=== PATIENT | female | born 1990 | race Caucasian/White ===

== ENCOUNTER 2023-12-03 15:16 | Emergency (ER) | payer MEDICARE, OTHER, SELFPAY ==
[2023-12-03 15:18] VITALS: BP 141/100; BMI 66.0
[2023-12-03 18:25] LABS: % Basophils 0.8 % (0-2); % Eosinophils 4.8 % (0-6); % Immature Granulocytes 0.1 % (0-0.5); % Lymphocytes 21.5 % (20.5-51.1); % Monocytes 7.1 % (1.7-9.3); % Neutrophils 65.7 % (42.2-75.2); Absolute Basophils 0.1 10^3/uL (0-0.2); Absolute Eosinophils 0.4 10^3/uL (0-0.7); Absolute Lymphocytes 1.6 10^3/uL (1.2-3.4); Absolute Monocytes 0.5 10^3/uL (0.1-0.6); Hemoglobin 10.5 g/dL (12.0-16.0); Mean Corp Hgb Conc. 31.8 g/dL (33.0-37.0); Mean Corpuscular Hgb 23.1 pg (27.0-31.0); Mean Corpuscular Volume 72.5 fL (81.0-99.0); Mean Platelet Volume 8.7 fL (7.4-10.4); Nucleated Red Blood Cells % 0 %; Platelet Count 421 10^3/uL (130-400); Red Blood Cell Count 4.55 10^6/uL (4.20-5.40); Red Cell Dist. Width 17.2 % (11.5-14.5); White Blood Cell Count 7.6 10^3/uL (4.8-10.8)
[2023-12-03] MEDS: TORADOL 15 MG IV (19:29)
[2023-12-03 20:07] LABS: ALT (SGPT) 29 U/L (0-35); AST (SGOT) 20 U/L (14-36); Albumin 3.2 g/dl (3.5-5.0); Alkaline Phosphatase 93 U/L (38-126); Blood Urea Nitrogen 10 mg/dl (7-17); Calcium 8.5 mg/dl (8.4-10.2); Carbon Dioxide 22 mmol/L (22-30); Chloride 110 mmol/L (98-107); Estimated Creatinine Clearance > 125 ml/min; Glucose 94 mg/dl (70-99); Potassium 3.3 mmol/L (3.5-5.1); Sodium 135 mmol/L (135-145); Total Bilirubin 0.3 mg/dl (0.2-1.3); Total Protein 6.1 g/dl (6.3-8.2); eGFR > 60.00
[2023-12-03 21:02] LABS: HCG, Serum Qualitative Screen Negative
[2023-12-03] MEDS: DILAUDID 0.5 MG IV (21:09)
--- NOTE | 2023-12-03 22:42 | ED.SKININJ ---
HPI-Injury
General
Chief Complaint: Skin Problem
Source: patient
Exam Limitations: none
Time Seen by Provider: 12/03/23 16:16
Nursing documentation reviewed up to this point in time: agreed with
Travel History
Have you had any contact with someone who has COVID-19?: No
Do you have any symptoms of coronavirus? Fever > 100 degrees, chills, cough, shortness of breath, sore throat, loss of taste or smell, muscle aches, or headache?: No
History of Present Illness-Injury
Is this injury a work related problem?: No
Is pt an associate of [facility]?: No
Initial Injury comments:
Patient sent to ED for evaluation of erythema and swelling to pannus of abdomen, pubis. Patient states symptoms started 2-3 days ago. Denies any fever or chills. Brought to ED via EMS for eval. Currently living at [place]. States she was at
[facility] after suicide attempt. States she was sent to [place] after discharge for rehab. States she is unable to return home.
Past History
Past History
ED Past Medical History: Asthma, GERD, NIDDM, Hypothyroidism and Psychiatric (anxiety, depression)
Review of Systems
Review of Systems
Allergies reviewed?: Yes
All Other Systems: ROS reviewed and negative except as documented in HPI and ROS
Constitutional: Reports no symptoms
EENT: Reports no symptoms
Respiratory: Reports no symptoms
Cardiac: Reports no symptoms
ABD/GI: Reports other (Cellulitis to abdominal pannis)
: Reports no symptoms
Musculoskeletal: Reports no symptoms
Skin: Reports other (erythema of abdominal pannus. Erythema and swelling to pubis)
Neurological: Reports no symptoms
Psychiatric: Reports no symptoms
Phy Exam
General Physical Exam
General Presentation: well appearing and no apparent distress
General age: appears stated age
General Skin: warm and dry
General Habitus: normal
General Mental: alert
Musculoskeletal Exam
Musculoskeletal Exam: neuro vasc intact
Skin Exam
Skin Exam: warm/dry, no rash and other (erythema pain swelling to abdominal pannus and pubis consistent with cellulitis)
Psychiatric Exam
Psychiatric Exam: normal mood/affect
Course
Orders/Labs/Results
Orders:
Orders
12/03/23 18:05
Wound Culture [Wound/Abscess/Other Culture] Urgent
DENNIS Source: Abdomen
Specimen Description:
Date Specimen was Collected: 12/03/23
Time Specimen was Collected: 17:09
12/03/23 18:20
Complete Blood Count/With Diff Urgent
12/03/23 19:20
Ketorolac [Toradol] 15 mg IV NOW STA
12/03/23 19:41
Comprehensive Metabolic Panel Urgent
HCG, Serum Qualitative Screen Urgent
12/03/23 20:22
CT Abd/pelvis W Iv Cont Urgent
Comment:
Reason For Exam: pain erythema pannus, pubis
12/03/23 20:31
Add On- LAB Urgent
Tests Added?: serum hcg- qualitative
12/03/23 20:52
HYDROmorphone [Dilaudid] 0.5 mg IV NOW STA
12/03/23 23:18
CeFAZolin 1 GRAM [Ancef] 1 gram in 5 ml IV NOW
Abnormal Lab Results
12/03/23 12/03/23
18:20 19:41
Hgb 10.5 L g/dL
(12.0-16.0)
Hct 33.0 L %
(37.0-47.0)
MCV 72.5 L fL
(81.0-99.0)
MCH 23.1 L pg
(27.0-31.0)
MCHC 31.8 L g/dL
(33.0-37.0)
RDW 17.2 H %
(11.5-14.5)
Plt Count 421 H 10^3/uL
(130-400)
Potassium 3.3 L mmol/L
(3.5-5.1)
Chloride 110 H mmol/L
(98-107)
Total Protein 6.1 L g/dl
(6.3-8.2)
Albumin 3.2 L g/dl
(3.5-5.0)
12/03/23 18:20
12/03/23 19:41
Vital Signs
Initial and Last Documented VS:
Initial Vital Signs
Temp Pulse Resp BP Pulse Ox
97.4 F 98 20 141/100 98
12/03/23 15:18 12/03/23 15:18 12/03/23 15:18 12/03/23 15:18 12/03/23 15:18
Last Documented Vital Signs
Temp Pulse Resp BP Pulse Ox
97.4 F 87 18 127/74 97
12/03/23 15:18 12/03/23 22:46 12/03/23 22:46 12/03/23 22:46 12/03/23 22:46
*Radiology
Radiology exam reviewed: radiology read reviewed
*Pulse Oximetry
Patient hypoxic: no
*Critical Care Note
Total Time (30-74mins, 75-104mins- exclusive of procedures): Not Applicable
Update Note
Update Note:
Patient remains awake and alert, nontoxic appearing. Afebrile. Labs, CT reviewed. No evidence of abscess. Will give dose of ancef in dept and discharge on Keflex 500mg qid. SHe was given instructions on s/s to return to ED and she is agreeable
to plan. Case discussed with Dr. Mijares who also evaluated this patient, agreeable to plan.
ED Attending Note
-
Portions of this chart may have been created with voice recognition software.� Occasional wrong word or��sound alike� substitutions may have occurred due to the inherent limitations of voice recognition software.
Discharge Plan
Departure
Patient Disposition: Home (Routine Discharge)
Date of Disposition: 12/03/23
Time of Disposition: 22:46
Patient with high blood pressure during this ER visit?: No
Condition: Good
Covid-19: Not Applicable
Discharge Problem:
Cellulitis
Instructions: Cellulitis (Skin Infection), Adult (DC)
Prescriptions:
New
cephalexin 500 mg capsule
500 mg PO Q6H 10 Days Qty: 40 0RF
No Action
Atropine Sulfate 1 % drops
1 drp PO DAILYPRN PRN (Reason: under the tongue for sialorrhea)
furosemide [Lasix] 40 mg Tablet
40 mg PO DAILY
levothyroxine [Synthroid] 175 mcg Tablet
175 mcg PO DAILY
clonidine HCl 0.1 mg Tablet
0.1 mg PO HS
acetaminophen [Tylenol] 325 mg Tablet
650 mg PO Q6HPRN PRN (Reason: mild pain)
polyethylene glycol 3350 [Miralax] 17 gram Powder In Packet
17 g PO BID
cetirizine [Zyrtec] 10 mg Tablet
10 mg PO DAILY
acetazolamide 500 mg Capsule, Extended Release
500 mg PO TID
clozapine 100 mg Tablet
125 mg PO HS
naltrexone 50 mg Tablet
100 mg PO DAILY
hydroxyzine pamoate 50 mg Capsule
50 mg PO Q8HPRN PRN (Reason: anxiety)
Theragen Tablet
1 tab PO DAILY
melatonin 3 mg Tablet
3 mg PO HS
tramadol 50 mg Tablet
100 mg PO Q6HPRN PRN (Reason: moderate pains)
triamcinolone acetonide 0.1 % Cream
1 applic TOPICAL BID
famotidine [Pepcid] 20 mg Tablet
20 mg PO BID
magnesium hydroxide [Milk of Magnesia] 400 mg/5 mL Suspension
2,400 mg PO [id number] PRN (Reason: if no bm on 3rd day)
bisacodyl [Dulcolax (bisacodyl)] 10 mg Suppository
10 mg PA DAILYPRN PRN (Reason: if no bm aftr mom)
ferrous sulfate 325 mg (65 mg iron) Tablet
325 mg PO DAILY
nystatin 100,000 unit/gram Cream
1 applic TOPICAL TID
lidocaine 5 % Adhesive Patch,Medicated
1 patch TOPICAL DAILY
fluticasone propion-salmeterol [Advair Diskus] 500-50 mcg/dose Blister With Device
1 inh INHALATION R BID
Fleet Enema 19-7 gram/118 mL Enema
118 ml PA DAILYPRN PRN (Reason: if no bm aftr dulcolax)
docusate sodium [Colace] 100 mg Capsule
100 mg PO BID
gabapentin 300 mg Capsule
300 mg PO TID
ibuprofen 600 mg Tablet
600 mg PO Q6HPRN PRN (Reason: mild pain)
albuterol sulfate [ProAir HFA] 90 mcg/actuation Hfa Aerosol Inhaler
2 puff INHALATION R Q6HPRN PRN (Reason: sob)
fluoxetine [Prozac] 20 mg Capsule
60 mg PO DAILY
cyclobenzaprine 5 mg Tablet
5 mg PO TID
clozapine 50 mg Tablet
50 mg PO DAILY
Senna Plus 8.6-50 mg Capsule
2 tab-cap PO BID
Mounjaro 2.5 mg/0.5 mL Pen Injector
2.5 mg SC WE
naltrexone 50 mg Tablet
50 mg PO QPM
Referrals:
Shivam Turk, DO [Family Provider] - Tomorrow
Activity Restrictions/Additional Instructions:
Return to the emergency department immediately for fever/chills, increasing pain/redness/swelling to abdomen, or for any further concerns.
Interventions
Interventions:
*Risk Screen - Suicide Last Done: 12/03/23 15:18
*Neglect/Abuse Screening Last Done: 12/03/23 15:18
ED- Fall Risk Assessment Last Done: 12/03/23 15:18
*ED COVID-19 Vaccine History Last Done: 12/03/23 15:18
Discharge Date and Time
Print Language: SERBIAN
[2023-12-03 22:46] VITALS: BP 127/74
[2023-12-03] MEDS: ANCEF 5 IV (23:53)
[2023-12-04] VITALS: BP 109/59
== END 2023-12-04 03:35 | disposition home or self-care (01) ==
LOC: EMR 15:16
PROVIDERS: Emergency Medicine; Nurse Practitioner; EMERGENCY PHYSICIAN Emergency Medicine; FAMILY PHYSICIAN Internal Medicine
DX: L03.311 Cellulitis of abdominal wall (principal)
CPT/HCPCS: 99285; 96374; 96375 ×2; 74177; 80053; 84703; 85025; 87070; 87077; 87205; Q9967

== ENCOUNTER 2023-12-17 03:49 | Inpatient (IN) | payer MEDICARE, OTHER, SELFPAY ==
[2023-12-17] VITALS (7 sets, daily range): BP systolic 97–124; BP diastolic 54–78; BMI 71.2; BMI 68.6
--- NOTE | 2023-12-17 03:05 | DOWNTIME ---
There was a [employer] Client [employer] Lead Downtime on 12/16/2023 from 0100 to 12/17/2023 at 0300. Downtime documentation of patient's care, including medication administrations, has been reconciled in the electronic record per guidelines. Refer to the
patient's paper chart under the miscellaneous tab to see printed paper medication records and downtime forms.
--- NOTE | 2023-12-17 03:16 | HPS.HSE ---
Family Physician
-
Family Physician: Shivam Turk, DO
Chief Complaint
-
skin problem
History of Present Illness
33 y/o F hx of Asthma, HTN, Bipolar d/o, schizoaffective disorder, super morbid obesity, major depression, PTSD, HTN, Hypothyroidism presents to ER with increase pain in her abdominal pannus. She was recent evaluated at ER and diagnosed with
cellulitis � started on Keflex. At Facility, she was also receiving anti-fungal powder. Reports ongoing pain and worsening redness.
In ER, noted to have pannus infection, started on IV Vanco and cultures sent.
Medical History
Past Medical History
Past Medical History: Reports Other (hx of Asthma, HTN, Bipolar d/o, schizoaffective disorder, super morbid obesity, major depression, PTSD, HTN, Hypothyroidism)
Past Surgical History: Reports None
Social History
Alcohol: None
Drug: None
Personal: Single
Living: [facility]
Family History
Family History: Not pertinent
Allergies / Home Medications
Allergies reflects when Allergies were last updated in [facility].
Home Medications with original date entered in [facility]
Allergy/Medication List:
Allergies
Allergy/AdvReac Type Severity Reaction Status Date / Time
bee venom protein (honey bee) Allergy Anaphylaxis Verified 12/17/23 00:38
shellfish derived Allergy Anaphylaxis Verified 12/17/23 00:38
Home Medications
Atropine Sulfate 1 drp PO DAILYPRN PRN under the tongue for sialorrhea 12/03/23
acetaminophen 325 mg tablet (Tylenol) 650 mg PO Q6HPRN PRN mild pain 12/03/23
acetazolamide 500 mg capsule,extended release 500 mg PO TID 12/03/23
albuterol sulfate 90 mcg/actuation aerosol inhaler (ProAir HFA) 2 puff inhalation R Q6HPRN PRN sob 12/03/23
bisacodyl 10 mg rectal suppository (Dulcolax (bisacodyl)) 10 mg MI DAILYPRN PRN if no bm aftr mom 12/03/23
cephalexin 500 mg capsule 500 mg PO Q6H 10 days #40 caps 12/03/23
cetirizine 10 mg tablet (Zyrtec) 10 mg PO DAILY 12/03/23
clonidine HCl 0.1 mg tablet 0.1 mg PO HS 12/03/23
clozapine 100 mg tablet 125 mg PO HS 12/03/23
clozapine 50 mg tablet 50 mg PO DAILY 12/03/23
cyclobenzaprine 5 mg tablet 5 mg PO TID 12/03/23
docusate sodium 100 mg capsule (Colace) 100 mg PO TID 12/03/23
famotidine 20 mg tablet (Pepcid) 20 mg PO BID 12/03/23
ferrous sulfate 325 mg (65 mg iron) tablet 325 mg PO DAILY 12/03/23
fluoxetine 20 mg capsule (Prozac) 60 mg PO DAILY 12/03/23
fluticasone 500 mcg-salmeterol 50 mcg/dose blistr powdr for inhalation (Advair Diskus) 1 inh inhalation R BID 12/03/23
furosemide 40 mg tablet (Lasix) 40 mg PO DAILY 12/03/23
gabapentin 300 mg capsule 300 mg PO TID 12/03/23
hydroxyzine pamoate 50 mg capsule 50 mg PO Q8HPRN PRN anxiety 12/03/23
ibuprofen 600 mg tablet 600 mg PO Q6HPRN PRN mild pain 12/03/23
levothyroxine 175 mcg tablet (Synthroid) 175 mcg PO DAILY 12/03/23
lidocaine 5 % topical patch 2 patch topical DAILY 12/03/23
magnesium hydroxide 400 mg/5 mL oral suspension (Milk of Magnesia) 2,400 mg PO [id number] PRN if no bm on 3rd day 12/03/23
melatonin 3 mg tablet 3 mg PO HS 12/03/23
naltrexone 50 mg tablet 50 mg PO QPM 12/03/23
naltrexone 50 mg tablet 100 mg PO DAILY 12/03/23
nystatin 100,000 unit/gram topical cream 1 applic topical TID groin,breasts 12/03/23
polyethylene glycol 3350 17 gram oral powder packet (Miralax) 17 g PO BID 12/03/23
sennosides 8.6 mg-docusate sodium 50 mg capsule (Senna Plus) 2 tab-cap PO TID 12/03/23
sodium phosphates 19 gram-7 gram/118 mL enema (Fleet Enema) 118 ml MI DAILYPRN PRN if no bm aftr dulcolax 12/03/23
therapeutic multivitamin 1 tab PO DAILY 12/03/23
tirzepatide 2.5 mg/0.5 mL subcutaneous pen injector (Mounjaro) 2.5 mg SC WE 12/03/23
tramadol 50 mg tablet 100 mg PO Q6HPRN PRN moderate pains 12/03/23
triamcinolone acetonide 0.1 % topical cream 1 applic topical BID dermatititits 12/03/23
Review of Systems
-
A 12 point ROS was completed and negative except as noted: Yes
Physical Exam
Vital Signs
Vital Signs
Temp Pulse Resp BP Pulse Ox
97.5 F 90 18 110/78 100
12/17/23 00:27 12/17/23 00:27 12/17/23 00:27 12/17/23 00:27 12/17/23 00:27
Physical Exam
General: Morbidly Obese
HEENT: NormoCephalic and Anicteric
Respiratory: Decreased Breath Sounds; No Wheezes or Rales
Cardiac: S1/S2 and Regular Rhythm
GI: Soft
Skin: Other (cellulitis under large pannus)
Neuro: AO x 3
Psych: Calm
Data Reviewed
-
Lab Data: Labs Reviewed by me
Impression/Plan
-
Assessment:
Severe Cellulitis, under fold of large pannus
- continue IV Vanco, follow cultures
- wound care, ID eval
- likely to be recurrent issue with underlying Obesity
Mild intermittent Asthma
- continue Advair
Essential HTN
- continue clonidine/Lasix
Bipolar d/o
schizoaffective disorder
major depression
PTSD
- continue Acetazolamide, Clozaril, Prozac, Naltrexone
super morbid obesity, BMI >70
Hypothyroidism - continue replacement
DVT ppx: Lovenox
Code: Full
[2023-12-17 03:42] LABS: Lactic Acid 0.9 mmol/L (0.7-2.0)
[2023-12-17 03:43] LABS: ALT (SGPT) 17 U/L (0-35); AST (SGOT) 21 U/L (14-36); Albumin 3.7 g/dl (3.5-5.0); Alkaline Phosphatase 113 U/L (38-126); Blood Urea Nitrogen 15 mg/dl (7-17); Calcium 9.1 mg/dl (8.4-10.2); Carbon Dioxide 21 mmol/L (22-30); Chloride 105 mmol/L (98-107); Estimated Creatinine Clearance > 125 ml/min; Glucose 90 mg/dl (70-99); Potassium 3.7 mmol/L (3.5-5.1); Sodium 136 mmol/L (135-145); Total Bilirubin 0.4 mg/dl (0.2-1.3); Total Protein 6.8 g/dl (6.3-8.2); eGFR > 60.00
[2023-12-17 03:52] LABS: % Basophils 0.7 % (0-2); % Eosinophils 3.8 % (0-6); % Immature Granulocytes 0.1 % (0-0.5); % Lymphocytes 25.9 % (20.5-51.1); % Monocytes 7.5 % (1.7-9.3); Absolute Basophils 0.1 10^3/uL (0-0.2); Absolute Eosinophils 0.3 10^3/uL (0-0.7); Absolute Lymphocytes 1.8 10^3/uL (1.2-3.4); Absolute Monocytes 0.5 10^3/uL (0.1-0.6); Absolute Neutrophils 4.4 10^3/uL (1.4-6.5); Hematocrit 34.8 % (37.0-47.0); Hemoglobin 10.4 g/dL (12.0-16.0); Mean Corp Hgb Conc. 29.9 g/dL (33.0-37.0); Mean Corpuscular Hgb 22.9 pg (27.0-31.0); Mean Corpuscular Volume 76.7 fL (81.0-99.0); Mean Platelet Volume 9.5 fL (7.4-10.4); Nucleated Red Blood Cells % 0 %; Platelet Count 387 10^3/uL (130-400); Red Blood Cell Count 4.54 10^6/uL (4.20-5.40); Red Cell Dist. Width 16.8 % (11.5-14.5)
[2023-12-17] MEDS: ROXICODONE 5 MG PO ×2 (04:04→14:38)
[2023-12-17] MEDS: VANCOCIN 200 IV (04:23)
[2023-12-17] MEDS: SYNTHROID 175 MCG PO (06:18)
[2023-12-17 07:48] LABS: Hematocrit 34.5 % (37.0-47.0); Hemoglobin 10.1 g/dL (12.0-16.0); Mean Corp Hgb Conc. 29.3 g/dL (33.0-37.0); Mean Corpuscular Hgb 22.5 pg (27.0-31.0); Mean Platelet Volume 8.8 fL (7.4-10.4); Platelet Count 336 10^3/uL (130-400); Red Blood Cell Count 4.48 10^6/uL (4.20-5.40); Red Cell Dist. Width 16.6 % (11.5-14.5); White Blood Cell Count 5.8 10^3/uL (4.8-10.8)
[2023-12-17] MEDS: ADVAIR HFA 230/21 MCG INHALER 2 PUFF INH ×2 (07:51→20:57)
[2023-12-17] MEDS: FLEXERIL 5 MG PO ×3 (08:07→21:31)
[2023-12-17] MEDS: REVIA 100 MG PO (08:07)
[2023-12-17] MEDS: FEOSOL 325 MG PO (08:08)
[2023-12-17] MEDS: DIAMOX SR SEQUELS 500 MG PO ×2 (08:08→17:12)
[2023-12-17] MEDS: CLOZARIL 50 MG PO (08:08)
[2023-12-17] MEDS: SENOKOT-S 2 TABLET PO ×3 (08:08→21:32)
[2023-12-17] MEDS: LOVENOX 60 MG SC ×2 (08:08→21:33)
[2023-12-17] MEDS: PEPCID 20 MG PO ×2 (08:08→21:32)
[2023-12-17] MEDS: ULTRAM 100 MG PO (08:13)
[2023-12-17] MEDS: PROZAC 60 MG PO (08:13)
[2023-12-17] MEDS: ZYRTEC 10 MG PO (08:13)
[2023-12-17 08:21] LABS: Blood Urea Nitrogen 12 mg/dl (7-17); Calcium 8.9 mg/dl (8.4-10.2); Carbon Dioxide 20 mmol/L (22-30); Chloride 110 mmol/L (98-107); Estimated Creatinine Clearance > 125 ml/min; Glucose 98 mg/dl (70-99); Potassium 3.6 mmol/L (3.5-5.1); Sodium 139 mmol/L (135-145); eGFR > 60.00
--- NOTE | 2023-12-17 09:15 | PHA.VAN.IN ---
Assessment
- Assessment
Renal Function: Appears similar to baseline
AUC Dosing Plan
- Dosing Variables
Dosing Weight (kg): 199
Dosing CrCl (ml/min): 125
Vd coefficient (L/kg): 0.4
Patient unlikely to follow population PK given weight and age
- Empiric Dosing
Initial / Loading Dose: 1000mg - 12/16 04:23 (unclear if patient had additional 1g during downtime)
Maintenance Regimen: Vanc 1250mg Q8H starting at 2200
Estimated AUC (mcg*h/mL): 471
Estimated Peak (mcg*h/mL): 27.1
Estimated Trough (mcg/ml): 13.4
Estimated Half Life (H): 6.4
Give 1500mg x1 at 1400 as patient may not have been fully loaded
- Monitoring
No levels ordered at this time: consider levels in next few days
Pharmacokinetics Vancomycin I
- -
Patient Age: 33
Patient Sex: Female
Vancomycin Day #: 1
Indication: Skin And Soft Tissue
Requesting Provider: Dr. Blake
Pertinent Antimicrobial Allergies:
NKDA
Height / Weight:
Height 5 ft 7 in
Actual Weight 198.5 kg
Pertinent Past Medical History: BMI ~68.5
- Vital Signs / Lab Results
Temp Pulse Resp BP Pulse Ox
97.7 F 84 16 124/77 99
12/17/23 04:42 12/17/23 07:58 12/17/23 07:58 12/17/23 04:42 12/17/23 07:58
Lab Results - Hematology
12/17/23 12/17/23
01:30 07:28
WBC 7.0 5.8
Lab Results - Chemistry
12/17/23 12/17/23
01:30 07:28
BUN 15 12
Creatinine 0.9 0.8
Estimated Creat Clear > 125 > 125
Albumin 3.7
12/17/23
01:30
Lactic Acid 0.9
[2023-12-17] MEDS: LASIX 40 MG PO (09:25)
--- NOTE | 2023-12-17 10:10 | WOUNDNOTE ---
[facility] RN note: Patient admitted with abdominal cellulitis, increased pain in pannus with redness in skin creases. Patient resides at [facility].
See H&P for complete history.
PMH: Asthma, HTN, bipolar, morbid obesity, major depression, PTSD, yeast rash in skin folds.
Wound Location and type/assessment: Patient admitted with: Yeasty appearing red rash with MASD in abdominal/groin folds, breast folds, back skin crease.
Appetite: on regular diet.
Pressure redistribution devices in place: Bariatric Total care air bed. She turns self in bed. She ambulates with walker at [facility].
Plan: Cleansed abdominal/groin, breast folds, patted dry. Miconazole powder applied, tucked folded pillow cases in abdominal folds and non woven gauze in breast folds.
Will confirm orders with hospitalist and discussed with LAKESHIA Celeste.
Care plan to be updated and will follow as needed.
[2023-12-17] MEDS: VANCOCIN 300 ML IV (14:38)
[2023-12-17] MEDS: VANCOCIN 300 MG IV (14:38)
--- NOTE | 2023-12-17 14:43 | CM ---
Patient seen bedside.
IA completed.
Patient from [facility].
Per patient she has been there approximately 3 weeks.
Patient ambulates with a RW prior to admission.
Independent prior to admission.
Patient stated she was in [facility] prior to [facility].
Patient plans on returning to [facility] post admission.
Spoke with Birgit from [facility], will accept back.
Referral via [facility].
[facility]
Report# [phone] x [phone]- 2nd floor
[2023-12-17] MEDS: REVIA 50 MG PO (17:12)
--- NOTE | 2023-12-17 17:19 | CON.ID ---
Chief Complaint / Past History
Chief Complaint
rash
History of Present Illness
Ms Rome is a 33 year old female with history of schizoaffective disorder, class III obesity with BMI 69 who presented here today for pain in the abdominal panus despite desenex powder. There is no wound. There is induration with a serpiginous
border under the panus. She does report previous trial of flucaonzole but is not sure of the dose.
Since arrival here she has been afebrile, bp stable, wbc 5.8, cr 0.8, blood cultures x2 in progress, note 'wound' culture from below the panus on 12/02 that is polymicrobial: PSA, E coli, 2nd GNR, enterococcus, diptheroid- again there is no current
wound and patient denies a previous wound. Currently on vancomycin.
Past History
Additional Past Medical History:
hx of Asthma, HTN, Bipolar d/o, schizoaffective disorder, super morbid obesity, major depression, PTSD, HTN, Hypothyroidism)
Past Surgical History: None
Allergy History:
bee venom protein (honey bee) Allergy (Verified 12/17/23 00:38)
Anaphylaxis
shellfish derived Allergy (Verified 12/17/23 00:38)
Anaphylaxis
Medications Reviewed: Yes
Social History
Tobacco: Non-Smoker
Alcohol: None
Drug: None
Family History
Family History: Not Pertinent
Review of Systems
Review of Systems
General: Negative Fever or Chills
All systems: All other systems were reviewed and were negative
Vital Signs
Temp Pulse Resp BP Pulse Ox
98.1 F 84 14 112/68 100
12/17/23 16:00 12/17/23 16:00 12/17/23 16:00 12/17/23 16:00 12/17/23 16:00
Physical Exam
Physical Exam
Constitutional: No Acute Distress
Cardiovascular: Regular Rate and S1/S2; Negative Murmur or Rub
Pulmonary: Clear and Symmetric; Negative Wheezes, Rales or Rhonchi
Gastrointestinal: Soft, Non Tender, Non Distended and Normal Bowel Sounds
Skin: Warm, Dry and Other (below the panus yeasty odor red indurated skin, no wounds, serpiginous border); Negative Rash or Jaundice
Neurological: Awake
Lab / Diagnostic Study Results
12/17/23 07:28
12/17/23 07:28
Abs Immat Gran (auto) 0.0 10^3/uL (0-0.05) 12/17/23 01:30
Absolute Neuts (auto) 4.4 10^3/uL (1.4-6.5) 12/17/23 01:30
Absolute Lymphs (auto) 1.8 10^3/uL (1.2-3.4) 12/17/23 01:30
Absolute Monos (auto) 0.5 10^3/uL (0.1-0.6) 12/17/23 01:30
Absolute Basos (auto) 0.1 10^3/uL (0-0.2) 12/17/23 01:30
Immature Gran % 0.1 % (0-0.5) 12/17/23 01:30
Neutrophils % 62.0 % (42.2-75.2) 12/17/23 01:30
Lymphocytes % 25.9 % (20.5-51.1) 12/17/23 01:30
Monocytes % 7.5 % (1.7-9.3) 12/17/23 01:30
Eosinophils % 3.8 % (0-6) 12/17/23 01:30
Basophils % 0.7 % (0-2) 12/17/23 01:30
Lactic Acid 0.9 mmol/L (0.7-2.0) 12/17/23 01:30
Microbiology Results
Micro:
12/17/23 04:21 Blood Culture - Pending
Blood/Venous
12/17/23 02:00 Blood Culture - Pending
Blood/Venous
Assessment / Plan
Severe, Chronic Intertrigo
Class III + obesity
- started amanuel outpatient, s/p 1 dose
- Pseudotumor cerebri
- previous 'wound' culture is colonization - there is no ina wound to culture
- exam most consistent wiht chronic intertrigo
- keeping the skin clean and dry a challenge given her body habitus
- check QTC
- start micafungin for tonight if vascular access feasible, likely switch to fluconazole pending qtc; topical therapy also acceptable for the evening if unable to obtain vascular access - desenex started
- likely stable for dc in the next 24-48 hrs; improvement of erythema is likely to be slow.
--- NOTE | 2023-12-17 18:45 | PTCARENOTE ---
Patient stated, 'I don't want to be here, I suffer from pica and self-inflicted harm. I like to eat metal, I've eaten scissors before and I'm getting to the point where I'm going to hurt myself,' to the PCT. PCT reported to RN. RN notified MD and
went to assess the patient. Patient vehemently denied stating she�s getting to the point of wanting to hurt herself. The PCT who she stated this to at the bedside with RN for clarification. Patient stated no intent to harm herself but stated
feelings of anxiety. MD ordered Medsitter to monitor patient. RVM initiated and patient educated on rationale for med sitter. No further needs assessed at this time.
[2023-12-17] MEDS: CLOZARIL 100 MG PO (21:31)
[2023-12-17] MEDS: MYCAMINE 115 MG IV (21:34)
[2023-12-17] MEDS: CLOZARIL 25 MG PO (21:36)
[2023-12-17] MEDS: DESENEX/MITRAZOL/ZEASORB 1 APPLIC TOPICAL (23:03)
[2023-12-17] MEDS: DIAMOX SR SEQUELS PO (23:05)
[2023-12-18] MEDS: ROXICODONE 5 MG PO (03:46)
[2023-12-18] MEDS: SYNTHROID 175 MCG PO (03:46)
[2023-12-18 07:00] VITALS: BP 111/78
[2023-12-18] MEDS: ADVAIR HFA 230/21 MCG INHALER 2 PUFF INH (07:58)
--- NOTE | 2023-12-18 08:47 | W.PN.HOSP.TC ---
Today's Communication/Plan
-
discharge post psych eval
Assessment / Plan
Assessment / Plan
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
Cellulitis ruled out
- discontinued further abx
- getting micafungin IV, will be transitioned to oral fluconazole
- continue skin dried as possible
- likely to be recurrent issue with underlying Obesity
Suicidal ideation
- patient commented things to harm herself yesterday
- psychiatry clearance requested
Mild intermittent Asthma
- continue Advair
Essential HTN
- continue clonidine/Lasix
Bipolar d/o
schizoaffective disorder
major depression
PTSD
- continue Acetazolamide, Clozaril, Prozac, Naltrexone
super morbid obesity, BMI >70
Hypothyroidism
- continue replacement
DVT ppx: Lovenox
Code: Full
Anticipated Discharge: Today
Subjective/Interval History
-
Date of Service: December 18, 2023
patient denies of having any sucidial ideation
wants to go back to [facility]
have itching around the abdomen
no other issues reported
Objective Data
-
Vital Signs:
Vital Signs
Temp Pulse Resp BP Pulse Ox
98.2 F 82 16 97/54 98
12/17/23 22:49 12/18/23 08:02 12/18/23 08:02 12/17/23 22:49 12/18/23 08:02
I&O
12/17/23 12/18/23 12/19/23
06:59 06:59 06:59
Intake Total 1200 / 1200 2280 / 2280
Output Total 1700 / 1700 5200 / 5200
Balance -500 / -500 -2920 / -2920
Review of Systems
-
Respiratory: Reports No Symptoms
Cardiac: Reports No Symptoms
Abdomen/GI: Reports No Symptoms
Physical Exam
-
General: No Apparent Distress and Morbidly Obese
HEENT: Negative Oxygen
GI: Soft, Nontender and Nondistended
Skin: Other (Diffuse erythema with macular rash beneath abdominal panus and breast)
Neuro: Awake, Alert and Oriented
Psych: Calm
[2023-12-18] MEDS: PROZAC 60 MG PO (09:03)
[2023-12-18] MEDS: DIAMOX SR SEQUELS 500 MG PO ×2 (09:04→15:17)
[2023-12-18] MEDS: ZYRTEC 10 MG PO (09:05)
[2023-12-18] MEDS: REVIA 100 MG PO (09:05)
[2023-12-18] MEDS: PEPCID 20 MG PO (09:05)
[2023-12-18] MEDS: FEOSOL 325 MG PO (09:05)
[2023-12-18] MEDS: SENOKOT-S 2 TABLET PO ×2 (09:06→15:16)
[2023-12-18] MEDS: DESENEX/MITRAZOL/ZEASORB 1 APPLIC TOPICAL (09:07)
[2023-12-18] MEDS: CLOZARIL 50 MG PO (09:07)
[2023-12-18] MEDS: LASIX 40 MG PO (09:07)
[2023-12-18] MEDS: FLEXERIL 5 MG PO ×2 (09:08→15:15)
--- NOTE | 2023-12-18 09:12 | W.PN.UPDATE ---
Update Note
Progress Note Update
Notified of patient request for DC which is reasonable.
QTc 460.
Loading dose of fluconazole 1200 mg now, then 800 mg PO qday x2 weeks
hold atarax while on fluconazole, continue cetirizine
Repeat EKG tomorrow afternoon and send copy to my office.
If not resolved in two weeks provider can reach out to my office to discuss with me at [phone] or an appointment can be arranged. I recognize that transportation may be difficult.
[2023-12-18] MEDS: LOVENOX 60 MG SC (09:14)
[2023-12-18] MEDS: DIFLUCAN 1200 MG PO (09:17)
--- NOTE | 2023-12-18 09:49 | CM ---
Addendum entered by Leonila Houston 12/18/23 11:15:
Spoke with Felipa at [facility], she is okay with the fact patient was on a med sitter.
Text felipa at [phone] with transport time.
[facility]
Report# [phone] x [phone]- 2nd floor
Corrected
Original Note:
Patient seen bedside.
Patient currently on Med sitter, await psychiatry evaluation.
Per patient plan back to [facility] today.
Per patient planned giving officer is on the way to see her.
TC to [facility] Birgit, await TCB.
Patient has indwelling Blum cath.
Patient cintia require ambulance transport forms on chart.
plan: [facility] when medically cleared and cleared by [facility] for return.
[facility]
Report# [phone] x [phone]- 2nd floor
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
[2023-12-18 12:02] LABS: Glycohemoglobin (HgbA1c) 5.7 % (4.0-5.6)
[2023-12-18 15:00] VITALS: BP 110/70
--- NOTE | 2023-12-18 16:09 | W.PN.ID1 ---
Date of Service
Date of Service: December 18, 2023
Today's Communication
- switch to fluconazole, 1200 mg today, then 800 mg moving forward - this is on the low end for her BMI. She is already responding. I can see patient in clinic in 2 weeks if not fully resolved by that time.
- EKG tomorrow afternoon to reassess qtc; note she is on other agents that impact qtc. hold atarax while on fluconazole, cetirizine an acceptable alternative.
Assessment / Plan
Severe, Chronic Intertrigo
Class III + obesity
- started amanuel outpatient, s/p 1 dose
- Pseudotumor cerebri
- previous 'wound' culture is colonization - there is no ina wound to culture
- exam and clinical response most consistent with chronic intertrigo
- keeping the skin clean and dry a challenge given her body habitus but emphasized to patient as it will impact her outcome
- check QTC
- switch to fluconazole, 1200 mg today, then 800 mg moving forward - this is on the low end for her BMI. She is already responding. I can see patient in clinic in 2 weeks if not fully resolved by that time.
- EKG tomorrow afternoon to reassess qtc; note she is on other agents that impact qtc. hold atarax while on fluconazole, cetirizine an acceptable alternative.
Chief Complaint
-: Other (intertrigo)
Subjective / Review of Systems
afebrile
bp stable
pruritus noted
reports much less tenderness/erythema below the pannus
Vital Signs / Physical Exam
Vital Signs
Vital Signs
Temp Pulse Resp BP Pulse Ox
97.6 F 96 18 118/86 96
12/18/23 15:00 12/18/23 15:00 12/18/23 15:00 12/18/23 15:17 12/18/23 15:00
Physical Exam
Constitutional: No Acute Distress and Comfortable
Cardiovascular: Regular Rate and S1/S2; Negative Murmur or Rub
Pulmonary: Clear and Symmetric; Negative Wheezes or Rales
Gastrointestinal: Soft, Non Tender, Non Distended and Normal Bowel Sounds
Skin: Warm, Dry and Other (much improved erythema below the panus); Negative Jaundice
Objective Data
Lab Data
Lab Results
12/17/23 07:28
12/17/23 07:28
Estimated Creat Clear > 125 ml/min 12/17/23 07:28
Lactic Acid 0.9 mmol/L (0.7-2.0) 12/17/23 01:30
Total Bilirubin 0.4 mg/dl (0.2-1.3) 12/17/23 01:30
AST 21 U/L (14-36) 12/17/23 01:30
ALT 17 U/L (0-35) 12/17/23 01:30
Alkaline Phosphatase 113 U/L (38-126) 12/17/23 01:30
Most recent labs reviewed.
Micro Results:
12/17/23 04:21 Blood Culture - Preliminary
Blood/Venous No Growth in 24 hours- Final report to follow
12/17/23 02:00 Blood Culture - Preliminary
Blood/Venous No Growth in 24 hours- Final report to follow
Care Review
Plan reviewed with: Physician (Dr Skaggs)
--- NOTE | 2023-12-21 15:31 | W.DCSUMMARY ---
Discharge Summary
Discharge Data
Date of Admission: 12/17/23
Date of Discharge: 12/18/23
-
Pending Results: No
Hospital Course
Discharging Physician : Dr Serafin Skaggs
Disposition : SNF
Primary care physician : Shivam Turk, DO
Principal Discharge diagnosis :
Severe intertrigo
Suicidal ideation
Chronic Discharge diagnosis :
Mild intermittent asthma
Essential hypertension
History of bipolar disorder
Schizoaffective disorder
Major depression
Posttraumatic stress disorder
Morbid obesity
Hypothyroidism
Hospital Course :
Patient is a 33-year-old female with above-mentioned past medical history was sent from facility after patient was noted to having worsening lower abdominal pain and skin erythema. Patient was recently with evaluated in ER and was being treated
for cellulitis with Keflex therapy. Due to known resolution of symptoms patient was sent in for repeat evaluation. Infection disease physicians were involved in care and skin findings felt to be fungal infection/intertrigo. Patient was given IV
micafungin followed by fluconazole therapy at discharge. Patient will require to have a follow-up EKG at the facility to monitor for any QTc progression. Unfortunately this will likely be a somewhat of her recurrent issue with patient body
habitus/obesity. Wound care was involved in care and skin care instructions were added to patient discharge directions.
Patient also had reportedly some suicidal ideation and was evaluated by psychiatry. Patient was cleared by psychiatry to be discharged back to [facility].
Important imaging findings :
None
Procedure findings :
None
Discharge Plan
-
Patient Disposition: Snf/SNF
Discharge Diagnosis/Procedures: sev intertigo
Condition: Fair
Diet: Low Fat and 2 Gram Sodium
Activity: As tolerated
Driving Restrictions: No driving
Bathing Restrictions: OK to Shower
Others Tests: EKG tomorrow for QTc measurement and Fax to Dr Haji's office
Activity Restrictions/Additional Instructions:
Wound Care Instructions
Abdominal/groin fold rash, breast fold rash and lower back crease rash-clean with Vashe wound cleanser (use soap and water if Vashe is unavailable) at least daily, pat dry, Miconazole powder bid, antifungal ointment bid prn open skin fold areas,
tuck folded pillow case under abdominal pannus and tuck non woven gauze in other affected skin creases as needed to keep skin off skin at folds.
Follow up with reverse engineer if needed.
Referrals:
Shivam Turk DO [Family Provider] - in one week
Gladis Haji MD [Active] - (Call [phone] to discuss in two weeks if not improved)
Prescriptions:
New
Critic-Aid Clear AF(miconazol) 2 % Ointment
1 applic topical BID Qty: 684 0RF
fluconazole 200 mg Tablet
800 mg PO DAILY Qty: 14 0RF
Rx Instructions:
For 2 weeks
Continued
Atropine Sulfate 1 % drops
1 drp PO DAILYPRN PRN (Reason: under the tongue for sialorrhea)
furosemide [Lasix] 40 mg Tablet
40 mg PO DAILY
levothyroxine [Synthroid] 175 mcg Tablet
175 mcg PO DAILY
clonidine HCl 0.1 mg Tablet
0.1 mg PO HS
acetaminophen [Tylenol] 325 mg Tablet
650 mg PO Q6HPRN PRN (Reason: mild pain)
polyethylene glycol 3350 [Miralax] 17 gram Powder In Packet
17 g PO BID
cetirizine [Zyrtec] 10 mg Tablet
10 mg PO DAILY
acetazolamide 500 mg Capsule, Extended Release
500 mg PO TID
clozapine 100 mg Tablet
125 mg PO HS
naltrexone 50 mg Tablet
100 mg PO DAILY
therapeutic multivitamin Tablet
1 tab PO DAILY
melatonin 3 mg Tablet
3 mg PO HS
tramadol 50 mg Tablet
100 mg PO Q6HPRN PRN (Reason: moderate pain )
triamcinolone acetonide 0.1 % Cream
1 applic TOPICAL BID
famotidine [Pepcid] 20 mg Tablet
20 mg PO BID
magnesium hydroxide [Milk of Magnesia] 400 mg/5 mL Suspension
2,400 mg PO D10HQIV PRN (Reason: if no bm on 3rd day)
bisacodyl [Dulcolax (bisacodyl)] 10 mg Suppository
10 mg NH DAILYPRN PRN (Reason: if no bm aftr mom)
ferrous sulfate 325 mg (65 mg iron) Tablet
325 mg PO DAILY
nystatin 100,000 unit/gram Cream
1 applic TOPICAL TID
lidocaine 5 % Adhesive Patch,Medicated
2 patch TOPICAL DAILY
fluticasone propion-salmeterol [Advair Diskus] 500-50 mcg/dose Blister With Device
1 inh INHALATION R BID
Fleet Enema 19-7 gram/118 mL Enema
118 ml NH DAILYPRN PRN (Reason: if no bm aftr dulcolax)
docusate sodium [Colace] 100 mg Capsule
100 mg PO TID
gabapentin 300 mg Capsule
300 mg PO TID
ibuprofen 600 mg Tablet
600 mg PO Q6HPRN PRN (Reason: mild pain)
albuterol sulfate [ProAir HFA] 90 mcg/actuation Hfa Aerosol Inhaler
2 puff INHALATION R Q6HPRN PRN (Reason: sob)
fluoxetine [Prozac] 20 mg Capsule
60 mg PO DAILY
cyclobenzaprine 5 mg Tablet
5 mg PO TID
clozapine 50 mg Tablet
50 mg PO DAILY
Senna Plus 8.6-50 mg Capsule
2 tab-cap PO TID
Mounjaro 2.5 mg/0.5 mL Pen Injector
2.5 mg SC WE
naltrexone 50 mg Tablet
50 mg PO QPM
cephalexin 500 mg capsule
500 mg PO Q6H 10 Days Qty: 40 0RF
Held
hydroxyzine pamoate 50 mg Capsule
50 mg PO Q8HPRN PRN (Reason: anxiety)
Hold Instructions: Resume on 01/01/24. HOLD WHILE ON FLUCONAZOLE
Discharge Orders:
Discharge Patient (As Directed); Ordered 12/18/23
Ordered By: Serafin Skaggs
Discharge Date and Time
Discharge Date/Time: 12/18/23 17:34
Print Language: TRINIDADIAN
== END 2023-12-18 17:34 | DRG 607 ==
LOC: 4 WEST ACU 03:49
PROVIDERS: ADMITTING PHYSICIAN Internal Medicine; ATTENDING PHYSICIAN Hospitalist; CONSULT PHYSICIAN Student in an Organized Health Care Education/Training Program; EMERGENCY PHYSICIAN Emergency Medicine; FAMILY PHYSICIAN Internal Medicine; OTHER PHYSICIAN Psychiatry & Neurology Psychiatry
DX: L30.4 Erythema intertrigo (principal); Z68.45 Body mass index [BMI] 70 or greater, adult; R45.851 Suicidal ideations; I10 Essential (primary) hypertension; F31.9 Bipolar disorder, unspecified; F25.9 Schizoaffective disorder, unspecified; E66.01 Morbid (severe) obesity due to excess calories; F43.10 Post-traumatic stress disorder, unspecified; E03.9 Hypothyroidism, unspecified; J45.20 Mild intermittent asthma, uncomplicated; G93.2 Benign intracranial hypertension; Z91.030 Bee allergy status; Z91.013 Allergy to seafood; Z79.51 Long term (current) use of inhaled steroids; Z79.890 Hormone replacement therapy; Z91.51 Personal history of suicidal behavior; Z62.810 Personal history of physical and sexual abuse in childhood
CPT/HCPCS: 80048; 80053; 83036; 83605; 85025; 85027; 87040; 93005; 94640; 96365; 99284

== ENCOUNTER 2023-12-30 04:41 | Emergency (ER) | payer MEDICARE, OTHER, SELFPAY ==
[2023-12-30 04:48] VITALS: BP 101/57; BMI 69.8
--- NOTE | 2023-12-30 04:54 | ED.GENMED ---
History of Present Illness
General
Chief Complaint: Back Pain
Source: patient and ambulance crew
Exam Limitations: none
Time Seen by Provider: 12/30/23 04:54
Nursing documentation reviewed up to this point in time: agreed with
Travel History
Have you had any contact with someone who has COVID-19?: No
Do you have any symptoms of coronavirus? Fever > 100 degrees, chills, cough, shortness of breath, sore throat, loss of taste or smell, muscle aches, or headache?: No
History of Present Illness
History of Present Illness:
33-year-old female presents with acute on chronic low back pain. Patient has history of chronic low back pain and takes Suboxone for it. She states that she is due for her next Suboxone administration at 8 AM. Given the fact that she takes
Suboxone and has a history of substance abuse disorder as well as traumatic brain injury, no narcotic pain medications will be administered here in the emergency department at this time. Patient did agree to a Toradol shot which appears to be
working to help control her pain
Past History
Past History
ED Past Medical History: Asthma, GERD, NIDDM, Hypothyroidism and Psychiatric (anxiety, depression)
Phy Exam
General Physical Exam
General Presentation: no apparent distress
General age: appears older than age
General Skin: warm
General Habitus: debilitated, obese and poor hygiene
General Mental: anxious
General Hydration: appears well hydrated
Cardiovascular Exam
Cardiovascular Exam: regular rate/rhythm
Pulmonary Exam
Pulmonary Exam: lungs clear
Cough: no cough
Gastrointestinal Exam
Gastrointestinal Exam: normal bowel sounds and non tender
Palpation: generalized: No tenderness
Neurological Exam
Neurological Exam: alert and oriented x3
Musculoskeletal Exam
Musculoskeletal Exam: full ROM and neuro vasc intact
Skin Exam
Skin Exam: normal color
Psychiatric Exam
Psychiatric Exam: normal mood/affect
Course
Orders/Labs/Results
Orders:
Orders
12/30/23 04:54
Ketorolac [Toradol] 60 mg IM NOW STA
Vital Signs
Initial and Last Documented VS:
Initial Vital Signs
Temp Pulse BP Pulse Ox
98.0 F 84 101/57 98
12/30/23 04:48 12/30/23 04:48 12/30/23 04:48 12/30/23 04:48
Last Documented Vital Signs
Temp Pulse BP Pulse Ox
98.0 F 92 114/85 95
12/30/23 04:48 12/30/23 05:32 12/30/23 05:32 12/30/23 05:32
*Critical Care Note
Total Time (30-74mins, 75-104mins- exclusive of procedures): Not Applicable
Update Note
Update Note:
12/30/2023 0621 AM: Patient resting comfortably after Toradol administration. Awaiting ride home.
ED Attending Note
-
Portions of this chart may have been created with voice recognition software.� Occasional wrong word or��sound alike� substitutions may have occurred due to the inherent limitations of voice recognition software.
Discharge Plan
Departure
Patient Disposition: Halfway/SNF
Date of Disposition: 12/30/23
Time of Disposition: 06:05
Discharge Problem:
Chronic lower back pain, Morbid obesity
Instructions: Low Back Pain (DC)
Prescriptions:
No Action
Atropine Sulfate 1 % drops
1 drp PO DAILYPRN PRN (Reason: under the tongue for sialorrhea)
furosemide [Lasix] 40 mg Tablet
40 mg PO DAILY
levothyroxine [Synthroid] 175 mcg Tablet
175 mcg PO DAILY
clonidine HCl 0.1 mg Tablet
0.1 mg PO HS
acetaminophen [Tylenol] 325 mg Tablet
650 mg PO Q6HPRN PRN (Reason: mild pain)
polyethylene glycol 3350 [Miralax] 17 gram Powder In Packet
17 g PO BID
cetirizine [Zyrtec] 10 mg Tablet
10 mg PO DAILY
acetazolamide 500 mg Capsule, Extended Release
500 mg PO TID
clozapine 100 mg Tablet
125 mg PO HS
naltrexone 50 mg Tablet
100 mg PO DAILY
hydroxyzine pamoate 50 mg Capsule
50 mg PO Q8HPRN PRN (Reason: anxiety)
Hold Instructions: Resume on 01/01/24. HOLD WHILE ON FLUCONAZOLE
therapeutic multivitamin Tablet
1 tab PO DAILY
melatonin 3 mg Tablet
3 mg PO HS
tramadol 50 mg Tablet
100 mg PO Q6HPRN PRN (Reason: moderate pain )
triamcinolone acetonide 0.1 % Cream
1 applic TOPICAL BID
famotidine [Pepcid] 20 mg Tablet
20 mg PO BID
magnesium hydroxide [Milk of Magnesia] 400 mg/5 mL Suspension
2,400 mg PO [id number] PRN (Reason: if no bm on 3rd day)
bisacodyl [Dulcolax (bisacodyl)] 10 mg Suppository
10 mg NV DAILYPRN PRN (Reason: if no bm aftr mom)
ferrous sulfate 325 mg (65 mg iron) Tablet
325 mg PO DAILY
nystatin 100,000 unit/gram Cream
1 applic TOPICAL TID
lidocaine 5 % Adhesive Patch,Medicated
2 patch TOPICAL DAILY
fluticasone propion-salmeterol [Advair Diskus] 500-50 mcg/dose Blister With Device
1 inh INHALATION R BID
Fleet Enema 19-7 gram/118 mL Enema
118 ml NV DAILYPRN PRN (Reason: if no bm aftr dulcolax)
docusate sodium [Colace] 100 mg Capsule
100 mg PO TID
gabapentin 300 mg Capsule
300 mg PO TID
ibuprofen 600 mg Tablet
600 mg PO Q6HPRN PRN (Reason: mild pain)
albuterol sulfate [ProAir HFA] 90 mcg/actuation Hfa Aerosol Inhaler
2 puff INHALATION R Q6HPRN PRN (Reason: sob)
fluoxetine [Prozac] 20 mg Capsule
60 mg PO DAILY
cyclobenzaprine 5 mg Tablet
5 mg PO TID
clozapine 50 mg Tablet
50 mg PO DAILY
Senna Plus 8.6-50 mg Capsule
2 tab-cap PO TID
Mounjaro 2.5 mg/0.5 mL Pen Injector
2.5 mg SC WE
naltrexone 50 mg Tablet
50 mg PO QPM
cephalexin 500 mg capsule
500 mg PO Q6H 10 Days Qty: 40 0RF
Critic-Aid Clear AF(miconazol) 2 % Ointment
1 applic topical BID Qty: 684 0RF
fluconazole 200 mg Tablet
800 mg PO DAILY Qty: 14 0RF
Rx Instructions:
For 2 weeks
Referrals:
Shivam Turk, [Family Provider] -
Interventions
Interventions:
*Risk Screen - Suicide Last Done: 12/30/23 04:48
*General Assessment Last Done: 12/30/23 04:48
*Neglect/Abuse Screening Last Done: 12/30/23 04:48
ED- Fall Risk Assessment Last Done: 12/30/23 04:58
*ED COVID-19 Vaccine History Last Done: 12/30/23 04:48
ED-Musculoskeletal Assessment Last Done: 12/30/23 04:58
Discharge Date and Time
Print Language: PANAMANIAN
[2023-12-30] MEDS: TORADOL 60 MG IM (05:06)
--- NOTE | 2023-12-30 05:15 | EDRN ---
Patient asked for a warm blanket and for lights to be turned down, states 'im gonna take a nap' call roach in reach
[2023-12-30 05:32] VITALS: BP 114/85
[2023-12-30 07:00] VITALS: BP 118/69
[2023-12-30 07:20] VITALS: BP 118/69
--- NOTE | 2023-12-30 09:36 | EDRN ---
the pt is resting in stretcher in the lowest position, side rails up x2, call roach within reach, HOB elevated, no s/s of distress, no complaints offered, the pt states that she is comfortable, awaiting for transport to arrive to take the pt back to
facility, will continue to monitor the pt closely
[2023-12-30 10:50] VITALS: BP 135/81
== END 2023-12-30 10:51 ==
LOC: EMR 04:41
PROVIDERS: EMERGENCY PHYSICIAN Student in an Organized Health Care Education/Training Program; FAMILY PHYSICIAN Internal Medicine
DX: G89.29 Other chronic pain (principal); M54.50 Low back pain, unspecified; E66.01 Morbid (severe) obesity due to excess calories; J45.909 Unspecified asthma, uncomplicated; K21.9 Gastro-esophageal reflux disease without esophagitis; E11.9 Type 2 diabetes mellitus without complications; E03.9 Hypothyroidism, unspecified; F41.8 Other specified anxiety disorders; Z87.820 Personal history of traumatic brain injury
CPT/HCPCS: 99282; 96372

== ENCOUNTER 2024-01-18 23:43 | Inpatient (IN) | payer MEDICARE, OTHER, SELFPAY ==
[2024-01-18] VITALS (8 sets, daily range): BP systolic 120–144; BP diastolic 62–95
--- NOTE | 2024-01-18 18:46 | ED.GENMED ---
History of Present Illness
General
Chief Complaint: Abdominal Pain
Source: patient
Time Seen by Provider: 01/18/24 18:36
Travel History
Have you had any contact with someone who has COVID-19?: No
Do you have any symptoms of coronavirus? Fever > 100 degrees, chills, cough, shortness of breath, sore throat, loss of taste or smell, muscle aches, or headache?: No
History of Present Illness
History of Present Illness:
This patient is a 33-year-old female presents emergency department after ingesting a thumbtack about 1 hour ago. She says she now has mild epigastric discomfort. She denies nausea or vomiting, fever or chills, chest pain, shortness of breath. She
is hungry. Patient denies other complaints
Past History
Past History
ED Past Medical History: Asthma, GERD, NIDDM, Hypothyroidism and Psychiatric (anxiety, depression)
Social History
Tobacco: Non-smoker
Drug: None
Living: jail
Employment: Disabled
Phy Exam
Physical Exam
Physical Exam:
GENERAL: Alert , in no apparent distress, obese
EYE: pupils equal and reactive
NECK: Supple, no significant adenopathy.
ENT: o/p clr, mmm.
CARDIAC: Regular rate and rhythm .
LUNGS: Clear breath sounds bilaterally, no acute respiratory distress, no wheezes/rales/rhonchi
ABDOMEN: Soft, without focal tenderness, no r/g
NEUROLOGICAL: Alert and oriented, no focal neuro deficits
SKIN: Warm and dry, skin intact.
MUSCULOSKELETAL: No edema, well perfused.
PSYCH: Normal and appropriate interaction although tearful at times when recalling her strained relationship with her daughter, specifically denies SI or HI.
Course
Orders/Labs/Results
Orders:
Orders
01/18/24 18:45
CR Abdomen, Portable - 1 View Urgent
Comment: portable please
Reason For Exam: swallowed a thumb tack
01/18/24 19:39
Abdomen Xray - 1 View [CR Abdomen - 1 View] Urgent
Comment:
Reason For Exam: swallowed fb
01/18/24 21:46
Carboxymethylcellulose [Refresh Celluvisc Gel] 6 drops .ROUTE .STK-MED ONE
Dexamethasone Sod Phosphate [Decadron] 20 mg .ROUTE .STK-MED ONE
Ondansetron Injectable [Zofran] 4 mg .ROUTE .STK-MED ONE
Phenylephrine HCl/0.9% NaCl [Tobi-Synephrine] 1,000 mcg .ROUTE .STK-MED ONE
Propofol [Diprivan] 60 ml .ROUTE .STK-MED
Rocuronium [place] [Rocuronium] 50 mg .ROUTE .STK-MED ONE
Succinylcholine Chloride [Succinylcholine] 200 mg .ROUTE .STK-MED ONE
01/18/24 21:50
Sugammadex Sodium [Bridion] 200 mg .ROUTE .STK-MED ONE
01/18/24 22:51
Fentanyl Citrate/Pf [Sublimaze] 25 mcg IV PACU-Q5MPRN PRN
Fentanyl Citrate/Pf [Sublimaze] 50 mcg IV PACU-Q5MPRN PRN
Meperidine [Demerol] 12.5 mg IV PACU-Q5MPRN PRN
Ondansetron Injectable [Zofran] 4 mg IV PACU-ONCEPRN PRN
Prochlorperazine [Compazine] 5 mg IV PACU-ONCEPRN PRN
Notify MD As Directed
Notify physician if: for SDS patients with known or suspected sleep obstructive sleep apnea, monitor in the
PACU.
Notify MD for any apneic/desaturation episodes
O2 Therapy [RESP] Urgent
Titrate/Wean O2 to maintain O2 sat greater than (%): 92
Special Instructions: -Provide supplemental oxygen to achieve O2 sat of 92% or greater.
-After 15 min, may wean O2 and discontinue if patient is able to maintain O2 sat of 92%
or greater during recovery period.
If patient is a discharge home, without oxygen therapy, notify anestheiologist if
unable to maintain O2 SAT of 92% or greater on room air for MD clearance.
01/18/24 23:00
Normosol (Mult Electrolytes) [Normosol-R] 1,000 ml IV PER PROTOCOL
01/18/24 23:33
Admit/Transfer Patient As Directed
Co-Sign Provider:
Level of Care: Inpatient admission
Assign to:: Medical/Surgical
Physician / Group: Julio
Diagnosis: Foreign Body Ingestion
Reason for Hospitalization: Foreign Body Ingestion
Expected length of stay greater than two midnights?: Yes
ELOS- Estimated Length of Stay in days: 2
I certify the patient meets the requirements for IP care: Yes
01/18/24 23:36
Code Status As Directed
Resuscitation Status: Full Code
01/18/24 23:40
Change Attending Physician As Directed
Change attending physician to: Hospitalists
01/18/24 23:49
Acetaminophen [Tylenol] 650 mg PO Q6HPRN PRN
Ipratropium/Albuterol Sulfate [Duoneb] 3 ml INH R Q4HPRN PRN
01/18/24 23:49
GASTROINTESTINAL CONSULT Routine
Consulting Provider: Candelaria Gibbons
Was physician already notified: Yes
Reason for consult: FB ingestion
BMP [Basic Metabolic Panel] Urgent
CBC/With Diff [Complete Blood Count/With Diff] Urgent
Blum Catheter [Catheter- Indwelling] As Directed
Reason for insertion: Chronic Blum on Admit
I/O [Intake/ Output] As Directed
Frequency: Per unit guidelines
Vital Signs As Directed
Frequency: Per unit guidelines
Oxygen Therapy [O2 Therapy] [RESP] Routine
Titrate/Wean O2 to maintain O2 sat greater than (%): 94
DX Deep Vein Thrombosis Video Routine
01/19/24 00:51
HydrOXYZINE [Atarax] 50 mg PO Q8HPRN PRN
01/19/24 Breakfast
NPO
Allow oral meds: Yes
Allow clear liquids: Sips of Clears
Levothyroxine [Synthroid] 175 mcg PO DAILY@0600
CR Abdomen - 1 View IN AM
Comment:
Reason For Exam: Foreign body ingestion
01/19/24 08:00
Acetazolamide Sr [Diamox Sr [place]] 500 mg PO TID
Bumetanide [Bumex] 2 mg PO DAILY
Buprenorphine [Subutex] 4 mg SL BID
Cetirizine HCl [Zyrtec] 10 mg PO DAILY
Clozapine [Clozaril] 50 mg PO DAILY
Docusate Sodium [Colace] 100 mg PO TID
Enoxaparin Sodium [Lovenox] 40 mg SC BID
Famotidine [Pepcid] 20 mg PO BID
Fluoxetine HCl [Prozac] 80 mg PO DAILY
Fluticasone/Salmeterol 230/21 [Advair Hfa 230/21 Mcg Inhaler] 2 puff INH R BID
Gabapentin [Neurontin] 300 mg PO TID
Lidocaine [Lidocaine 4% Patch] 1 patch TOPICAL DAILY
Naltrexone HCl [Revia] 100 mg PO DAILY
Nystatin Cream [Mycostatin Cream] See Dose Instructions TOPICAL TID
Pantoprazole [Protonix IV] 40 mg IV DAILY
Triamcinolone Cream [Aristocort/Triamcinolone 0.1% Cream] See Dose Instructions TOPICAL BID
01/19/24 18:00
Naltrexone HCl [Revia] 50 mg PO QPM
01/19/24 22:00
Clonidine [Catapres] 0.1 mg PO HS
Clozapine [Clozaril] 100 mg PO HS
Melatonin 3 mg PO HS
Vital Signs
Initial and Last Documented VS:
Initial Vital Signs
Temp Pulse Resp BP Pulse Ox
97.4 F 89 15 127/62 99
01/18/24 18:42 01/18/24 18:42 01/18/24 18:42 01/18/24 18:42 01/18/24 18:42
Last Documented Vital Signs
Temp Pulse Resp BP Pulse Ox
97.7 F 93 16 126/77 95
01/22/24 07:10 01/22/24 09:19 01/22/24 07:59 01/22/24 09:19 01/22/24 07:59
*Critical Care Note
Total Time (30-74mins, 75-104mins- exclusive of procedures): Not Applicable
Update Note
Update Note:
Patient presents to the Emergency Department with ___foreign body ingestion
Number and Complexity of Problems Addressed at the Encounter
� Chronic conditions affecting care:
� Acute Exacerbation and/or Progression of Chronic Illness:
� Differential Diagnosis includes: But not limited to bowel perforation, gastric irritation, etc.
Amount and/or Complexity of Data to be Reviewed and Analyzed
� I performed an independent evaluation of and my interpretation is:
EKG:
CT:
Xrays: Suspected foreign body noted in the right upper quadrant on plain film
Laboratory Studies:
Other:
� Review of other/old records reveals:
� Clinical information was obtained by an independent historian:
� Prescriptions/Medications Considered but not given:
� Further testing considered but not performed:
Risk of Complications and/or Morbidity or Mortality of Patient Management
� Social determinants of health affecting care:
� Discussion with other providers (PCP, Hospitalists, Consultants, etc): 8:55 PM Case discussed with on-call GI Who will come in to do an EGD, patient to remain NPO.
� Escalation of care including admission/observation vs risk of discharge considered:
ED Attending Note
-
Portions of this chart may have been created with voice recognition software.� Occasional wrong word or��sound alike� substitutions may have occurred due to the inherent limitations of voice recognition software.
Discharge Plan
Departure
Patient Disposition: Admit
Admit to: Med/Surg
Presentation/result/management discussed w/ accepting MD/DO: GI
Discharge Problem:
Foreign body ingestion
Interventions
Interventions:
*Risk Screen - Suicide Last Done: 01/18/24 21:00
*General Assessment Last Done: 01/18/24 18:45
*Neglect/Abuse Screening Last Done: 01/18/24 18:45
ED- Fall Risk Assessment Last Done: 01/18/24 21:10
*ED COVID-19 Vaccine History Last Done: 01/18/24 18:45
*Nursing Disposition Last Done: 01/18/24 22:13
GM-Fbojjz-Ivlgpltyki Assessment Last Done: 01/18/24 19:29
Discharge Date and Time
Discharge Date/Time: 01/18/24 23:42
--- NOTE | 2024-01-18 22:06 | EDRN ---
Report given to Claudia in GI lab
--- NOTE | 2024-01-18 22:12 | CON.GI ---
Consultation
-
Date/Time Consultation Requested: 01/18/2024
Date/Time Consultation Performed: 01/18/2024
Requesting Provider: ED
Performing Provider: Jorge ROSAS
Reason for Consultation: Foreign body ingestion
Medical History
Chief Complaint / HPI
Chief Complaint: foreign body ingestion
History of Present Illness:
33-y/o female with hx of bipolar, schizoaffective disorder presents to ED after ingesting a thumbtack about 1 hour ago. now having mild epigastric discomfort. She denies nausea or vomiting. claims she has swallowed various FB in the past. no
records available. unable to recall last EGD
Past Medical History
Past Medical History: HTN, Hypothyroidism and Other (schizoaffective , asthma , )
Social History
Tobacco: Non-Smoker
Allergies / Home Medications
Allergy/AdvReac Type Severity Reaction Status Date / Time
bee venom protein (honey bee) Allergy Anaphylaxis Verified 01/18/24 21:13
cariprazine Allergy Unknown Verified 01/18/24 21:13
loratadine [From Claritin] Allergy Unknown Verified 01/18/24 21:13
meloxicam Allergy Unknown Verified 01/18/24 21:13
shellfish derived Allergy Anaphylaxis Verified 01/18/24 21:13
simvastatin Allergy Unknown Verified 01/18/24 21:13
nicotine polacrilex Allergy Unknown Uncoded 01/18/24 21:13
seafood Allergy Unknown Uncoded 01/18/24 21:13
�Medication �Instructions �Recorded
Atropine Sulfate 1 drp PO DAILYPRN PRN under the 12/03/23
tongue for sialorrhea
acetaminophen 325 mg tablet 650 mg PO Q6HPRN PRN temp>100.4 12/03/23
(Tylenol)
acetazolamide 500 mg 500 mg PO TID 12/03/23
capsule,extended release
albuterol sulfate 90 mcg/actuation 2 puff inhalation R Q6HPRN PRN sob 12/03/23
aerosol inhaler (ProAir HFA)
bisacodyl 10 mg rectal suppository 10 mg IA DAILYPRN PRN if no bm 12/03/23
(Dulcolax (bisacodyl)) after mom
cetirizine 10 mg tablet (Zyrtec) 10 mg PO DAILY Allergies 12/03/23
clonidine HCl 0.1 mg tablet 0.1 mg PO HS Blood Pressure 12/03/23
clozapine 100 mg tablet 125 mg PO HS Mental Health/Anxiety 12/03/23
clozapine 50 mg tablet 50 mg PO DAILY Mental 12/03/23
Health/Anxiety
cyclobenzaprine 5 mg tablet 5 mg PO TID Muscle Spasms 12/03/23
docusate sodium 100 mg capsule 100 mg PO TID Constipation 12/03/23
(Colace)
famotidine 20 mg tablet (Pepcid) 20 mg PO BID Gastrointestinal Issue 12/03/23
ferrous sulfate 325 mg (65 mg 325 mg PO DAILY Supplement 12/03/23
iron) tablet
fluticasone 500 mcg-salmeterol 50 1 inh inhalation R BID 12/03/23
mcg/dose blistr powdr for Lung/Breathing Issues
inhalation (Advair Diskus)
gabapentin 300 mg capsule 300 mg PO TID pain 12/03/23
ibuprofen 600 mg tablet 600 mg PO Q6HPRN PRN pain 12/03/23
levothyroxine 175 mcg tablet 175 mcg PO DAILY Thyroid 12/03/23
(Synthroid)
magnesium hydroxide 400 mg/5 mL 2,400 mg PO [id number] PRN if no bm 12/03/23
oral suspension (Milk of Magnesia) in 3 days
melatonin 3 mg tablet 3 mg PO HS sleep 12/03/23
naltrexone 50 mg tablet 50 mg PO QPM 12/03/23
naltrexone 50 mg tablet 100 mg PO DAILY 12/03/23
nystatin 100,000 unit/gram topical 1 applic topical TID groin,breasts 12/03/23
cream
polyethylene glycol 3350 17 gram 17 g PO BID Constipation 12/03/23
oral powder packet (Miralax)
sennosides 8.6 mg-docusate sodium 2 tab-cap PO TID Constipation 12/03/23
50 mg capsule (Senna Plus)
sodium phosphates 19 gram-7 118 ml IA DAILYPRN PRN if no bm 12/03/23
gram/118 mL enema (Fleet Enema) after dulcolax
therapeutic multivitamin 1 tab PO DAILY Supplement 12/03/23
triamcinolone acetonide 0.1 % 1 applic topical BID dermatititits 12/03/23
topical cream
acetaminophen 325 mg tablet 975 mg PO Q6HPRN PRN mild pain 01/18/24
(Tylenol)
bumetanide 2 mg tablet 2 mg PO DAILY 01/18/24
buprenorphine 2 mg-naloxone 0.5 mg 1 film buccal BID 01/18/24
sublingual film (Suboxone)
buprenorphine 4 mg-naloxone 1 mg 1 film buccal BID 01/18/24
sublingual film (Suboxone)
clozapine 25 mg tablet 25 mg PO HS 01/18/24
fluoxetine 60 mg tablet 90 mg PO DAILY 01/18/24
hydroxyzine pamoate 50 mg capsule 50 mg PO Q8HPRN PRN anxiety 01/18/24
lidocaine 4 % topical patch 1 patch topical DAILY 01/18/24
semaglutide (weight loss) 0.25 0.25 mg SC FR 01/18/24
mg/0.5 mL subcutaneous pen injector
Review of Systems
-
All other systems: A 12 pt ROS was Negative except as stated above in HPI
Vital Signs
Temp Pulse Resp BP Pulse Ox
97.4 F 95 16 120/65 98
01/18/24 18:42 01/18/24 21:06 01/18/24 21:06 01/18/24 21:06 01/18/24 21:06
Physical Exam
Exam
General: Well Developed
Respiratory: Clear
Cardiac: S1/S2
GI: Soft, Non Tender and Non Distended
Results
Diagnostic Image Results:
abd X ray 01/18/2024
IMPRESSION:
Right upper quadrant elongated thin metallic density which could represent a surgical clip or metallic radiopaque foreign body such as the metallic portion of a thumbtack.
Prior GI Procedures:
EGD:
Colonoscopy:
Assessment / Plan
-
33-year-old female with hx of bipolar, schizoaffective disorder presents to emergency department after ingesting a thumbtack c/o mild epigastric discomfort . multiple FB ingestion in the past . no records available.
abd X ray
IMPRESSION:
Right upper quadrant elongated thin metallic density which could represent a surgical clip or metallic radiopaque foreign body such as the metallic portion of a thumbtack.
plan
urgent EGD
Total Time Spent with Patient (in minutes): 55
-
-
Thank you for consultation and allowing me to participate in the patient's care. Please call the operations assistant GI physician during the after hours with any questions or concerns.
--- NOTE | 2024-01-18 22:13 | EDRN ---
Pt transported to GI lab #6 by two EDTs via stretcher.
--- NOTE | 2024-01-18 23:40 | HPS.HSE ---
Family Physician
-
Family Physician: Shivam Turk, DO
Chief Complaint
-
Swallowed FB
History of Present Illness
Patient is a 33y F with PMH significant for morbid obesity, borderline personality / schizoaffective disorder and asthma who presents to ED reporting that she swallowed a thumbtack earlier in the day today. Patient apparently has a history of
foreign body ingestions in the past due to her underlying psych / mood disorder. She denies any abdominal pain, nausea, etc. Patient had imaging done in the ED which showed a foreign body in the RUQ area. Patient was taken to the endo suite where
EGD was performed. No foreign body was appreciated during that exam.
Patient to be observed overnight.
Medical History
Past Medical History
Past Medical History: Reports Other
Additional Past Medical History:
Morbid Obesity
Schizoaffective Disorder / Borderline Personality Disorder
Depression / Anxiety / PTSD
Hypertension
Hypothyroidism
Neurogenic Bladder
Past Surgical History: Reports Other
Additional Past Surgical History:
None known
Social History
Alcohol: None
Drug: None
Personal: Single
Living: [facility]
Family History
Family History: Not pertinent
Allergies / Home Medications
Allergies reflects when Allergies were last updated in [facility].
Home Medications with original date entered in [facility]
Allergy/Medication List:
Allergies
Allergy/AdvReac Type Severity Reaction Status Date / Time
bee venom protein (honey bee) Allergy Anaphylaxis Verified 01/18/24 21:13
cariprazine Allergy Unknown Verified 01/18/24 21:13
loratadine [From Claritin] Allergy Unknown Verified 01/18/24 21:13
meloxicam Allergy Unknown Verified 01/18/24 21:13
shellfish derived Allergy Anaphylaxis Verified 01/18/24 21:13
simvastatin Allergy Unknown Verified 01/18/24 21:13
nicotine polacrilex Allergy Unknown Uncoded 01/18/24 21:13
seafood Allergy Unknown Uncoded 01/18/24 21:13
Home Medications
Atropine Sulfate 1 drp PO DAILYPRN PRN under the tongue for sialorrhea 12/03/23
acetaminophen 325 mg tablet (Tylenol) 650 mg PO Q6HPRN PRN temp>100.4 12/03/23
acetazolamide 500 mg capsule,extended release 500 mg PO TID Neurological Condition 12/03/23
albuterol sulfate 90 mcg/actuation aerosol inhaler (ProAir HFA) 2 puff inhalation R Q6HPRN PRN sob 12/03/23
bisacodyl 10 mg rectal suppository (Dulcolax (bisacodyl)) 10 mg IA DAILYPRN PRN if no bm after mom 12/03/23
cetirizine 10 mg tablet (Zyrtec) 10 mg PO DAILY Allergies 12/03/23
clonidine HCl 0.1 mg tablet 0.1 mg PO HS Blood Pressure 12/03/23
clozapine 100 mg tablet 125 mg PO HS Mental Health/Anxiety 12/03/23
clozapine 50 mg tablet 50 mg PO DAILY Mental Health/Anxiety 12/03/23
cyclobenzaprine 5 mg tablet 5 mg PO TID Muscle Spasms 12/03/23
docusate sodium 100 mg capsule (Colace) 100 mg PO TID Constipation 12/03/23
famotidine 20 mg tablet (Pepcid) 20 mg PO BID Gastrointestinal Issue 12/03/23
ferrous sulfate 325 mg (65 mg iron) tablet 325 mg PO DAILY Supplement 12/03/23
fluticasone 500 mcg-salmeterol 50 mcg/dose blistr powdr for inhalation (Advair Diskus) 1 inh inhalation R BID Lung/Breathing Issues 12/03/23
gabapentin 300 mg capsule 300 mg PO TID pain 12/03/23
ibuprofen 600 mg tablet 600 mg PO Q6HPRN PRN pain 12/03/23
levothyroxine 175 mcg tablet (Synthroid) 175 mcg PO DAILY Thyroid 12/03/23
magnesium hydroxide 400 mg/5 mL oral suspension (Milk of Magnesia) 2,400 mg PO [id number] PRN if no bm in 3 days 12/03/23
melatonin 3 mg tablet 3 mg PO HS sleep 12/03/23
naltrexone 50 mg tablet 50 mg PO QPM 12/03/23
naltrexone 50 mg tablet 100 mg PO DAILY 12/03/23
nystatin 100,000 unit/gram topical cream 1 applic topical TID groin,breasts 12/03/23
polyethylene glycol 3350 17 gram oral powder packet (Miralax) 17 g PO BID Constipation 12/03/23
sennosides 8.6 mg-docusate sodium 50 mg capsule (Senna Plus) 2 tab-cap PO TID Constipation 12/03/23
sodium phosphates 19 gram-7 gram/118 mL enema (Fleet Enema) 118 ml IA DAILYPRN PRN if no bm after dulcolax 12/03/23
therapeutic multivitamin 1 tab PO DAILY Supplement 12/03/23
triamcinolone acetonide 0.1 % topical cream 1 applic topical BID dermatititits 12/03/23
acetaminophen 325 mg tablet (Tylenol) 975 mg PO Q6HPRN PRN mild pain 01/18/24
bumetanide 2 mg tablet 2 mg PO DAILY Fluid Retention/Swelling 01/18/24
buprenorphine 2 mg-naloxone 0.5 mg sublingual film (Suboxone) 1 film buccal BID withdraw 01/18/24
buprenorphine 4 mg-naloxone 1 mg sublingual film (Suboxone) 1 film buccal BID 01/18/24
clozapine 25 mg tablet 25 mg PO HS 01/18/24
fluoxetine 60 mg tablet 90 mg PO DAILY 01/18/24
hydroxyzine pamoate 50 mg capsule 50 mg PO Q8HPRN PRN anxiety 01/18/24
lidocaine 4 % topical patch 1 patch topical DAILY 01/18/24
semaglutide (weight loss) 0.25 mg/0.5 mL subcutaneous pen injector 0.25 mg SC FR 01/18/24
Review of Systems
-
History Source: Patient
A 12 point ROS was completed and negative except as noted: Yes
Constitutional: Denies Fever or Chills
Respiratory: Denies Cough or Trouble Breathing
Cardiac: Reports Chest Pain (s/p EGD - none present on arrival.)
Abdomen/GI: Denies Abdominal Pain, Nausea, Vomiting or Diarrhea
Neurological: Denies Dizzy or Headache
Psych: Denies Depression or Anxiety
Physical Exam
Vital Signs
Vital Signs
Temp Pulse Resp BP Pulse Ox
97.8 F 91 16 130/76 95
01/18/24 22:55 01/18/24 23:10 01/18/24 23:10 01/18/24 23:10 01/18/24 23:10
Physical Exam
General: Other (33y F in no acute distress. Morbidly obese.)
HEENT: Other (Thick neck, MMM.)
Respiratory: Other (Decreased at bases - otherwise clear.)
Cardiac: S1/S2 and Regular Rhythm; No Murmur
GI: Other (Obese, no focal tenderness / rebound / guarding. )
Musculoskeletal: No Clubbing, No Cyanosis and Other (Pos LE edema with mild erythema and blistering skin changes bilaterally.)
Neuro: AO x 3
Impression/Plan
-
A/P: Patient is a 33y F with PMH significant for psychologic disorders and morbid obesity who presents to ED from [place] where she resides reporting that she swallowed a thumbtack today.
Ingested Foreign Body
- Admit for further evaluation and treatment.
- FB not visualized during EGD.
- Radiolucent FB noted overlying the RUQ on abdominal imaging.
- Repeat imaging in AM to track progress.
- ? repeat endoscopic exam v supportive care v surgical intervention depending on clinical course.
- Follow for any new / worsening symptoms, sudden onset of pain, etc.
Schizoaffective Disorder
Borderline Personality Disorder
PTSD / Depression / Anxiety
- Patient on myriad of psychotropic medications.
- Would not presume to adjust this regimen at this time.
- Continue usual meds as per [place] record.
- Consider Psych evaluation if any acute issues.
Mild Persistent Asthma
- No evidence of acute exacerbation.
- Continue maintenance Advair and PRN DuoNebs.
Hypothyroidism
- Continue current T4 supplementation.
Morbid Obesity
- Affects all aspects of care.
- [place] record indicates that patient is being referred for bariatric surgery evaluation.
DVT Prophylaxis: High dose Lovenox
Code Status: Full
[2024-01-19 00:12] VITALS: BP 130/73
[2024-01-19 00:42] VITALS: BP 112/69; BMI 68.6
--- NOTE | 2024-01-19 01:00 | PTCARENOTE ---
Received pt from PACU via stretcher. [facility] bed requested. Medsitter in place. VSS afebrile, HR 93, RR 20, BP 112/69, pox 92% room air.
No c/o pain. Pt AAOx3, lethargic. Pt admitted for ingesting a thumb tact. EGD could not visualize FB. Pt kept NPO w/ sips of clear.
CR abd ordered for AM. PMH and medications obtained from [facility] Records. Plan of care discussed with pt. Call roach within reach.
[2024-01-19 01:26] LABS: % Basophils 0.7 % (0-2); % Eosinophils 1.9 % (0-6); % Immature Granulocytes 0.4 % (0-0.5); % Lymphocytes 11.3 % (20.5-51.1); % Monocytes 2.3 % (1.7-9.3); % Neutrophils 83.4 % (42.2-75.2); Absolute Basophils 0.1 10^3/uL (0-0.2); Absolute Eosinophils 0.1 10^3/uL (0-0.7); Absolute Lymphocytes 0.9 10^3/uL (1.2-3.4); Absolute Monocytes 0.2 10^3/uL (0.1-0.6); Absolute Neutrophils 6.3 10^3/uL (1.4-6.5); Hematocrit 34.4 % (37.0-47.0); Hemoglobin 10.6 g/dL (12.0-16.0); Mean Corp Hgb Conc. 30.8 g/dL (33.0-37.0); Mean Corpuscular Volume 74.6 fL (81.0-99.0); Nucleated Red Blood Cells % 0 %; Red Blood Cell Count 4.61 10^6/uL (4.20-5.40); Red Cell Dist. Width 16.7 % (11.5-14.5); White Blood Cell Count 7.5 10^3/uL (4.8-10.8)
[2024-01-19 01:38] LABS: Blood Urea Nitrogen 8 mg/dl (7-17); Carbon Dioxide 21 mmol/L (22-30); Chloride 111 mmol/L (98-107); Estimated Creatinine Clearance > 125 ml/min; Glucose 112 mg/dl (70-99); Mean Platelet Volume 9.3 fL (7.4-10.4); Platelet Count 332 10^3/uL (130-400); Sodium 142 mmol/L (135-145); eGFR > 60.00
[2024-01-19] MEDS: SYNTHROID 175 MCG PO (05:49)
[2024-01-19 06:00] VITALS: BMI 68.3
[2024-01-19 07:10] VITALS: BP 105/67
[2024-01-19] MEDS: ADVAIR HFA 230/21 MCG INHALER 2 PUFF INH ×2 (08:05→20:27)
--- NOTE | 2024-01-19 08:25 | W.PN.HOSP.TC ---
Today's Communication/Plan
-
surgery consult. CT abd. Psych eval
Assessment / Plan
Assessment / Plan
Physical exam:
General: Well Developed, Well Nourished and No Apparent Distress
HEENT: Normocephalic, Atraumatic and Moist Mucous Membranes
Respiratory: Clear to Auscultation; Negative Wheezes, Rales or Rhonchi
Cardiac: Regular Rhythm and S1/S2
GI: Soft, tender and Nondistended
Musculoskeletal: No Clubbing, No Cyanosis and No Edema
Neuro: Awake, Alert and Oriented
Psych: Calm
A/P:
A/P: Patient is a 33y F with PMH significant for psychologic disorders and morbid obesity who presents to ED from [place] where she resides reporting that she swallowed a thumbtack OIL CHANGER.
Ingested Foreign Body
- FB not visualized during EGD.
- CT abdomen today and surgery consulted (schuyler texted surgery today). Discussed with GI today. Diet per surgery (in the meantime npo)
- CT noticed object
- Repeat imaging per surgery/gi to track progress.
- Follow for any new / worsening symptoms, sudden onset of pain, etc.
Schizoaffective Disorder
Borderline Personality Disorder
PTSD / Depression / Anxiety
- Patient on myriad of psychotropic medications.
- Would not presume to adjust this regimen at this time.
- Continue usual meds as per [place] record.
- will request psych eval
Mild Persistent Asthma
- No evidence of acute exacerbation.
- Continue maintenance Advair and PRN DuoNebs.
Hypothyroidism
- Continue current T4 supplementation.
Morbid Obesity
- Affects all aspects of care.
- [place] record indicates that patient is being referred for bariatric surgery evaluation.
DVT Prophylaxis: High dose Lovenox
Code Status: Full
Anticipated Discharge: 24 - 48 hours
Subjective/Interval History
-
Date of Service: January 19, 2024
pte c/o abd pain, no n/v
Objective Data
-
Labs:
Laboratory Results
01/19/24
01:17
WBC 7.5
Hgb 10.6 L
Hct 34.4 L
Plt Count 332
Sodium 142
Potassium 4.0
Chloride 111 H
Carbon Dioxide 21 L
BUN 8
Creatinine 0.8
Glucose 112 H
Calcium 9.0
Vital Signs:
Vital Signs
Temp Pulse Resp BP Pulse Ox
98.0 F 87 19 105/67 95
01/19/24 07:10 01/19/24 08:16 01/19/24 08:16 01/19/24 07:10 01/19/24 08:16
I&O
01/18/24 01/19/24 01/20/24
06:59 06:59 06:59
Intake Total 120 / 120
Output Total 2650 / 2650
Balance -2530 / -2530
[2024-01-19] MEDS: NEURONTIN 300 MG PO ×3 (08:32→22:48)
[2024-01-19] MEDS: REVIA 100 MG PO (08:32)
[2024-01-19] MEDS: SUBUTEX 4 MG SL ×2 (08:32→21:20)
[2024-01-19] MEDS: ZYRTEC 10 MG PO (08:34)
[2024-01-19] MEDS: BUMEX PO (08:34)
[2024-01-19] MEDS: PEPCID 20 MG PO ×2 (08:35→21:20)
[2024-01-19] MEDS: DIAMOX SR SEQUELS 500 MG PO ×3 (08:35→22:48)
[2024-01-19] MEDS: PROZAC 80 MG PO (08:35)
[2024-01-19] MEDS: CLOZARIL 50 MG PO (08:35)
[2024-01-19] MEDS: LIDOCAINE 4% PATCH 1 PATCH TOPICAL (08:36)
[2024-01-19] MEDS: NSS (PRESERVATIVE FREE) 10 ML IV (08:36)
[2024-01-19] MEDS: PROZAC 10 MG PO (08:36)
[2024-01-19] MEDS: LOVENOX 40 MG SC ×2 (08:36→21:19)
[2024-01-19] MEDS: COLACE 100 MG PO (08:36)
[2024-01-19] MEDS: PROTONIX IV 40 MG IV (08:37)
[2024-01-19] MEDS: MYCOSTATIN CREAM 1 APPLIC TOPICAL ×3 (08:37→22:48)
[2024-01-19] MEDS: ARISTOCORT/TRIAMCINOLONE 0.1% CREAM 1 APPLIC TOPICAL ×2 (08:38→21:18)
[2024-01-19] MEDS: DESENEX/MITRAZOL/ZEASORB 1 APPLIC TOPICAL ×2 (09:06→21:18)
--- NOTE | 2024-01-19 11:56 | CM ---
Initial assessment completed with patient who is a LTC resident of [facility]. Patient receives PT/OT several times a week. She uses a rollator for mobility. She requires assistance for toileting hygiene and LE donning and doffing. Patient does
have a Psychiatric history of Schizoaffective and Bipolar disorder. Her last psychiatric hospitalization was approximately 6-7 months ago at [facility]. [facility] provides PCP and pharmacy services. Discharge Plan of Care: Return to
[facility] for LTC. Referral forwarded.
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
--- NOTE | 2024-01-19 15:20 | W.PN.GI.CBS2 ---
Today's Communication / Plan
-
Continue diet
continue surgical recommendation
Assessment / Plan
-
33-year-old female with hx of morbid obesity, bipolar, schizoaffective disorder presents to emergency department after ingesting a thumbtack c/o mild epigastric discomfort . multiple FB ingestion in the past . no records available.
abd X ray 01/17
IMPRESSION:
Right upper quadrant elongated thin metallic density which could represent a surgical clip or metallic radiopaque foreign body such as the metallic portion of a thumbtack.
-- Foreign body-sharp object. Unable to identify with push enteroscopy last night 01/17 ( passed distally ).
CT abdomen this a.m- IMPRESSION:
1. Ingested metallic foreign body within the small bowel at the right lower quadrant as above. There is no bowel obstruction. no free air
plan
Surgical consultation reviewed. Continue follow-up surgical recommendation at this point
continue diet
No further GI recommendation at this point other than observation. Will sign off and peripherally monitor.
Total Time Spent with Patient (in minutes): 35
Subjective
Subjective
Date of Service: January 19, 2024
. Mild epigastric discomfort .denies any / nausea/ vomiting . tolerating diet
Objective
Data Reviewed
Laboratory Data:
Laboratory Results
01/19/24 01:17
01/19/24 01:17
Vital Signs and I&O:
Vital Signs
Temp Pulse Resp BP Pulse Ox
98.0 F 87 19 105/67 95
01/19/24 07:10 01/19/24 08:35 01/19/24 08:16 01/19/24 08:35 01/19/24 08:16
I&O
01/18/24 01/19/24 01/20/24
06:59 06:59 06:59
Intake Total 120 / 120
Output Total 2650 / 2650
Balance -2530 / -2530
Physical Exam
Physical Exam
GI: Soft, Non Distended and Non Tender
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
[2024-01-19] MEDS: MIRALAX 17 GRAMS PO (21:20)
[2024-01-19] MEDS: SENOKOT-S 2 TABLET PO (21:20)
[2024-01-19] MEDS: CLOZARIL 100 MG PO (22:47)
[2024-01-19] MEDS: CLOZARIL 25 MG PO (22:47)
[2024-01-19] MEDS: CATAPRES 0.100000000000000006 MG PO (22:47)
[2024-01-19] MEDS: MELATONIN 3 MG PO (22:48)
[2024-01-19 23:09] VITALS: BP 110/73
[2024-01-20] MEDS: SYNTHROID 175 MCG PO (05:53)
[2024-01-20 06:00] VITALS: BMI 68.8
[2024-01-20 07:10] VITALS: BP 104/63
--- NOTE | 2024-01-20 07:44 | W.PN.GS2 ---
Addendum entered and electronically signed by Shivam Smith MD 01/20/24 11:31:
Tack remains within the RLQ. Difficult to appreciate if this is within the SBO versus colon. Repeat CT scan imaging unlikely to change clinical management. Recommend continued nonoperative approach with hopeful passage of FB. Repeat X-ray
ordered for tomorrow.
Original Note:
Today's Communication / Plan
-
-- X-ray abdomen
-- Regular diet
-- No plans for surgery
Assessment / Plan
-
Patient is a 33 yo F presenting following self ingestion of thumb tack
No plans or indication for surgery at this time. Continue to track progression of thumbtack with serial abdominal x-rays. Exam will be limited. Indications for surgery would be worsening exam or labs. SI watch and management per Hospitalist and
Psych.
-- X-ray abdomen
-- Regular diet
-- No plans for surgery
Subjective Data
-
Date of Service: January 20, 2024
No new complaints. No nausea or vomiting. No worsening abdominal pain. No flatus or BM.
Objective Data
-
Intake and Output
01/19/24 01/20/24 01/21/24
06:59 06:59 06:59
Intake Total 120 / 120 1840 / 1840
Output Total 2650 / 2650 925 / 925
Balance -2530 / -2530 915 / 915
Intake:
Oral fluids 120 / 120 1840 / 1840
Output:
Urine, Blum 2650 / 2650 925 / 925
Other:
Number of approximated LARGE 1
amounts of urine
Number of unmeasured liquid
stools
Rectum 1
Vital Signs
Temp Pulse Resp BP Pulse Ox
98.0 F 85 18 110/73 96
01/19/24 23:09 01/19/24 23:09 01/19/24 23:09 01/19/24 23:09 01/19/24 23:09
Calcium 9.0 mg/dl (8.4-10.2) 01/19/24 01:17
Physical Exam
-
Gen: NAD
Abd: morbid obesity limiting exam, NT, non-peritoneal
[2024-01-20] MEDS: ADVAIR HFA 230/21 MCG INHALER 2 PUFF INH ×2 (07:57→19:52)
[2024-01-20] MEDS: CLOZARIL 50 MG PO (08:51)
[2024-01-20] MEDS: DIAMOX SR SEQUELS 500 MG PO ×3 (08:51→22:32)
[2024-01-20] MEDS: PROZAC 10 MG PO (08:52)
[2024-01-20] MEDS: SENOKOT-S 2 TABLET PO ×2 (08:52→21:17)
[2024-01-20] MEDS: PROZAC 80 MG PO (08:52)
[2024-01-20] MEDS: PROTONIX 40 MG PO (08:52)
[2024-01-20] MEDS: NEURONTIN 300 MG PO ×3 (08:53→22:27)
[2024-01-20] MEDS: BUMEX PO (08:53)
[2024-01-20] MEDS: PEPCID 20 MG PO ×2 (08:53→21:17)
[2024-01-20] MEDS: LIDOCAINE 4% PATCH 1 PATCH TOPICAL (08:53)
[2024-01-20] MEDS: SUBUTEX 4 MG SL ×2 (08:53→21:17)
[2024-01-20] MEDS: ZYRTEC 10 MG PO (08:53)
[2024-01-20] MEDS: LOVENOX 40 MG SC ×2 (08:54→21:16)
[2024-01-20] MEDS: MIRALAX 17 GRAMS PO ×2 (08:54→21:17)
--- NOTE | 2024-01-20 08:54 | W.PN.HOSP.TC ---
Today's Communication/Plan
-
repeat xray in am
Assessment / Plan
Assessment / Plan
Physical exam:
General: Well Developed, Well Nourished and No Apparent Distress
HEENT: Normocephalic, Atraumatic and Moist Mucous Membranes
Respiratory: Clear to Auscultation; Negative Wheezes, Rales or Rhonchi
Cardiac: Regular Rhythm and S1/S2
GI: Soft, Non tender and Nondistended
Musculoskeletal: No Clubbing, No Cyanosis and No Edema
Neuro: Awake, Alert and Oriented
Psych: Calm
A/P:
A/P: Patient is a 33y F with PMH significant for psychologic disorders and morbid obesity who presents to ED from [place] where she resides reporting that she swallowed a thumbtack [employer].
Ingested Foreign Body
- FB not visualized during EGD.
- CT abdomen done on 01/18 and object visualized--> Xray today and shows object in RLQ
- Surgery consult. Appreciated input from surgery.
- Repeat imaging per surgery/gi to track progress. Repeat xray in am. Increase activity as tolerated
- Follow for any new / worsening symptoms, sudden onset of pain, etc.
Hypokalemia:
-replete and trend
Schizoaffective Disorder
Borderline Personality Disorder
PTSD / Depression / Anxiety
- Patient on myriad of psychotropic medications.
- Continue usual meds as per [place] record.
- Psych consult appreciated
Mild Persistent Asthma
- No evidence of acute exacerbation.
- Continue maintenance Advair and PRN DuoNebs.
Hypothyroidism
- Continue current T4 supplementation.
Morbid Obesity
- Affects all aspects of care.
- [place] record indicates that patient is being referred for bariatric surgery evaluation.
DVT Prophylaxis: High dose Lovenox
Code Status: Full
Anticipated Discharge: 24 - 48 hours
Subjective/Interval History
-
Date of Service: January 20, 2024
pte abd pain better, no n/v.
Objective Data
-
Labs:
Laboratory Results
01/20/24
06:00
WBC Pending
Hgb Pending
Hct Pending
Plt Count Pending
Sodium Pending
Potassium Pending
Chloride Pending
Carbon Dioxide Pending
BUN Pending
Creatinine Pending
Glucose Pending
Calcium Pending
Vital Signs:
Vital Signs
Temp Pulse Resp BP Pulse Ox
97.5 F 79 16 104/63 97
01/20/24 07:10 01/20/24 07:10 01/20/24 07:10 01/20/24 07:10 01/20/24 07:10
I&O
01/19/24 01/20/24 01/21/24
06:59 06:59 06:59
Intake Total 120 / 120 1840 / 1840
Output Total 2650 / 2650 925 / 925
Balance -2530 / -2530 915 / 915
[2024-01-20] MEDS: DESENEX/MITRAZOL/ZEASORB 1 APPLIC TOPICAL ×2 (08:55→21:15)
[2024-01-20] MEDS: MYCOSTATIN CREAM 1 APPLIC TOPICAL ×3 (08:55→22:27)
[2024-01-20] MEDS: ARISTOCORT/TRIAMCINOLONE 0.1% CREAM 1 APPLIC TOPICAL ×2 (08:55→21:16)
[2024-01-20 10:02] LABS: Hematocrit 33.6 % (37.0-47.0); Mean Corp Hgb Conc. 29.8 g/dL (33.0-37.0); Mean Corpuscular Hgb 22.7 pg (27.0-31.0); Mean Corpuscular Volume 76.4 fL (81.0-99.0); Platelet Count 332 10^3/uL (130-400); Red Cell Dist. Width 16.7 % (11.5-14.5); White Blood Cell Count 5.7 10^3/uL (4.8-10.8)
[2024-01-20 10:14] LABS: Blood Urea Nitrogen 14 mg/dl (7-17); Carbon Dioxide 19 mmol/L (22-30); Chloride 112 mmol/L (98-107); Estimated Creatinine Clearance > 125 ml/min; Glucose 113 mg/dl (70-99); Potassium 3.1 mmol/L (3.5-5.1); Sodium 140 mmol/L (135-145); eGFR > 60.00
--- NOTE | 2024-01-20 10:28 | W.PN.UPDATE ---
Update Note
Progress Note Update
Patient seen at bedside, chart reviewed, discussed with staff. Ms. Rome is sitting up, listening to music and doing school work. She tells she misses being 'home' and misses her room-mate. She shows me the stuffed animal and coloring book her
roommate gave her. She explains that even though she does not want to be in the hospital, she is using her time wisely bu getting caught up on school work. No plan for surgery at this time for foreign body removal as there is no active need and it
may pass safely on its on. She will have serial imaging to watch this transition. Currently, denies any discomfort. She tells me she is trying to eat 'fiber' but is not permitted to use utensils (related to hx of foreign body ingestion). She feels
her mood has been 'up and down but okay right now'. Denies any SI/SB or any urge to hurt herself or ingest any non-food items.
Impression/Plan: History of schizoaffective disorder; borderline personality disorder, with impulsive behavior, denies any self-harm or suicidal intent or ideation at this time - Would continue existing psychotropic medications which include Prozac
and Clozapine. Will f/u with OP provider once medically cleared.
[2024-01-20] MEDS: KCL 40 MEQ PO ×2 (12:03→15:08)
[2024-01-20 13:10] VITALS: BP 126/86; BP 130/90
--- NOTE | 2024-01-20 14:05 | CM ---
Previous EGD with no visualization of foreign object. 01/19/24 CT abd. object visualized. 01/20/24 X-Ray shows object in RLQ. Plan for repeat X-ray in am on 01/21/24. Discharge Plan of Care: Return to [facility]. Birgit at [facility]
notified ([phone] Ext [phone]).
[2024-01-20 15:13] VITALS: BP 142/80
[2024-01-20] MEDS: TYLENOL 650 MG PO (15:26)
--- NOTE | 2024-01-20 18:00 | PTCARENOTE ---
Patient complaining of '10/10' pain throughout abdomen unrelieved by PRN tylenol, states 'it feels like something is stabbing me.' MD and general surgery made aware, abdominal xray ordered in AM for f/u on thumb tack placement. Patient asleep in bed
upon hourly rounds by this RN, no new orders at this time.
[2024-01-20] MEDS: CLOZARIL 100 MG PO (22:26)
[2024-01-20] MEDS: CLOZARIL 25 MG PO (22:26)
[2024-01-20] MEDS: MELATONIN 3 MG PO (22:27)
[2024-01-20] MEDS: CATAPRES 0.100000000000000006 MG PO (22:32)
[2024-01-20 23:11] VITALS: BP 114/64
--- NOTE | 2024-01-21 04:11 | DOWNTIME ---
There was a [employer] Downtime on 01/21/2024 from 0100 to 01/21/2024 at 0337. Downtime documentation of patient's care, including medication administrations, has been reconciled in the electronic record per guidelines. Refer to the
patient's paper chart under the miscellaneous tab to see printed paper medication records and downtime forms.
[2024-01-21] MEDS: SYNTHROID 175 MCG PO (05:34)
[2024-01-21] MEDS: ADVAIR HFA 230/21 MCG INHALER 2 PUFF INH ×2 (05:55→19:18)
[2024-01-21 06:00] VITALS: BMI 69.1
[2024-01-21 06:59] LABS: Hematocrit 36.3 % (37.0-47.0); Hemoglobin 10.3 g/dL (12.0-16.0); Mean Corp Hgb Conc. 28.4 g/dL (33.0-37.0); Mean Corpuscular Hgb 22.6 pg (27.0-31.0); Mean Corpuscular Volume 79.6 fL (81.0-99.0); Mean Platelet Volume 9.4 fL (7.4-10.4); Platelet Count 354 10^3/uL (130-400); Red Blood Cell Count 4.56 10^6/uL (4.20-5.40)
[2024-01-21 07:10] VITALS: BP 121/74
[2024-01-21 07:31] LABS: Blood Urea Nitrogen 15 mg/dl (7-17); Calcium 8.9 mg/dl (8.4-10.2); Carbon Dioxide 20 mmol/L (22-30); Chloride 112 mmol/L (98-107); Estimated Creatinine Clearance > 125 ml/min; Glucose 95 mg/dl (70-99); Magnesium 2.4 mg/dl (1.6-2.3); Potassium 4.2 mmol/L (3.5-5.1); Sodium 139 mmol/L (135-145); eGFR > 60.00
[2024-01-21] MEDS: DIAMOX SR SEQUELS 500 MG PO ×2 (07:37→16:05)
[2024-01-21] MEDS: PROZAC 80 MG PO (07:37)
[2024-01-21] MEDS: CLOZARIL 50 MG PO (07:39)
[2024-01-21] MEDS: SENOKOT-S 2 TABLET PO ×2 (07:39→21:47)
[2024-01-21] MEDS: NEURONTIN 300 MG PO ×2 (07:39→16:06)
[2024-01-21] MEDS: PROZAC 10 MG PO (07:39)
[2024-01-21] MEDS: PROTONIX 40 MG PO (07:39)
[2024-01-21] MEDS: BUMEX 2 MG PO (07:39)
[2024-01-21] MEDS: PEPCID 20 MG PO ×2 (07:40→21:46)
[2024-01-21] MEDS: MIRALAX 17 GRAMS PO ×2 (07:40→21:46)
[2024-01-21] MEDS: ZYRTEC 10 MG PO (07:40)
[2024-01-21] MEDS: LOVENOX 40 MG SC ×2 (07:40→21:46)
[2024-01-21] MEDS: SUBUTEX 4 MG SL (07:40)
[2024-01-21] MEDS: LIDOCAINE 4% PATCH 1 PATCH TOPICAL (07:40)
[2024-01-21] MEDS: MYCOSTATIN CREAM 1 APPLIC TOPICAL ×3 (07:41→22:41)
[2024-01-21] MEDS: DESENEX/MITRAZOL/ZEASORB 1 APPLIC TOPICAL ×2 (07:41→21:45)
[2024-01-21] MEDS: ARISTOCORT/TRIAMCINOLONE 0.1% CREAM 1 APPLIC TOPICAL ×2 (07:41→21:45)
--- NOTE | 2024-01-21 08:28 | W.PN.HOSP.TC ---
Addendum entered and electronically signed by Carlin Engle MD 01/21/24 17:48:
She complains of right ear pain and discharge. Examined her right ear and no tympanic membrane rupture but there is some mucopurulent discharge and signs of inflammation. Will start on eardrops and oral Augmentin short course.
Original Note:
Today's Communication/Plan
-
Bowel regimen. Follow-up images.
Assessment / Plan
Assessment / Plan
Physical exam:
General: Well Developed, Well Nourished and No Apparent Distress
HEENT: Normocephalic, Atraumatic and Moist Mucous Membranes
Respiratory: Clear to Auscultation; Negative Wheezes, Rales or Rhonchi
Cardiac: Regular Rhythm and S1/S2
GI: Soft, Non tender and Nondistended
Musculoskeletal: No Clubbing, No Cyanosis and No Edema
Neuro: Awake, Alert and Oriented
Psych: Calm
A/P:
A/P: Patient is a 33y F with PMH significant for psychologic disorders and morbid obesity who presents to ED from [place] where she resides reporting that she swallowed a thumbtack [employer].
Ingested Foreign Body
- FB not visualized during EGD.
- CT abdomen done on 01/18 and object visualized--> Xray keeps showing object in RLQ
- Surgery consult. Appreciated input from surgery.
- Repeat imaging per surgery/gi to track progress. Repeat xray in am and appears to be in the same place. Increase activity as tolerated-PT eval.
- Follow for any new / worsening symptoms, sudden onset of pain, etc.
Constipation
-Aggressive bowel regimen
Hypokalemia:
-repleted and trend
Schizoaffective Disorder
Borderline Personality Disorder
PTSD / Depression / Anxiety
- Patient on myriad of psychotropic medications.
- Continue usual meds as per [place] record.
- Psych consult appreciated
Mild Persistent Asthma
- No evidence of acute exacerbation.
- Continue maintenance Advair and PRN DuoNebs.
Hypothyroidism
- Continue current T4 supplementation.
Morbid Obesity
- Affects all aspects of care.
- [place] record indicates that patient is being referred for bariatric surgery evaluation.
DVT Prophylaxis: High dose Lovenox
Code Status: Full
Anticipated Discharge: 24 - 48 hours
Subjective/Interval History
-
Date of Service: January 21, 2024
Patient complains of abdominal discomfort and constipated. No nausea vomiting
Objective Data
-
Labs:
Laboratory Results
01/21/24
05:45
WBC 5.0
Hgb 10.3 L
Hct 36.3 L
Plt Count 354
Sodium 139
Potassium 4.2 D
Chloride 112 H
Carbon Dioxide 20 L
BUN 15
Creatinine 0.8
Glucose 95
Calcium 8.9
Vital Signs:
Vital Signs
Temp Pulse Resp BP Pulse Ox
98.1 F 88 16 121/74 97
01/20/24 23:11 01/21/24 07:39 01/21/24 05:58 01/21/24 07:39 01/21/24 00:46
I&O
01/20/24 01/21/24 01/22/24
06:59 06:59 06:59
Intake Total 1840 / 1840 1530 / 1530
Output Total 925 / 925 1775 / 1775
Balance 915 / 915 -245 / -245
--- NOTE | 2024-01-21 10:53 | W.PN.GS2 ---
Today's Communication / Plan
-
Daily KUB
Bowel regimen
Assessment / Plan
-
Patient is a 33 yo F presenting following self ingestion of thumb tack
No plans or indication for surgery at this time. Continue to track progression of thumbtack with serial abdominal x-rays. Exam will be limited. Indications for surgery would be worsening exam or labs. SI watch and management per Hospitalist and
Psych.
Todays XR: tack appears to be rounding the hepatic flexure
-- X-ray abdomen tomorrow
-- bowel regimen, try mag citrate x1 in addition to current regimen
-- Regular diet
-- No plans for surgery
Subjective Data
-
Date of Service: January 21, 2024
AFVSS, no new complaints, reports has not had a BM since admit
Objective Data
-
Intake and Output
01/20/24 01/21/24 01/22/24
06:59 06:59 06:59
Intake Total 1840 / 1840 1530 / 1530
Output Total 925 / 925 1775 / 1775
Balance 915 / 915 -245 / -245
Intake:
Oral fluids 1840 / 1840 1530 / 1530
Output:
Urine, Blum 925 / 925 1775 / 1775
Other:
Number of approximated LARGE 1
amounts of urine
Number of unmeasured liquid
stools
Rectum 1
Vital Signs
Temp Pulse Resp BP Pulse Ox
97.8 F 88 16 121/74 97
01/21/24 07:10 01/21/24 07:39 01/21/24 07:10 01/21/24 07:39 01/21/24 07:10
Lab Results
01/21/24 05:45
01/21/24 05:45
Calcium 8.9 mg/dl (8.4-10.2) 01/21/24 05:45
Magnesium 2.4 mg/dl (1.6-2.3) H 01/21/24 05:45
Physical Exam
-
Gen: NAD
Abd: obese, soft, diffuse mild ttp, limited by habitus
[2024-01-21] MEDS: CITROMA 300 ML PO (11:16)
--- NOTE | 2024-01-21 11:50 | W.PN.UPDATE ---
Update Note
Progress Note Update
patient seen chart reviewed. ms cordero was in good spirits. she made it clear she would like to go home. we talked about the need to wait until the tack she ingested passes through her system. she gave me some hx of her stay at [place]. she
credits clozaril with her being well enough to be discharged. she is on a large dose of prozac (90 mg) which is above the recommended dose. prozac does increase the blood level of clozaril. she is ,i would surmise , therefore on a low dose
relatively speaking of clozaril. would check clozaril level. i am not changing her psych meds bc her mood and demeanor are good but in the future would give some thought to decreasing prozac. psych will sign off. please call us if we need to
return.
[2024-01-21 15:00] VITALS: BP 134/93; BP 141/84; PULSE 95; O2SAT 98
[2024-01-21 15:10] VITALS: BP 141/84
[2024-01-21] MEDS: DULCOLAX 10 MG PO (16:06)
[2024-01-21] MEDS: TORADOL 15 MG IV (16:26)
--- NOTE | 2024-01-21 17:15 | CM ---
Rosa swallowed a thumb tack, resulting in hospitalization. She is being observed for passing the tack.
Plan: Return to [facility] when medically ready. [facility] notified (Birgit [phone] Ext [phone])
[2024-01-21 21:43] VITALS: BP 106/73
[2024-01-21] MEDS: AUGMENTIN 875 MG/125 MG 1 TABLET PO (21:45)
[2024-01-21] MEDS: CIPRO 1 DROPPERETT OTIC (21:45)
[2024-01-21] MEDS: SUBUTEX SL (21:56)
[2024-01-21] MEDS: MELATONIN PO (22:14)
[2024-01-21] MEDS: CATAPRES PO (22:14)
[2024-01-21] MEDS: DIAMOX SR SEQUELS PO (22:14)
[2024-01-21] MEDS: CLOZARIL 100 MG PO (22:40)
[2024-01-21] MEDS: NEURONTIN PO (22:41)
[2024-01-21] MEDS: CLOZARIL 25 MG PO (22:41)
[2024-01-21] MEDS: MILK OF MAGNESIA 30 ML PO (22:46)
--- NOTE | 2024-01-21 22:52 | PTCARENOTE ---
Addendum entered by Junior Kruger RN 01/22/24 00:27:
At approximately 0000, patient remains drowsy/lethargic. Patient continues to open eyes to voice/touch, but quickly falls asleep. Patient now able to correctly give month and year, incorrect day of the month given.
Original Note:
At approximately 2130, patient very drowsy/lethargic. Patient opens eyes to voice, but quickly falls back asleep. Patient AAOx2 - disoriented to time. Patient typically AAOx3 and drowsy. VSS - Temp 98.3, HR 93, BP 106/73, RR 20, POX 93% on room air.
INSULATION MACHINE OPERATOR notified of findings. To bedside to assess patient. Instructed this RN to hold HS Subutex, Diamox, Neurontin, melatonin, and Catapres. Patient correctly remembered year after approximately 15 minutes, but remained disoriented to month/date. At
approximately 2245, patient remains AAOx2 - disoriented to time, drowsy and lethargic. Patient continues to open eyes to voice and falls back asleep quickly.
[2024-01-21 23:13] VITALS: BP 100/74
--- NOTE | 2024-01-22 04:21 | W.PN.UPDATE ---
Update Note
Progress Note Update
RN notified GOVERNMENT SERVICES PROFESSIONAL patient is mildly drowsy, Patient seen and evaluated. Patient was sleeping but easily arousable, stated she feels little drowsy. stable VS,98.3 temp. 106/73 BP. HR 93. RR 20. Pox 93 on room air. Advised RN to hold sedating
medications. Denies any dizziness, chest pain or shortness of breath at present.
In AM, patient seemed to be more alert and oriented. stable Vs.
[2024-01-22] MEDS: SYNTHROID 175 MCG PO (05:57)
[2024-01-22 06:00] VITALS: BMI 69.5
[2024-01-22 06:30] LABS: Hematocrit 33.5 % (37.0-47.0); Mean Corp Hgb Conc. 29.9 g/dL (33.0-37.0); Mean Corpuscular Hgb 22.9 pg (27.0-31.0); Mean Corpuscular Volume 76.7 fL (81.0-99.0); Mean Platelet Volume 8.8 fL (7.4-10.4); Platelet Count 348 10^3/uL (130-400); Red Blood Cell Count 4.37 10^6/uL (4.20-5.40); White Blood Cell Count 5.9 10^3/uL (4.8-10.8)
[2024-01-22 06:59] LABS: Blood Urea Nitrogen 16 mg/dl (7-17); Calcium 8.7 mg/dl (8.4-10.2); Carbon Dioxide 20 mmol/L (22-30); Chloride 109 mmol/L (98-107); Estimated Creatinine Clearance > 125 ml/min; Glucose 96 mg/dl (70-99); Sodium 140 mmol/L (135-145); eGFR > 60.00
[2024-01-22 07:10] VITALS: BP 126/77
[2024-01-22] MEDS: ADVAIR HFA 230/21 MCG INHALER 2 PUFF INH ×2 (07:57→19:49)
--- NOTE | 2024-01-22 08:41 | W.PN.HOSP.TC ---
Today's Communication/Plan
-
Follow-up serial x-rays.
Assessment / Plan
Assessment / Plan
Physical exam:
General: Well Developed, Well Nourished and No Apparent Distress
HEENT: Normocephalic, Atraumatic and Moist Mucous Membranes
Respiratory: Clear to Auscultation; Negative Wheezes, Rales or Rhonchi
Cardiac: Regular Rhythm and S1/S2
GI: Soft, Non tender and Nondistended
Musculoskeletal: No Clubbing, No Cyanosis and No Edema
Neuro: Awake, Alert and Oriented
Psych: Calm
A/P:
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
Ingested Foreign Body
- FB not visualized during EGD.
- CT abdomen done on 01/18 and object visualized--> Xray today on 01/21 shows that object is coming down and it is in sigmoid colon.
- Surgery consult. Appreciated input from surgery.
- Repeat imaging per surgery to track progress.
- Follow for any new / worsening symptoms, sudden onset of pain, etc.
Constipation
-Aggressive bowel regimen
Otitis media
-Eardrops
-Augmentin, short course
Hypokalemia:
-repleted and trend
Schizoaffective Disorder
Borderline Personality Disorder
PTSD / Depression / Anxiety
- Patient on myriad of psychotropic medications.
- Continue usual meds as per [place] record.
- Psych consult appreciated
Mild Persistent Asthma
- No evidence of acute exacerbation.
- Continue maintenance Advair and PRN DuoNebs.
Hypothyroidism
- Continue current T4 supplementation.
Morbid Obesity
- Affects all aspects of care.
- [place] record indicates that patient is being referred for bariatric surgery evaluation.
DVT Prophylaxis: High dose Lovenox
Code Status: Full
Anticipated Discharge: 24 - 48 hours
Subjective/Interval History
-
Date of Service: January 22, 2024
Patient had bowel movements. Denies abdominal pain today no nausea or vomiting. 'She wants to go home'.
Objective Data
-
Labs:
Laboratory Results
01/22/24
05:54
WBC 5.9
Hgb 10.0 L
Hct 33.5 L
Plt Count 348
Sodium 140
Potassium 4.0
Chloride 109 H
Carbon Dioxide 20 L
BUN 16
Creatinine 0.8
Glucose 96
Calcium 8.7
Vital Signs:
Vital Signs
Temp Pulse Resp BP Pulse Ox
98.8 F 92 16 100/74 95
01/21/24 23:13 01/22/24 07:59 01/22/24 07:59 01/21/24 23:13 01/22/24 07:59
I&O
01/21/24 01/22/24 01/23/24
06:59 06:59 06:59
Intake Total 1530 / 1530 1680 / 1680
Output Total 1775 / 1775 1400 / 1400
Balance -245 / -245 280 / 280
[2024-01-22] MEDS: DIAMOX SR SEQUELS 500 MG PO ×3 (09:17→21:53)
[2024-01-22] MEDS: PROZAC 10 MG PO (09:18)
[2024-01-22] MEDS: PROZAC 80 MG PO (09:18)
[2024-01-22] MEDS: NEURONTIN 300 MG PO ×3 (09:18→21:53)
[2024-01-22] MEDS: SUBUTEX 4 MG SL ×2 (09:18→19:58)
[2024-01-22] MEDS: CLOZARIL 50 MG PO (09:18)
[2024-01-22] MEDS: BUMEX 2 MG PO (09:19)
[2024-01-22] MEDS: ZYRTEC 10 MG PO (09:19)
[2024-01-22] MEDS: PROTONIX 40 MG PO (09:19)
[2024-01-22] MEDS: AUGMENTIN 875 MG/125 MG 1 TABLET PO ×2 (09:19→19:54)
[2024-01-22] MEDS: CIPRO 1 DROPPERETT OTIC ×2 (09:20→19:54)
[2024-01-22] MEDS: PEPCID 20 MG PO ×2 (09:20→19:56)
[2024-01-22] MEDS: DESENEX/MITRAZOL/ZEASORB 1 APPLIC TOPICAL ×2 (09:21→19:55)
[2024-01-22] MEDS: LOVENOX SC (10:10)
[2024-01-22] MEDS: MYCOSTATIN CREAM TOPICAL (10:10)
[2024-01-22] MEDS: ARISTOCORT/TRIAMCINOLONE 0.1% CREAM TOPICAL (10:10)
[2024-01-22] MEDS: LIDOCAINE 4% PATCH TOPICAL (10:10)
[2024-01-22] MEDS: MIRALAX PO ×2 (10:10→19:56)
[2024-01-22] MEDS: SENOKOT-S PO (10:11)
--- NOTE | 2024-01-22 11:05 | CM ---
Call received from Felipa at [facility] who advised that per nursing, Rosa made up the story about swallowing a tack. I advised eFlipa that xray has shown the tack in her colon, so Rosa did not make up the swallowing of a tack.
Felipa will notify her nursing staff with this update.
BENEDICTO will continue to follow for return to [facility].
--- NOTE | 2024-01-22 12:14 | W.PN.SURGUPD ---
Surgical Update
Surgical Update
pt not seen
xray reviewed - continued progression of foreign body and BMs
continue current bowel regiment
--- NOTE | 2024-01-22 15:11 | CM ---
Discharge Plan of Care: Continue monitoring of progression of foreign body and BMs. When passed will discharge back to [facility] for resumption of LTC.
[2024-01-22 15:20] VITALS: BP 113/75
[2024-01-22] MEDS: MYCOSTATIN CREAM 1 APPLIC TOPICAL ×2 (17:43→21:53)
[2024-01-22] MEDS: ARISTOCORT/TRIAMCINOLONE 0.1% CREAM 1 APPLIC TOPICAL (19:53)
[2024-01-22] MEDS: LOVENOX 40 MG SC (19:55)
[2024-01-22] MEDS: SENOKOT-S 2 TABLET PO (19:57)
[2024-01-22] MEDS: CATAPRES PO (21:51)
[2024-01-22] MEDS: CLOZARIL 100 MG PO (21:52)
[2024-01-22] MEDS: CLOZARIL 25 MG PO (21:52)
[2024-01-22] MEDS: MELATONIN PO (21:53)
[2024-01-22 23:52] VITALS: BP 112/67
[2024-01-23] MEDS: SYNTHROID 175 MCG PO (05:21)
[2024-01-23 06:00] VITALS: BMI 69.2
[2024-01-23 06:24] LABS: Hematocrit 30.4 % (37.0-47.0); Hemoglobin 9.5 g/dL (12.0-16.0)
[2024-01-23 07:10] VITALS: BP 105/71
[2024-01-23] MEDS: ADVAIR HFA 230/21 MCG INHALER 2 PUFF INH (07:27)
[2024-01-23 07:39] LABS: Blood Urea Nitrogen 12 mg/dl (7-17); Calcium 8.2 mg/dl (8.4-10.2); Carbon Dioxide 26 mmol/L (22-30); Chloride 109 mmol/L (98-107); Estimated Creatinine Clearance > 125 ml/min; Glucose 99 mg/dl (70-99); Potassium 4.2 mmol/L (3.5-5.1); Sodium 139 mmol/L (135-145); eGFR > 60.00
--- NOTE | 2024-01-23 09:18 | W.PN.HOSP.TC ---
Today's Communication/Plan
-
Discharge planning today.
Assessment / Plan
Assessment / Plan
Physical exam:
General: Well Developed, Well Nourished and No Apparent Distress
HEENT: Normocephalic, Atraumatic and Moist Mucous Membranes
Respiratory: Clear to Auscultation; Negative Wheezes, Rales or Rhonchi
Cardiac: Regular Rhythm and S1/S2
GI: Soft, Non tender and Nondistended
Musculoskeletal: No Clubbing, No Cyanosis and No Edema
Neuro: Awake, Alert and Oriented
Psych: Calm
A/P:
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
Ingested Foreign Body
- FB not visualized during EGD.
- CT abdomen done on 01/18 and object visualized--> Xray today on 01/22 shows expulsion of the foreign object.
- Surgery consult. Appreciated input from surgery.
- Plan to discharge today
Constipation
-Aggressive bowel regimen
Otitis media
-Eardrops
-Augmentin, short course
Hypokalemia:
-repleted and trend
Schizoaffective Disorder
Borderline Personality Disorder
PTSD / Depression / Anxiety
- Patient on myriad of psychotropic medications.
- Continue usual meds as per [place] record.
- Psych consult appreciated
Mild Persistent Asthma
- No evidence of acute exacerbation.
- Continue maintenance Advair and PRN DuoNebs.
Hypothyroidism
- Continue current T4 supplementation.
Morbid Obesity
- Affects all aspects of care.
- [place] record indicates that patient is being referred for bariatric surgery evaluation.
DVT Prophylaxis: High dose Lovenox
Code Status: Full
Anticipated Discharge: Today
Subjective/Interval History
-
Date of Service: January 23, 2024
Patient doing well today.
Objective Data
-
Labs:
Laboratory Results
01/23/24 01/23/24
06:00 07:06
Hgb 9.5 L
Hct 30.4 L
Sodium Cancelled 139
Potassium Cancelled 4.2
Chloride Cancelled 109 H
Carbon Dioxide Cancelled 26
BUN Cancelled 12
Creatinine Cancelled 0.7
Glucose Cancelled 99
Calcium Cancelled 8.2 L
Vital Signs:
Vital Signs
Temp Pulse Resp BP Pulse Ox
98.7 F 82 16 105/71 93
01/23/24 07:10 01/23/24 07:25 01/23/24 07:25 01/23/24 07:10 01/23/24 07:25
I&O
01/22/24 01/23/24 01/24/24
06:59 06:59 06:59
Intake Total 1680 / 1680 1208 / 1208
Output Total 1400 / 1400 1525 / 1525
Balance 280 / 280 -317 / -317
[2024-01-23] MEDS: ZYRTEC 10 MG PO (09:54)
[2024-01-23] MEDS: SUBUTEX 4 MG SL (09:54)
[2024-01-23] MEDS: PROTONIX 40 MG PO (09:55)
[2024-01-23] MEDS: AUGMENTIN 875 MG/125 MG 1 TABLET PO (09:55)
[2024-01-23] MEDS: PEPCID 20 MG PO (09:55)
[2024-01-23] MEDS: NEURONTIN 300 MG PO (09:55)
[2024-01-23] MEDS: CIPRO 1 DROPPERETT OTIC (09:55)
[2024-01-23] MEDS: DIAMOX SR SEQUELS 500 MG PO (09:55)
[2024-01-23] MEDS: CLOZARIL 50 MG PO (09:55)
[2024-01-23] MEDS: BUMEX 2 MG PO (09:56)
[2024-01-23] MEDS: PROZAC 10 MG PO (09:56)
[2024-01-23] MEDS: LIDOCAINE 4% PATCH TOPICAL (10:01)
[2024-01-23] MEDS: DESENEX/MITRAZOL/ZEASORB 1 APPLIC TOPICAL (10:01)
[2024-01-23] MEDS: MIRALAX PO (10:02)
[2024-01-23] MEDS: PROZAC 80 MG PO (10:02)
[2024-01-23] MEDS: LOVENOX 40 MG SC (10:02)
[2024-01-23] MEDS: ARISTOCORT/TRIAMCINOLONE 0.1% CREAM 1 APPLIC TOPICAL (10:04)
[2024-01-23] MEDS: SENOKOT-S PO (10:04)
[2024-01-23] MEDS: MYCOSTATIN CREAM 1 APPLIC TOPICAL (10:04)
--- NOTE | 2024-01-23 11:43 | W.DCSUMMARY ---
Discharge Summary
Discharge Data
Date of Admission: 01/18/24
Date of Discharge: 01/23/24
-
Pending Results: No
Hospital Course
Patient 33 years old female with history of morbid obesity, schizoaffective disorder, PTSD, depression anxiety, borderline personality disorder, presented to the hospital after swallowing object (thumbtack). Patient was evaluated by GI and surgery.
She underwent EGD but unable to retrieve object. She had CT scan of the abdomen to visualize the object. She also had multiple serial x-rays and she was treated with conservative management. She was able to pass the object and her final x-ray
shows no evidence of foreign object. She had moved her bowels without any problem and she is asymptomatic. She also had some mild otitis for which she is getting some antibiotics short course. She also was seen by psychiatry who recommend to
continue current regimen. Otherwise, patient hemodynamically stable and eager to go back to her facility today. She will be discharged in stable condition today.
Discharge management: 33-minute
Discharge Plan
-
Patient Disposition: Intermediate/SNF
Discharge Diagnosis/Procedures: Ingested foreign body. Otitis media. Hypokalemia. Schizoaffective disorder/borderline personality disorder/depression. Morbid obesity.
Diet: Low Cholesterol
Activity: As tolerated
Blood Work: Please PCP to order CBC, BMP within 1 week.
Referrals:
Shivam Turk, DO [Family Provider] - in less than 1 week
Prescriptions:
New
polyethylene glycol 3350 [HealthyLax] 17 gram Powder In Packet
17 g PO DAILY Qty: 14 0RF
amoxicillin-pot clavulanate 875-125 mg Tablet
1 tab PO Q12 3 Days Qty: 6 0RF
ciprofloxacin HCl 0.2 % Dropperette
1 drp otic (ear) Q12 5 Days Qty: 14 0RF
Continued
Atropine Sulfate 1 % drops
1 drp PO DAILYPRN PRN (Reason: under the tongue for sialorrhea)
levothyroxine [Synthroid] 175 mcg Tablet
175 mcg PO DAILY
clonidine HCl 0.1 mg Tablet
0.1 mg PO HS
acetaminophen [Tylenol] 325 mg Tablet
650 mg PO Q6HPRN PRN (Reason: temp>100.4)
polyethylene glycol 3350 [Miralax] 17 gram Powder In Packet
17 g PO BID
cetirizine [Zyrtec] 10 mg Tablet
10 mg PO DAILY
acetazolamide 500 mg Capsule, Extended Release
500 mg PO TID
clozapine 100 mg Tablet
125 mg PO HS
Rx Instructions:
with 25mg = 125mg
naltrexone 50 mg Tablet
100 mg PO DAILY
therapeutic multivitamin Tablet
1 tab PO DAILY
melatonin 3 mg Tablet
3 mg PO HS
triamcinolone acetonide 0.1 % Cream
1 applic TOPICAL BID
Rx Instructions:
apply to b/l legs
famotidine [Pepcid] 20 mg Tablet
20 mg PO BID
magnesium hydroxide [Milk of Magnesia] 400 mg/5 mL Suspension
2,400 mg PO [id number] PRN (Reason: if no bm in 3 days)
bisacodyl [Dulcolax (bisacodyl)] 10 mg Suppository
10 mg UT DAILYPRN PRN (Reason: if no bm after mom)
ferrous sulfate 325 mg (65 mg iron) Tablet
325 mg PO DAILY
nystatin 100,000 unit/gram Cream
1 applic TOPICAL TID
fluticasone propion-salmeterol [Advair Diskus] 500-50 mcg/dose Blister With Device
1 inh INHALATION R BID
Fleet Enema 19-7 gram/118 mL Enema
118 ml UT DAILYPRN PRN (Reason: if no bm after dulcolax)
docusate sodium [Colace] 100 mg Capsule
100 mg PO TID
gabapentin 300 mg Capsule
300 mg PO TID
ibuprofen 600 mg Tablet
600 mg PO Q6HPRN PRN (Reason: pain)
albuterol sulfate [ProAir HFA] 90 mcg/actuation Hfa Aerosol Inhaler
2 puff INHALATION R Q6HPRN PRN (Reason: sob)
cyclobenzaprine 5 mg Tablet
5 mg PO TID
clozapine 50 mg Tablet
50 mg PO DAILY
Senna Plus 8.6-50 mg Capsule
2 tab-cap PO TID
naltrexone 50 mg Tablet
50 mg PO QPM
acetaminophen [Tylenol] 325 mg Tablet
975 mg PO Q6HPRN PRN (Reason: mild pain)
bumetanide 2 mg Tablet
2 mg PO DAILY
Rx Instructions:
hold BP lower than 110/60
lidocaine 4 % Adhesive Patch,Medicated
1 patch TOPICAL DAILY
Rx Instructions:
apply to lower back and remove per schedule
hydroxyzine pamoate 50 mg Capsule
50 mg PO Q8HPRN PRN (Reason: anxiety)
clozapine 25 mg Tablet
25 mg PO HS
Rx Instructions:
with 100mg = 125mg
buprenorphine-naloxone [Suboxone] 2-0.5 mg Film
1 film BUCCAL BID
Rx Instructions:
give for 7 days end date 01/20/24
fluoxetine 60 mg Tablet
90 mg PO DAILY
buprenorphine-naloxone [Suboxone] 4-1 mg Film
1 film BUCCAL BID
Rx Instructions:
give for pain x 7 days end date 01/20/24
semaglutide (weight loss) 0.25 mg/0.5 mL Pen Injector
0.25 mg SC FR
Discharge Orders:
Discharge Patient (As Directed); Ordered 01/23/24
Ordered By: Carlin Engle
Discharge Date and Time
Discharge Date/Time: 01/23/24 19:15
Print Language: CHINESE
--- NOTE | 2024-01-23 14:31 | CM ---
Patient has been medically cleared for discharge back to [facility] for resumption of LTC. Transport is scheduled for 6:00PM. Patient, admissions and team aware.
NURSE TO NURSE REPORT # [phone]
FAX # [phone]
[2024-01-23 15:10] VITALS: BP 115/79
--- NOTE | 2024-01-23 15:30 | PTCARENOTE ---
Patient is up for discharge back to [facility] (2nd floor). Report given to Corrine Lawrence at [phone]. Patient to be picked up by ambulance at 6pm.
[2024-01-23] MEDS: MYCOSTATIN CREAM TOPICAL (17:09)
[2024-01-23] MEDS: NEURONTIN PO (17:12)
[2024-01-23] MEDS: DIAMOX SR SEQUELS PO (17:13)
[2024-01-23] MEDS: ADVAIR HFA 230/21 MCG INHALER INH (19:07)
[2024-01-24 00:18] LABS: Clozapine, Quantitative 331 ng/mL; Clozapine-N-Oxide,Quantitative <100 ng/mL; Norclozapine, Quantitative 145 ng/mL; Total Clozapine & Metabolites 476 ng/mL (<=1500)
== END 2024-01-23 19:15 | DRG 394 ==
LOC: 2 NORTH 23:43
PROVIDERS: Psychiatry & Neurology Psychiatry; ADMITTING PHYSICIAN Hospitalist; ATTENDING PHYSICIAN Hospitalist; CONSULT PHYSICIAN Internal Medicine Gastroenterology; CONSULT PHYSICIAN Psychiatry & Neurology Psychiatry; CONSULT PHYSICIAN Surgery; EMERGENCY PHYSICIAN Emergency Medicine; FAMILY PHYSICIAN Internal Medicine
PROC: 0DJ08ZZ Inspection of Upper Intestinal Tract, Via Natural or Artificial Opening Endoscopic (ICD-10-PCS; 2024-01-18)
DX: T18.9XXA Foreign body of alimentary tract, part unspecified, initial encounter (principal); Z68.44 Body mass index [BMI] 60.0-69.9, adult; E03.9 Hypothyroidism, unspecified; E11.9 Type 2 diabetes mellitus without complications; F32.A Depression, unspecified; F41.9 Anxiety disorder, unspecified; I10 Essential (primary) hypertension; F25.9 Schizoaffective disorder, unspecified; K21.9 Gastro-esophageal reflux disease without esophagitis; E66.01 Morbid (severe) obesity due to excess calories; F60.3 Borderline personality disorder; G93.2 Benign intracranial hypertension; F39 Unspecified mood [affective] disorder; N31.9 Neuromuscular dysfunction of bladder, unspecified; E87.6 Hypokalemia; H92.01 Otalgia, right ear; K59.00 Constipation, unspecified; H66.91 Otitis media, unspecified, right ear; F43.10 Post-traumatic stress disorder, unspecified; J45.30 Mild persistent asthma, uncomplicated; W44.9XXA Unspecified foreign body entering into or through a natural orifice, initial encounter; Y93.89 Activity, other specified; Y92.9 Unspecified place or not applicable; Z88.8 Allergy status to other drugs, medicaments and biological substances; Z91.030 Bee allergy status; Z91.013 Allergy to seafood; Z79.890 Hormone replacement therapy; Z79.85 Long-term (current) use of injectable non-insulin antidiabetic drugs; Z79.51 Long term (current) use of inhaled steroids; Z62.810 Personal history of physical and sexual abuse in childhood
CPT/HCPCS: 74018; 74176; 80048; 80159; 83735; 85014; 85018; 85025; 85027; 87070; 94640; 97116; 97162; 99285

== ENCOUNTER 2024-01-24 02:56 | Emergency (ER) | payer MEDICARE, OTHER, SELFPAY ==
[2024-01-24 02:58] VITALS: BP 102/59
--- NOTE | 2024-01-24 04:41 | ED.GENMED ---
History of Present Illness
General
Chief Complaint: Fall
Source: patient
Time Seen by Provider: 01/24/24 03:07
History of Present Illness
History of Present Illness:
PT rolled out of bed/fell out of bed. C/o headache. No other complaints. Pt unsure if she struck her head.
Past History
Past History
ED Past Medical History: Asthma, GERD, NIDDM, Hypothyroidism and Psychiatric (anxiety, depression)
Social History
Tobacco: Non-smoker
Drug: None
Living: retirement
Employment: Disabled
Phy Exam
Physical Exam
Physical Exam:
General: Awake, Alert, slow to answer. No acute distress.
Vitals: unremarkable
Head: No apparent trauma
Eyes: Pupils equal, EOMI
Throat: Airway intact, no exudates
Neck: Trachea midline
Lungs: Clear and equal b/l
Heart: Regular rate, no murmurs
Neuro: Nonfocal
Skin: Warm, dry, no rash
Extremities: pulses equal b/l, no edema
Course
Orders/Labs/Results
Orders:
Orders
01/24/24 03:11
CT Head W/o Iv Contrast Urgent
Comment:
Reason For Exam: fall, ? head injury
Vital Signs
Initial and Last Documented VS:
Initial Vital Signs
Temp Pulse Resp BP Pulse Ox
98.2 F 97 16 102/59 99
01/24/24 02:58 01/24/24 02:58 01/24/24 02:58 01/24/24 02:58 01/24/24 02:58
Last Documented Vital Signs
Temp Pulse Resp BP Pulse Ox
98.2 F 97 16 102/59 99
01/24/24 02:58 01/24/24 02:58 01/24/24 02:58 01/24/24 02:58 01/24/24 02:58
MDM/Problems Addressed
Differential Diagnosis Includes:
Contusion, subdural
MDM/Problems Addressed:
CT is negative for any acute pathology. No evidence for any other injuries. Patient stable for discharge back to her facility
*Critical Care Note
Total Time (30-74mins, 75-104mins- exclusive of procedures): Not Applicable
ED Attending Note
-
Portions of this chart may have been created with voice recognition software.� Occasional wrong word or��sound alike� substitutions may have occurred due to the inherent limitations of voice recognition software.
Discharge Plan
Departure
Patient Disposition: [facility]ci/SNF
Date of Disposition: 01/24/24
Time of Disposition: 04:42
Condition: Good
Discharge Problem:
Fall
Prescriptions:
No Action
Atropine Sulfate 1 % drops
1 drp PO DAILYPRN PRN (Reason: under the tongue for sialorrhea)
levothyroxine [Synthroid] 175 mcg Tablet
175 mcg PO DAILY
clonidine HCl 0.1 mg Tablet
0.1 mg PO HS
acetaminophen [Tylenol] 325 mg Tablet
650 mg PO Q6HPRN PRN (Reason: temp>100.4)
polyethylene glycol 3350 [Miralax] 17 gram Powder In Packet
17 g PO BID
cetirizine [Zyrtec] 10 mg Tablet
10 mg PO DAILY
acetazolamide 500 mg Capsule, Extended Release
500 mg PO TID
clozapine 100 mg Tablet
125 mg PO HS
Rx Instructions:
with 25mg = 125mg
naltrexone 50 mg Tablet
100 mg PO DAILY
therapeutic multivitamin Tablet
1 tab PO DAILY
melatonin 3 mg Tablet
3 mg PO HS
triamcinolone acetonide 0.1 % Cream
1 applic TOPICAL BID
Rx Instructions:
apply to b/l legs
famotidine [Pepcid] 20 mg Tablet
20 mg PO BID
magnesium hydroxide [Milk of Magnesia] 400 mg/5 mL Suspension
2,400 mg PO [id number] PRN (Reason: if no bm in 3 days)
bisacodyl [Dulcolax (bisacodyl)] 10 mg Suppository
10 mg IN DAILYPRN PRN (Reason: if no bm after mom)
ferrous sulfate 325 mg (65 mg iron) Tablet
325 mg PO DAILY
nystatin 100,000 unit/gram Cream
1 applic TOPICAL TID
fluticasone propion-salmeterol [Advair Diskus] 500-50 mcg/dose Blister With Device
1 inh INHALATION R BID
Fleet Enema 19-7 gram/118 mL Enema
118 ml IN DAILYPRN PRN (Reason: if no bm after dulcolax)
docusate sodium [Colace] 100 mg Capsule
100 mg PO TID
gabapentin 300 mg Capsule
300 mg PO TID
ibuprofen 600 mg Tablet
600 mg PO Q6HPRN PRN (Reason: pain)
albuterol sulfate [ProAir HFA] 90 mcg/actuation Hfa Aerosol Inhaler
2 puff INHALATION R Q6HPRN PRN (Reason: sob)
cyclobenzaprine 5 mg Tablet
5 mg PO TID
clozapine 50 mg Tablet
50 mg PO DAILY
Senna Plus 8.6-50 mg Capsule
2 tab-cap PO TID
naltrexone 50 mg Tablet
50 mg PO QPM
acetaminophen [Tylenol] 325 mg Tablet
975 mg PO Q6HPRN PRN (Reason: mild pain)
bumetanide 2 mg Tablet
2 mg PO DAILY
Rx Instructions:
hold BP lower than 110/60
lidocaine 4 % Adhesive Patch,Medicated
1 patch TOPICAL DAILY
Rx Instructions:
apply to lower back and remove per schedule
hydroxyzine pamoate 50 mg Capsule
50 mg PO Q8HPRN PRN (Reason: anxiety)
clozapine 25 mg Tablet
25 mg PO HS
Rx Instructions:
with 100mg = 125mg
buprenorphine-naloxone [Suboxone] 2-0.5 mg Film
1 film BUCCAL BID
Rx Instructions:
give for 7 days end date 01/20/24
fluoxetine 60 mg Tablet
90 mg PO DAILY
buprenorphine-naloxone [Suboxone] 4-1 mg Film
1 film BUCCAL BID
Rx Instructions:
give for pain x 7 days end date 01/20/24
semaglutide (weight loss) 0.25 mg/0.5 mL Pen Injector
0.25 mg SC FR
polyethylene glycol 3350 [HealthyLax] 17 gram Powder In Packet
17 g PO DAILY Qty: 14 0RF
amoxicillin-pot clavulanate 875-125 mg Tablet
1 tab PO Q12 3 Days Qty: 6 0RF
ciprofloxacin HCl 0.2 % Dropperette
1 drp otic (ear) Q12 5 Days Qty: 14 0RF
Referrals:
Shivam Turk DO [Family Provider] -
Interventions
Interventions:
*Risk Screen - Suicide Last Done: 01/24/24 02:58
*General Assessment Last Done: 01/24/24 02:58
*Neglect/Abuse Screening Last Done: 01/24/24 02:58
Discharge Date and Time
Print Language: GREEK
[2024-01-24 10:02] VITALS: BP 120/79
== END 2024-01-24 17:28 ==
LOC: EMR 02:56
PROVIDERS: EMERGENCY PHYSICIAN Emergency Medicine; FAMILY PHYSICIAN Internal Medicine
DX: R51.9 Headache, unspecified (principal); W06.XXXA Fall from bed, initial encounter
CPT/HCPCS: 99284; 70450

== ENCOUNTER 2024-01-26 20:26 | Emergency (ER) | payer MEDICARE, OTHER, SELFPAY ==
[2024-01-26 20:32] VITALS: BP 111/83; BMI 68.4
[2024-01-26 20:37] VITALS: BP 111/83
--- NOTE | 2024-01-26 20:51 | ED.GENMED ---
History of Present Illness
General
Chief Complaint: Psychiatric Problem
Source: patient
Exam Limitations: none
Time Seen by Provider: 01/26/24 20:46
History of Present Illness
History of Present Illness:
See MDM
Past History
Past History
ED Past Medical History: Asthma, GERD, NIDDM, Hypothyroidism and Psychiatric (anxiety, depression)
Social History
Tobacco: Non-smoker
Drug: None
Living: half-way
Employment: Disabled
Phy Exam
Physical Exam
Physical Exam:
See MDM
Course
Orders/Labs/Results
Orders:
Orders
01/26/24 20:46
Crisis Consult Urgent
Reason for Consult: suicide attempt
1:1 Observation - Suicide/ Violent Behavior As Directed
01/26/24 20:51
Abdomen Xray - 1 View [CR Abdomen - 1 View] Urgent
Comment:
Reason For Exam: pt states she swallowed a quarter
Vital Signs
Initial and Last Documented VS:
Initial Vital Signs
Temp Pulse Resp BP Pulse Ox
97.6 F 98 20 111/83 98
01/26/24 20:32 01/26/24 20:32 01/26/24 20:32 01/26/24 20:32 01/26/24 20:32
Last Documented Vital Signs
Temp Pulse Resp BP Pulse Ox
97.6 F 98 20 111/83 97
01/26/24 20:32 01/26/24 20:32 01/26/24 20:32 01/26/24 20:37 01/26/24 20:45
MDM/Problems Addressed
Differential Diagnosis Includes:
HPI and MDM Narrative:
33-year-old female presenting for evaluation of swallowed foreign body. Patient states she swallowed a quarter because 'she felt like it'. It is uncertain whether or not patient was trying to harm herself. Regardless, she was the one that told
caretakers at her facility and they called to get her to the [facility]. Patient denies any sore throat, abdominal pain or trouble
Will place on one-to-one to ensure the patient does not swallow anything else
Physical exam
General: Well appearing and non-toxic
HEENT: protecting airway. Posterior pharynx clear
Neck: appears supple
CV: No evidence of cyanosis
Resp: No accessory muscle use. Lungs clear
Abd: Non-distended and nontender
Extremities: No deformities
Neuro: alert
Psych: Normal affect
Skin: Intact
Problems Addressed including Acute and Chronic Conditions affecting care:
1. Swallowed foreign body
Acuity: acute
Prognosis: stable
Details: Patient states she swallowed a quarter. Will obtain x-ray
Updates
9:23 PM patient was evaluated by crisis. Crisis indicating that patient is denying suicidal attempt or purposeful self-harm and is cleared from crisis standpoint
X-ray is consistent with cylindrical radiopaque foreign object consistent with likely coin as patient had indicated
Differential Diagnosis (but not limited to): Swallowed foreign body, multiple foreign body ingestions
Testing considered:
Drug therapy (if applicable): OTC meds, please see d/c instruction regarding Rx drugs
Amount and/or Complexity of Data Reviewed
Clinical info obtained from: Patient
External data reviewed: Patient has swallowed a thumbtack in the past requiring admission
Labs I independently reviewed (but not limited to): N/A
Radiology: X-ray independently reviewed: Ingested radiopaque foreign object consistent with likely coin
Pulse Ox: not hypoxic
EKG independently reviewed: N/A
Electrical High Tension Tester: N/A
Critical Care: N/A
Risk of Complication:
Social Determinants of health: Good social support
Discussed with other providers: N/A
Escalation of Care includes Admit/Obs: After being observed in the Emergency Department, pt stable for discharge.
Occasional wrong word or 'sound a like' substitutions may have occurred due to the inherent limitations of voice recognition software. Read the chart carefully and recognize, using context, where substitutions have occurred.
*Critical Care Note
Total Time (30-74mins, 75-104mins- exclusive of procedures): Not Applicable
ED Attending Note
-
Portions of this chart may have been created with voice recognition software.� Occasional wrong word or��sound alike� substitutions may have occurred due to the inherent limitations of voice recognition software.
Discharge Plan
Departure
Patient Disposition: Home (Routine Discharge)
Date of Disposition: 01/26/24
Time of Disposition: 21:49
Patient with high blood pressure during this ER visit?: No
Discharge Problem:
Foreign body ingestion
Prescriptions:
No Action
Atropine Sulfate 1 % drops
1 drp PO DAILYPRN PRN (Reason: under the tongue for sialorrhea)
levothyroxine [Synthroid] 175 mcg Tablet
175 mcg PO DAILY
clonidine HCl 0.1 mg Tablet
0.1 mg PO HS
acetaminophen [Tylenol] 325 mg Tablet
650 mg PO Q6HPRN PRN (Reason: temp>100.4)
polyethylene glycol 3350 [Miralax] 17 gram Powder In Packet
17 g PO BID
cetirizine [Zyrtec] 10 mg Tablet
10 mg PO DAILY
acetazolamide 500 mg Capsule, Extended Release
500 mg PO TID
clozapine 100 mg Tablet
125 mg PO HS
Rx Instructions:
with 25mg = 125mg
naltrexone 50 mg Tablet
100 mg PO DAILY
therapeutic multivitamin Tablet
1 tab PO DAILY
melatonin 3 mg Tablet
3 mg PO HS
triamcinolone acetonide 0.1 % Cream
1 applic TOPICAL BID
Rx Instructions:
apply to b/l legs
famotidine [Pepcid] 20 mg Tablet
20 mg PO BID
magnesium hydroxide [Milk of Magnesia] 400 mg/5 mL Suspension
2,400 mg PO [id number] PRN (Reason: if no bm in 3 days)
bisacodyl [Dulcolax (bisacodyl)] 10 mg Suppository
10 mg ME DAILYPRN PRN (Reason: if no bm after mom)
ferrous sulfate 325 mg (65 mg iron) Tablet
325 mg PO DAILY
nystatin 100,000 unit/gram Cream
1 applic TOPICAL TID
fluticasone propion-salmeterol [Advair Diskus] 500-50 mcg/dose Blister With Device
1 inh INHALATION R BID
Fleet Enema 19-7 gram/118 mL Enema
118 ml ME DAILYPRN PRN (Reason: if no bm after dulcolax)
docusate sodium [Colace] 100 mg Capsule
100 mg PO TID
gabapentin 300 mg Capsule
300 mg PO TID
ibuprofen 600 mg Tablet
600 mg PO Q6HPRN PRN (Reason: pain)
albuterol sulfate [ProAir HFA] 90 mcg/actuation Hfa Aerosol Inhaler
2 puff INHALATION R Q6HPRN PRN (Reason: sob)
cyclobenzaprine 5 mg Tablet
5 mg PO TID
clozapine 50 mg Tablet
50 mg PO DAILY
Senna Plus 8.6-50 mg Capsule
2 tab-cap PO TID
naltrexone 50 mg Tablet
50 mg PO QPM
acetaminophen [Tylenol] 325 mg Tablet
975 mg PO Q6HPRN PRN (Reason: mild pain)
bumetanide 2 mg Tablet
2 mg PO DAILY
Rx Instructions:
hold BP lower than 110/60
lidocaine 4 % Adhesive Patch,Medicated
1 patch TOPICAL DAILY
Rx Instructions:
apply to lower back and remove per schedule
hydroxyzine pamoate 50 mg Capsule
50 mg PO Q8HPRN PRN (Reason: anxiety)
clozapine 25 mg Tablet
25 mg PO HS
Rx Instructions:
with 100mg = 125mg
buprenorphine-naloxone [Suboxone] 2-0.5 mg Film
1 film BUCCAL BID
Rx Instructions:
give for 7 days end date 01/20/24
fluoxetine 60 mg Tablet
90 mg PO DAILY
buprenorphine-naloxone [Suboxone] 4-1 mg Film
1 film BUCCAL BID
Rx Instructions:
give for pain x 7 days end date 01/20/24
semaglutide (weight loss) 0.25 mg/0.5 mL Pen Injector
0.25 mg SC FR
polyethylene glycol 3350 [HealthyLax] 17 gram Powder In Packet
17 g PO DAILY Qty: 14 0RF
amoxicillin-pot clavulanate 875-125 mg Tablet
1 tab PO Q12 3 Days Qty: 6 0RF
ciprofloxacin HCl 0.2 % Dropperette
1 drp otic (ear) Q12 5 Days Qty: 14 0RF
Activity Restrictions/Additional Instructions:
The coin should pass on its own. Please return for any abdominal pain or vomiting.
Interventions
Interventions:
*Risk Screen - Suicide Last Done: 01/26/24 20:32
*General Assessment Last Done: 01/26/24 20:32
*Neglect/Abuse Screening Last Done: 01/26/24 20:32
ED- Fall Risk Assessment Last Done: 01/26/24 20:32
*ED COVID-19 Vaccine History Last Done: 01/26/24 20:32
ED-Psychological Assessment Last Done: 01/26/24 20:32
Discharge Date and Time
Print Language: KIS[place]ILI
[2024-01-26 22:18] VITALS: BP 115/78
[2024-01-27 11:17] VITALS: BP 125/78
== END 2024-01-27 11:18 | disposition home or self-care (01) ==
LOC: EMR 20:26
PROVIDERS: EMERGENCY PHYSICIAN Student in an Organized Health Care Education/Training Program; FAMILY PHYSICIAN Internal Medicine
DX: T18.9XXA Foreign body of alimentary tract, part unspecified, initial encounter (principal); W44.E2XA Non-magnetic metal coin entering into or through a natural orifice, initial encounter
CPT/HCPCS: 99283; 74018

== ENCOUNTER 2024-02-22 20:23 | Emergency (ER) | payer MEDICARE, OTHER, SELFPAY ==
[2024-02-22 20:39] VITALS: BP 124/76
[2024-02-22 20:47] VITALS: BMI 67.6
--- NOTE | 2024-02-22 20:48 | EDRN ---
The patient is unable to stand on the standing scale at this time.
--- NOTE | 2024-02-22 21:24 | ED.GENMED ---
History of Present Illness
<Gordon Alonzo MD - Last Filed: 02/22/24 22:27>
General
Chief Complaint: Suicidal Ideation
Source: patient
Exam Limitations: none
Time Seen by Provider: 02/22/24 20:36
Nursing documentation reviewed up to this point in time: agreed with
History of Present Illness
History of Present Illness:
Patient with history of anxiety, schizophrenia, bipolar disorder, and previous suicidal attempts, presents to ED after swallowing a 'sewing needle' in the suicidal attempt this evening. Event was not witnessed. Patient informed nursing staff after
she swallowed foreign body. Patient is complaining of mild upper abdominal discomfort. Denies sore throat. Denies chest pain. Denies shortness of breath. Denies nausea. Denies recent illness.
Past History
<Gordon Alonzo MD - Last Filed: 02/22/24 22:27>
Past History
ED Past Medical History: Asthma, GERD, NIDDM, Hypothyroidism and Psychiatric (anxiety, depression)
Social History
Tobacco: Non-smoker
Drug: None
Living: [facility]
Employment: Disabled
Review of Systems
<Gordon Alonzo MD - Last Filed: 02/22/24 22:27>
Review of Systems
Allergies reviewed?: Yes
All Other Systems: ROS reviewed and negative except as documented in HPI and ROS
Constitutional: Reports no symptoms
ABD/GI: Reports other (Foreign body ingestion)
Musculoskeletal: Reports no symptoms
Skin: Reports no symptoms
Neurological: Reports no symptoms
Phy Exam
<Gordon Alonzo MD - Last Filed: 02/22/24 22:27>
Physical Exam
Physical Exam:
Physical Exam
General: no apparent distress, not acutely ill. afebrile
Head: nc/at. eomi
Neck: supple. no meningeal signs.
Heart: s1/s2 regular rate and rhythm, no murmur. equal radial pulses.
Lungs: no acute respiratory distress. clear bilaterally
Abdomen: normal bowel sounds. not tender. no distention
Neuro: alert and oriented. no focal neurological deficits
Skin: no rash
Psychiatric: well kept. interactive and cooperative
Extremities: no edema. no calf tenderness.
Course
<Gordon Alonzo MD - Last Filed: 02/22/24 22:27>
Orders/Labs/Results
Orders:
Orders
02/22/24 20:28
Test Result ONCE
02/22/24 20:37
Crisis Consult Routine
Reason for Consult: suicidal
Comment: The patient swallowed a sewing needle in the attempt to kill herself
1:1 Observation - Suicide/ Violent Behavior As Directed
02/22/24 21:08
CR Chest Portable - 1 View Urgent
Comment:
Reason For Exam: FB ingestion, i.e. sewing needle
Reason Study Needs to be Portable: Patient Unstable
02/22/24 21:30
CR Abdomen - 1 View Urgent
Comment:
Reason For Exam: FB ingestion
02/22/24 22:01
Acetaminophen 1000MG/100Ml [Ofirmev] 1,000 mg in 100 ml IV ONCE
Acetaminophen IV Indication:: Ileus/Delayed Bowel Func.
Pantoprazole [Protonix IV] 40 mg IV NOW STA
02/22/24 22:11
Alcohol Urgent
Basic Metabolic Panel Urgent
Complete Blood Count/With Diff Urgent
Fentanyl, Urine Urgent
HCG, Serum Qualitative Screen Urgent
Urine Drug Abuse Screen Urgent
Date Specimen was Collected: 02/22/24
Time Specimen was Collected: 20:28
02/22/24 22:23
Glycopyrrolate [Robinul] 0.2 mg .ROUTE .STK-MED ONE
Lidocaine 2% Mpf [Xylocaine Mpf 2%] 100 mg .ROUTE .STK-MED ONE
Propofol [Diprivan] 20 ml .ROUTE .STK-MED
Rocuronium Muncy [Rocuronium] 50 mg .ROUTE .STK-MED ONE
Succinylcholine Chloride [Succinylcholine] 200 mg .ROUTE .STK-MED ONE
02/22/24 22:24
Fentanyl Citrate/Pf [Sublimaze] 100 mcg .ROUTE .STK-MED ONE
02/23/24 06:34
PSYCHIATRY CONSULT Urgent
Consulting Provider: Ben Cervantes
Was physician already notified: No
Reason for consult: self injury-swallowed sewing needle
02/23/24 06:35
Consult Notification Routine
Specialty to Notify: Psychiatry
02/23/24 12:00
Buprenorphine [Subutex] 6 mg SL BID
Clozapine [Clozaril] 50 mg PO DAILY
Fluoxetine HCl [Prozac] 80 mg PO DAILY
02/23/24 16:00
Gabapentin [Neurontin] 300 mg PO TID
02/23/24 19:58
Miconazole Nitrate [Desenex/Mitrazol/Zeasorb] See Dose Instructions TOPICAL NOW STA
02/23/24 22:00
Clozapine [Clozaril] 100 mg PO HS
Clozapine [Clozaril] 25 mg PO HS
Abnormal Lab Results
02/22/24
22:11
Hgb 10.8 L g/dL
(12.0-16.0)
Hct 34.5 L %
(37.0-47.0)
MCV 73.2 L fL
(81.0-99.0)
MCH 22.9 L pg
(27.0-31.0)
MCHC 31.3 L g/dL
(33.0-37.0)
RDW 17.2 H %
(11.5-14.5)
Lymphocytes % 19.7 L %
(20.5-51.1)
Chloride 109 H mmol/L
(98-107)
Ur Buprenorphine Positive H
(Negative)
Ur Oxycodone Screen Positive H
(Negative)
U Benzodiazepines Scrn Positive H
(Negative)
02/22/24 22:11
02/22/24 22:11
Vital Signs
Initial and Last Documented VS:
Initial Vital Signs
Temp Pulse Resp BP Pulse Ox
97.4 F 89 20 124/76 100
02/22/24 20:39 02/22/24 20:39 02/22/24 20:39 02/22/24 20:39 02/22/24 20:39
Last Documented Vital Signs
Temp Pulse Resp BP Pulse Ox
97.6 F 88 16 116/56 99
02/23/24 18:04 02/23/24 18:15 02/23/24 18:15 02/23/24 18:04 02/23/24 18:04
<Hui Granger, DO - Last Filed: 02/23/24 06:36>
Orders/Labs/Results
Orders:
Orders
02/22/24 20:28
Test Result ONCE
02/22/24 20:37
Crisis Consult Routine
Reason for Consult: suicidal
Comment: The patient swallowed a sewing needle in the attempt to kill herself
1:1 Observation - Suicide/ Violent Behavior As Directed
02/22/24 21:08
CR Chest Portable - 1 View Urgent
Comment:
Reason For Exam: FB ingestion, i.e. sewing needle
Reason Study Needs to be Portable: Patient Unstable
02/22/24 21:30
CR Abdomen - 1 View Urgent
Comment:
Reason For Exam: FB ingestion
02/22/24 22:01
Acetaminophen 1000MG/100Ml [Ofirmev] 1,000 mg in 100 ml IV ONCE
Acetaminophen IV Indication:: Ileus/Delayed Bowel Func.
Pantoprazole [Protonix IV] 40 mg IV NOW STA
02/22/24 22:11
Alcohol Urgent
Basic Metabolic Panel Urgent
Complete Blood Count/With Diff Urgent
Fentanyl, Urine Urgent
HCG, Serum Qualitative Screen Urgent
Urine Drug Abuse Screen Urgent
Date Specimen was Collected: 02/22/24
Time Specimen was Collected: 20:28
02/22/24 22:23
Glycopyrrolate [Robinul] 0.2 mg .ROUTE .STK-MED ONE
Lidocaine 2% Mpf [Xylocaine Mpf 2%] 100 mg .ROUTE .STK-MED ONE
Propofol [Diprivan] 20 ml .ROUTE .STK-MED
Rocuronium Muncy [Rocuronium] 50 mg .ROUTE .STK-MED ONE
Succinylcholine Chloride [Succinylcholine] 200 mg .ROUTE .STK-MED ONE
02/22/24 22:24
Fentanyl Citrate/Pf [Sublimaze] 100 mcg .ROUTE .STK-MED ONE
02/23/24 06:34
PSYCHIATRY CONSULT Urgent
Consulting Provider: Ben Cervantes
Was physician already notified: No
Reason for consult: self injury-swallowed sewing needle
02/23/24 06:35
Consult Notification Routine
Specialty to Notify: Psychiatry
02/23/24 12:00
Buprenorphine [Subutex] 6 mg SL BID
Clozapine [Clozaril] 50 mg PO DAILY
Fluoxetine HCl [Prozac] 80 mg PO DAILY
02/23/24 16:00
Gabapentin [Neurontin] 300 mg PO TID
02/23/24 19:58
Miconazole Nitrate [Desenex/Mitrazol/Zeasorb] See Dose Instructions TOPICAL NOW STA
02/23/24 22:00
Clozapine [Clozaril] 100 mg PO HS
Clozapine [Clozaril] 25 mg PO HS
Abnormal Lab Results
02/22/24
22:11
Hgb 10.8 L g/dL
(12.0-16.0)
Hct 34.5 L %
(37.0-47.0)
MCV 73.2 L fL
(81.0-99.0)
MCH 22.9 L pg
(27.0-31.0)
MCHC 31.3 L g/dL
(33.0-37.0)
RDW 17.2 H %
(11.5-14.5)
Lymphocytes % 19.7 L %
(20.5-51.1)
Chloride 109 H mmol/L
(98-107)
Ur Buprenorphine Positive H
(Negative)
Ur Oxycodone Screen Positive H
(Negative)
U Benzodiazepines Scrn Positive H
(Negative)
02/22/24 22:11
02/22/24 22:11
Vital Signs
Initial and Last Documented VS:
Initial Vital Signs
Temp Pulse Resp BP Pulse Ox
97.4 F 89 20 124/76 100
02/22/24 20:39 02/22/24 20:39 02/22/24 20:39 02/22/24 20:39 02/22/24 20:39
Last Documented Vital Signs
Temp Pulse Resp BP Pulse Ox
97.6 F 88 16 116/56 99
02/23/24 18:04 02/23/24 18:15 02/23/24 18:15 02/23/24 18:04 02/23/24 18:04
Theresalt;Frank Mijares DO - Last Filed: 02/23/24 20:03>
Orders/Labs/Results
Orders:
Orders
02/22/24 20:28
Test Result ONCE
02/22/24 20:37
Crisis Consult Routine
Reason for Consult: suicidal
Comment: The patient swallowed a sewing needle in the attempt to kill herself
1:1 Observation - Suicide/ Violent Behavior As Directed
02/22/24 21:08
CR Chest Portable - 1 View Urgent
Comment:
Reason For Exam: FB ingestion, i.e. sewing needle
Reason Study Needs to be Portable: Patient Unstable
02/22/24 21:30
CR Abdomen - 1 View Urgent
Comment:
Reason For Exam: FB ingestion
02/22/24 22:01
Acetaminophen 1000MG/100Ml [Ofirmev] 1,000 mg in 100 ml IV ONCE
Acetaminophen IV Indication:: Ileus/Delayed Bowel Func.
Pantoprazole [Protonix IV] 40 mg IV NOW STA
02/22/24 22:11
Alcohol Urgent
Basic Metabolic Panel Urgent
Complete Blood Count/With Diff Urgent
Fentanyl, Urine Urgent
HCG, Serum Qualitative Screen Urgent
Urine Drug Abuse Screen Urgent
Date Specimen was Collected: 02/22/24
Time Specimen was Collected: 20:28
02/22/24 22:23
Glycopyrrolate [Robinul] 0.2 mg .ROUTE .STK-MED ONE
Lidocaine 2% Mpf [Xylocaine Mpf 2%] 100 mg .ROUTE .STK-MED ONE
Propofol [Diprivan] 20 ml .ROUTE .STK-MED
Rocuronium Muncy [Rocuronium] 50 mg .ROUTE .STK-MED ONE
Succinylcholine Chloride [Succinylcholine] 200 mg .ROUTE .STK-MED ONE
02/22/24 22:24
Fentanyl Citrate/Pf [Sublimaze] 100 mcg .ROUTE .STK-MED ONE
02/23/24 06:34
PSYCHIATRY CONSULT Urgent
Consulting Provider: Ben Cervantes
Was physician already notified: No
Reason for consult: self injury-swallowed sewing needle
02/23/24 06:35
Consult Notification Routine
Specialty to Notify: Psychiatry
02/23/24 12:00
Buprenorphine [Subutex] 6 mg SL BID
Clozapine [Clozaril] 50 mg PO DAILY
Fluoxetine HCl [Prozac] 80 mg PO DAILY
02/23/24 16:00
Gabapentin [Neurontin] 300 mg PO TID
02/23/24 19:58
Miconazole Nitrate [Desenex/Mitrazol/Zeasorb] See Dose Instructions TOPICAL NOW STA
02/23/24 22:00
Clozapine [Clozaril] 100 mg PO HS
Clozapine [Clozaril] 25 mg PO HS
Abnormal Lab Results
02/22/24
22:11
Hgb 10.8 L g/dL
(12.0-16.0)
Hct 34.5 L %
(37.0-47.0)
MCV 73.2 L fL
(81.0-99.0)
MCH 22.9 L pg
(27.0-31.0)
MCHC 31.3 L g/dL
(33.0-37.0)
RDW 17.2 H %
(11.5-14.5)
Lymphocytes % 19.7 L %
(20.5-51.1)
Chloride 109 H mmol/L
(98-107)
Ur Buprenorphine Positive H
(Negative)
Ur Oxycodone Screen Positive H
(Negative)
U Benzodiazepines Scrn Positive H
(Negative)
02/22/24 22:11
02/22/24 22:11
Vital Signs
Initial and Last Documented VS:
Initial Vital Signs
Temp Pulse Resp BP Pulse Ox
97.4 F 89 20 124/76 100
02/22/24 20:39 02/22/24 20:39 02/22/24 20:39 02/22/24 20:39 02/22/24 20:39
Last Documented Vital Signs
Temp Pulse Resp BP Pulse Ox
97.6 F 88 16 116/56 99
02/23/24 18:04 02/23/24 18:15 02/23/24 18:15 02/23/24 18:04 02/23/24 18:04
<Gordon Alonzo MD - Last Filed: 02/22/24 22:27>
MDM/Problems Addressed
MDM/Problems Addressed:
X-ray report reviewed and discussed with on-call GI physician, Dr. Odell. Patient will be transferred to GI suite for endoscopy for potential foreign body extraction.
Patient will require inpatient psychiatric treatment for her ongoing symptoms, including suicidal attempt.
<Frank Mijares DO - Last Filed: 02/23/24 20:03>
*Critical Care Note
Total Time (30-74mins, 75-104mins- exclusive of procedures): Not Applicable
<Hui Granger DO - Last Filed: 02/23/24 06:36>
Update Note
Update Note:
02/22/2024 2325 PM
Telephone call from Dr. Jose R GUERRERO. He was successful in retrieving needle from the stomach via endoscopy. He states although there was food debris within the stomach, there was no evidence of gastric mucosal damage, no evidence of bleeding and
thus patient should be able to resume a normal diet.
No complications during endoscopic procedure.
Patient will be transferred to PACU for recovery then transferred back to the ED for continued care, psychiatric evaluation.
<Frank Mijares DO - Last Filed: 02/23/24 20:03>
Update Note
Update Note:
02/22/2024 2325 PM
Telephone call from Dr. Jose R GUERRERO. He was successful in retrieving needle from the stomach via endoscopy. He states although there was food debris within the stomach, there was no evidence of gastric mucosal damage, no evidence of bleeding and
thus patient should be able to resume a normal diet.
No complications during endoscopic procedure.
Patient will be transferred to PACU for recovery then transferred back to the ED for continued care, psychiatric evaluation.
02/22 8 PM
Patient requesting to be discharged no longer wanting to be admitted under 201/302 has not been completed she has been cooperative here reviewed with crisis, her facility requests will be medically cleared prior to discharge she is eating dessert
tray, does have a fungal appearing intertrigo under her breasts and her right groin much improved from prior from my recollection will prescribe Desenex
ED Attending Note
<Gordon Alonzo MD - Last Filed: 02/22/24 22:27>
-
Portions of this chart may have been created with voice recognition software.� Occasional wrong word or��sound alike� substitutions may have occurred due to the inherent limitations of voice recognition software.
Discharge Plan
Departure
Patient Disposition: Senior Care/SNF
Date of Disposition: 02/22/24
Time of Disposition: 22:27
Patient Status:: 201
Discharge Problem:
Foreign body ingestion, Suicide attempt, Candidal intertrigo
Instructions: Fungal Skin Rash ED
Prescriptions:
New
miconazole nitrate [Desenex] 2 % powder
1 applic topical BID Qty: 85 6RF
No Action
Atropine Sulfate 1 % drops
1 drp PO DAILYPRN PRN (Reason: under the tongue for sialorrhea)
levothyroxine [Synthroid] 175 mcg Tablet
175 mcg PO DAILY
clonidine HCl 0.1 mg Tablet
0.1 mg PO HS
acetaminophen [Tylenol] 325 mg Tablet
650 mg PO Q6HPRN PRN (Reason: temp>100.4)
polyethylene glycol 3350 [Miralax] 17 gram Powder In Packet
17 g PO BID
cetirizine [Zyrtec] 10 mg Tablet
10 mg PO DAILY
acetazolamide 500 mg Capsule, Extended Release
500 mg PO TID
clozapine 100 mg Tablet
100 mg PO HS
Rx Instructions:
with 25mg = 125mg
naltrexone 50 mg Tablet
100 mg PO DAILY
therapeutic multivitamin Tablet
1 tab PO DAILY
melatonin 3 mg Tablet
3 mg PO HS
triamcinolone acetonide 0.1 % Cream
1 applic TOPICAL BID
Rx Instructions:
apply to b/l legs
famotidine [Pepcid] 20 mg Tablet
20 mg PO BID
magnesium hydroxide [Milk of Magnesia] 400 mg/5 mL Suspension
2,400 mg PO [id number] PRN (Reason: if no bm in 3 days)
bisacodyl [Dulcolax (bisacodyl)] 10 mg Suppository
10 mg PA DAILYPRN PRN (Reason: if no bm after mom)
ferrous sulfate 325 mg (65 mg iron) Tablet
325 mg PO DAILY
nystatin 100,000 unit/gram Cream
1 applic TOPICAL TID
fluticasone propion-salmeterol [Advair Diskus] 500-50 mcg/dose Blister With Device
1 inh INHALATION R BID
Fleet Enema 19-7 gram/118 mL Enema
118 ml PA DAILYPRN PRN (Reason: if no bm after dulcolax)
docusate sodium [Colace] 100 mg Capsule
100 mg PO TID
gabapentin 300 mg Capsule
300 mg PO TID
ibuprofen 600 mg Tablet
600 mg PO Q6HPRN PRN (Reason: pain)
albuterol sulfate [ProAir HFA] 90 mcg/actuation Hfa Aerosol Inhaler
2 puff INHALATION R Q6HPRN PRN (Reason: sob)
cyclobenzaprine 5 mg Tablet
5 mg PO TID
clozapine 50 mg Tablet
50 mg PO DAILY
Senna Plus 8.6-50 mg Capsule
2 tab-cap PO TID
naltrexone 50 mg Tablet
50 mg PO QPM
bumetanide 2 mg Tablet
2 mg PO DAILY
Rx Instructions:
hold BP lower than 110/60
lidocaine 4 % Adhesive Patch,Medicated
1 patch TOPICAL DAILY
Rx Instructions:
apply to lower back and remove per schedule
hydroxyzine pamoate 50 mg Capsule
50 mg PO Q8HPRN PRN (Reason: anxiety)
clozapine 25 mg Tablet
25 mg PO HS
Rx Instructions:
with 100mg = 125mg
fluoxetine 60 mg Tablet
90 mg PO DAILY
semaglutide (weight loss) 0.25 mg/0.5 mL Pen Injector
0.25 mg SC FR
buprenorphine-naloxone 2-0.5 mg Film
1 film BUCCAL BID
buprenorphine-naloxone [Suboxone] 4-1 mg Film
1 film BUCCAL BID
Referrals:
UNKNOWN - PT NOT,INTERVIEWE [Family Provider] -
Interventions
Interventions:
*Risk Screen - Suicide Last Done: 02/22/24 20:29
*General Assessment Last Done: 02/22/24 20:29
*Neglect/Abuse Screening Last Done: 02/22/24 20:29
ED- Fall Risk Assessment Last Done: 02/22/24 20:29
*ED COVID-19 Vaccine History Last Done: 02/22/24 20:29
ED-Psychological Assessment Last Done: 02/23/24 07:22
Discharge Date and Time
Print Language: WELSH
[2024-02-22] MEDS: PROTONIX IV 40 MG IV (22:15)
[2024-02-22] MEDS: OFIRMEV 100 IV (22:15)
[2024-02-22 22:18] LABS: % Basophils 0.7 % (0-2); % Immature Granulocytes 0.3 % (0-0.5); % Lymphocytes 19.7 % (20.5-51.1); % Monocytes 6.8 % (1.7-9.3); % Neutrophils 68.5 % (42.2-75.2); Absolute Basophils 0.1 10^3/uL (0-0.2); Absolute Eosinophils 0.3 10^3/uL (0-0.7); Absolute Lymphocytes 1.4 10^3/uL (1.2-3.4); Absolute Monocytes 0.5 10^3/uL (0.1-0.6); Absolute Neutrophils 4.9 10^3/uL (1.4-6.5); Hematocrit 34.5 % (37.0-47.0); Hemoglobin 10.8 g/dL (12.0-16.0); Mean Corp Hgb Conc. 31.3 g/dL (33.0-37.0); Mean Corpuscular Hgb 22.9 pg (27.0-31.0); Mean Corpuscular Volume 73.2 fL (81.0-99.0); Nucleated Red Blood Cells % 0 %; Platelet Count 344 10^3/uL (130-400); Red Blood Cell Count 4.71 10^6/uL (4.20-5.40); Red Cell Dist. Width 17.2 % (11.5-14.5); White Blood Cell Count 7.1 10^3/uL (4.8-10.8)
[2024-02-22 22:27] LABS: HCG, Serum Qualitative Screen Negative
[2024-02-22 22:31] LABS: Blood Urea Nitrogen 9 mg/dl (7-17); Calcium 8.9 mg/dl (8.4-10.2); Carbon Dioxide 22 mmol/L (22-30); Chloride 109 mmol/L (98-107); Estimated Creatinine Clearance > 125 ml/min; Glucose 92 mg/dl (70-99); Potassium 3.7 mmol/L (3.5-5.1); Sodium 139 mmol/L (135-145); eGFR > 60.00
[2024-02-22 22:32] LABS: Alcohol None Detected
[2024-02-22 22:33] LABS: Amphetamines Negative (Negative); Barbiturates Negative (Negative); Benzodiazepines Positive (Negative); Buprenorphine Positive (Negative); Cocaine Negative (Negative); Marijuana Negative (Negative); Methadone Negative (Negative); Methamphetamines Negative (Negative); Opiates Negative (Negative); Phencyclidine Negative (Negative); Tricyclic Antidepressants Negative (Negative)
--- NOTE | 2024-02-22 22:40 | CON.GI ---
Consultation
-
Date/Time Consultation Requested: 02/22/24 9:51pm
Date/Time Consultation Performed: 02/22/24 10:41pm
Requesting Provider: Gordon Alonzo
Performing Provider: Chito Odell
Reason for Consultation: Foreign body ingestion
Medical History
Chief Complaint / HPI
Chief Complaint: Foreign body ingestion
History of Present Illness:
Patient is a 33-year-old female who presents after ingesting a sewing needle in a suicide attempt. She was recently admitted in January after swallowing a thumbtack which was not found on endoscopy. She had serial x-rays performed and eventually the
object passed. She reports abdominal pain in her mid abdomen and anxiety.
Past Medical History
Past Medical History: HTN, Hypothyroidism and Other (schizoaffective , asthma , )
Past Surgical History:
Social History
Tobacco: Non-Smoker
Family History
Family History: Reviewed & Not Pertinent
Allergies / Home Medications
Allergy/AdvReac Type Severity Reaction Status Date / Time
bee venom protein (honey bee) Allergy Anaphylaxis Verified 02/22/24 20:27
cariprazine Allergy Unknown Verified 02/22/24 20:27
loratadine [From Claritin] Allergy Unknown Verified 02/22/24 20:27
meloxicam Allergy Unknown Verified 02/22/24 20:27
shellfish derived Allergy Anaphylaxis Verified 02/22/24 20:27
simvastatin Allergy Unknown Verified 02/22/24 20:27
nicotine polacrilex Allergy Unknown Uncoded 02/22/24 20:27
seafood Allergy Unknown Uncoded 02/22/24 20:27
�Medication �Instructions �Recorded
Atropine Sulfate 1 drp PO DAILYPRN PRN under the 12/03/23
tongue for sialorrhea
acetaminophen 325 mg tablet 650 mg PO Q6HPRN PRN temp>100.4 12/03/23
(Tylenol)
acetazolamide 500 mg 500 mg PO TID Neurological 12/03/23
capsule,extended release Condition
albuterol sulfate 90 mcg/actuation 2 puff inhalation R Q6HPRN PRN sob 12/03/23
aerosol inhaler (ProAir HFA)
bisacodyl 10 mg rectal suppository 10 mg AL DAILYPRN PRN if no bm 12/03/23
(Dulcolax (bisacodyl)) after mom
cetirizine 10 mg tablet (Zyrtec) 10 mg PO DAILY Allergies 12/03/23
clonidine HCl 0.1 mg tablet 0.1 mg PO HS Blood Pressure 12/03/23
clozapine 100 mg tablet 125 mg PO HS Mental Health/Anxiety 12/03/23
clozapine 50 mg tablet 50 mg PO DAILY Mental 12/03/23
Health/Anxiety
cyclobenzaprine 5 mg tablet 5 mg PO TID Muscle Spasms 12/03/23
docusate sodium 100 mg capsule 100 mg PO TID Constipation 12/03/23
(Colace)
famotidine 20 mg tablet (Pepcid) 20 mg PO BID Gastrointestinal Issue 12/03/23
ferrous sulfate 325 mg (65 mg 325 mg PO DAILY Supplement 12/03/23
iron) tablet
fluticasone 500 mcg-salmeterol 50 1 inh inhalation R BID 12/03/23
mcg/dose blistr powdr for Lung/Breathing Issues
inhalation (Advair Diskus)
gabapentin 300 mg capsule 300 mg PO TID pain 12/03/23
ibuprofen 600 mg tablet 600 mg PO Q6HPRN PRN pain 12/03/23
levothyroxine 175 mcg tablet 175 mcg PO DAILY Thyroid 12/03/23
(Synthroid)
magnesium hydroxide 400 mg/5 mL 2,400 mg PO [id number] PRN if no bm 12/03/23
oral suspension (Milk of Magnesia) in 3 days
melatonin 3 mg tablet 3 mg PO HS sleep 12/03/23
naltrexone 50 mg tablet 50 mg PO QPM 12/03/23
naltrexone 50 mg tablet 100 mg PO DAILY 12/03/23
nystatin 100,000 unit/gram topical 1 applic topical TID groin,breasts 12/03/23
cream
polyethylene glycol 3350 17 gram 17 g PO BID Constipation 12/03/23
oral powder packet (Miralax)
sennosides 8.6 mg-docusate sodium 2 tab-cap PO TID Constipation 12/03/23
50 mg capsule (Senna Plus)
sodium phosphates 19 gram-7 118 ml AL DAILYPRN PRN if no bm 12/03/23
gram/118 mL enema (Fleet Enema) after dulcolax
therapeutic multivitamin 1 tab PO DAILY Supplement 12/03/23
triamcinolone acetonide 0.1 % 1 applic topical BID dermatititits 12/03/23
topical cream
acetaminophen 325 mg tablet 975 mg PO Q6HPRN PRN mild pain 01/18/24
(Tylenol)
bumetanide 2 mg tablet 2 mg PO DAILY Fluid 01/18/24
Retention/Swelling
clozapine 25 mg tablet 25 mg PO HS 01/18/24
fluoxetine 60 mg tablet 90 mg PO DAILY 01/18/24
hydroxyzine pamoate 50 mg capsule 50 mg PO Q8HPRN PRN anxiety 01/18/24
lidocaine 4 % topical patch 1 patch topical DAILY 01/18/24
semaglutide (weight loss) 0.25 0.25 mg SC FR 01/18/24
mg/0.5 mL subcutaneous pen injector
Review of Systems
-
All other systems: A 12 pt ROS was Negative except as stated above in HPI
Vital Signs
Temp Pulse Resp BP Pulse Ox
97.4 F 89 20 124/76 100
02/22/24 20:39 02/22/24 20:39 02/22/24 20:39 02/22/24 20:39 02/22/24 20:39
Physical Exam
Exam
General: Well Developed and Well Nourished
HEENT: Normocephalic and Atraumatic
Respiratory: Non Labored Respirations
GI: Soft, Non Distended and Tender (mild tenderness to palpation in mid abdomen, no guarding)
Skin: Warm and Dry
Results
WBC 7.1 10^3/uL (4.8-10.8) 02/22/24 22:11
Hgb 10.8 g/dL (12.0-16.0) L 02/22/24 22:11
Hct 34.5 % (37.0-47.0) L 02/22/24 22:11
MCV 73.2 fL (81.0-99.0) L 02/22/24 22:11
Plt Count 344 10^3/uL (130-400) 02/22/24 22:11
Absolute Neuts (auto) 4.9 10^3/uL (1.4-6.5) 02/22/24 22:11
Sodium 139 mmol/L (135-145) 02/22/24 22:11
Potassium 3.7 mmol/L (3.5-5.1) 02/22/24 22:11
Chloride 109 mmol/L (98-107) H 02/22/24 22:11
Carbon Dioxide 22 mmol/L (22-30) 02/22/24 22:11
BUN 9 mg/dl (7-17) 02/22/24 22:11
Creatinine 0.9 mg/dL (0.6-1.0) 02/22/24 22:11
Calcium 8.9 mg/dl (8.4-10.2) 02/22/24 22:11
Diagnostic Image Results:
Prior GI Procedures:
EGD:
Colonoscopy:
Assessment / Plan
-
Summary: 33yo female presents after swallowing sewing needle in a suicide attempt. She was recently admitted after swallowing a thumbtack in January. It was not found on enteroscopy and she was admitted for serial xrays. The object passed after
several days. In ER xray shows a 6cm object in upper abdomen to the right of midline.
Impression:
Foreign body ingestion- 6cm needle
Schizoaffective d/o
Anxiety
Recommendations:
Will proceed with EGD/enteroscopy to locate needle and retrieve
If unable to locate, follow with serial xrays and consult General Surgey.
-
-
Thank you for consultation and allowing me to participate in the patient's care. Please call the diamond setter apprentice GI physician during the after hours with any questions or concerns.
--- NOTE | 2024-02-22 23:25 | W.PN.UPDATE ---
Update Note
Progress Note Update
EGD done
Food in stomach and duodenum
Sewing pin found in food bolus in the antrum, removed with rat-toothed forceps without difficulty
Gastric mucosa appeared intact with no evidence of trauma from the pin (point was not noted to be sharp after removal)
REC:
OK for regular PO intake
Return to ER for inpatient psychiatric facility placment
[2024-02-22 23:30] VITALS: BP 120/69; BP 124/76
[2024-02-22 23:37] LABS: Glucose - Point of Care 98 mg/dl (70-99)
[2024-02-22 23:45] VITALS: BP 115/70
[2024-02-23] VITALS (26 sets, daily range): BP systolic 92–131; BP diastolic 44–82
[2024-02-23 01:26] LABS: Fentanyl, Urine Negative (Negative)
--- NOTE | 2024-02-23 08:15 | EDRN ---
this RN entered the pts room to check on the pt and th ept stated that she was hungry and wanted to order breakfast, this RN provided the pt with a menu and the one to one tech ordered the pts breakfast for her
--- NOTE | 2024-02-23 08:23 | EDRN ---
Dr. Horta currently at the pts bedside speaking with the pt
--- NOTE | 2024-02-23 08:31 | ED.CRISIS ---
ED Crisis Note
ED Crisis Note
Subjective:
201
Objective:
suicidal attempt
Assessment/Plan:
Patient is calm and cooperative. Patient just ordered breakfast. Awaiting Dr. Mack consult. I just spoke to spring floor service worker who reports that at this time they are unable to find a psychiatric facility who will accept the patient
--- NOTE | 2024-02-23 09:17 | EDRN ---
crisis was called by this RN and Dr. Horta in regards to an update for placement for the pt, crisis will update the pt
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
--- NOTE | 2024-02-23 10:39 | EDRN ---
the pt pressed the call roach and this RN entered the pts room, the pt ate all of her breakfast and asked for an iced water, this RN provided the pt with an iced water, the pt asked this RN to take her off of a one to one and this RN spoke with the
provider and per the provider and crisis the pt is to stay on a one to one observation, VS WNL, no s/s of distress, will continue to monitor the pt closely
--- NOTE | 2024-02-23 10:59 | EDRN ---
pharmacy verifying medications
[2024-02-23] MEDS: PROZAC 80 MG PO (12:59)
[2024-02-23] MEDS: SUBUTEX 6 MG SL ×2 (12:59→20:34)
[2024-02-23] MEDS: CLOZARIL 50 MG PO (12:59)
--- NOTE | 2024-02-23 13:00 | EDRN ---
the pt ordered her lunch and is resting comfortable in stretcher, no s/s of distress, VS WNL, crisis currently still trying to find placement for the pt, no complaints offered by the pt at this time, the pt is resting in stretcher in the lowest
position, side rails up x2, call roach within reach, HOB elevated, will continue to monitor the pt closely
--- NOTE | 2024-02-23 13:06 | EDRN ---
crisis is still trying to find placement
--- NOTE | 2024-02-23 19:01 | EDRN ---
the pt pressed the call roach and this RN entered the pts room, the pt stated to this RN that she would like to get a shower and that she is okay if security is at the bedside in the room when she showers, and if the PCT is in the bathroom with her
while she showers, the pt even pulled ashely out of her coloring books and handed them to the PCT and stated, 'Here you go i have been hiding these, i want to be honest so you trust me and let me shower', this RN notified the provider and crisis
and they were okay with the pt showering, the pt was able to shower with no issues or complaints, it was noted that the pt has 'blisters' in the perineal area that hurt her, this was notified to the provider as well, the pt is now back in her room
sitting on the side of the stretcher in the lowest position, side rails up x2, call roach within reach, HOB elevated, no s/s of distress, VS WNL, will continue to monitor the pt closely
[2024-02-23] MEDS: NEURONTIN 300 MG PO (19:12)
--- NOTE | 2024-02-23 20:04 | ED.CRISIS ---
ED Crisis Note
ED Crisis Note
Subjective:
Patient calm cooperative no longer wants to be admitted under 201
Objective:
Suicide attempt swallowed a needle
Has been calm and cooperative here, looks like she has intertrigo we will treat for that we will send her back to her facility
Assessment/Plan:
Patient is calm and cooperative. Patient just ordered breakfast. Awaiting Dr. Mack consult. I just spoke to picking table worker who reports that at this time they are unable to find a psychiatric facility who will accept the patient
Patient not able to be placed, appears to be calm and cooperative, will discharge back to her halfway
[2024-02-23] MEDS: DESENEX/MITRAZOL/ZEASORB 1 APPLIC TOPICAL (20:28)
== END 2024-02-23 22:01 ==
LOC: EMR 20:23
PROVIDERS: Emergency Medicine; CONSULT PHYSICIAN Psychiatry & Neurology Psychiatry; EMERGENCY PHYSICIAN Emergency Medicine
DX: T18.2XXA Foreign body in stomach, initial encounter (principal); T18.3XXA Foreign body in small intestine, initial encounter; T14.91XA Suicide attempt, initial encounter; B37.2 Candidiasis of skin and nail; W44.9XXA Unspecified foreign body entering into or through a natural orifice, initial encounter; F41.9 Anxiety disorder, unspecified; F20.9 Schizophrenia, unspecified; F31.9 Bipolar disorder, unspecified; J45.909 Unspecified asthma, uncomplicated; K21.9 Gastro-esophageal reflux disease without esophagitis; E11.9 Type 2 diabetes mellitus without complications; E03.9 Hypothyroidism, unspecified; E66.01 Morbid (severe) obesity due to excess calories; I10 Essential (primary) hypertension; Z83.49 Family history of other endocrine, nutritional and metabolic diseases; Z83.79 Family history of other diseases of the digestive system; Z88.8 Allergy status to other drugs, medicaments and biological substances; Z91.030 Bee allergy status; Z91.51 Personal history of suicidal behavior
CPT/HCPCS: 99284; 43247; 96374; 96375; 71045; 74018; 80048; 80306; 80307; 82077; 82962; 84703; 85025

== ENCOUNTER 2024-03-09 19:49 | Emergency (ER) | payer MEDICARE, OTHER, SELFPAY ==
[2024-03-09 19:52] VITALS: BP 124/68; BMI 66.9
[2024-03-09 21:00] VITALS: BP 114/79
--- NOTE | 2024-03-09 21:44 | ED.GENMED ---
History of Present Illness
General
Chief Complaint: Abdominal Pain
Source: patient
Exam Limitations: none
Time Seen by Provider: 03/09/24 20:05
History of Present Illness
History of Present Illness:
This is a 33 year old female that comes in with multiple complaints. States that she has bladder pain. States that she feels that her ankles and legs are more swollen then normal and that she can barely walk. States that this has been for the past 2
days. Denies any fever, chills, chest pain, SOB, abd pain, nausea, vomiting, diarrhea, headache, dizziness, urinary burning.
Past History
Past History
ED Past Medical History: Asthma, COPD, GERD, HTN, NIDDM, Seizures, Hypothyroidism, Psychiatric (anxiety, depression, Bipolar, Claustrophobia, PTSD, Schizo, Suicidal attempt, Borderline Personality disorder, ) and Other (Meningitis, Sciatica, TBI,
PE, Chronic lymphedema, Urinary retention with chronic Catheter, UTI, Cellulitis)
ED Past Surgical History:
Social History
Tobacco: Former smoker
Alcohol: None
Drug: None
Personal: Other (Seperated)
Living: [facility] ([place])
Employment: Disabled
Review of Systems
Review of Systems
All Other Systems: ROS reviewed and negative except as documented in HPI and ROS
Constitutional: Reports no symptoms; Denies fever or chills
EENT: Reports no symptoms
Respiratory: Reports no symptoms; Denies cough or trouble breathing
Cardiac: Reports no symptoms; Denies chest pain
ABD/GI: Reports abdominal pain (Bladder pain); Denies nausea, vomiting or diarrhea
: Reports other (Chronic catheter)
Musculoskeletal: Reports no symptoms
Skin: Reports no symptoms
Neurological: Reports no symptoms; Denies dizzy or headache
Psychiatric: Reports no symptoms
Phy Exam
General Physical Exam
General Presentation: no apparent distress
General age: appears stated age
General Skin: warm and dry
General Habitus: obese
General Mental: alert
General Hydration: appears well hydrated
ENT Exam
ENT Exam: TM's normal, pharynx normal and neck supple
Eye Exam
Eye Exam: EOMI
Cardiovascular Exam
Cardiovascular Exam: regular rate/rhythm and normal peripheral pulses
Pulmonary Exam
Pulmonary Exam: no respiratory distress, no rales, chest non tender, no crackles, no rhonchi, no cough and other (Very faint Exp wheezing noted)
Gastrointestinal Exam
Gastrointestinal Exam: normal bowel sounds, non tender, soft, no organomegaly, no pulsatile mass, non distended and other (Obese, rash along the folds of the abd and thigh)
Musculoskeletal Exam
Musculoskeletal Exam: full ROM and other (Chronic lymph edema. Nonpitting lower legs)
Skin Exam
Skin Exam: normal color, warm/dry and no petechia
Psychiatric Exam
Psychiatric Exam: normal mood/affect
Course
Orders/Labs/Results
Orders:
Orders
03/09/24 21:28
US Periph Venous LOWER Ext Rafa Urgent
Comment:
Reason For Exam: iNCREASED LEG SWELLING
03/09/24 21:29
Test Result ONCE
CR Chest - 2 Views Urgent
Comment:
Reason For Exam: iNCREASED EDEMA
03/09/24 22:01
Blum Catheter [Catheter- Indwelling] As Directed
Reason for insertion: Chronic Blum on Admit
Size: 16
Type: Indwelling
Comment: neurogenic bladder
03/09/24 22:09
Urinalysis Reflex To Culture Urgent
Date Specimen was Collected: 03/09/24
Time Specimen was Collected: 22:08
Urine Microscopic Reflex Cult Urgent
Urine Culture Urgent
DENNIS Source: U
Specimen Description:
Date Specimen was Collected: 03/09/24
Time Specimen was Collected: 22:08
03/09/24 22:14
Complete Blood Count/With Diff Urgent
Comprehensive Metabolic Panel Urgent
HCG, Serum Qualitative Screen Urgent
NT-proBNP Urgent
Troponin I Urgent
Abnormal Lab Results
03/09/24 03/09/24
22:09 22:14
Hgb 10.5 L g/dL
(12.0-16.0)
Hct 33.3 L %
(37.0-47.0)
MCV 71.6 L fL
(81.0-99.0)
MCH 22.6 L pg
(27.0-31.0)
MCHC 31.5 L g/dL
(33.0-37.0)
RDW 16.8 H %
(11.5-14.5)
Chloride 110 H mmol/L
(98-107)
Carbon Dioxide 20 L mmol/L
(22-30)
Ur Occult Blood Reflex 2+ A
(Negative)
Urine Nitrite (Reflex) Positive A
(Negative)
Leukocyte Esterase Rfl 2+ A
(Negative)
Urine WBC (Reflex) 50-60 A /HPF
(0-5)
Urine Bacteria (Reflex) Many A
(Negative)
Urine Albumin (Reflex) 1+ A
(Neg - Trace)
03/09/24 22:14
03/09/24 22:14
H/H low but consistent with prior labs. Anemia, Chloride slightly elevated. Carbon dioxide slightly low. Urine positive for infection. Troponin <0.012, Pro-BNP <20.0, HCG negative. Urine positive for infection.
Vital Signs
Initial and Last Documented VS:
Initial Vital Signs
Temp Pulse Resp BP Pulse Ox
97.7 F 91 18 124/68 99
03/09/24 19:52 03/09/24 19:52 03/09/24 19:52 03/09/24 19:52 03/09/24 19:52
Last Documented Vital Signs
Temp Pulse Resp BP Pulse Ox
97.7 F 90 18 114/79 95
03/09/24 19:52 03/09/24 22:30 03/09/24 22:30 03/09/24 21:00 03/09/24 22:30
MDM/Problems Addressed
Differential Diagnosis Includes:
Catheter displaced, Chronic lymph edema. DVT, UTI
MDM/Problems Addressed:
This is a 33 year old female that comes in with c/o bladder pain and increased swelling of the lower legs. States that her swelling has increased over the past 2 days. Patient also had her catheter changed yesterday. Nursing state that there was
urine all over the floor as it went around the catheter.
will check labs and get US. Patient states that her bladder is feeling better since the catheter was changed. Patient Drained another 400ml.
Back into see patient. Patient is sleeping. Will awaken and open eyes and nodes head. Explained that her chest x-ray is normal. US is negative for DVT. However, patient is positive for infection. Will start on antibiotics and discharge home.
Chronic conditions affecting care:
Chronic lymph edema., Chronic indwelling catheter
Acute Exacerbation and/or Progression of Chronic Illness:
Chronic lymph edema. , UTI
*Pulse Oximetry
Patient hypoxic: no
*EKG
Interpreted by ED Provider?: NA
Rate: EKG- N/A
*Product Manager [employer] Interpretation
Rate: Product Manager [employer]- N/A
*Critical Care Note
Total Time (30-74mins, 75-104mins- exclusive of procedures): Not Applicable
ED Attending Note
-
Portions of this chart may have been created with voice recognition software.� Occasional wrong word or��sound alike� substitutions may have occurred due to the inherent limitations of voice recognition software.
Discharge Plan
Departure
Patient Disposition: Home (Routine Discharge)
Date of Disposition: 03/09/24
Time of Disposition: 23:54
Patient with high blood pressure during this ER visit?: No
Condition: Good
Covid-19: Not Applicable
Discharge Problem:
Urinary tract infection
Instructions: Urinary Tract Infection, Adult ED
Prescriptions:
New
cephalexin 500 mg capsule
500 mg PO BID 7 Days Qty: 14 0RF
No Action
levothyroxine [Synthroid] 175 mcg Tablet
175 mcg PO DAILY
clonidine HCl 0.1 mg Tablet
0.1 mg PO HS
acetaminophen [Tylenol] 325 mg Tablet
650 mg PO Q6HPRN PRN (Reason: temp>100.4)
polyethylene glycol 3350 [Miralax] 17 gram Powder In Packet
17 g PO BID
cetirizine [Zyrtec] 10 mg Tablet
10 mg PO DAILY
acetazolamide 500 mg Capsule, Extended Release
500 mg PO TID
clozapine 100 mg Tablet
100 mg PO HS
Rx Instructions:
with 25mg = 125mg
therapeutic multivitamin Tablet
1 tab PO DAILY
triamcinolone acetonide 0.1 % Cream
1 applic TOPICAL BID
Rx Instructions:
apply to b/l legs
famotidine [Pepcid] 20 mg Tablet
20 mg PO BID
magnesium hydroxide [Milk of Magnesia] 400 mg/5 mL Suspension
2,400 mg PO [id number] PRN (Reason: if no bm in 3 days)
bisacodyl [Dulcolax (bisacodyl)] 10 mg Suppository
10 mg KY DAILYPRN PRN (Reason: if no bm after mom)
ferrous sulfate 325 mg (65 mg iron) Tablet
325 mg PO DAILY
nystatin 100,000 unit/gram Cream
1 applic TOPICAL TID
fluticasone propion-salmeterol [Advair Diskus] 500-50 mcg/dose Blister With Device
1 inh INHALATION R BID
Fleet Enema 19-7 gram/118 mL Enema
118 ml KY DAILYPRN PRN (Reason: if no bm after dulcolax)
docusate sodium [Colace] 100 mg Capsule
100 mg PO TID
gabapentin 300 mg Capsule
300 mg PO TID
ibuprofen 600 mg Tablet
600 mg PO Q6HPRN PRN (Reason: pain)
atropine 1 % Drops
1 drp sublingual PRN PRN (Reason: sialorrhea) Qty: 0
cyclobenzaprine 5 mg Tablet
5 mg PO TID
clozapine 50 mg Tablet
50 mg PO DAILY
Senna Plus 8.6-50 mg Capsule
2 tab-cap PO TID
naltrexone 50 mg Tablet
50 mg PO QPM
lidocaine 4 % Adhesive Patch,Medicated
1 patch TOPICAL DAILY
Rx Instructions:
apply to lower back and remove per schedule
hydroxyzine pamoate 50 mg Capsule
50 mg PO Q8HPRN PRN (Reason: anxiety)
clozapine 25 mg Tablet
25 mg PO HS
Rx Instructions:
with 100mg = 125mg
fluoxetine 60 mg Tablet
90 mg PO DAILY
buprenorphine-naloxone 2-0.5 mg Film
1 film BUCCAL BID
buprenorphine-naloxone [Suboxone] 4-1 mg Film
1 film BUCCAL BID
phenazopyridine [Pyridium] 100 mg Tablet
100 mg PO Q8HPRN PRN (Reason: dysuria)
buspirone 10 mg Tablet
10 mg PO DAILY
clotrimazole-betamethasone 1-0.05 % Cream
1 applic TOPICAL PRN PRN (Reason: itching)
Patient Comments:
apply to groin
furosemide 20 mg Tablet
20 mg PO DAILY
gabapentin 100 mg Capsule
100 mg PO BID
albuterol sulfate 90 mcg/actuation Hfa Aerosol Inhaler
2 inh INHALATION R Q6HPRN PRN (Reason: sob/wheezing)
lactulose 10 gram/15 mL Solution
20 g PO DAILY
potassium chloride 20 mEq Tablet Extended Release
20 meq PO DAILY
Nurtec ODT 75 mg Tablet,Disintegrating
75 mg PO [id number] PRN (Reason: migraine)
Wegovy 1.7 mg/0.75 mL Pen Injector
1.7 mg SC FR
Referrals:
Shivam Turk, [Family Provider] - Follow up in 5-7 days
Activity Restrictions/Additional Instructions:
As discussed, your catheter may not have been all the way in the bladder as you had urine in the bed and floor. This has been replaced. You have a Urinary tract infection. You have been given your first dose of antibiotic here and a prescription
was sent back with your discharge paperwork. Your Chest x-ray is normal, your Ultrasound is negative for any DVT you are not fluid overloaded. Please follow up with the family doctor for recheck. IF YOU HAVE FEVER, OR YOU HAVE ANY OTHER CONCERNS
PLEASE RETURN TO THE EMERGENCY ROOM.
Interventions
Interventions:
*Risk Screen - Suicide Last Done: 03/09/24 19:52
*General Assessment Last Done: 03/09/24 19:52
*Neglect/Abuse Screening Last Done: 03/09/24 19:52
Discharge Date and Time
Print Language: [place]
[2024-03-09 22:17] LABS: Urine Albumin 1+ (Neg - Trace); Urine Bilirubin Negative (Negative); Urine Character Clear (Clear); Urine Color Yellow; Urine Glucose Negative (Negative); Urine Ketone Negative (Negative); Urine Leukocyte 2+ (Negative); Urine Nitrite Positive (Negative); Urine Occult Blood 2+ (Negative); Urine Urobilinogen Negative (Neg - 1+)
[2024-03-09 22:20] LABS: % Basophils 0.8 % (0-2); % Immature Granulocytes 0.4 % (0-0.5); % Lymphocytes 22.2 % (20.5-51.1); % Monocytes 6.5 % (1.7-9.3); % Neutrophils 64.1 % (42.2-75.2); Absolute Basophils 0.1 10^3/uL (0-0.2); Absolute Eosinophils 0.5 10^3/uL (0-0.7); Absolute Lymphocytes 1.7 10^3/uL (1.2-3.4); Absolute Monocytes 0.5 10^3/uL (0.1-0.6); Absolute Neutrophils 4.8 10^3/uL (1.4-6.5); Hematocrit 33.3 % (37.0-47.0); Hemoglobin 10.5 g/dL (12.0-16.0); Mean Corp Hgb Conc. 31.5 g/dL (33.0-37.0); Mean Corpuscular Hgb 22.6 pg (27.0-31.0); Mean Corpuscular Volume 71.6 fL (81.0-99.0); Mean Platelet Volume 9.3 fL (7.4-10.4); Nucleated Red Blood Cells % 0 %; Platelet Count 333 10^3/uL (130-400); Red Blood Cell Count 4.65 10^6/uL (4.20-5.40); Red Cell Dist. Width 16.8 % (11.5-14.5); White Blood Cell Count 7.4 10^3/uL (4.8-10.8)
[2024-03-09 22:26] LABS: Urine Bacteria Many (Negative); Urine Red Blood Cell 0-2 /HPF (0-2); Urine White Cell 50-60 /HPF (0-5)
[2024-03-09 22:43] LABS: HCG, Serum Qualitative Screen Negative
[2024-03-09 22:45] LABS: ALT (SGPT) 20 U/L (0-35); AST (SGOT) 20 U/L (14-36); Albumin 3.5 g/dl (3.5-5.0); Alkaline Phosphatase 107 U/L (38-126); Blood Urea Nitrogen 10 mg/dl (7-17); Calcium 9.3 mg/dl (8.4-10.2); Carbon Dioxide 20 mmol/L (22-30); Chloride 110 mmol/L (98-107); Estimated Creatinine Clearance > 125 ml/min; Glucose 95 mg/dl (70-99); Potassium 3.5 mmol/L (3.5-5.1); Sodium 138 mmol/L (135-145); Total Bilirubin 0.4 mg/dl (0.2-1.3); Total Protein 6.3 g/dl (6.3-8.2); eGFR > 60.00
[2024-03-09 22:46] LABS: NT-proBNP < 20.0 pg/ml; Troponin I < 0.012 ng/ml
[2024-03-10] MEDS: KEFLEX 500 MG PO (00:27)
[2024-03-10 03:17] VITALS: BP 115/68
[2024-03-10 04:00] VITALS: BP 122/85
[2024-03-10 05:00] VITALS: BP 108/68
[2024-03-10 05:31] VITALS: BP 108/68
[2024-03-10 06:00] VITALS: BP 117/77
[2024-03-10 06:10] VITALS: BP 117/77
== END 2024-03-10 09:45 | disposition home or self-care (01) ==
LOC: EMR 19:49
PROVIDERS: Clinical Nurse Specialist Family Health; EMERGENCY PHYSICIAN Emergency Medicine; FAMILY PHYSICIAN Internal Medicine
DX: N39.0 Urinary tract infection, site not specified (principal); J44.89 Other specified chronic obstructive pulmonary disease; K21.9 Gastro-esophageal reflux disease without esophagitis; I10 Essential (primary) hypertension; E11.9 Type 2 diabetes mellitus without complications; E03.9 Hypothyroidism, unspecified; F41.8 Other specified anxiety disorders; F31.9 Bipolar disorder, unspecified; F40.240 Claustrophobia; F43.10 Post-traumatic stress disorder, unspecified; F60.3 Borderline personality disorder; I89.0 Lymphedema, not elsewhere classified; Z87.440 Personal history of urinary (tract) infections; Z87.891 Personal history of nicotine dependence; Z91.51 Personal history of suicidal behavior
CPT/HCPCS: 99284; 71046; 80053; 81003; 81015; 83880; 84484; 84703; 85025; 87077; 87086; 87186; 93970

== ENCOUNTER 2024-03-15 18:07 | Day surgery (SDC) | payer MEDICARE, OTHER, SELFPAY ==
[2024-03-15] VITALS (9 sets, daily range): BP systolic 15–137; BP diastolic 57–95; BMI 65.7
--- NOTE | 2024-03-15 13:08 | ED.GENMED ---
History of Present Illness
General
Chief Complaint: Abdominal Pain
Source: patient
Exam Limitations: none
Time Seen by Provider: 03/15/24 12:39
History of Present Illness
History of Present Illness:
See MDM
Past History
Past History
ED Past Medical History: Asthma, COPD, GERD, HTN, NIDDM, Seizures, Hypothyroidism, Psychiatric (anxiety, depression, Bipolar, Claustrophobia, PTSD, Schizo, Suicidal attempt, Borderline Personality disorder, ) and Other (Meningitis, Sciatica, TBI,
PE, Chronic lymphedema, Urinary retention with chronic Catheter, UTI, Cellulitis)
ED Past Surgical History:
Social History
Tobacco: Former smoker
Alcohol: None
Drug: None
Personal: Other (Seperated)
Living: [facility] ([place])
Employment: Disabled
Phy Exam
Physical Exam
Physical Exam:
See MDM
Course
Orders/Labs/Results
Orders:
Orders
03/15/24 13:07
HYDROmorphone [Dilaudid] 1 mg IV NOW STA
03/15/24 13:21
Complete Blood Count/With Diff Urgent
Urine Culture Urgent
DENNIS Source: Urine
Specimen Description:
Obtained by: Suprapubic
Date Specimen was Collected: 03/15/24
Time Specimen was Collected: 13:11
03/15/24 13:29
Abdomen Xray - 1 View [CR Abdomen - 1 View] Urgent
Comment:
Reason For Exam: possbile swallowed foreign body
03/15/24 14:00
Micafungin Sodium [Mycamine] 100 mg Dextrose 5%/Water 100 ml [D5w] 100 ml IV ONCE
03/15/24 14:12
Comprehensive Metabolic Panel Urgent
03/15/24 14:37
Consult Gastroenterology [GASTROINTESTINAL CONSULT] Urgent
Consulting Provider: Birdie Ann
Was physician already notified: Yes
Abnormal Lab Results
03/15/24
13:21
Hgb 11.3 L g/dL
(12.0-16.0)
MCV 74.1 L fL
(81.0-99.0)
MCH 22.6 L pg
(27.0-31.0)
MCHC 30.5 L g/dL
(33.0-37.0)
RDW 16.8 H %
(11.5-14.5)
Lymphocytes % 17.6 L %
(20.5-51.1)
03/15/24 13:21
Vital Signs
Initial and Last Documented VS:
Initial Vital Signs
Temp Pulse Resp BP Pulse Ox
98.8 F 82 18 120/76 97
03/15/24 11:05 03/15/24 11:05 03/15/24 11:05 03/15/24 11:05 03/15/24 11:05
Last Documented Vital Signs
Temp Pulse Resp BP Pulse Ox
98.8 F 82 18 120/76 97
03/15/24 11:05 03/15/24 11:05 03/15/24 11:05 03/15/24 11:05 03/15/24 11:05
MDM/Problems Addressed
Differential Diagnosis Includes:
HPI and MDM Narrative:
33-year-old female presenting for evaluation of abdominal pain. In reality, this is more of a skin issue. Patient points to her inguinal canal. Patient has large BMI. Her abdomen is soft. She has extensive candidal intertrigo. Patient states
she has required admission in the past when she has gotten this bad. She states she is currently on cefdinir for UTI. Patient has a indwelling catheter
Physical exam
General: Sitting in bed comfortably. Large BMI
HEENT: protecting airway
Neck: appears supple
CV: No evidence of cyanosis
Resp: No accessory muscle use
Abd: Non-distended. Soft and nontender
Extremities: No deformities
Neuro: alert
Psych: Normal affect
Skin: Candidal intertrigo in the inguinal canal bilaterally
Problems Addressed including Acute and Chronic Conditions affecting care:
1. Candidal intertrigo
Acuity: acute on chronic
Prognosis: unstable
Details: Patient states she was on powders, creams and fluconazole. Given failure of outpatient treatment, will give dose of micafungin and admit
2. Ingested foreign body
Acuity: acute
Prognosis: unstable
Details: Given the concern that it could be a razor as described to the patient, GI made aware
Updates
1:30 PM patient now stating that she swallowed the razor part of a pencil sharpener. Patient has a prior history of Pica. She states dated earlier today. Will obtain x-ray and placed on one-to-one. Patient is denying suicidal ideation or
purposeful self-harm.
2:40 PM x-ray confirms foreign body. GI made aware
Differential Diagnosis (but not limited to): Cellulitis, candidal intertrigo
Testing considered: CT abdomen/pelvis
Drug therapy (if applicable): OTC meds, please see d/c instruction regarding Rx drugs
Amount and/or Complexity of Data Reviewed
Clinical info obtained from: Patient
External data reviewed: Patient has required admission in the past for micafungin for the same issue
Labs I independently reviewed (but not limited to): wbc normal
Radiology: X-ray independently reviewed: Abdominal x-ray shows ingested metallic foreign body
Pulse Ox: not hypoxic
EKG independently reviewed: N/A
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
Critical Care: N/A
Risk of Complication:
Social Determinants of health: Poor social support
Discussed with other providers: Gastroenterology, hospitalist
Escalation of Care includes Admit/Obs: Given the foreign body ingestion with concern for razor blade, GI made aware. Will admit
Occasional wrong word or 'sound a like' substitutions may have occurred due to the inherent limitations of voice recognition software. Read the chart carefully and recognize, using context, where substitutions have occurred.
*Critical Care Note
Total Time (30-74mins, 75-104mins- exclusive of procedures): Not Applicable
ED Attending Note
-
Portions of this chart may have been created with voice recognition software.� Occasional wrong word or��sound alike� substitutions may have occurred due to the inherent limitations of voice recognition software.
Discharge Plan
Departure
Patient Disposition: Admit
Date of Disposition: 03/15/24
Time of Disposition: 14:44
Presentation/result/management discussed w/ accepting MD/DO: Hospitalist
Discharge Problem:
Candidal intertrigo, Foreign body ingestion
Prescriptions:
No Action
levothyroxine [Synthroid] 175 mcg Tablet
175 mcg PO DAILY
clonidine HCl 0.1 mg Tablet
0.1 mg PO HS
acetaminophen [Tylenol] 325 mg Tablet
650 mg PO Q6HPRN PRN (Reason: temp>100.4)
polyethylene glycol 3350 [Miralax] 17 gram Powder In Packet
17 g PO BID
cetirizine [Zyrtec] 10 mg Tablet
10 mg PO DAILY
acetazolamide 500 mg Capsule, Extended Release
500 mg PO TID
clozapine 100 mg Tablet
100 mg PO HS
Rx Instructions:
with 25mg = 125mg
therapeutic multivitamin Tablet
1 tab PO DAILY
triamcinolone acetonide 0.1 % Cream
1 applic TOPICAL BID
Rx Instructions:
apply to b/l legs
famotidine [Pepcid] 20 mg Tablet
20 mg PO BID
magnesium hydroxide [Milk of Magnesia] 400 mg/5 mL Suspension
2,400 mg PO [id number] PRN (Reason: if no bm in 3 days)
bisacodyl [Dulcolax (bisacodyl)] 10 mg Suppository
10 mg NC DAILYPRN PRN (Reason: if no bm after mom)
ferrous sulfate 325 mg (65 mg iron) Tablet
325 mg PO DAILY
nystatin 100,000 unit/gram Cream
1 applic TOPICAL TID
fluticasone propion-salmeterol [Advair Diskus] 500-50 mcg/dose Blister With Device
1 inh INHALATION R BID
Fleet Enema 19-7 gram/118 mL Enema
118 ml NC DAILYPRN PRN (Reason: if no bm after dulcolax)
docusate sodium [Colace] 100 mg Capsule
100 mg PO TID
gabapentin 300 mg Capsule
300 mg PO TID
ibuprofen 600 mg Tablet
600 mg PO Q6HPRN PRN (Reason: pain)
atropine 1 % Drops
1 drp sublingual PRN PRN (Reason: sialorrhea) Qty: 0
cyclobenzaprine 5 mg Tablet
5 mg PO TID
clozapine 50 mg Tablet
50 mg PO DAILY
Senna Plus 8.6-50 mg Capsule
2 tab-cap PO TID
naltrexone 50 mg Tablet
50 mg PO QPM
lidocaine 4 % Adhesive Patch,Medicated
1 patch TOPICAL DAILY
Rx Instructions:
apply to lower back and remove per schedule
hydroxyzine pamoate 50 mg Capsule
50 mg PO Q8HPRN PRN (Reason: anxiety)
clozapine 25 mg Tablet
25 mg PO HS
Rx Instructions:
with 100mg = 125mg
fluoxetine 60 mg Tablet
90 mg PO DAILY
buprenorphine-naloxone 2-0.5 mg Film
1 film BUCCAL BID
buprenorphine-naloxone [Suboxone] 4-1 mg Film
1 film BUCCAL BID
phenazopyridine [Pyridium] 100 mg Tablet
100 mg PO Q8HPRN PRN (Reason: dysuria)
buspirone 10 mg Tablet
10 mg PO DAILY
clotrimazole-betamethasone 1-0.05 % Cream
1 applic TOPICAL PRN PRN (Reason: itching)
Patient Comments:
apply to groin
furosemide 20 mg Tablet
20 mg PO DAILY
gabapentin 100 mg Capsule
100 mg PO BID
albuterol sulfate 90 mcg/actuation Hfa Aerosol Inhaler
2 inh INHALATION R Q6HPRN PRN (Reason: sob/wheezing)
lactulose 10 gram/15 mL Solution
20 g PO DAILY
potassium chloride 20 mEq Tablet Extended Release
20 meq PO DAILY
Nurtec ODT 75 mg Tablet,Disintegrating
75 mg PO [id number] PRN (Reason: migraine)
Wegovy 1.7 mg/0.75 mL Pen Injector
1.7 mg SC FR
cephalexin 500 mg capsule
500 mg PO BID 7 Days Qty: 14 0RF
cefdinir 300 mg capsule
300 mg PO BID Qty: 14 0RF
Referrals:
UNKNOWN - PT DOES,NOT KNOW [Family Provider] -
Interventions
Interventions:
*Risk Screen - Suicide Last Done: 03/15/24 11:05
*General Assessment Last Done: 03/15/24 11:05
*Neglect/Abuse Screening Last Done: 03/15/24 11:05
LU-Fkovgj-Lagrmvxxxc Assessment Last Done: 03/15/24 14:40
Discharge Date and Time
Print Language: BELGIAN
[2024-03-15] MEDS: MYCAMINE 105 MG IV (13:49)
[2024-03-15 14:00] LABS: % Basophils 0.5 % (0-2); % Eosinophils 3.7 % (0-6); % Immature Granulocytes 0.3 % (0-0.5); % Lymphocytes 17.6 % (20.5-51.1); % Monocytes 6.8 % (1.7-9.3); % Neutrophils 71.1 % (42.2-75.2); Absolute Eosinophils 0.3 10^3/uL (0-0.7); Absolute Lymphocytes 1.3 10^3/uL (1.2-3.4); Absolute Monocytes 0.5 10^3/uL (0.1-0.6); Absolute Neutrophils 5.3 10^3/uL (1.4-6.5); Hematocrit 37.1 % (37.0-47.0); Hemoglobin 11.3 g/dL (12.0-16.0); Mean Corp Hgb Conc. 30.5 g/dL (33.0-37.0); Mean Corpuscular Hgb 22.6 pg (27.0-31.0); Mean Corpuscular Volume 74.1 fL (81.0-99.0); Mean Platelet Volume 8.9 fL (7.4-10.4); Nucleated Red Blood Cells % 0 %; Platelet Count 351 10^3/uL (130-400); Red Blood Cell Count 5.01 10^6/uL (4.20-5.40); Red Cell Dist. Width 16.8 % (11.5-14.5); White Blood Cell Count 7.4 10^3/uL (4.8-10.8)
--- NOTE | 2024-03-15 15:14 | CON.GI ---
Addendum entered and electronically signed by Birdie Ann MD 03/15/24 17:04:
I saw and examined the patient.
The DIETETIC AIDE's note was reviewed and I agree with the note.
Comment: This is a 33-year-old female who has a history of pica with foreign body ingestion in the past and had 2 endoscopies for foreign body ingestion - EGD for ingested thumb tack in January and sewing needle in February with removal and rest of medical
history as listed below who presented to the emergency room with abdominal pain and groin rash. While in the ER she admitted to swallowing a foreign body pencil sharpener where she broke of the plastic piece and swallowed the blade. She currently
denies any abdominal pain and looks comfortable. X-ray confirmed the foreign body in the distal esophagus.
Assessment and plan foreign body ingestion while in the ER for evaluation of rash and abdominal pain she swallowed the blade from the pencil sharpener. Will schedule her for endoscopy for foreign body removal, on x-ray there was a 2.8 cm
rectangular shaped metal foreign body containing an 8 mm metal screw projecting over the epigastric region of the upper abdomen in the region of the GE junction. needs Psychiatric evaluation for recurrent swallowing of foreign body/PICA.
Original Note:
Consultation
-
Date/Time Consultation Requested: 03/15/24 1445
Date/Time Consultation Performed: 03/15/24 1515
Requesting Provider: angela Nava DO
Performing Provider: MARTHA Drake, Birdie Ann MD
Reason for Consultation: foreign Body ingestion
Medical History
Chief Complaint / HPI
Chief Complaint: s/p foreign body ingestion
History of Present Illness:
Pt is 33yo with hx Pica, COPD, GERD, NIDDM, seizures, hypothyroidism, meningitis, sciatica, anxiety, depression, bipolar disorder, claustrophobia, PTSD, schizo disorder, suicidal attempt, borderline personality TBI, PE, lymphedema, urinary
retention, UTI, cellulitis with admission to ER with abdominal pain with extensive ground rash. While in ER pt admit swallowed foreign body containing a razor blade. Asked to eval for foreign body confirmed on X ray . Pt admits to swallowing
other objects in past requiring EGD with recent EGD for ingested thumb tack in January and sewing needle in February with removal. She admit to tendency towards metal objects.
Pt admits to some upper abdominal pain but since swallowing objects but denies dysphagia, GERD, nausea, vomiting, diarrhea, constipation or rectal bleeding.
Past Medical History
Past Medical History: Asthma, COPD, GERD, HTN, Hypothyroidism, NIDDM, Seizures, Psychiatric (anxiety, depression, bipolar disorder, claustrophobia, PTSD, schizo disorder, suicidal attempt, borderline personality ) and Other (meningitis, sciatica,
TBI, PE, lymphedema, urinary retention, UTI, cellulitis, ambulatory dysfunction. )
Past Surgical History:
Social History
Tobacco: Non-Smoker
Alcohol: None
Drug: None
Living: [facility]
Family History
Family History: Other (no family hx GI issues )
Allergies / Home Medications
Allergy/AdvReac Type Severity Reaction Status Date / Time
bee venom protein (honey bee) Allergy Anaphylaxis Verified 03/15/24 11:04
cariprazine Allergy Unknown Verified 03/15/24 11:04
loratadine [From Claritin] Allergy Unknown Verified 03/15/24 11:04
meloxicam Allergy Unknown Verified 03/15/24 11:04
shellfish derived Allergy Anaphylaxis Verified 03/15/24 11:04
simvastatin Allergy Unknown Verified 03/15/24 11:04
nicotine polacrilex Allergy Unknown Uncoded 03/09/24 20:12
seafood Allergy Unknown Uncoded 03/09/24 20:12
�Medication �Instructions �Recorded
acetaminophen 325 mg tablet 650 mg PO Q6HPRN PRN temp>100.4 12/03/23
(Tylenol)
acetazolamide 500 mg 500 mg PO TID Neurological 12/03/23
capsule,extended release Condition
atropine 1 % eye drops 1 drp sublingual PRN PRN 12/03/23
sialorrhea ##0
bisacodyl 10 mg rectal suppository 10 mg WA DAILYPRN PRN if no bm 12/03/23
(Dulcolax (bisacodyl)) after mom
cetirizine 10 mg tablet (Zyrtec) 10 mg PO DAILY Allergies 12/03/23
clonidine HCl 0.1 mg tablet 0.1 mg PO HS Blood Pressure 12/03/23
clozapine 100 mg tablet 100 mg PO HS Mental Health/Anxiety 12/03/23
clozapine 50 mg tablet 50 mg PO DAILY Mental 12/03/23
Health/Anxiety
cyclobenzaprine 5 mg tablet 5 mg PO TID Muscle Spasms 12/03/23
docusate sodium 100 mg capsule 100 mg PO TID Constipation 12/03/23
(Colace)
famotidine 20 mg tablet (Pepcid) 20 mg PO BID Gastrointestinal Issue 12/03/23
ferrous sulfate 325 mg (65 mg 325 mg PO DAILY Supplement 12/03/23
iron) tablet
fluticasone 500 mcg-salmeterol 50 1 inh inhalation R BID 12/03/23
mcg/dose blistr powdr for Lung/Breathing Issues
inhalation (Advair Diskus)
gabapentin 300 mg capsule 300 mg PO TID pain 12/03/23
ibuprofen 600 mg tablet 600 mg PO Q6HPRN PRN pain 12/03/23
levothyroxine 175 mcg tablet 175 mcg PO DAILY Thyroid 12/03/23
(Synthroid)
magnesium hydroxide 400 mg/5 mL 2,400 mg PO [id number] PRN if no bm 12/03/23
oral suspension (Milk of Magnesia) in 3 days
naltrexone 50 mg tablet 50 mg PO QPM 12/03/23
nystatin 100,000 unit/gram topical 1 applic topical TID groin,breasts 12/03/23
cream
polyethylene glycol 3350 17 gram 17 g PO BID Constipation 12/03/23
oral powder packet (Miralax)
sennosides 8.6 mg-docusate sodium 2 tab-cap PO TID Constipation 12/03/23
50 mg capsule (Senna Plus)
sodium phosphates 19 gram-7 118 ml WA DAILYPRN PRN if no bm 12/03/23
gram/118 mL enema (Fleet Enema) after dulcolax
therapeutic multivitamin 1 tab PO DAILY Supplement 12/03/23
triamcinolone acetonide 0.1 % 1 applic topical BID dermatititits 12/03/23
topical cream
clozapine 25 mg tablet 25 mg PO HS 01/18/24
fluoxetine 60 mg tablet 90 mg PO DAILY 01/18/24
hydroxyzine pamoate 50 mg capsule 50 mg PO Q8HPRN PRN anxiety 01/18/24
lidocaine 4 % topical patch 1 patch topical DAILY 01/18/24
buprenorphine 2 mg-naloxone 0.5 mg 1 film buccal BID 02/23/24
sublingual film
buprenorphine 4 mg-naloxone 1 mg 1 film buccal BID 02/23/24
sublingual film (Suboxone)
albuterol sulfate 90 mcg/actuation 2 inh inhalation R Q6HPRN PRN 03/09/24
aerosol inhaler sob/wheezing
buspirone 10 mg tablet 10 mg PO DAILY 03/09/24
cephalexin 500 mg capsule 500 mg PO BID Urinary issue 7 days 03/09/24
#14 caps
clotrimazole-betamethasone 1 1 applic topical PRN PRN itching 03/09/24
%-0.05 % topical cream
furosemide 20 mg tablet 20 mg PO DAILY 03/09/24
gabapentin 100 mg capsule 100 mg PO BID 03/09/24
lactulose 10 gram/15 mL oral 20 g PO DAILY 03/09/24
solution
phenazopyridine 100 mg tablet 100 mg PO Q8HPRN PRN dysuria 03/09/24
(Pyridium)
potassium chloride 20 mEq 20 meq PO DAILY 03/09/24
tablet,extended release
rimegepant 75 mg disintegrating 75 mg PO [id number] PRN migraine 03/09/24
tablet (Nurtec ODT)
semaglutide (weight loss) 1.7 1.7 mg SC FR 03/09/24
mg/0.75 mL subcutaneous pen
injector (Wegovy)
cefdinir 300 mg capsule 300 mg PO BID #14 caps 03/13/24
Review of Systems
-
History Source: Patient
Constitutional: Reports Fatigue
EENT: Reports No Symptoms
Respiratory: Reports No Symptoms
Cardiac: Reports No Symptoms
Abdomen/GI: Reports Abdominal Pain and Other (ingestion of foreign body )
: Reports No Symptoms
Musculoskeletal: Reports No Symptoms
Skin: Reports No Symptoms
Neurological: Reports Weakness
Endocrine: Reports No Symptoms
Hematologic/Lymphatic: Reports No Symptoms
Vital Signs
Temp Pulse Resp BP Pulse Ox
98.8 F 82 18 120/76 97
03/15/24 11:05 03/15/24 11:05 03/15/24 11:05 03/15/24 11:05 03/15/24 11:05
Physical Exam
Exam
General: Well Developed, Well Nourished and No Apparent Distress
HEENT: Normocephalic and Anicteric
Respiratory: Clear
Cardiac: Regular Rhythm
GI: Soft, Non Distended and Tender (mild RUQ pain )
Musculoskeletal: No Clubbing and No Cyanosis
Skin: Warm and Dry
Neuro: Awake, Alert and AO x 3
Psych: Calm
Results
WBC 7.4 10^3/uL (4.8-10.8) 03/15/24 13:21
Hgb 11.3 g/dL (12.0-16.0) L 03/15/24 13:21
Hct 37.1 % (37.0-47.0) 03/15/24 13:21
MCV 74.1 fL (81.0-99.0) L 03/15/24 13:21
Plt Count 351 10^3/uL (130-400) 03/15/24 13:21
Absolute Neuts (auto) 5.3 10^3/uL (1.4-6.5) 03/15/24 13:21
Sodium Cancelled 03/15/24 13:21
Potassium Cancelled 03/15/24 13:21
Chloride Cancelled 03/15/24 13:21
Carbon Dioxide Cancelled 03/15/24 13:21
BUN Cancelled 03/15/24 13:21
Creatinine Cancelled 03/15/24 13:21
Calcium Cancelled 03/15/24 13:21
Total Bilirubin Cancelled 03/15/24 13:21
AST Cancelled 03/15/24 13:21
ALT Cancelled 03/15/24 13:21
Alkaline Phosphatase Cancelled 03/15/24 13:21
Diagnostic Image Results:
03/15 Abd X ray
2.8 cm rectangular-shaped metal foreign body containing an 8 mm metal screw projecting over the epigastric region of the upper abdomen in the region of the gastroesophageal junction.
Prior GI Procedures:
EGD 01/2024 The examined esophagus was normal.
A medium amount of food (residue) was found in the gastric body and in
the gastric antrum.
The examined duodenum was normal.
The examined jejunum was normal.
no foreign body seen
EGD: 02/2024 - Normal esophagus.
- A large amount of food (residue) in the stomach.
- A sewing pin was found in the stomach. Removal was
successful.
- Retained food in the duodenum.
Assessment / Plan
-
Pt is 33yo with hx Pica, COPD, GERD, NIDDM, seizures, hypothyroidism, meningitis, sciatica, anxiety, depression, bipolar disorder, claustrophobia, PTSD, schizo disorder, suicidal attempt, borderline personality TBI, PE, lymphedema, urinary
retention, UTI, cellulitis with admission to ER with abdominal pain with extensive ground rash. While in ER pt admit swallowed foreign body containing a razor blade. Asked to eval for foreign body confirmed on X ray. Pt admits to swallowing
other objects in past requiring EGD with recent EGD for ingested thumb tack in January and sewing needle in February with removal. She admit to tendency towards metal objects.
-foreign body
-hx Pica and prior foreign body ingestions
-groin rash
other med problems:
-GERD
-COPD
-NIDDM
-seizures
-hypothyroidism
-anxiety, depression, bipolar disorder, claustrophobia, PTSD, schizo disorder, suicidal attempt, borderline personality TBI
-PE
lyphedema
PLAN:
plan for foreign body removal today
NPO
continued pysch eval for recurrent swallowing of foreign body
cont rx for rash per medical team
-
-
Thank you for consultation and allowing me to participate in the patient's care. Please call the manager marketing communications GI physician during the after hours with any questions or concerns.
[2024-03-15 15:30] LABS: ALT (SGPT) 16 U/L (0-35); AST (SGOT) 18 U/L (14-36); Albumin 2.4 g/dl (3.5-5.0); Alkaline Phosphatase 108 U/L (38-126); Blood Urea Nitrogen 8 mg/dl (7-17); Calcium 9.1 mg/dl (8.4-10.2); Carbon Dioxide 20 mmol/L (22-30); Chloride 110 mmol/L (98-107); Glucose 122 mg/dl (70-99); Potassium 3.9 mmol/L (3.5-5.1); Sodium 136 mmol/L (135-145); Total Bilirubin 0.5 mg/dl (0.2-1.3); Total Protein 6.3 g/dl (6.3-8.2); eGFR > 60.00
--- NOTE | 2024-03-15 16:00 | HPS.HSE ---
Addendum entered and electronically signed by Corrine Levin MD 03/15/24 18:49:
Patient seen and examined independently--agree with DEVELOPER DESIGNER note
Patient reports she came in for skin infection that she 'cannot take the pain anymore', UTI on cefdinir 'also not working' and swallowed a razor blade for no apparent reason--denies suicidal ideation
Went to GI lab and had foreign body removed
GENERAL: well developed, well nourished, super morbidly obese female in no apparent distress
HEENT: NC/AT
HEART: regular rate and rhythm, +S1, +S2
LUNGS : clear to auscultation bilaterally
ABDOM: soft, nontender, nondistended, + bowel sounds
EXT: no cyanosis, clubbing-- has large legs bilaterally
NEUROLOGIC: grossly intact
: cervantes catheter in place
SKIN: under abdominal pannus: has redness with satellite lesions c/w yeast infection
Intentional ingestion of foreign body/razor blade--denies suicidal ideation (although has History of suicidal attempts), cannot tell me why she did it--does have history of pica, although would not be surprised if this is an attention getting
behavior--not the first time (History of thumbtack ingestion January 2024, sewing needle February 2024 with removal)--had EGD with removal of foreign body--agree with psych consult and 1:1 overnight to prevent further foreign body ingestions--diet as per
GI, apprec input
Acute on chronic Wandy Intertrigo--Micafungin started in ER--already on nystatin and triamcinolone--powder would be better to absorb the sweat that accumulates--wound care consult and ID--cont micafungin for now
Symptomatic UTI with chronic indwelling Cervantes catheter POA (History of neurogenic bladder since age 5 from meningitis)--Continue prior cefdinir 300 mg p.o. twice daily
HTN�benign--Continue clonidine 0.1 mg at bedtime
Bipolar disorder/Anxiety/depression/Claustrophobia/PTSD/ schizoaffective disorder/Borderline personality--Continue clozapine 100mg at bedtime, clozapine 50 mg a.m., BuSpar 10 mg daily--Continue naltrexone 100 mg a.m., 50 mg p.m., fluoxetine 90 mg
daily
TBI hx /seizure disorder--Continue Diamox 500 mg p.o. 3 times daily, gabapentin
GERD/Iron deficiency--Continue Pepcid 20 mg twice daily--Continue ferrous sulfate 325 mg daily
COPD-no acute exacerbation--Continue albuterol inhaler, Advair
Type DM 2--needs good sugar control to prevent infection--Accu-Cheks with SSI, check [id number]--iwjm wegovy
Hypothyroidism--Continue Synthroid 175 mcg p.o. daily
Chronic back pain/sciatica--Continue Lidoderm patch to lower back daily, continue gabapentin
Chronic constipation--Continue MiraLAX 17 g p.o. twice daily, senna 2 tabs p.o. 3 times daily--Continue lactulose 20 g p.o. daily
Migraines--Nurtec 75 mg p.o. every 48 H as needed migraine
Super Morbid obesity due to excess calorie consumption/medications--Continue Wegovy 1.7 mg subcu Fridays--affects all aspects of care
PE hx-- noted-- no anticoagulation
Chronic leg lymphedema--Continue Lasix
DVT prophylaxis--Subcu Lovenox
Full code
OBSERVATION and anticipate D/C in AM back to [place]
Original Note:
Family Physician
-
Family Physician: NOT KNOW UNKNOWN - PT DOES
Chief Complaint
-
Abdominal pain, swallowed razor blade, bilateral groin infection
History of Present Illness
33-year-old female from [place] complaining of abdominal pain who reports swallowing a razor blade today which was confirmed on x-ray in the ER. She states' I do not know why I swallowed the razor blade, I do not want to ,. When asked how
she got it she states it was her remains pencil sharpener. She has history of swallowing other objects in the past requiring EGD for ingested thumbtack in January and a sewing needle in February with removal. She also has extensive chronic candidal
intertrigo bilateral abdominal folds. She is currently on cefdinir for UTI with indwelling Cervantes catheter due to neurogenic bladder since age 5 from viral meningitis she has past medical history of pica, PTSD, schizo affective disorder, borderline
personality, TBI, suicidal attempts, anxiety/depression bipolar disorder, claustrophobia, seizures, COPD, GERD/iron deficiency, DM 2, hypothyroidism, sciatica, meningitis, PE, chronic lymphedema, ambulatory dysfunction, UTIs, fungal skin infections.
Medical History
Past Medical History
Past Medical History: Reports Other
Additional Past Medical History:
Morbid Obesity
Schizoaffective Disorder / Borderline Personality Disorder
Depression / Anxiety / PTSD
Hypertension
Hypothyroidism
Neurogenic Bladder
Past Surgical History: Reports Other
Additional Past Surgical History:
section 2009
Social History
Tobacco: Non-smoker
Alcohol: None
Drug: None
Personal: Single
Living: Senior Living
Employment: Disabled
Family History
Family History: Not pertinent
Allergies / Home Medications
Allergies reflects when Allergies were last updated in [employer] [facility].
Home Medications with original date entered in [employer]
Allergy/Medication List:
Allergies
Allergy/AdvReac Type Severity Reaction Status Date / Time
bee venom protein (honey bee) Allergy Anaphylaxis Verified 03/15/24 11:04
cariprazine Allergy Unknown Verified 03/15/24 11:04
loratadine [From Claritin] Allergy Unknown Verified 03/15/24 11:04
meloxicam Allergy Unknown Verified 03/15/24 11:04
shellfish derived Allergy Anaphylaxis Verified 03/15/24 11:04
simvastatin Allergy Unknown Verified 03/15/24 11:04
nicotine polacrilex Allergy Unknown Uncoded 03/09/24 20:12
seafood Allergy Unknown Uncoded 03/09/24 20:12
Home Medications
acetaminophen 325 mg tablet (Tylenol) 650 mg PO Q6HPRN PRN temp>100.4/mild pain 12/03/23
acetazolamide 500 mg capsule,extended release 500 mg PO TID Neurological Condition 12/03/23
atropine 1 % eye drops 1 drp sublingual DAILYPRN PRN sialorrhea ##0 12/03/23
bisacodyl 10 mg rectal suppository (Dulcolax (bisacodyl)) 10 mg MS DAILYPRN PRN constipation, if mom ineffective 12/03/23
cetirizine 10 mg tablet (Zyrtec) 10 mg PO DAILY Allergies 12/03/23
clonidine HCl 0.1 mg tablet 0.1 mg PO HS Blood Pressure 12/03/23
clozapine 100 mg tablet 100 mg PO HS Mental Health/Anxiety 12/03/23
clozapine 50 mg tablet 50 mg PO DAILY Mental Health/Anxiety 12/03/23
cyclobenzaprine 5 mg tablet 5 mg PO TID Muscle Spasms 12/03/23
docusate sodium 100 mg capsule (Colace) 100 mg PO TID Constipation 12/03/23
famotidine 20 mg tablet (Pepcid) 20 mg PO BID Gastrointestinal Issue 12/03/23
ferrous sulfate 325 mg (65 mg iron) tablet 325 mg PO DAILY Supplement 12/03/23
fluticasone 500 mcg-salmeterol 50 mcg/dose blistr powdr for inhalation (Advair Diskus) 1 inh inhalation R BID Lung/Breathing Issues 12/03/23
gabapentin 300 mg capsule 300 mg PO TID pain 12/03/23
ibuprofen 600 mg tablet 600 mg PO Q6HPRN PRN mild pain 12/03/23
levothyroxine 175 mcg tablet (Synthroid) 175 mcg PO DAILY Thyroid 12/03/23
magnesium hydroxide 400 mg/5 mL oral suspension (Milk of Magnesia) 2,400 mg PO [id number] PRN if no bm in 3 days 12/03/23
naltrexone 50 mg tablet 50 mg PO QPM 12/03/23
nystatin 100,000 unit/gram topical cream 1 applic topical TID groin,breasts 12/03/23
polyethylene glycol 3350 17 gram oral powder packet (Miralax) 17 g PO BID Constipation 12/03/23
sennosides 8.6 mg-docusate sodium 50 mg capsule (Senna Plus) 2 tab-cap PO TID Constipation 12/03/23
sodium phosphates 19 gram-7 gram/118 mL enema (Fleet Enema) 118 ml MS DAILYPRN PRN constipation, suppository ineffect 12/03/23
therapeutic multivitamin 1 tab PO DAILY Supplement 12/03/23
triamcinolone acetonide 0.1 % topical cream 1 applic topical BID apply to b/l legs 12/03/23
clozapine 25 mg tablet 25 mg PO HS 01/18/24
fluoxetine 60 mg tablet 90 mg PO DAILY 01/18/24
hydroxyzine pamoate 50 mg capsule 50 mg PO Q8HPRN PRN anxiety 01/18/24
lidocaine 4 % topical patch 1 patch topical DAILY lower back 01/18/24
albuterol sulfate 90 mcg/actuation aerosol inhaler 2 inh inhalation R Q6HPRN PRN sob/wheezing 03/09/24
buspirone 10 mg tablet 10 mg PO DAILY 03/09/24
furosemide 20 mg tablet 20 mg PO DAILY 03/09/24
gabapentin 100 mg capsule 100 mg PO BID 03/09/24
lactulose 10 gram/15 mL oral solution 20 g PO DAILY 03/09/24
potassium chloride 20 mEq tablet,extended release 20 meq PO DAILY 03/09/24
rimegepant 75 mg disintegrating tablet (Nurtec ODT) 75 mg PO [id number] PRN migraine 03/09/24
semaglutide (weight loss) 1.7 mg/0.75 mL subcutaneous pen injector (Wegovy) 1.7 mg SC FR 03/09/24
cefdinir 300 mg capsule 300 mg PO BID #14 caps 03/13/24
naltrexone 50 mg tablet 100 mg PO DAILY 03/15/24
nitroglycerin 0.4 mg sublingual tablet 0.4 mg sublingual [id number] PRN chest pain 03/15/24
Review of Systems
-
History Source: Patient
A 12 point ROS was completed and negative except as noted: Yes
Constitutional: Denies Fever or Chills
EENT: Denies Sore Throat or Runny Nose
Respiratory: Denies Cough or Trouble Breathing
Cardiac: Denies Chest Pain, Diaphoresis, Palpitations or Syncope
Abdomen/GI: Reports Abdominal Pain; Denies Nausea, Vomiting, Diarrhea, Constipated, Bloody Stools or Black Stools
: Reports Cervantes (Chronic present on admission)
Musculoskeletal: Denies Joint Pain or Edema
Skin: Reports Rash (Chronic abdominal fold fungal rash bilateral); Denies Itching
Neurological: Denies Dizzy, Headache or Weakness
Endocrine: Reports No Symptoms
Hematologic/Lymphatic: Reports No Symptoms
Psych: Reports Calm
Physical Exam
Vital Signs
Vital Signs
Temp Pulse Resp BP Pulse Ox
98.8 F 82 18 120/76 97
03/15/24 11:05 03/15/24 11:05 03/15/24 11:05 03/15/24 11:05 03/15/24 11:05
Physical Exam
General: Comfortable and Conversant; No Pain, Fever or Chills
HEENT: NormoCephalic, Anicteric, Moist mucous membranes, PERRLA, [place] Conjunctivae and No Ptosis
Respiratory: Clear; No Wheezes, Rales or Rhonchi
Cardiac: S1/S2 and Regular Rhythm; No Murmur, Rub, Gallop or Peripheral Edema
GI: Soft, Non Tender, Non Distended, Normal Bowel Sounds and No Hepatosplenomegaly
Rectal: Deferred by Provider
Genito-urinary: Viktoria (Chronic present on mission)
Musculoskeletal: No Clubbing, No Cyanosis and No Edema
Skin: Warm, Dry and Rash (Extensive acute on chronic bilateral fungal groin abdominal fold infection)
Neuro: AO x 3, No Motor Deficits, Nonfocal/grossly intact and No Sensory Deficits; No Slurred Speech, Facial Droop, Tremors or Sedated
Psych: Calm
Laboratory Results
-
03/15/24 13:21
03/15/24 15:05
Laboratory Results
Total Bilirubin 0.5 mg/dl (0.2-1.3) 03/15/24 15:05
AST 18 U/L (14-36) 03/15/24 15:05
ALT 16 U/L (0-35) 03/15/24 15:05
Alkaline Phosphatase 108 U/L (38-126) 03/15/24 15:05
Impression/Plan
-
Impression/plan:
Observation MedSurg
#Intentional ingestion of foreign body/razor blade
#History of thumbtack ingestion January 2024, 7 needle February 2024 with removal
#History of suicidal attempts
N.p.o. with plan for EGD foreign body removal today 03/15/2024
reg diet
#Acute on chronic Wandy Intertrigo
-Micafungin started in ER
-Continue nystatin and triamcinolone
-Consult wound care
- consult i/d
#Symptomatic UTI with chronic indwelling Cervantes catheter POA
History of neurogenic bladder since age 5 from meningitis
-Continue prior cefdinir 300 mg p.o. twice daily
#HTN�benign
-Continue clonidine 0.1 mg at bedtime
#Bipolar disorder
#Anxiety/depression
#Claustrophobia
--Continue clozapine 100mg at bedtime, clozapine 50 mg a.m., BuSpar 10 mg daily
#PTSD/ schizoaffective disorder
#Borderline personality
-Continue naltrexone 100 mg a.m., 50 mg p.m., fluoxetine 90 mg daily
#TBI hx /seizure disorder
-Continue Diamox 500 mg p.o. 3 times daily, gabapentin
#GERD
#Iron deficiency
-Continue Pepcid 20 mg twice daily
-Continue ferrous sulfate 325 mg daily
#COPD-no acute exacerbation
-Continue albuterol inhaler, Advair
#DM 2
Accu-Cheks with SSI, check HgbA1c
cont wegovy
#Hypothyroidism
-Continue Synthroid 175 mcg p.o. daily
#Chronic back pain/sciatica
-Continue Lidoderm patch to lower back daily, continue gabapentin
#Chronic constipation
-Continue MiraLAX 17 g p.o. twice daily, senna 2 tabs p.o. 3 times daily
-Continue lactulose 20 g p.o. daily
#Migraines
Nurtec 75 mg p.o. every 48 H as needed migraine
# Morbid obesity due to excess calorie consumption/medications
Continue Wegovy 1.7 mg subcu Fridays
#PE hx
#Chronic leg lymphedema
Continue Lasix
DVT prophylaxis
Subcu Lovenox
Full code
[2024-03-15 16:34] LABS: Glucose - Point of Care 96 mg/dl (70-99)
--- NOTE | 2024-03-15 17:04 | W.PN.UPDATE ---
Update Note
Progress Note Update
FB removed
Will s/o and will be avialable as needed
--- NOTE | 2024-03-15 19:00 | PTCARENOTE ---
Pt arrived from ED via stretcher, oob x1 with RW. Claudiaox3, cooperative. security called to search through Pt's belongings. Pt agreeable. 1:1 observation ordered. Denies dizziness or sob. Blum draining yellow urine. oriented to room. call roach within
reach.
[2024-03-15] MEDS: ADVAIR HFA 230/21 MCG INHALER 2 PUFF INH (20:31)
[2024-03-15] MEDS: COLACE PO (21:10)
[2024-03-15] MEDS: SENOKOT-S PO (21:10)
[2024-03-15] MEDS: CLOZARIL 100 MG PO (21:14)
[2024-03-15] MEDS: OMNICEF 300 MG PO (21:14)
[2024-03-15] MEDS: CLOZARIL 25 MG PO (21:15)
[2024-03-15] MEDS: DIAMOX SR SEQUELS 500 MG PO (21:15)
[2024-03-15] MEDS: ARISTOCORT/TRIAMCINOLONE 0.1% CREAM 1 APPLIC TOPICAL (21:16)
[2024-03-15] MEDS: REVIA 50 MG PO (21:16)
[2024-03-15] MEDS: MYCOSTATIN CREAM 1 APPLIC TOPICAL (21:17)
[2024-03-15] MEDS: FLEXERIL 5 MG PO (21:19)
[2024-03-15] MEDS: LOVENOX 40 MG SC (21:19)
[2024-03-15] MEDS: PEPCID 20 MG PO (21:19)
[2024-03-15] MEDS: CATAPRES 0.1 MG PO (21:19)
[2024-03-15] MEDS: NEURONTIN 300 MG PO (21:21)
[2024-03-16 02:53] VITALS: BP 108/68
[2024-03-16] MEDS: SYNTHROID 175 MCG PO (06:17)
[2024-03-16 06:46] VITALS: BP 110/71
[2024-03-16 07:37] LABS: Glucose - Point of Care 101 mg/dl (70-99)
[2024-03-16] MEDS: ADVAIR HFA 230/21 MCG INHALER 2 PUFF INH (07:46)
[2024-03-16] MEDS: SENOKOT-S 2 TABLET PO (07:52)
[2024-03-16] MEDS: NEURONTIN 300 MG PO (07:52)
[2024-03-16] MEDS: COLACE 100 MG PO (07:52)
[2024-03-16] MEDS: KCL 20 MEQ PO (07:52)
[2024-03-16] MEDS: OMNICEF 300 MG PO (07:53)
[2024-03-16] MEDS: ZYRTEC 10 MG PO (07:53)
[2024-03-16] MEDS: REVIA 100 MG PO (07:54)
[2024-03-16] MEDS: FLEXERIL 5 MG PO (07:54)
[2024-03-16] MEDS: FEOSOL 325 MG PO (07:54)
[2024-03-16] MEDS: THERAGRAN 1 TABLET PO (07:54)
[2024-03-16] MEDS: LASIX 20 MG PO (07:54)
[2024-03-16] MEDS: BUSPAR 10 MG PO (07:54)
[2024-03-16] MEDS: DIAMOX SR SEQUELS 500 MG PO (07:55)
[2024-03-16] MEDS: PEPCID 20 MG PO (07:55)
[2024-03-16] MEDS: CLOZARIL 50 MG PO (07:55)
[2024-03-16] MEDS: LIDOCAINE 4% PATCH 1 PATCH TOPICAL (07:56)
[2024-03-16] MEDS: ARISTOCORT/TRIAMCINOLONE 0.1% CREAM 1 APPLIC TOPICAL (07:57)
[2024-03-16] MEDS: MYCOSTATIN CREAM 1 APPLIC TOPICAL (07:58)
[2024-03-16 09:05] VITALS: BP 115/74; BP 117/75; PULSE 80; O2SAT 96
--- NOTE | 2024-03-16 09:55 | CM ---
Addendum entered by April Escalante 03/16/24 11:17:
Psych assessment completed, ID consult completed and both agree with plan for patient discharge back to SNF. CM updated facility. Patient for wheelchair van transportation. CM spoke with ambulance liaison and she is aware of need for transfer,
awaiting time for transfer. CM will continue to follow for discharge planning needs.
Addendum entered by April Escalante 03/16/24 09:59:
Patient pending psych assessment and ID per physician. Please call report to [phone] 240/fax [phone]. CM notified facility and they indicated that patient could return. CM to send referral via all scripts.
Original Note:
Patient seen at bedside with physician Patient changed from OBS to SDC by physician this am. Patient plan is to return to SNF; [facility] via wheelchair van. Patient states that she is a ltc patient at SNF. CM calling to SNF to confirm call and
report. CM will continue to follow for discharge planning needs.
Plan; return to SNF.
--- NOTE | 2024-03-16 10:03 | W.PN.HOSP.TC ---
Today's Communication/Plan
-
anticipate d/c
Assessment / Plan
Assessment / Plan
pt is a 33 year old female
Intentional ingestion of foreign body/razor blade--denies suicidal ideation (although has History of suicidal attempts), cannot tell me why she did it--does have history of pica, although would not be surprised if this is an attention getting
behavior--not the first time (History of thumbtack ingestion January 2024, sewing needle February 2024 with removal)--had EGD with removal of foreign body--await psych consult and was on 1:1 overnight to prevent further foreign body ingestions--diet as per
GI, apprec input
Acute on chronic Wandy Intertrigo--Micafungin started in ER--already on nystatin and triamcinolone--powder would be better to absorb the sweat that accumulates--await wound care and ID--cont micafungin for now
Symptomatic UTI with chronic indwelling Blum catheter POA (History of neurogenic bladder since age 5 from meningitis)--Continue prior cefdinir 300 mg p.o. twice daily
HTN�benign--Continue clonidine 0.1 mg at bedtime
Bipolar disorder/Anxiety/depression/Claustrophobia/PTSD/ schizoaffective disorder/Borderline personality--Continue clozapine 100mg at bedtime, clozapine 50 mg a.m., BuSpar 10 mg daily--Continue naltrexone 100 mg a.m., 50 mg p.m., fluoxetine 90 mg
daily
TBI hx /seizure disorder--Continue Diamox 500 mg p.o. 3 times daily, gabapentin
GERD/Iron deficiency--Continue Pepcid 20 mg twice daily--Continue ferrous sulfate 325 mg daily
COPD-no acute exacerbation--Continue albuterol inhaler, Advair
Type DM 2--needs good sugar control to prevent infection--Accu-Cheks with SSI, check [id number]--hhdf wegovy
Hypothyroidism--Continue Synthroid 175 mcg p.o. daily
Chronic back pain/sciatica--Continue Lidoderm patch to lower back daily, continue gabapentin
Chronic constipation--Continue MiraLAX 17 g p.o. twice daily, senna 2 tabs p.o. 3 times daily--Continue lactulose 20 g p.o. daily
Migraines--Nurtec 75 mg p.o. every 48 H as needed migraine
Super Morbid obesity due to excess calorie consumption/medications--Continue Wegovy 1.7 mg subcu Fridays--affects all aspects of care
PE hx-- noted-- no anticoagulation
Chronic leg lymphedema--Continue Lasix
DVT prophylaxis--Subcu Lovenox
Full code
Anticipated Discharge: Today
Subjective/Interval History
-
Date of Service: March 16, 2024
anticipate d/c today
Objective Data
-
Labs:
Laboratory Results
03/16/24
06:00
WBC Pending
Hgb Pending
Hct Pending
Plt Count Pending
Sodium Pending
Potassium Pending
Chloride Pending
Carbon Dioxide Pending
BUN Pending
Creatinine Pending
Glucose Pending
Calcium Pending
Vital Signs:
max temp for 24 hours
03/15/24
21:45
Temp 97.9 F
Vital Signs
Temp Pulse Resp BP Pulse Ox
97.2 F 78 14 110/71 97
03/16/24 06:46 03/16/24 07:55 03/16/24 07:49 03/16/24 07:55 03/16/24 07:49
I&O
03/15/24 03/16/24 03/17/24
06:59 06:59 06:59
Intake Total 600 / 600
Output Total 3250 / 3250
Balance -2650 / -2650
Review of Systems
-
All other systems: Reviewed and negative
Physical Exam
-
General: Well Developed, Well Nourished and Morbidly Obese (super morbidly obese)
HEENT: Normocephalic and Atraumatic
Respiratory: Clear to Auscultation; Negative Wheezes or Rhonchi
Cardiac: Regular Rhythm and S1/S2; Negative Murmur
GI: Soft, Nontender, Nondistended and Normal Bowel Sounds
Genito-urinary: Blum
Skin: Rash (under pannus redness ) and Other
Neuro: Awake and Alert
--- NOTE | 2024-03-16 10:06 | CON.ID ---
Consultation
-
Date/Time Consultation Requested: 03/15/24 18:36
Date/Time Consultation Performed: 03/16/24 11:08
Requesting Provider: Aurea THOMAS
Performing Provider: Dr Haji
Reason for Consultation: chronic intertrigo
Chief Complaint / Past History
Chief Complaint
Abdominal pain, swallowed razor blade, bilateral intertrigo
History of Present Illness
Ms Campo is a 33-year-old female with past medical history pica, PTSD, schizo affective disorder, borderline personality, TBI, suicidal attempts, bipolar disorder, seizures, intertrigo complaining of abdominal pain. She reports swallowing a razor
blade today - confirmed on x-ray in the ER. She told ER staff ' I do not know why I swallowed the razor blade, I do not want to .' States it was part of her pencil sharpener. She has history of swallowing other objects including thumbtack and
sewing needle both removed. She also complains of chronic erythema, warmth, tenderness, pruritus of the bilateral folds below her pannus - candidal intertrigo. She is currently on cefdinir started 03/09 for UTI due to enterobacter with indwelling
Cervantes catheter due to neurogenic bladder since age 5.
Since arrival here last night she has been afebrile, bp stable, wbc initially 7.4, hgb 11.3, plt 351, no left shift, K 3.9, cr 0.8, a1c 5.7, ua 03/11 50-60 wbc/hpf, 03/09 urine culture E cloacae sensitive to ceftriaxone, 03/15 no ua done, urine culture
100K GNR, mrsa screen pending, currently on micafungin, triamcinolone, cefdinir. She was taken for endoscopy and the foreign body was removed successfully without complication. ID is consulted for assistance with management.
Past History
Additional Past Medical History:
pica, PTSD, schizo affective disorder, borderline personality, TBI, suicidal attempts, anxiety/depression bipolar disorder, claustrophobia, seizures, COPD, GERD/iron deficiency, DM 2, hypothyroidism, sciatica, meningitis, PE, chronic lymphedema,
ambulatory dysfunction, UTIs, fungal skin infections.
Additional Past Surgical History:
section 2009
Allergy History:
bee venom protein (honey bee) Allergy (Verified 03/15/24 11:04)
Anaphylaxis
cariprazine Allergy (Verified 03/15/24 11:04)
Unknown
loratadine [From Claritin] Allergy (Verified 03/15/24 11:04)
Unknown
meloxicam Allergy (Verified 03/15/24 11:04)
Unknown
nicotine Allergy (Verified 03/15/24 19:53)
Unknown
shellfish derived Allergy (Verified 03/15/24 11:04)
Anaphylaxis
simvastatin Allergy (Verified 03/15/24 11:04)
Unknown
Medications Reviewed: Yes
Social History
Tobacco: Non-Smoker
Alcohol: None
Drug: None
Family History
Family History: Not Pertinent
Review of Systems
Review of Systems
General: Negative Fever or Chills
All systems: All other systems were reviewed and were negative
Vital Signs
Temp Pulse Resp BP Pulse Ox
97.2 F 78 14 110/71 97
03/16/24 06:46 03/16/24 07:55 03/16/24 07:49 03/16/24 07:55 03/16/24 07:49
Physical Exam
Physical Exam
Constitutional: No Acute Distress
Cardiovascular: Regular Rate and S1/S2; Negative Murmur or Rub
Pulmonary: Clear and Symmetric; Negative Wheezes, Rales or Rhonchi
Gastrointestinal: Soft, Non Tender, Non Distended and Normal Bowel Sounds
Skin: Warm, Dry and Rash (serpiginous, red rash in the bilateral groin folds and under the breasts); Negative Jaundice
Neurological: Awake
Lab / Diagnostic Study Results
Abs Immat Gran (auto) 0.0 10^3/uL (0-0.05) 03/15/24 13:21
Absolute Neuts (auto) 5.3 10^3/uL (1.4-6.5) 03/15/24 13:21
Absolute Lymphs (auto) 1.3 10^3/uL (1.2-3.4) 03/15/24 13:21
Absolute Monos (auto) 0.5 10^3/uL (0.1-0.6) 03/15/24 13:21
Absolute Basos (auto) 0.0 10^3/uL (0-0.2) 03/15/24 13:21
Immature Gran % 0.3 % (0-0.5) 03/15/24 13:21
Neutrophils % 71.1 % (42.2-75.2) 03/15/24 13:21
Lymphocytes % 17.6 % (20.5-51.1) L 03/15/24 13:21
Monocytes % 6.8 % (1.7-9.3) 03/15/24 13:21
Eosinophils % 3.7 % (0-6) 03/15/24 13:21
Basophils % 0.5 % (0-2) 03/15/24 13:21
Microbiology Results
Micro:
03/15/24 21:49 MRSA Screen - Pending
Nose
03/15/24 13:21 Urine Culture - Pending
Urine
Assessment / Plan
Chronic Intertrigo
- QTc 426 acceptable, likely to tolerate low dose fluconazole without issue
- a1c pending was prediabetic range 3 months ago, likely no significant change
- start fluconazole 200 mg PO qday x4 weeks: drug interactions reviewed:
rimegepant dosed q48 hours no dose adjustment needed
buspirone - decrease dose to 2.5 mg qday which will likely still be around the current effective dose of 10 mg qday, could slowly be titrated up by 2.5 mg qday until clinical effect seen
after completion of fluconazole in 28 days, then can return to previous dose of 10 mg PO qday
notified psychiatry Vernon of dose adjustment via tiger text
- stop triamcinolone, micafungin
- agree with nystatin powder as well
- keeping area dry essential to resolving this chronic infection - reviewed strategies with patient, she is agreeable
- follow up with PCP
CAUTI
- remove and replace current cervantes if not already done this admission
- still seeing 100K GNR in culture from 03/15 when started on cefdinir 03/09 suggests inducible resistance in E cloacae
- switched cefdinir to doxycycline based on prior culture to complete 7 day course
Care Review
Plan reviewed with: Other Provider (clinical pharm guille - the buspirone/fluconazole interaction)
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
[2024-03-16 11:08] VITALS: BP 124/90
[2024-03-16 11:24] LABS: % Basophils 0.4 % (0-2); % Eosinophils 0.1 % (0-6); % Immature Granulocytes 0.6 % (0-0.5); % Lymphocytes 12.1 % (20.5-51.1); % Monocytes 5.2 % (1.7-9.3); % Neutrophils 81.6 % (42.2-75.2); Absolute Lymphocytes 0.8 10^3/uL (1.2-3.4); Absolute Monocytes 0.4 10^3/uL (0.1-0.6); Absolute Neutrophils 5.5 10^3/uL (1.4-6.5); Hematocrit 34.7 % (37.0-47.0); Mean Corp Hgb Conc. 31.7 g/dL (33.0-37.0); Mean Corpuscular Hgb 22.9 pg (27.0-31.0); Mean Corpuscular Volume 72.3 fL (81.0-99.0); Mean Platelet Volume 9.7 fL (7.4-10.4); Nucleated Red Blood Cells % 0 %; Platelet Count 351 10^3/uL (130-400); Red Cell Dist. Width 16.6 % (11.5-14.5); White Blood Cell Count 6.8 10^3/uL (4.8-10.8)
[2024-03-16 11:31] LABS: Blood Urea Nitrogen 6 mg/dl (7-17); Calcium 9.5 mg/dl (8.4-10.2); Carbon Dioxide 15 mmol/L (22-30); Chloride 113 mmol/L (98-107); Estimated Creatinine Clearance > 125 ml/min; Glucose 110 mg/dl (70-99); Potassium 4.2 mmol/L (3.5-5.1); Sodium 138 mmol/L (135-145); eGFR > 60.00
[2024-03-16] MEDS: VIBRAMYCIN 100 MG PO (11:37)
[2024-03-16] MEDS: DIFLUCAN 200 MG PO (11:38)
[2024-03-16 12:01] LABS: Glycohemoglobin (HgbA1c) 5.6 % (4.0-5.6)
--- NOTE | 2024-03-16 13:37 | WOUNDNOTE ---
WON RN NOTE: Patient getting ready to be discharged back to [facility]. Patient dressed and sitting in the chair, declined showing areas of concern. Reviewed with patient what has worked in past, currently using fungal cream and folded pillow
case. For skin fold MASD recommend wash with soap and water, pat dry, apply dusting of fungal powder then either folded pillow case or strips of 100% cotton t shirt, clean when soiled and repeat daily. Updated discharge instructions, nurse made
aware.
[2024-03-16 14:51] VITALS: BP 127/84
--- NOTE | 2024-03-17 06:51 | W.DCSUMMARY ---
Discharge Summary
Discharge Data
Date of Admission: 03/16/24
Date of Discharge: 03/17/24
-
Pending Results: No
Hospital Course
Primary care physician : Not Listed
Principal Discharge diagnosis : Intentional ingestion of foreign body/razor blade, acute on chronic Wandy intertrigo, symptomatic urinary tract infection due to indwelling Blum catheter
Chronic Discharge diagnosis : Chronic indwelling Blum catheter due to history of neurogenic bladder from meningitis at age 5, essential hypertension, bipolar disorder/anxiety/depression/claustrophobia/posttraumatic stress disorder/schizoaffective
disorder/borderline personality, traumatic brain injury/seizure disorder, gastroesophageal reflux disease/iron deficiency anemia, chronic obstructive pulmonary disease, type 2 diabetes mellitus, hypothyroidism, chronic back pain with sciatica,
chronic constipation, migraines, super morbid obesity, history of pulmonary embolism, chronic bilateral lower extremity lymphedema
Hospital Course : Patient was a 33-year-old female who presented from a local penitentiary who reported swallowing a razor blade which was confirmed on x-ray of the emergency department. She stated she 'did not know why' and was not suicidal. She
has a history of swallowing objects in the past most recently a thumbtack in January, and a sewing needle in February both with removal. In addition, she presented with extensive chronic candidal intertrigo under her bilateral abdominal fold and pannus.
She was also on cefdinir for urinary tract infection due to the chronic indwelling Blum catheter. Patient was taken to the GI suite and subsequently brought in for observation.
Problem #1: Intentional ingestion of foreign body/razor blade. Patient was seen in consultation by GI. Patient was taken to the GI suite and had endoscopy to remove the foreign body. She was also seen in consultation by psychiatry at the
recommendation of GI. They felt that this was borderline personality disorder with impulsive behavior including ingestion of foreign bodies. I also believe that there is attention seeking behavior here. She would benefit from ongoing psychiatric
therapy. It is also essential that the patient not be given or have access any small foreign bodies, including the crocheting needle that she has at her bedside.
Problem #2: Acute on chronic Wandy intertrigo. Patient was given creams to place under the abdominal fold. She complains of significant pain. Infectious disease was consulted as I believe that the patient should have powders and to try to keep
the area dry. Creams are not the best medication for her. She was given micafungin here in the hospital. She has been transitioned over to oral fluconazole for 4 weeks. They are in agreement with nystatin powder, stopping triamcinolone and
micafungin and keeping the area dry (this is essential to resolving this chronic infection).
Problem #3: Symptomatic urinary tract infection due to indwelling Blum catheter. Patient had 100,000 colonies of gram-negative rods in her urine culture from March 15 however she was started on cefdinir March 09. Again, she was seen in
consultation by infectious disease. Recommendations were to remove and replace the current Blum catheter and patient has been switched to doxycycline paste on a prior culture. She should complete 7-day course.
Problem #4: All other medical issues. These include Chronic indwelling Blum catheter due to history of neurogenic bladder from meningitis at age 5, essential hypertension, bipolar disorder/anxiety/depression/claustrophobia/posttraumatic stress
disorder/schizoaffective disorder/borderline personality, traumatic brain injury/seizure disorder, gastroesophageal reflux disease/iron deficiency anemia, chronic obstructive pulmonary disease, type 2 diabetes mellitus, hypothyroidism, chronic back
pain with sciatica, chronic constipation, migraines, super morbid obesity, history of pulmonary embolism, chronic bilateral lower extremity lymphedema. These medical issues were stable during her hospitalization. Medications were continued as able.
Patient is stable for discharge back to her penitentiary at this time. If there are any questions regarding this dictation or her hospital stay, please do not hesitate to call. Our office number is [phone].
Discharge Plan
-
Patient Disposition: Custodial/SNF
Discharge Diagnosis/Procedures: Intentional ingestion of foreign body/razor blade, acute on chronic Wandy intertrigo, symptomatic urinary tract infection with chronic indwelling Blum catheter prior to admission likely catheter related, essential
hypertension, bipolar disorder/anxiety/depression/claustrophobia/posttraumatic stress disorder/schizoaffective disorder/borderline personality, traumatic brain injury history of seizure, gastroesophageal reflux disease with iron deficiency, chronic
obstructive pulmonary disease, type 2 diabetes mellitus, hypothyroidism, chronic back pain with sciatica, chronic constipation, migraines, super morbid obesity due to excess calorie consumption, history of pulmonary embolism, chronic leg lymphedema
Condition: Good
Diet: Diabetic, Carb Controlled
Activity: As tolerated
Driving Restrictions: No driving
Activity Restrictions/Additional Instructions:
Wound Care Instructions
For skin fold MASD. Recommend wash with soap and water, pat dry, apply dusting of fungal powder then either folded pillow case or strips of 100% cotton t shirt, clean when soiled and repeat daily.
Patient should be kept away from any objects that she potentially could swallow since she has had 3 visits in the last 3 months for swallowing foreign bodies
Referrals:
Murphy Coronel, DO [Non-Admitting Privileges] - in less than 1 week
Prescriptions:
New
fluconazole 200 mg Tablet
200 mg PO DAILY 28 Days Qty: 28 0RF
Rx Instructions:
take for 4 weeks
doxycycline hyclate 100 mg Capsule
100 mg PO Q12 7 Days Qty: 14 0RF
Rx Instructions:
take for 7 days
buspirone 5 mg Tablet
2.5 mg PO Q24H 28 Days Qty: 14 0RF
Rx Instructions:
take this dose while on fluconazole for 4 weeks
nystatin 100,000 unit/gram powder
1 applic topical TID Qty: 60 0RF
Continued
levothyroxine [Synthroid] 175 mcg Tablet
175 mcg PO DAILY
clonidine HCl 0.1 mg Tablet
0.1 mg PO HS
acetaminophen [Tylenol] 325 mg Tablet
650 mg PO Q6HPRN MDD 3000 mg PRN (Reason: temp>100.4/mild pain)
polyethylene glycol 3350 [Miralax] 17 gram Powder In Packet
17 g PO BID
cetirizine [Zyrtec] 10 mg Tablet
10 mg PO DAILY
acetazolamide 500 mg Capsule, Extended Release
500 mg PO TID
clozapine 100 mg Tablet
100 mg PO HS
Rx Instructions:
with 25mg = 125mg
therapeutic multivitamin Tablet
1 tab PO DAILY
famotidine [Pepcid] 20 mg Tablet
20 mg PO BID
magnesium hydroxide [Milk of Magnesia] 400 mg/5 mL Suspension
2,400 mg PO [id number] PRN (Reason: if no bm in 3 days)
bisacodyl [Dulcolax (bisacodyl)] 10 mg Suppository
[address] DAILYPRN PRN (Reason: constipation, if mom ineffective)
ferrous sulfate 325 mg (65 mg iron) Tablet
325 mg PO DAILY
fluticasone propion-salmeterol [Advair Diskus] 500-50 mcg/dose Blister With Device
1 inh INHALATION R BID
Fleet Enema 19-7 gram/118 mL Enema
[address] DAILYPRN PRN (Reason: constipation, suppository ineffect)
docusate sodium [Colace] 100 mg Capsule
100 mg PO TID
gabapentin 300 mg Capsule
300 mg PO TID
ibuprofen 600 mg Tablet
600 mg PO Q6HPRN PRN (Reason: mild pain)
atropine 1 % Drops
1 drp sublingual DAILYPRN PRN (Reason: sialorrhea) Qty: 0
cyclobenzaprine 5 mg Tablet
5 mg PO TID
clozapine 50 mg Tablet
50 mg PO DAILY
Senna Plus 8.6-50 mg Capsule
2 tab-cap PO TID
naltrexone 50 mg Tablet
50 mg PO QPM
lidocaine 4 % Adhesive Patch,Medicated
1 patch TOPICAL DAILY
hydroxyzine pamoate 50 mg Capsule
50 mg PO Q8HPRN PRN (Reason: anxiety)
clozapine 25 mg Tablet
25 mg PO HS
Rx Instructions:
with 100mg = 125mg
fluoxetine 60 mg Tablet
90 mg PO DAILY
furosemide 20 mg Tablet
20 mg PO DAILY
gabapentin 100 mg Capsule
100 mg PO BID
albuterol sulfate 90 mcg/actuation Hfa Aerosol Inhaler
2 inh INHALATION R Q6HPRN PRN (Reason: sob/wheezing)
lactulose 10 gram/15 mL Solution
20 g PO DAILY
potassium chloride 20 mEq Tablet Extended Release
20 meq PO DAILY
Nurtec ODT 75 mg Tablet,Disintegrating
75 mg PO [id number] PRN (Reason: migraine)
Wegovy 1.7 mg/0.75 mL Pen Injector
1.7 mg SC FR
cefdinir 300 mg capsule
300 mg PO BID Qty: 14 0RF
Patient Comments:
03/15/24: Take for 7 days, from 03/14/24-03/21/24
naltrexone 50 mg Tablet
100 mg PO DAILY
nitroglycerin 0.4 mg Tablet, Sublingual
0.4 mg SUBLINGUAL [id number] PRN (Reason: chest pain)
Held
buspirone 10 mg Tablet
10 mg PO DAILY
Hold Instructions: HOLD this dose and then restart AFTER completion of 28 day fluconazole
Discontinued
triamcinolone acetonide 0.1 % Cream
1 applic TOPICAL BID
nystatin 100,000 unit/gram Cream
1 applic TOPICAL TID
Discharge Orders:
Discharge Patient (As Directed); Ordered 03/16/24
Ordered By: Corrine Levin
Discharge Date and Time
Discharge Date/Time: 03/16/24 15:45
Print Language: SOMALI
== END 2024-03-16 15:45 ==
LOC: PACU 18:07
PROVIDERS: Clinical Nurse Specialist Family Health; ATTENDING PHYSICIAN Internal Medicine; CONSULT PHYSICIAN Internal Medicine Gastroenterology; CONSULT PHYSICIAN Psychiatry & Neurology Psychiatry; EMERGENCY PHYSICIAN Student in an Organized Health Care Education/Training Program; OTHER PHYSICIAN Student in an Organized Health Care Education/Training Program
DX: T18.8XXA Foreign body in other parts of alimentary tract, initial encounter (principal); W44.H0XA Other sharp object unspecified, entering into or through a natural orifice, initial encounter; T83.511A Infection and inflammatory reaction due to indwelling urethral catheter, initial encounter; Y84.6 Urinary catheterization as the cause of abnormal reaction of the patient, or of later complication, without mention of misadventure at the time of the procedure; E66.01 Morbid (severe) obesity due to excess calories; B37.2 Candidiasis of skin and nail; F50.89 Other specified eating disorder; L30.4 Erythema intertrigo; N31.9 Neuromuscular dysfunction of bladder, unspecified; N39.0 Urinary tract infection, site not specified; F31.9 Bipolar disorder, unspecified; F40.240 Claustrophobia; F43.10 Post-traumatic stress disorder, unspecified; F60.3 Borderline personality disorder; F25.9 Schizoaffective disorder, unspecified; F41.9 Anxiety disorder, unspecified; G40.909 Epilepsy, unspecified, not intractable, without status epilepticus; J44.89 Other specified chronic obstructive pulmonary disease; K21.9 Gastro-esophageal reflux disease without esophagitis; E03.9 Hypothyroidism, unspecified; E11.9 Type 2 diabetes mellitus without complications; M54.30 Sciatica, unspecified side; G89.29 Other chronic pain; K59.09 Other constipation; G43.909 Migraine, unspecified, not intractable, without status migrainosus; I89.0 Lymphedema, not elsewhere classified; I10 Essential (primary) hypertension; D50.9 Iron deficiency anemia, unspecified; Z68.44 Body mass index [BMI] 60.0-69.9, adult; Z79.51 Long term (current) use of inhaled steroids; Z79.899 Other long term (current) drug therapy; Z86.711 Personal history of pulmonary embolism; Z86.61 Personal history of infections of the central nervous system; Z87.440 Personal history of urinary (tract) infections; Z87.820 Personal history of traumatic brain injury; Z91.51 Personal history of suicidal behavior
CPT/HCPCS: 43247; 74018; 80048; 80053; 82962; 83036; 85025; 87070; 87077; 87086; 87186; 93005; 94640; 96365; 97161; 99285

== ENCOUNTER 2024-03-24 12:27 | Emergency (ER) | payer MEDICARE, OTHER, SELFPAY ==
[2024-03-24 12:32] VITALS: BP 150/98
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
--- NOTE | 2024-03-24 14:50 | CON.GI ---
Addendum entered and electronically signed by Chito Castellanos MD 03/24/24 15:19:
I saw and examined the patient.
The CUT PRESSMAN or PA's note was reviewed and I agree with the note.
Comment: 33 yo female with multiple recent foreign body ingestions presents today after swallowing 2 AA batteries and a quarter. Denies abd pain, report discomfort in mid chest. Xray shows coin in esophagus, and batteries in SB
REC:
EGD to retrieve foreign bodies
Original Note:
Consultation
-
Date/Time Consultation Requested: 03/24/24 1430
Date/Time Consultation Performed: 03/24/24 1440
Requesting Provider: Rosa Rojas DO
Performing Provider: MARTHA Drake, Chito Castellanos MD
Reason for Consultation: foreign body
Medical History
Chief Complaint / HPI
Chief Complaint: s/p foreign body ingestion
History of Present Illness:
Pt is 33yo with hx Pica, COPD, GERD, NIDDM, seizures, hypothyroidism, meningitis, sciatica, anxiety, depression, bipolar disorder, claustrophobia, PTSD, schizo disorder, suicidal attempt, borderline personality TBI, PE, lymphedema, urinary
retention, UTI, cellulitis, groin rash. In last month she now presents for 4rd episode of foreign body ingestion. She admits to tendency towards metal with prior note tac, pin, sharpener now with 2 AA batteries and a quarter. She states she ate
at 9am peanut butter and Jelly then swallowed objects at 11 AM.
Pt admits to some chest pain and feeling like quarter is stuck. No nausea/vomiting or abdominal pain.
Past Medical History
Past Medical History: Asthma, COPD, GERD, HTN, Hypothyroidism, NIDDM, Seizures, Psychiatric (anxiety, depression, bipolar disorder, claustrophobia, PTSD, schizo disorder, suicidal attempt, borderline personality ) and Other (meningitis, sciatica,
TBI, PE, lymphedema, urinary retention, UTI, cellulitis, ambulatory dysfunction. )
Past Surgical History:
Social History
Tobacco: Non-Smoker
Alcohol: None
Drug: None
Living: [facility]iary
Family History
Family History: Other (no family hx GI issues )
Allergies / Home Medications
Allergy/AdvReac Type Severity Reaction Status Date / Time
bee venom protein (honey bee) Allergy Anaphylaxis Verified 03/24/24 12:39
cariprazine Allergy Unknown Verified 03/24/24 12:39
loratadine [From Claritin] Allergy Unknown Verified 03/24/24 12:39
meloxicam Allergy Unknown Verified 03/24/24 12:39
nicotine Allergy Unknown Verified 03/24/24 12:39
shellfish derived Allergy Anaphylaxis Verified 03/24/24 12:39
simvastatin Allergy Unknown Verified 03/24/24 12:39
�Medication �Instructions �Recorded
acetaminophen 325 mg tablet 650 mg PO Q6HPRN PRN 12/03/23
(Tylenol) temp>100.4/mild pain
acetazolamide 500 mg 500 mg PO TID Neurological 12/03/23
capsule,extended release Condition
atropine 1 % eye drops 1 drp sublingual DAILYPRN PRN 12/03/23
sialorrhea ##0
bisacodyl 10 mg rectal suppository 10 mg [place] DAILYPRN PRN 12/03/23
(Dulcolax (bisacodyl)) constipation, if mom ineffective
cetirizine 10 mg tablet (Zyrtec) 10 mg PO DAILY Allergies 12/03/23
clonidine HCl 0.1 mg tablet 0.1 mg PO HS Blood Pressure 12/03/23
clozapine 100 mg tablet 100 mg PO HS Mental Health/Anxiety 12/03/23
clozapine 50 mg tablet 50 mg PO DAILY Mental 12/03/23
Health/Anxiety
cyclobenzaprine 5 mg tablet 5 mg PO TID Muscle Spasms 12/03/23
docusate sodium 100 mg capsule 100 mg PO TID Constipation 12/03/23
(Colace)
famotidine 20 mg tablet (Pepcid) 20 mg PO BID Gastrointestinal Issue 12/03/23
ferrous sulfate 325 mg (65 mg 325 mg PO DAILY Supplement 12/03/23
iron) tablet
fluticasone 500 mcg-salmeterol 50 1 inh inhalation R BID 12/03/23
mcg/dose blistr powdr for Lung/Breathing Issues
inhalation (Advair Diskus)
gabapentin 300 mg capsule 300 mg PO TID pain 12/03/23
ibuprofen 600 mg tablet 600 mg PO Q6HPRN PRN mild pain 12/03/23
levothyroxine 175 mcg tablet 175 mcg PO DAILY Thyroid 12/03/23
(Synthroid)
magnesium hydroxide 400 mg/5 mL 2,400 mg PO [id number] PRN if no bm 12/03/23
oral suspension (Milk of Magnesia) in 3 days
naltrexone 50 mg tablet 50 mg PO QPM 12/03/23
polyethylene glycol 3350 17 gram 17 g PO BID Constipation 12/03/23
oral powder packet (Miralax)
sennosides 8.6 mg-docusate sodium 2 tab-cap PO TID Constipation 12/03/23
50 mg capsule (Senna Plus)
sodium phosphates 19 gram-7 118 ml [place] DAILYPRN PRN 12/03/23
gram/118 mL enema (Fleet Enema) constipation, suppository ineffect
therapeutic multivitamin 1 tab PO DAILY Supplement 12/03/23
clozapine 25 mg tablet 25 mg PO HS 01/18/24
fluoxetine 60 mg tablet 90 mg PO DAILY 01/18/24
hydroxyzine pamoate 50 mg capsule 50 mg PO Q8HPRN PRN anxiety 01/18/24
lidocaine 4 % topical patch 1 patch topical DAILY lower back 01/18/24
albuterol sulfate 90 mcg/actuation 2 inh inhalation R Q6HPRN PRN 03/09/24
aerosol inhaler sob/wheezing
buspirone 10 mg tablet 10 mg PO DAILY 03/09/24
furosemide 20 mg tablet 20 mg PO DAILY 03/09/24
gabapentin 100 mg capsule 100 mg PO BID 03/09/24
lactulose 10 gram/15 mL oral 20 g PO DAILY 03/09/24
solution
potassium chloride 20 mEq 20 meq PO DAILY 03/09/24
tablet,extended release
rimegepant 75 mg disintegrating 75 mg PO [id number] PRN migraine 03/09/24
tablet (Nurtec ODT)
semaglutide (weight loss) 1.7 1.7 mg SC FR 03/09/24
mg/0.75 mL subcutaneous pen
injector (Wegovy)
cefdinir 300 mg capsule 300 mg PO BID #14 caps 03/13/24
naltrexone 50 mg tablet 100 mg PO DAILY 03/15/24
nitroglycerin 0.4 mg sublingual 0.4 mg sublingual [id number] PRN 03/15/24
tablet chest pain
buspirone 5 mg tablet 2.5 mg (1/2 x 5 mg) PO Q24H 4 03/16/24
weeks #14 tabs
doxycycline hyclate 100 mg capsule 100 mg PO Q12 7 days #14 caps 03/16/24
fluconazole 200 mg tablet 200 mg PO DAILY 4 weeks #28 tabs 03/16/24
nystatin 100,000 unit/gram topical 1 applic topical TID #60 grams 03/16/24
powder
Review of Systems
-
History Source: Patient
EENT: Reports No Symptoms
Respiratory: Reports No Symptoms
Cardiac: Reports Chest Pain
Abdomen/GI: Reports Other (ingestion of foreign body )
: Reports No Symptoms
Musculoskeletal: Reports No Symptoms
Skin: Reports No Symptoms
Neurological: Reports Weakness
Endocrine: Reports No Symptoms
Hematologic/Lymphatic: Reports No Symptoms
Vital Signs
Temp Pulse Resp BP Pulse Ox
98.6 F 98 20 150/98 97
03/24/24 12:32 03/24/24 12:32 03/24/24 12:32 03/24/24 12:32 03/24/24 12:32
Physical Exam
Exam
General: Well Developed, Well Nourished and No Apparent Distress
HEENT: Normocephalic and Anicteric
Respiratory: Clear
Cardiac: Regular Rhythm
GI: Soft, Non Tender and Non Distended
Musculoskeletal: No Clubbing and No Cyanosis
Skin: Warm and Dry
Neuro: Awake, Alert and AO x 3
Psych: Calm
Results
Diagnostic Image Results:
Prior GI Procedures:
EGD: 01/18/24- nicolasa no foreign body seen -- followed serial X ray
EGD: 02/22/24 castellanos - removal of pin
EGD:03/15/24 Mekapati - removal of sharpener
Assessment / Plan
-
Pt is 33yo with hx Pica, COPD, GERD, NIDDM, seizures, hypothyroidism, meningitis, sciatica, anxiety, depression, bipolar disorder, claustrophobia, PTSD, schizo disorder, suicidal attempt, borderline personality TBI, PE, lymphedema, urinary
retention, UTI, cellulitis, groin rash. In last month she now presents for 4rd episode of foreign body ingestion. She admits to tendency towards metal with prior note tac, pin, sharpener now with 2 AA batteries and a quarter. She states she ate
at 9am peanut butter and Jelly then swallowed objects at 11 AM 03/24.
-recurrent foreign body ingestion now with quarter with 2 AA batteries
-hx Pica and prior foreign body ingestions
other med problems:
-GERD
-COPD
-NIDDM
-seizures
-hypothyroidism
-anxiety, depression, bipolar disorder, claustrophobia, PTSD, schizo disorder, suicidal attempt, borderline personality TBI
-PE
-lymphedema
PLAN:
plan for foreign body removal today
NPO
continued pysch eval for recurrent swallowing of foreign body
counseled on severity of recurrent foreign body ingestion and health
-
-
Thank you for consultation and allowing me to participate in the patient's care. Please call the contract negotiator GI physician during the after hours with any questions or concerns.
[2024-03-24 14:58] VITALS: BMI 62.9
--- NOTE | 2024-03-24 15:19 | EDRN ---
IV Team Min gained IV access R distal forearm. Transported pt with belongings to GI room.
[2024-03-24 16:30] VITALS: BP 107/75; BP 150/98
[2024-03-24 16:45] VITALS: BP 106/74
[2024-03-24 16:50] VITALS: BP 113/82
[2024-03-24 17:00] VITALS: BP 123/81
== END 2024-03-24 18:35 | disposition home or self-care (01) ==
LOC: EMR 12:27
PROVIDERS: EMERGENCY PHYSICIAN Student in an Organized Health Care Education/Training Program
DX: R45.851 Suicidal ideations (principal); T18.9XXA Foreign body of alimentary tract, part unspecified, initial encounter; W44.E2XA Non-magnetic metal coin entering into or through a natural orifice, initial encounter; W44.A0XA Battery unspecified, entering into or through a natural orifice, initial encounter; X58.XXXA Exposure to other specified factors, initial encounter; F31.9 Bipolar disorder, unspecified; F41.9 Anxiety disorder, unspecified; F32.A Depression, unspecified; F43.10 Post-traumatic stress disorder, unspecified; F25.9 Schizoaffective disorder, unspecified; F60.3 Borderline personality disorder; G40.909 Epilepsy, unspecified, not intractable, without status epilepticus; K21.9 Gastro-esophageal reflux disease without esophagitis; D50.9 Iron deficiency anemia, unspecified; J44.89 Other specified chronic obstructive pulmonary disease; I10 Essential (primary) hypertension; E66.01 Morbid (severe) obesity due to excess calories; N31.9 Neuromuscular dysfunction of bladder, unspecified; E11.9 Type 2 diabetes mellitus without complications; F50.89 Other specified eating disorder; E03.9 Hypothyroidism, unspecified; Z87.820 Personal history of traumatic brain injury; Z87.891 Personal history of nicotine dependence; Z91.51 Personal history of suicidal behavior; Z87.440 Personal history of urinary (tract) infections; Z91.030 Bee allergy status; Z91.013 Allergy to seafood; Z88.8 Allergy status to other drugs, medicaments and biological substances; Z91.048 Other nonmedicinal substance allergy status
CPT/HCPCS: 43247; 71046; 74018; 99285

== ENCOUNTER 2024-04-01 01:52 | Emergency (ER) | payer MEDICARE, OTHER, SELFPAY ==
[2024-04-01 01:56] VITALS: BP 124/90
[2024-04-01 02:40] VITALS: BMI 64.2
[2024-04-01 03:24] LABS: % Basophils 0.6 % (0-2); % Eosinophils 4.1 % (0-6); % Immature Granulocytes 0.2 % (0-0.5); % Lymphocytes 27.4 % (20.5-51.1); % Monocytes 8.9 % (1.7-9.3); % Neutrophils 58.8 % (42.2-75.2); Absolute Eosinophils 0.3 10^3/uL (0-0.7); Absolute Lymphocytes 1.7 10^3/uL (1.2-3.4); Absolute Monocytes 0.6 10^3/uL (0.1-0.6); Absolute Neutrophils 3.6 10^3/uL (1.4-6.5); Hemoglobin 10.4 g/dL (12.0-16.0); Mean Corp Hgb Conc. 30.6 g/dL (33.0-37.0); Mean Corpuscular Volume 75.2 fL (81.0-99.0); Mean Platelet Volume 9.2 fL (7.4-10.4); Nucleated Red Blood Cells % 0 %; Platelet Count 326 10^3/uL (130-400); Red Blood Cell Count 4.52 10^6/uL (4.20-5.40); Red Cell Dist. Width 16.5 % (11.5-14.5); White Blood Cell Count 6.2 10^3/uL (4.8-10.8)
[2024-04-01 03:35] LABS: HCG, Serum Qualitative Screen Negative
[2024-04-01 03:37] LABS: ALT (SGPT) 17 U/L (0-35); AST (SGOT) 17 U/L (14-36); Albumin 3.5 g/dl (3.5-5.0); Alkaline Phosphatase 94 U/L (38-126); Blood Urea Nitrogen 11 mg/dl (7-17); Carbon Dioxide 19 mmol/L (22-30); Chloride 111 mmol/L (98-107); Estimated Creatinine Clearance > 125 ml/min; Glucose 100 mg/dl (70-99); Potassium 3.4 mmol/L (3.5-5.1); Sodium 140 mmol/L (135-145); Total Bilirubin 0.4 mg/dl (0.2-1.3); Total Protein 6.2 g/dl (6.3-8.2); eGFR > 60.00
[2024-04-01 03:53] LABS: Urine Albumin Negative (Neg - Trace); Urine Bilirubin Negative (Negative); Urine Character Clear (Clear); Urine Color Yellow; Urine Glucose Negative (Negative); Urine Ketone Negative (Negative); Urine Leukocyte Negative (Negative); Urine Nitrite Negative (Negative); Urine Occult Blood Negative (Negative); Urine Specific Gravity 1.005 (<1.030); Urine Urobilinogen Negative (Neg - 1+)
[2024-04-01 03:55] VITALS: BP 131/86
--- NOTE | 2024-04-01 05:22 | ED.GENMED ---
History of Present Illness
General
Chief Complaint: Abdominal Pain
Source: patient, ambulance crew and previous hospital records
Exam Limitations: none
Time Seen by Provider: 04/01/24 03:11
Nursing documentation reviewed up to this point in time: agreed with
History of Present Illness
History of Present Illness:
This is a 33-year-old woman with history of pica, COPD, GERD, xul-jsdoyye-nwjhkfggi diabetes, seizures, hypothyroidism, meningitis as a child with resultant chronic urinary retention with chronic indwelling Blum catheter.
She has history of recurrent ingestion of foreign bodies with multiple ED visits requiring various endoscopic procedures for retrieval of various foreign objects.
She also has history of intermittent UTIs and was seen in this ED for similar complaint of suprapubic discomfort, dysuria during ED visit March 09. Urine culture was positive for Enterobacter and additional urine culture on March 15 was again
positive for Enterobacter. Treated with a course of doxycycline.
She states she was started on once daily Macrobid for prevention of UTIs several days ago and presents to the ED tonight with recurrent suprapubic discomfort and concern for decreased output from her Blum catheter. She denies leaking around the
catheter. She has not had a fever nor chills.
No back pain or flank pain. No nausea no vomiting. She denies diarrhea or constipation.
Upon arrival to the ED Blum catheter is draining clear pale yellow urine, 1200 cc in the Blum bag and once this initial output was emptied she has drained an additional 300 to 400 cc.
Past History
Past History
ED Past Medical History: Asthma, COPD, GERD, HTN, NIDDM, Seizures, Hypothyroidism, Psychiatric (anxiety, depression, Bipolar, Claustrophobia, PTSD, Schizo, Suicidal attempt, Borderline Personality disorder, ) and Other (Meningitis, Sciatica, TBI,
PE, Chronic lymphedema, Urinary retention with chronic Catheter, UTI, Cellulitis)
ED Past Surgical History:
Social History
Tobacco: Former smoker
Alcohol: None
Drug: None
Personal: Other (Seperated)
Living: senior living ([facility])
Employment: Disabled
Family History
Family History: Other (Noncontributory)
Phy Exam
Physical Exam
Physical Exam:
GENERAL: Morbidly obese 33-year-old woman appears somewhat older than stated age. Moderately drowsy, sleeps when undisturbed and falls asleep mid-sentence.
EYE: anicteric
NECK: Supple, nontender, no meningismus, no significant adenopathy.
ENT: oral mucosa is moist. No rhinorrhea.
CARDIAC: Regular rate and rhythm. no murmur.
LUNGS: Clear breath sounds bilaterally, no acute respiratory distress, no wheezes/rales/rhonchi
ABDOMEN: Obese, soft, nondistended, without focal tenderness. Blum catheter draining clear pale yellow urine.
NEUROLOGICAL: Awake, moderately drowsy, oriented x 3, no focal neuro deficits.
SKIN: Warm and dry, normal color, skin intact. No rash.
MUSCULOSKELETAL: Chronic lymphedema bilateral lower extremities. Peripheral pulses are full and equal b/l. No palpable tenderness.
PSYCH: Moderately blunted affect.
Course
Orders/Labs/Results
Orders:
Orders
04/01/24 02:16
Test Result ONCE
04/01/24 03:16
Complete Blood Count/With Diff Urgent
Comprehensive Metabolic Panel Urgent
HCG, Serum Qualitative Screen Urgent
04/01/24 03:40
Urinalysis Reflex To Culture Urgent
Date Specimen was Collected: 04/01/24
Time Specimen was Collected: 03:31
Abnormal Lab Results
04/01/24
03:16
Hgb 10.4 L g/dL
(12.0-16.0)
Hct 34.0 L %
(37.0-47.0)
MCV 75.2 L fL
(81.0-99.0)
MCH 23.0 L pg
(27.0-31.0)
MCHC 30.6 L g/dL
(33.0-37.0)
RDW 16.5 H %
(11.5-14.5)
Potassium 3.4 L mmol/L
(3.5-5.1)
Chloride 111 H mmol/L
(98-107)
Carbon Dioxide 19 L mmol/L
(22-30)
Glucose 100 H mg/dl
(70-99)
Total Protein 6.2 L g/dl
(6.3-8.2)
04/01/24 03:16
04/01/24 03:16
Vital Signs
Initial and Last Documented VS:
Initial Vital Signs
Temp Pulse Resp BP Pulse Ox
9.2 F L 95 24 124/90 97
04/01/24 01:56 04/01/24 01:56 04/01/24 01:56 04/01/24 01:56 04/01/24 01:56
Last Documented Vital Signs
Temp Pulse Resp BP Pulse Ox
98.5 F 91 20 131/86 98
04/01/24 03:55 04/01/24 03:55 04/01/24 03:55 04/01/24 03:55 04/01/24 03:55
MDM/Problems Addressed
Differential Diagnosis Includes:
Concern for recurrent UTI, blocked Blum catheter. Exacerbation of chronic pain. Constipation.
Will check labs, urinalysis.
Blum catheter is functioning normally, draining well without leakage.
Vital signs are normal. Afebrile.
Overall patient appears comfortable and at her baseline.
Chronic conditions affecting care: Neurological disorder, Psychiatric illness and Other (Chronic indwelling Blum catheter)
*Pulse Oximetry
Patient hypoxic: no
*Critical Care Note
Total Time (30-74mins, 75-104mins- exclusive of procedures): Not Applicable
Update Note
Update Note:
Labs are unremarkable, stable and unchanged from previous.
Urinalysis is clear.
Blum catheter continues to drain clear yellow urine without leakage.
Recommend continuing once daily Macrobid and will discharge back to senior living for continued care.
ED Attending Note
-
Portions of this chart may have been created with voice recognition software.� Occasional wrong word or��sound alike� substitutions may have occurred due to the inherent limitations of voice recognition software.
Discharge Plan
Departure
Patient Disposition: Custodial/SNF
Date of Disposition: 04/01/24
Time of Disposition: 05:22
Patient with high blood pressure during this ER visit?: No
Condition: Good
Discharge Problem:
Suprapubic pain, Chronic indwelling Blum catheter
Instructions: How to Care for Your Blum Catheter
Prescriptions:
No Action
levothyroxine [Synthroid] 175 mcg Tablet
175 mcg PO DAILY
acetaminophen [Tylenol] 325 mg Tablet
650 mg PO Q6HPRN MDD 3000 mg PRN (Reason: temp>100.4/mild pain)
polyethylene glycol 3350 [Miralax] 17 gram Powder In Packet
17 g PO BID
cetirizine [Zyrtec] 10 mg Tablet
10 mg PO DAILY
acetazolamide 500 mg Capsule, Extended Release
500 mg PO TID
therapeutic multivitamin Tablet
1 tab PO DAILY
famotidine [Pepcid] 20 mg Tablet
20 mg PO BID
magnesium hydroxide [Milk of Magnesia] 400 mg/5 mL Suspension
2,400 mg PO [id number] PRN (Reason: if no bm in 3 days)
bisacodyl [Dulcolax (bisacodyl)] 10 mg Suppository
10 mg IN DAILYPRN PRN (Reason: constipation, if mom ineffective)
ferrous sulfate 325 mg (65 mg iron) Tablet
325 mg PO DAILY
fluticasone propion-salmeterol [Advair Diskus] 500-50 mcg/dose Blister With Device
1 inh INHALATION R BID
Fleet Enema 19-7 gram/118 mL Enema
118 ml IN DAILYPRN PRN (Reason: constipation, suppository ineffect)
docusate sodium [Colace] 100 mg Capsule
100 mg PO TID
gabapentin 300 mg Capsule
300 mg PO TID
ibuprofen 600 mg Tablet
600 mg PO Q6HPRN PRN (Reason: mild pain)
atropine 1 % Drops
1 drp sublingual DAILYPRN PRN (Reason: sialorrhea) Qty: 0
cyclobenzaprine 5 mg Tablet
5 mg PO TID
clozapine 50 mg Tablet
50 mg PO HS
Senna Plus 8.6-50 mg Capsule
2 tab-cap PO TID
naltrexone 50 mg Tablet
50 mg PO QPM
lidocaine 4 % Adhesive Patch,Medicated
1 patch TOPICAL DAILY
hydroxyzine pamoate 50 mg Capsule
50 mg PO Q8HPRN PRN (Reason: anxiety)
clozapine 25 mg Tablet
25 mg PO HS
Rx Instructions:
with 100mg = 125mg
fluoxetine 60 mg Tablet
90 mg PO DAILY
buspirone 10 mg Tablet
10 mg PO DAILY
furosemide 20 mg Tablet
20 mg PO DAILY
gabapentin 100 mg Capsule
100 mg PO BID
albuterol sulfate 90 mcg/actuation Hfa Aerosol Inhaler
2 inh INHALATION R Q6HPRN PRN (Reason: sob/wheezing)
lactulose 10 gram/15 mL Solution
30 g PO DAILY
potassium chloride 20 mEq Tablet Extended Release
20 meq PO DAILY
Nurtec ODT 75 mg Tablet,Disintegrating
75 mg PO [id number] PRN (Reason: migraine)
Wegovy 1.7 mg/0.75 mL Pen Injector
1.7 mg SC FR
naltrexone 50 mg Tablet
100 mg PO DAILY
nitroglycerin 0.4 mg Tablet, Sublingual
0.4 mg SUBLINGUAL [id number] PRN (Reason: chest pain)
fluconazole 200 mg Tablet
200 mg PO DAILY 28 Days Qty: 28 0RF
Rx Instructions:
take for 4 weeks
stop on 04/14/2024
buspirone 5 mg Tablet
2.5 mg PO Q24H 28 Days Qty: 14 0RF
Rx Instructions:
take this dose while on fluconazole for 4 weeks
acetazolamide 500 mg Capsule, Extended Release
500 mg PO TID
spironolactone 25 mg Tablet
25 mg PO DAILY
nystatin 100,000 unit/gram powder
1 applic topical Q12
Referrals:
Shivam Turk, DO [Family Provider] - Call in 1-3 days for appt
Interventions
Interventions:
*Risk Screen - Suicide Last Done: 04/01/24 02:40
*General Assessment Last Done: 04/01/24 02:40
*Neglect/Abuse Screening Last Done: 04/01/24 02:40
*ED COVID-19 Vaccine History Last Done: 04/01/24 02:40
ZK-Bpkxpi-Flkxlqfrrn Assessment Last Done: 04/01/24 02:56
Discharge Date and Time
Print Language: ARMENIAN
== END 2024-04-01 10:05 ==
LOC: EMR 01:52
PROVIDERS: EMERGENCY PHYSICIAN Emergency Medicine; FAMILY PHYSICIAN Internal Medicine
DX: R10.2 Pelvic and perineal pain (principal); I89.0 Lymphedema, not elsewhere classified; E66.01 Morbid (severe) obesity due to excess calories; F50.89 Other specified eating disorder; J44.89 Other specified chronic obstructive pulmonary disease; I10 Essential (primary) hypertension; E11.9 Type 2 diabetes mellitus without complications; E03.9 Hypothyroidism, unspecified; F41.9 Anxiety disorder, unspecified; F43.10 Post-traumatic stress disorder, unspecified; F60.3 Borderline personality disorder; R56.9 Unspecified convulsions; F31.9 Bipolar disorder, unspecified; K21.9 Gastro-esophageal reflux disease without esophagitis; Z91.51 Personal history of suicidal behavior; Z86.61 Personal history of infections of the central nervous system; Z87.440 Personal history of urinary (tract) infections; Z87.891 Personal history of nicotine dependence; Z86.711 Personal history of pulmonary embolism; Z88.8 Allergy status to other drugs, medicaments and biological substances; Z91.030 Bee allergy status; Z91.013 Allergy to seafood
CPT/HCPCS: 99283; 80053; 81003; 84703; 85025

== ENCOUNTER 2024-04-12 20:50 | Emergency (ER) | payer MEDICARE, OTHER, SELFPAY ==
[2024-04-12 20:54] VITALS: BP 129/75
[2024-04-12 20:56] VITALS: BP 129/75
[2024-04-12 21:00] VITALS: BP 96/81
[2024-04-12 22:00] VITALS: BP 123/98
--- NOTE | 2024-04-12 22:42 | ED.GENMED ---
History of Present Illness
General
Chief Complaint: Catheter/Tube Problem
Source: patient
Exam Limitations: none
Time Seen by Provider: 04/12/24 21:24
Nursing documentation reviewed up to this point in time: agreed with
History of Present Illness
History of Present Illness:
Patient with history of chronic Blum catheter, presents to ED for evaluation after she intentionally pulled out her Blum catheter, as she became angry during group therapy. Denies fever or chills. Denies nausea or vomiting. Patient requesting
reinsertion of new Blum catheter.
Past History
Past History
ED Past Medical History: Asthma, COPD, GERD, HTN, NIDDM, Seizures, Hypothyroidism, Psychiatric (anxiety, depression, Bipolar, Claustrophobia, PTSD, Schizo, Suicidal attempt, Borderline Personality disorder, ) and Other (Meningitis, Sciatica, TBI,
PE, Chronic lymphedema, Urinary retention with chronic Catheter, UTI, Cellulitis)
ED Past Surgical History:
Social History
Tobacco: Former smoker
Alcohol: None
Drug: None
Personal: Other (Seperated)
Living: retirement ([place])
Employment: Disabled
Family History
Family History: Other (Noncontributory)
Review of Systems
Review of Systems
Allergies reviewed?: Yes
All Other Systems: ROS reviewed and negative except as documented in HPI and ROS
Constitutional: Reports no symptoms
ABD/GI: Reports no symptoms; Denies nausea or vomiting
: Reports no symptoms
Musculoskeletal: Reports no symptoms
Skin: Reports no symptoms
Neurological: Reports no symptoms
Phy Exam
Physical Exam
Physical Exam:
Physical Exam
General: no apparent distress, not acutely ill. afebrile
Head: nc/at. eomi
Neck: supple. normal range of motion
Abdomen: normal bowel sounds. not tender.
Neuro: alert and oriented. no focal neurological deficits
Skin: no rash
Psychiatric: well kept. interactive and cooperative
Extremities: no edema. no calf tenderness.
Course
Orders/Labs/Results
Orders:
Orders
04/12/24 21:33
Blum [Blum Placement- Treatment] ONCE
Reason for insertion: Chronic Blum on Admit
Vital Signs
Initial and Last Documented VS:
Initial Vital Signs
Temp Pulse Resp BP Pulse Ox
97.8 F 102 20 129/75 98
04/12/24 20:54 04/12/24 20:54 04/12/24 20:54 04/12/24 20:54 04/12/24 20:54
Last Documented Vital Signs
Temp Pulse Resp BP Pulse Ox
97.8 F 102 20 114/78 95
04/12/24 20:54 04/12/24 20:54 04/12/24 20:54 04/13/24 02:00 04/13/24 02:45
MDM/Problems Addressed
MDM/Problems Addressed:
Blum catheter successfully inserted by nursing staff. Patient will be transferred back to retirement for continual care.
*Critical Care Note
Total Time (30-74mins, 75-104mins- exclusive of procedures): Not Applicable
ED Attending Note
-
Portions of this chart may have been created with voice recognition software.� Occasional wrong word or��sound alike� substitutions may have occurred due to the inherent limitations of voice recognition software.
Discharge Plan
Departure
Patient Disposition: Care Home/SNF
Date of Disposition: 04/12/24
Time of Disposition: 22:45
Patient with high blood pressure during this ER visit?: Yes
Discharge Problem:
Status post insertion of Blum catheter
Instructions: How to Care for Your Blum Catheter
Prescriptions:
No Action
levothyroxine [Synthroid] 175 mcg Tablet
175 mcg PO DAILY
acetaminophen [Tylenol] 325 mg Tablet
650 mg PO Q6HPRN MDD 3000 mg PRN (Reason: temp>100.4/mild pain)
polyethylene glycol 3350 [Miralax] 17 gram Powder In Packet
17 g PO BID
cetirizine [Zyrtec] 10 mg Tablet
10 mg PO DAILY
acetazolamide 500 mg Capsule, Extended Release
500 mg PO TID
therapeutic multivitamin Tablet
1 tab PO DAILY
famotidine [Pepcid] 20 mg Tablet
20 mg PO BID
magnesium hydroxide [Milk of Magnesia] 400 mg/5 mL Suspension
2,400 mg PO [id number] PRN (Reason: if no bm in 3 days)
bisacodyl [Dulcolax (bisacodyl)] 10 mg Suppository
10 mg [place] DAILYPRN PRN (Reason: constipation, if mom ineffective)
ferrous sulfate 325 mg (65 mg iron) Tablet
325 mg PO DAILY
fluticasone propion-salmeterol [Advair Diskus] 500-50 mcg/dose Blister With Device
1 inh INHALATION R BID
Fleet Enema 19-7 gram/118 mL Enema
118 ml [place] DAILYPRN PRN (Reason: constipation, suppository ineffect)
docusate sodium [Colace] 100 mg Capsule
100 mg PO TID
gabapentin 300 mg Capsule
300 mg PO TID
ibuprofen 600 mg Tablet
600 mg PO Q6HPRN PRN (Reason: mild pain)
atropine 1 % Drops
1 drp sublingual DAILYPRN PRN (Reason: sialorrhea) Qty: 0
cyclobenzaprine 5 mg Tablet
5 mg PO TID
clozapine 50 mg Tablet
50 mg PO HS
Senna Plus 8.6-50 mg Capsule
2 tab-cap PO TID
naltrexone 50 mg Tablet
50 mg PO QPM
lidocaine 4 % Adhesive Patch,Medicated
1 patch TOPICAL DAILY
hydroxyzine pamoate 50 mg Capsule
50 mg PO Q8HPRN PRN (Reason: anxiety)
clozapine 25 mg Tablet
25 mg PO HS
Rx Instructions:
with 100mg = 125mg
fluoxetine 60 mg Tablet
90 mg PO DAILY
buspirone 10 mg Tablet
10 mg PO DAILY
furosemide 20 mg Tablet
20 mg PO DAILY
gabapentin 100 mg Capsule
100 mg PO BID
albuterol sulfate 90 mcg/actuation Hfa Aerosol Inhaler
2 inh INHALATION R Q6HPRN PRN (Reason: sob/wheezing)
lactulose 10 gram/15 mL Solution
30 g PO DAILY
potassium chloride 20 mEq Tablet Extended Release
20 meq PO DAILY
Nurtec ODT 75 mg Tablet,Disintegrating
75 mg PO [id number] PRN (Reason: migraine)
Wegovy 1.7 mg/0.75 mL Pen Injector
1.7 mg SC FR
naltrexone 50 mg Tablet
100 mg PO DAILY
nitroglycerin 0.4 mg Tablet, Sublingual
0.4 mg SUBLINGUAL [id number] PRN (Reason: chest pain)
fluconazole 200 mg Tablet
200 mg PO DAILY 28 Days Qty: 28 0RF
Rx Instructions:
take for 4 weeks
stop on 04/14/2024
buspirone 5 mg Tablet
2.5 mg PO Q24H 28 Days Qty: 14 0RF
Rx Instructions:
take this dose while on fluconazole for 4 weeks
acetazolamide 500 mg Capsule, Extended Release
500 mg PO TID
spironolactone 25 mg Tablet
25 mg PO DAILY
nystatin 100,000 unit/gram powder
1 applic topical Q12
Activity Restrictions/Additional Instructions:
As discussed, you are being discharged back to retirement for continual care.
Interventions
Interventions:
*Risk Screen - Suicide Last Done: 04/12/24 21:00
*General Assessment Last Done: 04/12/24 21:00
*Neglect/Abuse Screening Last Done: 04/12/24 21:00
ED- Fall Risk Assessment Last Done: 04/12/24 21:00
TD-Vjgtgc-Whaetnlbmv Assessment Last Done: 04/12/24 21:00
ED-Female Genitourinary Assessment Last Done: 04/12/24 21:00
Discharge Date and Time
Print Language: CITIZEN [place]
[2024-04-12 23:00] VITALS: BP 111/50
--- NOTE | 2024-04-12 23:09 | EDRN ---
Patient is sleeping at this time, call roach in reach.
[2024-04-13] VITALS: BP 126/72
[2024-04-13 00:14] VITALS: BMI 68.8
--- NOTE | 2024-04-13 00:14 | EDRN ---
Patient is sleeping at this time, call roach in reach, will continue to monitor
[2024-04-13 01:00] VITALS: BP 118/75
[2024-04-13 02:00] VITALS: BP 114/78
[2024-04-13 07:48] VITALS: BP 123/70
== END 2024-04-13 09:48 ==
LOC: EMR 20:50
PROVIDERS: EMERGENCY PHYSICIAN Emergency Medicine; FAMILY PHYSICIAN Internal Medicine
DX: Z46.6 Encounter for fitting and adjustment of urinary device (principal); J44.89 Other specified chronic obstructive pulmonary disease; K21.9 Gastro-esophageal reflux disease without esophagitis; I10 Essential (primary) hypertension; E11.9 Type 2 diabetes mellitus without complications; E03.9 Hypothyroidism, unspecified; F41.9 Anxiety disorder, unspecified; F43.10 Post-traumatic stress disorder, unspecified; F60.3 Borderline personality disorder; Z87.440 Personal history of urinary (tract) infections; Z87.891 Personal history of nicotine dependence; Z91.51 Personal history of suicidal behavior
CPT/HCPCS: 99282; 51702

== ENCOUNTER 2024-04-23 15:52 | Inpatient (IN) | payer MEDICARE, OTHER, SELFPAY ==
[2024-04-23 11:10] VITALS: BP 156/89
--- NOTE | 2024-04-23 12:23 | ED.SKININJ ---
HPI-Injury
General
Chief Complaint: Skin Problem
Source: patient
Time Seen by Provider: 04/23/24 11:59
History of Present Illness-Injury
Initial Injury comments:
33-year-old female from [facility] with history of morbid obesity chronic indwelling Blum catheter presents with increased redness pain and rash to the inguinal fold areas between her abdomen and under her breast as well as bilateral
posterior knees. She has been admitted for the same issue in the past. She states he is currently on an antibiotic for urinary tract infection. She has been on topical powder and fluconazole for her fungal infection however is not helping. She
notes chills but denies fever. No other complaints at this time
Past History
Past History
ED Past Medical History: Asthma, COPD, GERD, HTN, NIDDM, Seizures, Hypothyroidism, Psychiatric (anxiety, depression, Bipolar, Claustrophobia, PTSD, Schizo, Suicidal attempt, Borderline Personality disorder, ) and Other (Meningitis, Sciatica, TBI,
PE, Chronic lymphedema, Urinary retention with chronic Catheter, UTI, Cellulitis)
ED Past Surgical History:
Social History
Tobacco: Former smoker
Alcohol: None
Drug: None
Personal: Other (Seperated)
Living: alf (Helper)
Employment: Disabled
Family History
Family History: Other (Noncontributory)
Phy Exam
Physical Exam
Physical Exam:
General: Well-appearing female no acute respiratory distress
HEENT: Normocephalic atraumatic
Heart: Regular rate and rhythm no murmurs
Lungs: Clear no wheeze
Abdomen is soft obese nontender
Skin: Erythema noted to the inguinal folds bilaterally the area underneath her pannus bilateral posterior knees and underneath both breasts. This is surrounded by small satellite lesions. This is tender. There is no drainage.
Extremities: Mild pitting edema bilateral lower extremities
Course
Orders/Labs/Results
Orders:
Orders
04/23/24 12:24
1:1 Observation - Suicide/ Violent Behavior As Directed
04/23/24 12:52
Complete Blood Count/With Diff Urgent
04/23/24 14:05
HYDROmorphone [Dilaudid] 0.5 mg IV NOW STA
04/23/24 14:15
Comprehensive Metabolic Panel Urgent
04/23/24 14:41
Micafungin Sodium [Mycamine] 100 mg Dextrose 5%/Water 100 ml [D5w] 100 ml IV NOW
04/23/24 14:42
CeFAZolin 2 GRAM [Ancef] 2 grams in 10 ml IV NOW
Abnormal Lab Results
04/23/24
12:52
Hgb 11.1 L g/dL
(12.0-16.0)
Hct 36.7 L %
(37.0-47.0)
MCV 74.0 L fL
(81.0-99.0)
MCH 22.4 L pg
(27.0-31.0)
MCHC 30.2 L g/dL
(33.0-37.0)
RDW 17.5 H %
(11.5-14.5)
Lymphocytes % 15.7 L %
(20.5-51.1)
04/23/24 12:52
04/23/24 14:15
Vital Signs
Initial and Last Documented VS:
Initial Vital Signs
Temp Pulse Resp BP Pulse Ox
97.6 F 105 20 156/89 99
04/23/24 11:10 04/23/24 11:10 04/23/24 11:10 04/23/24 11:10 04/23/24 11:10
Last Documented Vital Signs
Temp Pulse Resp BP Pulse Ox
97.6 F 105 20 156/89 99
04/23/24 11:10 04/23/24 11:10 04/23/24 11:10 04/23/24 11:10 04/23/24 11:10
MDM/Problems Addressed
Differential Diagnosis Includes:
Erythema to the skin folds question cellulitis versus fungal infection. She currently on an antibiotic for urinary tract infection. She has been on topical antifungals without relief.
Check labs. Review of prior records does demonstrate she was here couple months ago for the same and required admission to hospital
*Critical Care Note
Total Time (30-74mins, 75-104mins- exclusive of procedures): Not Applicable
ED Attending Note
-
Portions of this chart may have been created with voice recognition software.� Occasional wrong word or��sound alike� substitutions may have occurred due to the inherent limitations of voice recognition software.
Discharge Plan
Departure
Patient Disposition: Admit
Date of Disposition: 04/23/24
Time of Disposition: 15:01
Admit to: Med/Surg
Presentation/result/management discussed w/ accepting MD/DO: Hospitalist
Discharge Problem:
severe intertrigo
Prescriptions:
No Action
levothyroxine [Synthroid] 175 mcg Tablet
175 mcg PO DAILY
acetaminophen [Tylenol] 325 mg Tablet
650 mg PO Q6HPRN MDD 3000 mg PRN (Reason: temp>100.4/mild pain)
polyethylene glycol 3350 [Miralax] 17 gram Powder In Packet
17 g PO BID
cetirizine [Zyrtec] 10 mg Tablet
10 mg PO DAILY
acetazolamide 500 mg Capsule, Extended Release
500 mg PO TID
therapeutic multivitamin Tablet
1 tab PO DAILY
famotidine [Pepcid] 20 mg Tablet
20 mg PO BID
magnesium hydroxide [Milk of Magnesia] 400 mg/5 mL Suspension
2,400 mg PO [id number] PRN (Reason: if no bm in 3 days)
bisacodyl [Dulcolax (bisacodyl)] 10 mg Suppository
10 mg AK DAILYPRN PRN (Reason: constipation, if mom ineffective)
ferrous sulfate 325 mg (65 mg iron) Tablet
325 mg PO DAILY
fluticasone propion-salmeterol [Advair Diskus] 500-50 mcg/dose Blister With Device
1 inh INHALATION R BID
Fleet Enema 19-7 gram/118 mL Enema
118 ml AK DAILYPRN PRN (Reason: constipation, suppository ineffect)
docusate sodium [Colace] 100 mg Capsule
100 mg PO TID
gabapentin 300 mg Capsule
300 mg PO TID
ibuprofen 600 mg Tablet
600 mg PO Q6HPRN PRN (Reason: mild pain)
atropine 1 % Drops
1 drp sublingual DAILYPRN PRN (Reason: sialorrhea) Qty: 0
cyclobenzaprine 5 mg Tablet
5 mg PO TID
clozapine 50 mg Tablet
50 mg PO HS
Senna Plus 8.6-50 mg Capsule
2 tab-cap PO TID
naltrexone 50 mg Tablet
50 mg PO QPM
lidocaine 4 % Adhesive Patch,Medicated
1 patch TOPICAL DAILY
hydroxyzine pamoate 50 mg Capsule
50 mg PO Q8HPRN PRN (Reason: anxiety)
clozapine 25 mg Tablet
25 mg PO HS
Rx Instructions:
with 100mg = 125mg
fluoxetine 60 mg Tablet
90 mg PO DAILY
buspirone 10 mg Tablet
10 mg PO DAILY
furosemide 20 mg Tablet
20 mg PO DAILY
gabapentin 100 mg Capsule
100 mg PO BID
albuterol sulfate 90 mcg/actuation Hfa Aerosol Inhaler
2 inh INHALATION R Q6HPRN PRN (Reason: sob/wheezing)
lactulose 10 gram/15 mL Solution
30 g PO DAILY
potassium chloride 20 mEq Tablet Extended Release
20 meq PO DAILY
Nurtec ODT 75 mg Tablet,Disintegrating
75 mg PO [id number] PRN (Reason: migraine)
Wegovy 1.7 mg/0.75 mL Pen Injector
1.7 mg SC FR
naltrexone 50 mg Tablet
100 mg PO DAILY
nitroglycerin 0.4 mg Tablet, Sublingual
0.4 mg SUBLINGUAL [id number] PRN (Reason: chest pain)
fluconazole 200 mg Tablet
200 mg PO DAILY 28 Days Qty: 28 0RF
Rx Instructions:
take for 4 weeks
stop on 04/14/2024
buspirone 5 mg Tablet
2.5 mg PO Q24H 28 Days Qty: 14 0RF
Rx Instructions:
take this dose while on fluconazole for 4 weeks
acetazolamide 500 mg Capsule, Extended Release
500 mg PO TID
spironolactone 25 mg Tablet
25 mg PO DAILY
nystatin 100,000 unit/gram powder
1 applic topical Q12
Referrals:
Shivam Turk, DO [Family Provider] -
Interventions
Interventions:
*Risk Screen - Suicide Last Done: 04/23/24 12:22
*General Assessment Last Done: 04/23/24 11:10
*Neglect/Abuse Screening Last Done: 04/23/24 12:22
*ED COVID-19 Vaccine History Last Done: 04/23/24 12:22
Discharge Date and Time
Print Language: ALGERIAN
[2024-04-23 13:07] LABS: % Basophils 0.5 % (0-2); % Eosinophils 3.8 % (0-6); % Immature Granulocytes 0.3 % (0-0.5); % Lymphocytes 15.7 % (20.5-51.1); % Monocytes 5.8 % (1.7-9.3); % Neutrophils 73.9 % (42.2-75.2); Absolute Eosinophils 0.3 10^3/uL (0-0.7); Absolute Lymphocytes 1.4 10^3/uL (1.2-3.4); Absolute Monocytes 0.5 10^3/uL (0.1-0.6); Absolute Neutrophils 6.5 10^3/uL (1.4-6.5); Hematocrit 36.7 % (37.0-47.0); Hemoglobin 11.1 g/dL (12.0-16.0); Mean Corp Hgb Conc. 30.2 g/dL (33.0-37.0); Mean Corpuscular Hgb 22.4 pg (27.0-31.0); Mean Platelet Volume 8.5 fL (7.4-10.4); Nucleated Red Blood Cells % 0 %; Platelet Count 345 10^3/uL (130-400); Red Blood Cell Count 4.96 10^6/uL (4.20-5.40); Red Cell Dist. Width 17.5 % (11.5-14.5); White Blood Cell Count 8.8 10^3/uL (4.8-10.8)
[2024-04-23] MEDS: DILAUDID 0.5 MG IV (14:16)
[2024-04-23 14:42] VITALS: BP 103/69
[2024-04-23 14:58] LABS: ALT (SGPT) 16 U/L (0-35); AST (SGOT) 15 U/L (14-36); Albumin 3.6 g/dl (3.5-5.0); Alkaline Phosphatase 104 U/L (38-126); Blood Urea Nitrogen 12 mg/dl (7-17); Calcium 8.8 mg/dl (8.4-10.2); Carbon Dioxide 23 mmol/L (22-30); Chloride 107 mmol/L (98-107); Glucose 85 mg/dl (70-99); Potassium 3.8 mmol/L (3.5-5.1); Sodium 141 mmol/L (135-145); Total Bilirubin 0.3 mg/dl (0.2-1.3); Total Protein 6.3 g/dl (6.3-8.2); eGFR > 60.00
--- NOTE | 2024-04-23 15:42 | HPS.HSE ---
Addendum entered and electronically signed by Heriberto Glez MD 04/23/24 17:24:
Appears the patient was started on IM ceftriaxone yesterday for 7-day course for UTI. Patient has no knowledge of this. Will change cefazolin to ceftriaxone.
Original Note:
Family Physician
-
Family Physician: Shivam Turk, DO
Chief Complaint
-
intertrigo
History of Present Illness
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
history of suicidal attempts, chronic Wandy intertrigo, hypothyroidism, chronic back pain/sciatica, chronic constipation, migraines, pulmonary embolism, chronic leg lymphedema, presenting from [facility] for increased redness, pain
and rash of the inguinal folds as well as under her breast, bilateral posterior knees which started a few days ago. She is complaining of pain in these areas. She was admitted last month for intertrigo successfully treated with antifungal agents.
She states that the intertrigo had resolved but has come back since then.
Today she noticed bilateral lower extremity redness and swelling and pain.
She is on prophylactic antibiotics for UTI.
Medical History
Past Medical History
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
history of suicidal attempts, chronic Wandy intertrigo, hypothyroidism, chronic back pain/sc)
Past Surgical History: Reports None
Social History
Tobacco: Non-smoker
Alcohol: None
Drug: None
Family History
Family History: Not pertinent
Allergies / Home Medications
Allergies reflects when Allergies were last updated in [facility].
Home Medications with original date entered in [facility]
Allergy/Medication List:
Allergies
Allergy/AdvReac Type Severity Reaction Status Date / Time
bee venom protein (honey bee) Allergy Anaphylaxis Verified 04/23/24 11:10
cariprazine Allergy Unknown Verified 04/23/24 11:10
loratadine [From Claritin] Allergy Unknown Verified 04/23/24 11:10
meloxicam Allergy Unknown Verified 04/23/24 11:10
nicotine Allergy Unknown Verified 04/23/24 11:10
shellfish derived Allergy Anaphylaxis Verified 04/23/24 11:10
simvastatin Allergy Unknown Verified 04/23/24 11:10
Home Medications
acetaminophen 325 mg tablet (Tylenol) 650 mg PO Q6HPRN PRN temp>100.4/mild pain 12/03/23
acetazolamide 500 mg capsule,extended release 500 mg PO TID Neurological Condition 12/03/23
atropine 1 % eye drops 1 drp sublingual DAILYPRN PRN sialorrhea ##0 12/03/23
bisacodyl 10 mg rectal suppository (Dulcolax (bisacodyl)) 10 mg UT DAILYPRN PRN constipation, if mom ineffective 12/03/23
cetirizine 10 mg tablet (Zyrtec) 10 mg PO DAILY Allergies 12/03/23
clozapine 50 mg tablet 50 mg PO HS Mental Health/Anxiety 12/03/23
cyclobenzaprine 5 mg tablet 5 mg PO TID Muscle Spasms 12/03/23
docusate sodium 100 mg capsule (Colace) 100 mg PO TID Constipation 12/03/23
famotidine 20 mg tablet (Pepcid) 20 mg PO BID Gastrointestinal Issue 12/03/23
ferrous sulfate 325 mg (65 mg iron) tablet 325 mg PO DAILY Supplement 12/03/23
fluticasone 500 mcg-salmeterol 50 mcg/dose blistr powdr for inhalation (Advair Diskus) 1 inh inhalation R BID Lung/Breathing Issues 12/03/23
gabapentin 300 mg capsule 300 mg PO TID pain 12/03/23
ibuprofen 600 mg tablet 600 mg PO Q6HPRN PRN mild pain 12/03/23
levothyroxine 175 mcg tablet (Synthroid) 175 mcg PO DAILY Thyroid 12/03/23
magnesium hydroxide 400 mg/5 mL oral suspension (Milk of Magnesia) 2,400 mg PO [id number] PRN if no bm in 3 days 12/03/23
naltrexone 50 mg tablet 50 mg PO QPM 12/03/23
polyethylene glycol 3350 17 gram oral powder packet (Miralax) 17 g PO BID Constipation 12/03/23
sennosides 8.6 mg-docusate sodium 50 mg capsule (Senna Plus) 2 tab-cap PO TID Constipation 12/03/23
sodium phosphates 19 gram-7 gram/118 mL enema (Fleet Enema) 118 ml UT DAILYPRN PRN constipation, suppository ineffect 12/03/23
therapeutic multivitamin 1 tab PO DAILY Supplement 12/03/23
clozapine 25 mg tablet 25 mg PO HS 01/18/24
fluoxetine 60 mg tablet 90 mg PO DAILY 01/18/24
hydroxyzine pamoate 50 mg capsule 50 mg PO Q8HPRN PRN anxiety 01/18/24
lidocaine 4 % topical patch 1 patch topical DAILY lower back 01/18/24
albuterol sulfate 90 mcg/actuation aerosol inhaler 2 inh inhalation R Q6HPRN PRN sob/wheezing 03/09/24
buspirone 10 mg tablet 10 mg PO DAILY 03/09/24
furosemide 20 mg tablet 20 mg PO DAILY 03/09/24
gabapentin 100 mg capsule 100 mg PO BID 03/09/24
lactulose 10 gram/15 mL oral solution 30 g PO DAILY 03/09/24
potassium chloride 20 mEq tablet,extended release 20 meq PO DAILY 03/09/24
rimegepant 75 mg disintegrating tablet (Nurtec ODT) 75 mg PO [id number] PRN migraine 03/09/24
semaglutide (weight loss) 1.7 mg/0.75 mL subcutaneous pen injector (Wegovy) 1.7 mg SC FR 03/09/24
naltrexone 50 mg tablet 100 mg PO DAILY 03/15/24
nitroglycerin 0.4 mg sublingual tablet 0.4 mg sublingual [id number] PRN chest pain 03/15/24
buspirone 5 mg tablet 2.5 mg (1/2 x 5 mg) PO Q24H 4 weeks #14 tabs 03/16/24
fluconazole 200 mg tablet 200 mg PO DAILY 4 weeks #28 tabs 03/16/24
acetazolamide 500 mg capsule,extended release 500 mg PO TID 04/01/24
nystatin 100,000 unit/gram topical powder 1 applic topical Q12 04/01/24
spironolactone 25 mg tablet 25 mg PO DAILY 04/01/24
Review of Systems
-
History Source: Patient
A 12 point ROS was completed and negative except as noted: Yes
Constitutional: Reports No Symptoms
EENT: Reports No Symptoms
Respiratory: Reports No Symptoms
Cardiac: Reports No Symptoms
Abdomen/GI: Reports No Symptoms
: Reports No Symptoms
Musculoskeletal: Reports No Symptoms
Skin: Reports See HPI
Neurological: Reports No Symptoms
Endocrine: Reports No Symptoms
Hematologic/Lymphatic: Reports No Symptoms
Psych: Reports No Symptoms
Physical Exam
Vital Signs
Vital Signs
Temp Pulse Resp BP Pulse Ox
97.6 F 105 20 156/89 99
04/23/24 11:10 04/23/24 11:10 04/23/24 11:10 04/23/24 11:10 04/23/24 11:10
Physical Exam
General: Well Developed, Well Nourished and No Apparent Distress
HEENT: NormoCephalic, Moist mucous membranes and Atraumatic
Respiratory: Clear
Cardiac: S1/S2 and Regular Rhythm; No Murmur or Rub
GI: Soft, Non Tender, Non Distended and Normal Bowel Sounds; No Organomegaly
Rectal: Deferred by Provider
Musculoskeletal: No Clubbing, No Cyanosis and No Edema
Skin: Other (erythema of pannus, under breasts, behind posterior knees, bilateral lower extremity erythema and swelling and tenderness ); No Rash
Neuro: Nonfocal/grossly intact
Laboratory Results
-
04/23/24 12:52
04/23/24 14:15
Laboratory Results
Total Bilirubin 0.3 mg/dl (0.2-1.3) 04/23/24 14:15
AST 15 U/L (14-36) 04/23/24 14:15
ALT 16 U/L (0-35) 04/23/24 14:15
Alkaline Phosphatase 104 U/L (38-126) 04/23/24 14:15
Data Reviewed
-
Lab Data: Labs Reviewed by me
Old Records: Reviewed
Impression/Plan
-
IMPRESSION:
PLAN:
# Recurrent acute Wandy intertrigo
-Micafungin started in ER, continue
-Continue nystatin powder
-ID consulted
-Wound care consulted
# Bilateral lower extremity cellulitis on chronic lymphedema
-Cefazolin
-Continue chronic Lasix for lymphedema
Chronic Blum catheter secondary to neurogenic bladder since age 5 from meningitis
-Reportedly on chronic Macrobid
Essential hypertension
-Continue spironolactone
-Continue clonidine
Bipolar disorder/anxiety/depression/claustrophobia/PTSD/schizoaffective disorder/borderline personality disorder
-Continue fluoxetine, clozapine, buspirone
-Continue naltrexone
TBI/seizure disorder
-Continue Diamox
GERD
-Continue Pepcid
Iron deficiency
-Continue ferrous sulfate
COPD
-Continue inhalers
Type 2 diabetes
-Continue Wegovy, insulin sliding scale
Hypothyroidism
-Continue levothyroxine
Chronic back pain/sciatica
-Continue gabapentin
-Continue lidocaine patch
Chronic constipation
-Continue MiraLAX, senna
Migraines
-Continue Nurtec as needed
Obesity
-Continue Wegovy
History of pulmonary embolism
-Not on anticoagulation
Full code
DVT prophylaxis�heparin
Regular diet
[2024-04-23 15:54] VITALS: BP 110/75
[2024-04-23 16:00] VITALS: BP 104/67
[2024-04-23] MEDS: ANCEF 10 IV (16:24)
[2024-04-23 16:46] VITALS: BMI 68.4
[2024-04-23 17:24] VITALS: BP 121/80
[2024-04-23] MEDS: MYCAMINE 105 MG IV (17:36)
[2024-04-23] MEDS: ADVAIR HFA 230/21 MCG INHALER 2 PUFF INH (20:03)
[2024-04-23] MEDS: PEPCID 20 MG PO (20:33)
[2024-04-23] MEDS: REVIA 50 MG PO (20:33)
[2024-04-23] MEDS: HEPARIN SC ×2 (20:33)
[2024-04-23] MEDS: MIRALAX PO (20:33)
[2024-04-23] MEDS: CLOZARIL 25 MG PO (21:06)
[2024-04-23] MEDS: CLOZARIL 100 MG PO (21:06)
[2024-04-23] MEDS: FLEXERIL 5 MG PO (21:06)
[2024-04-23] MEDS: NEURONTIN 100 MG PO (21:08)
[2024-04-23] MEDS: NEURONTIN 400 MG PO (21:08)
[2024-04-23] MEDS: DIAMOX SR SEQUELS 500 MG PO (21:09)
[2024-04-23] MEDS: STERILE WATER FOR INJECTION 10 ML IV (21:14)
[2024-04-23] MEDS: ROCEPHIN 1000 MG IV (21:14)
[2024-04-23] MEDS: ZINC OXIDE OINTMENT 1 APPLIC TOPICAL (21:32)
[2024-04-23] MEDS: SENOKOT-S PO (22:13)
[2024-04-23] MEDS: COLACE PO (22:13)
[2024-04-23 23:55] VITALS: BP 106/62
[2024-04-24] MEDS: SYNTHROID 175 MCG PO (05:15)
[2024-04-24 05:27] LABS: % Basophils 0.9 % (0-2); % Eosinophils 4.3 % (0-6); % Immature Granulocytes 0.4 % (0-0.5); % Lymphocytes 20.9 % (20.5-51.1); % Neutrophils 66.5 % (42.2-75.2); Absolute Basophils 0.1 10^3/uL (0-0.2); Absolute Eosinophils 0.3 10^3/uL (0-0.7); Absolute Lymphocytes 1.4 10^3/uL (1.2-3.4); Absolute Monocytes 0.5 10^3/uL (0.1-0.6); Absolute Neutrophils 4.5 10^3/uL (1.4-6.5); Hematocrit 31.4 % (37.0-47.0); Hemoglobin 9.6 g/dL (12.0-16.0); Mean Corp Hgb Conc. 30.6 g/dL (33.0-37.0); Mean Corpuscular Hgb 22.5 pg (27.0-31.0); Mean Corpuscular Volume 73.7 fL (81.0-99.0); Mean Platelet Volume 8.4 fL (7.4-10.4); Nucleated Red Blood Cells % 0 %; Platelet Count 301 10^3/uL (130-400); Red Blood Cell Count 4.26 10^6/uL (4.20-5.40); Red Cell Dist. Width 17.3 % (11.5-14.5); White Blood Cell Count 6.7 10^3/uL (4.8-10.8)
[2024-04-24 05:59] LABS: ALT (SGPT) 14 U/L (0-35); AST (SGOT) 15 U/L (14-36); Alkaline Phosphatase 89 U/L (38-126); Blood Urea Nitrogen 11 mg/dl (7-17); Calcium 8.3 mg/dl (8.4-10.2); Carbon Dioxide 21 mmol/L (22-30); Chloride 110 mmol/L (98-107); Estimated Creatinine Clearance > 125 ml/min; Glucose 92 mg/dl (70-99); Sodium 141 mmol/L (135-145); Total Bilirubin 0.4 mg/dl (0.2-1.3); Total Protein 5.6 g/dl (6.3-8.2); eGFR > 60.00
[2024-04-24 07:00] VITALS: BP 121/69
[2024-04-24] MEDS: ADVAIR HFA 230/21 MCG INHALER 2 PUFF INH ×2 (07:26→21:08)
--- NOTE | 2024-04-24 07:28 | W.PN.HOSP.TC ---
Today's Communication/Plan
-
cont antifungals antibiotics
wound care
psych eval
ID eval
Toradol prn pain
Assessment / Plan
Assessment / Plan
Physical Exam
General: No acute distress appears comfortable at this time Morbidly Obese
HEENT: NormoCephalic, Moist mucous membranes and Atraumatic
Respiratory: Clear
Cardiac: S1/S2 and Regular Rhythm; No Murmur or Rub
GI: Soft, Non Tender, Non Distended and Normal Bowel Sounds; No Organomegaly
Musculoskeletal: No Clubbing, No Cyanosis and No Edema
Skin: erythema pannus, under breasts, behind posterior knees, bilateral lower extremity erythema and swelling and tenderness
Neuro: Awake Alert Conversant Coherent
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
Wandy intertrigo, hypothyroidism, chronic back pain/sciatica, chronic constipation, migraines, pulmonary embolism, chronic leg lymphedema, presenting from [facility] for increased redness, pain and rash of the inguinal folds as well
as under her breast, bilateral posterior knees with associate pain. She was admitted last month for intertrigo successfully treated with antifungal agents. She states that the intertrigo had resolved but has come back since then.
# Recurrent acute Wandy intertrigo
-Micafungin started in ER, continue
-Continue nystatin powder
-ID consulted
-Wound care consulted
-Toradol prn pain
# Bilateral lower extremity cellulitis on chronic lymphedema
-Ceftriaxone
-Continue chronic Lasix for lymphedema
#Reported Suicidal Ideation
1:1
Psych Eval requested
Chronic Blum catheter secondary to neurogenic bladder since age 5 from meningitis
-Reportedly on chronic Macrobid
Essential hypertension
-Continue spironolactone
-Continue clonidine
Bipolar disorder/anxiety/depression/claustrophobia/PTSD/schizoaffective disorder/borderline personality disorder
-Continue fluoxetine, clozapine, buspirone
-Continue naltrexone
TBI/seizure disorder
-Continue Diamox
GERD
-Continue Pepcid
Iron deficiency
-Continue ferrous sulfate
COPD
-Continue inhalers
Type 2 diabetes
-Continue Wegovy, insulin sliding scale
Hypothyroidism
-Continue levothyroxine
Chronic back pain/sciatica
-Continue gabapentin
-Continue lidocaine patch
Chronic constipation
-Continue MiraLAX, senna
Migraines
-Continue Nurtec as needed
Obesity
-Continue Wegovy
History of pulmonary embolism
-Not on anticoagulation
Full code
DVT prophylaxis�heparin
GI prophylaxis protonix
Regular diet
I spent a total of 50 minutes with the patient or on the floor. More than 50% of this time involved counseling and coordination of care.
Anticipated Discharge: > 48 hours
Subjective/Interval History
-
Date of Service: April 24, 2024
Reports significant pain from intertrigo with no relief from ibuprofen. Otherwise doesn't appear to be in acute distress sitting comfortably in chair. 1:1 present.
Objective Data
-
Labs:
Laboratory Results
04/24/24
05:17
WBC 6.7
Hgb 9.6 L
Hct 31.4 L
Plt Count 301
Sodium 141
Potassium 4.0
Chloride 110 H
Carbon Dioxide 21 L
BUN 11
Creatinine 0.7
Glucose 92
Calcium 8.3 L
Total Bilirubin 0.4
AST 15
ALT 14
Alkaline Phosphatase 89
Vital Signs:
Vital Signs
Temp Pulse Resp BP Pulse Ox
98.1 F 94 20 106/62 95
04/23/24 23:55 04/23/24 23:55 04/23/24 23:55 04/23/24 23:55 04/23/24 23:55
I&O
04/23/24 04/24/24 04/25/24
06:59 06:59 06:59
Intake Total 105 / 105
Balance 105 / 105
[2024-04-24] MEDS: MOTRIN 600 MG PO (08:45)
[2024-04-24] MEDS: PROZAC 40 MG PO (08:46)
[2024-04-24] MEDS: ZINC OXIDE OINTMENT 1 APPLIC TOPICAL ×3 (08:46→21:31)
[2024-04-24] MEDS: LASIX 20 MG PO (08:48)
[2024-04-24] MEDS: THERAGRAN 1 TABLET PO (08:48)
[2024-04-24] MEDS: KCL 20 MEQ PO (08:48)
[2024-04-24] MEDS: FEOSOL 325 MG PO (08:48)
[2024-04-24] MEDS: COLACE PO (08:48)
[2024-04-24] MEDS: FLEXERIL 5 MG PO ×3 (08:48→21:34)
[2024-04-24] MEDS: DIAMOX SR SEQUELS 500 MG PO ×3 (08:49→21:32)
[2024-04-24] MEDS: SUBUTEX 8 MG SL (08:49)
[2024-04-24] MEDS: PEPCID 20 MG PO ×2 (08:49→20:05)
[2024-04-24] MEDS: REVIA 50 MG PO ×2 (08:49→20:09)
[2024-04-24] MEDS: ALDACTONE 25 MG PO (08:49)
[2024-04-24] MEDS: PROTONIX 40 MG PO (08:49)
[2024-04-24] MEDS: ZYRTEC 10 MG PO (08:49)
[2024-04-24] MEDS: OSCAL CAL 500 500 MG PO (08:49)
[2024-04-24] MEDS: SENOKOT-S PO (08:50)
[2024-04-24] MEDS: MIRALAX PO (08:50)
[2024-04-24] MEDS: HEPARIN 5000 UNITS SC ×2 (08:50→20:01)
[2024-04-24] MEDS: DUPHALAC/CHRONULAC PO (08:51)
[2024-04-24] MEDS: COLACE 100 MG PO ×3 (10:00→21:32)
[2024-04-24] MEDS: SENOKOT-S 2 TABLET PO ×3 (10:02→21:36)
[2024-04-24] MEDS: MIRALAX 17 GRAMS PO ×2 (11:36→20:02)
[2024-04-24] MEDS: DUPHALAC/CHRONULAC 20 GRAMS PO (11:36)
--- NOTE | 2024-04-24 12:13 | CM ---
CM reviewed chart, patient LTC resident at [facility]. Placed call to facility, reports no one is here in admissions over weekend. Patient seen bedside, confirmed resident at [facility]. Patient currently on 1:1, Psych consulted. Patient reports no
needs to CM at this time. CM will continue to follow for all discharge planning needs.
Plan; return to [facility] LT when stable.
--- NOTE | 2024-04-24 12:43 | PTCARENOTE ---
1:1 maintained. pt is very pleasant and cooperative. Was seen by psych. questioned whether pt is allowed to chaparrita at the bedside. Psychiatrist stated as long as someone was in the room with her it is fine. Coloring pages printed out as pt was
asking psychiatrist if she could have some. Diet was changed to Regular and pain medications were adjusted by Sheu. Pt doing schoolwork. Offers no complaints.
--- NOTE | 2024-04-24 13:03 | CON.ID ---
Consultation
-
Date/Time Consultation Requested: 04/23/24 2223
Date/Time Consultation Performed: 04/24/24 1300
Requesting Provider: Dr. Glez
Performing Provider: Dr. Kristin Cantu
Reason for Consultation: Wandy intertrigo
Chief Complaint / Past History
Chief Complaint
Abdominal pain, swallowed razor blade, bilateral intertrigo
History of Present Illness
Ms Campo is a 33-year-old female with past medical history pica, PTSD, schizo affective disorder, borderline personality, TBI, suicidal attempts, bipolar disorder, [facility] Wandy intertrigo. When she was
hospitalized in March, Dr. Haji recommended 4 weeks of fluconazole 200mg qd. Pt reports the fluconazole helped fungal rash. However, when she completed fluconazole, the rash returned immediately and go worse. Rash is painful. Rash located on
back of left knee, both groin, and breast folds.
Past History
Additional Past Medical History:
Asthma/COPD
DM
HTN
TBI
Seizure
hypothyroidism
neurogenic bladder, chronic cervantes
Class III obesity BMI 68
Suicide attempts
Bipolar disorder
PTSD
chronic pain
PE
Lymphedema
Additional Past Surgical History:
section 2009
Allergy History:
bee venom protein (honey bee) Allergy (Verified 04/23/24 11:10)
Anaphylaxis
cariprazine Allergy (Verified 04/23/24 11:10)
Unknown
loratadine [From Claritin] Allergy (Verified 04/23/24 11:10)
Unknown
meloxicam Allergy (Verified 04/23/24 11:10)
Unknown
nicotine Allergy (Verified 04/23/24 11:10)
Unknown
shellfish derived Allergy (Verified 04/23/24 11:10)
Anaphylaxis
simvastatin Allergy (Verified 04/23/24 11:10)
Unknown
Medications Reviewed: Yes
Current Antibiotics:
Micafungin
ceftriaxone
Social History
Tobacco: Non-Smoker
Alcohol: None
Drug: None
Living: [facility] ([facility])
Family History
Family History: Not Pertinent
Review of Systems
Review of Systems
General: Negative Fever, Chills or Change in Appetite
Cardiovascular: Negative Chest Pain or Dyspnea
Respiratory: Negative Dyspnea or Cough
Gasteroenterology: Other (no diarrhea); Negative Nausea or Vomiting
Genital / Urological: Negative Dysuria or Flank Pain
Endocrine: Negative Weakness
Vital Signs
Temp Pulse Resp BP Pulse Ox
98.1 F 87 16 121/69 97
04/24/24 07:00 04/24/24 07:28 04/24/24 07:28 04/24/24 07:00 04/24/24 07:28
Physical Exam
Physical Exam
Constitutional: No Acute Distress
Eyes: No Conjunctival Hemorrhage and Sclera Anicteric
Cardiovascular: Regular Rate and S1/S2
Pulmonary: Clear
Gastrointestinal: Soft, Non Tender, Non Distended and Normal Bowel Sounds
Genito-Urinary: Negative CVA Tenderness
Extremities: Negative Edema
Skin: Rash (Erythematous rash bilateral inguinal, Left breast >right folds, and posterior left knee)
Neurological: AO x 3
Lab / Diagnostic Study Results
04/24/24 05:17
04/24/24 05:17
Abs Immat Gran (auto) 0.0 10^3/uL (0-0.05) 04/24/24 05:17
Absolute Neuts (auto) 4.5 10^3/uL (1.4-6.5) 04/24/24 05:17
Absolute Lymphs (auto) 1.4 10^3/uL (1.2-3.4) 04/24/24 05:17
Absolute Monos (auto) 0.5 10^3/uL (0.1-0.6) 04/24/24 05:17
Absolute Basos (auto) 0.1 10^3/uL (0-0.2) 04/24/24 05:17
Immature Gran % 0.4 % (0-0.5) 04/24/24 05:17
Neutrophils % 66.5 % (42.2-75.2) 04/24/24 05:17
Lymphocytes % 20.9 % (20.5-51.1) 04/24/24 05:17
Monocytes % 7.0 % (1.7-9.3) 04/24/24 05:17
Eosinophils % 4.3 % (0-6) 04/24/24 05:17
Basophils % 0.9 % (0-2) 04/24/24 05:17
Microbiology Results
Micro:
04/24/24 02:13 MRSA Screen - Pending
Nose
Assessment / Plan
# Recurrent intertriginous candidiasis
# Class III obesity BMI 68
- recently completed 4 weeks of fluconazole 200mg qd.
- DC Micafungin.
- Start fluconazole 200mg po qd x 2 weeks.
- Wrote wound care orders pending Wound Nurse evaluation on Friday.
- DC Nystatin powder
- Apply 2% miconazole and maximum strength zinc oxide bid
- Place non-woven gauze in folds.
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
[2024-04-24] MEDS: TORADOL 30 MG IV (14:42)
[2024-04-24] MEDS: ANTIFUNGAL CLEAR 1 APPLIC TOPICAL ×2 (14:44→21:30)
[2024-04-24] MEDS: DESITIN MAXIMUM STRENGTH PASTE 1 APPLIC TOPICAL ×2 (14:44→21:30)
[2024-04-24 15:00] VITALS: BP 111/69
[2024-04-24] MEDS: DIFLUCAN 200 MG PO (15:00)
[2024-04-24] MEDS: CLOZARIL 100 MG PO (21:31)
[2024-04-24] MEDS: CLOZARIL 25 MG PO (21:32)
[2024-04-24] MEDS: NEURONTIN 400 MG PO (21:35)
[2024-04-24] MEDS: NEURONTIN 100 MG PO (21:36)
[2024-04-24] MEDS: ROCEPHIN 1000 MG IV (21:37)
[2024-04-24] MEDS: STERILE WATER FOR INJECTION 10 ML IV (21:37)
[2024-04-24 22:00] VITALS: BP 107/67
[2024-04-25] MEDS: SYNTHROID 175 MCG PO (05:03)
[2024-04-25 07:00] VITALS: BP 102/68
--- NOTE | 2024-04-25 07:17 | W.PN.HOSP.TC ---
Today's Communication/Plan
-
Midline for reliable bloodwork and IV medications as necessary
cont abx antifungal
wound care
1:1
scheduled Tylenol, prn Toradol pain control
Assessment / Plan
Assessment / Plan
Physical Exam
General: No acute distress appears comfortable at this time Morbidly Obese
HEENT: NormoCephalic, Moist mucous membranes and Atraumatic
Respiratory: Clear
Cardiac: S1/S2 and Regular Rhythm; No Murmur or Rub
GI: Soft, Non Tender, Non Distended and Normal Bowel Sounds; No Organomegaly
Musculoskeletal: No Clubbing, No Cyanosis and No Edema
Skin: erythema pannus, under breasts, behind posterior knees, bilateral lower extremity erythema and swelling and tenderness
Neuro: Awake Alert Conversant Coherent
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
Wandy intertrigo, hypothyroidism, chronic back pain/sciatica, chronic constipation, migraines, pulmonary embolism, chronic leg lymphedema, presenting from [facility] for increased redness, pain and rash of the inguinal folds as well
as under her breast, bilateral posterior knees with associate pain. She was admitted last month for intertrigo successfully treated with antifungal agents. She states that the intertrigo had resolved but has come back since then.
# Recurrent acute Wandy intertrigo
-Micafungin started in ER, continue
-Continue nystatin powder
-ID consult appreciated
-Wound care consult requested
-Toradol prn pain, Scheduled Tylenol Q4HWA
-midline placed 04.25.24 for reliable bloodwork and IV medications as necessary
# Bilateral lower extremity cellulitis on chronic lymphedema
-IV Ceftriaxone (patient was IM prior to admission for UTI)
-Continue chronic Lasix for lymphedema
#Reported Suicidal Ideation
1:1
Psych Eval appreciated
Chronic Blum catheter secondary to neurogenic bladder since age 5 from meningitis
-Reportedly on chronic Macrobid, per reports recently started on IM ceftriaxone planned for 7 day treatment UTI
Essential hypertension
-Continue spironolactone
-Continue clonidine
Bipolar disorder/anxiety/depression/claustrophobia/PTSD/schizoaffective disorder/borderline personality disorder
-Continue fluoxetine, clozapine, buspirone
-Continue naltrexone
TBI/seizure disorder
-Continue Diamox
GERD
-Continue Pepcid
Iron deficiency
-Continue ferrous sulfate
COPD
-Continue inhalers
Type 2 diabetes
-Continue Wegovy, insulin sliding scale
Hypothyroidism
-Continue levothyroxine
Chronic back pain/sciatica
-Continue gabapentin
-Continue lidocaine patch
Chronic constipation
-Continue MiraLAX, senna
Migraines
-Continue Nurtec as needed
Obesity
-Continue Wegovy
History of pulmonary embolism
-Not on anticoagulation
Full code
DVT prophylaxis�heparin
GI prophylaxis protonix
Regular diet
I spent a total of 50 minutes with the patient or on the floor. More than 50% of this time involved counseling and coordination of care.
Anticipated Discharge: 24 - 48 hours
Subjective/Interval History
-
Date of Service: April 25, 2024
no acute distress appears comfortable. Reports pain uncontrolled however. Denies any relief with toradol.
Objective Data
-
Labs:
Laboratory Results
04/25/24
06:00
WBC Pending
Hgb Pending
Hct Pending
Plt Count Pending
Sodium Pending
Potassium Pending
Chloride Pending
Carbon Dioxide Pending
BUN Pending
Creatinine Pending
Glucose Pending
Calcium Pending
Vital Signs:
Vital Signs
Temp Pulse Resp BP Pulse Ox
97.8 F 93 18 102/68 100
04/25/24 07:00 04/25/24 07:00 04/25/24 07:00 04/25/24 07:00 04/25/24 07:00
I&O
04/24/24 04/25/24 04/26/24
06:59 06:59 06:59
Intake Total 105 / 105 3120 / 3120
Output Total 2950 / 2950
Balance 105 / 105 170 / 170
[2024-04-25] MEDS: SUBUTEX 8 MG SL (08:26)
[2024-04-25] MEDS: PEPCID 20 MG PO ×2 (08:26→21:02)
[2024-04-25] MEDS: OSCAL CAL 500 500 MG PO (08:26)
[2024-04-25] MEDS: SENOKOT-S 2 TABLET PO ×3 (08:26→21:17)
[2024-04-25] MEDS: MIRALAX 17 GRAMS PO ×2 (08:26→21:06)
[2024-04-25] MEDS: PROTONIX 40 MG PO (08:26)
[2024-04-25] MEDS: FEOSOL 325 MG PO (08:26)
[2024-04-25] MEDS: ALDACTONE 25 MG PO (08:27)
[2024-04-25] MEDS: THERAGRAN 1 TABLET PO (08:27)
[2024-04-25] MEDS: PROZAC 40 MG PO (08:27)
[2024-04-25] MEDS: COLACE 100 MG PO ×3 (08:27→21:02)
[2024-04-25] MEDS: DIAMOX SR SEQUELS 500 MG PO ×3 (08:27→21:18)
[2024-04-25] MEDS: LASIX 20 MG PO (08:27)
[2024-04-25] MEDS: HEPARIN 5000 UNITS SC ×2 (08:27→21:06)
[2024-04-25] MEDS: DIFLUCAN 200 MG PO (08:27)
[2024-04-25] MEDS: KCL 20 MEQ PO (08:27)
[2024-04-25] MEDS: ZYRTEC 10 MG PO (08:27)
[2024-04-25] MEDS: FLEXERIL 5 MG PO ×3 (08:28→20:59)
[2024-04-25] MEDS: DESITIN MAXIMUM STRENGTH PASTE 1 APPLIC TOPICAL ×2 (08:29→20:59)
[2024-04-25] MEDS: ANTIFUNGAL CLEAR 1 APPLIC TOPICAL ×2 (08:30→20:58)
[2024-04-25] MEDS: ZINC OXIDE OINTMENT 1 APPLIC TOPICAL ×3 (08:30→21:05)
[2024-04-25] MEDS: ADVAIR HFA 230/21 MCG INHALER 2 PUFF INH (08:38)
[2024-04-25] MEDS: REVIA 50 MG PO ×2 (08:42→21:03)
[2024-04-25] MEDS: DUPHALAC/CHRONULAC PO (08:45)
[2024-04-25] MEDS: TORADOL 30 MG IV (10:15)
--- NOTE | 2024-04-25 10:57 | VATNOTE ---
Multiple unsuccessful attempts made by VAT RNs to place new PIV. Will place MidLine if indicated.
--- NOTE | 2024-04-25 12:20 | W.PN.UPDATE ---
Update Note
Progress Note Update
Psychiatry follow up for SI/history of swallowing foreign objects. Nursing reports patient has maintained behavioral control. Patient states she is feeling safe in the hospital and that having a 1:1 helps. She admits to always having thoughts of
self harm but denies urges to act on them. She states she slept ok last night and has been eating well. She continues to work on an extensive [employer] as well as coloring books.
04/25 qtc 478
WBC and abs neutrophils WNL yesterday (on clozaril)
MSE- obese, sitting in chair, crocheting. good eye contact. fluent speech. goal directed. admits to thoughts of self harm as noted above. she denies HI. no evidence of psychosis. Limited insight/judgement.
A/P-33 yo female with SAD, PTSD, BPAD and history significant for impulsivity/swallowing of foreign objects. Continue current medication regimen for now and patient can return to [facility] after discharge. Recommend continuing 1:1 throughout
admission and keeping 1:1 aware of history of behaviors. She can continue with her chaparrita needle while she is calm but any agitation and that should be the first thing removed from her room. Psychiatry will continue to follow.
--- NOTE | 2024-04-25 12:22 | PTCARENOTE ---
multiple attempts by phlebotomy and iv team to obtain blood and new iv access without success. Dr Best aware and placed an order for a midlne. IV team nurse Maikol made aware and will place later in the afternoon. Pt updated on new orders
--- NOTE | 2024-04-25 13:17 | W.PN.ID1 ---
Date of Service
Date of Service: April 25, 2024
Today's Communication
Continue fluconazole and wound care.
Assessment / Plan
# Recurrent intertriginous candidiasis - improving
# Class III obesity BMI 68
- recently completed 4 weeks of fluconazole 200mg qd.
- Continue fluconazole 200mg po qd (d2) x 2 weeks. QTc 462,
- Continue current wound care orders pending Wound Nurse evaluation on Friday.
Apply 2% miconazole and maximum strength zinc oxide bid
Place non-woven gauze between skin folds.
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
Asthma/COPD
DM
HTN
TBI
Seizure
hypothyroidism
neurogenic bladder, chronic cervantes
Class III obesity BMI 68
Suicide attempts
Bipolar disorder
PTSD
chronic pain
PE
Lymphedema
Additional Past Surgical History:
section 2009
Chief Complaint
-: Other (Yeast rash)
Subjective / Review of Systems
Skin folds not as painful.
Vital Signs / Physical Exam
Vital Signs
Vital Signs
Temp Pulse Resp BP Pulse Ox
97.8 F 89 16 102/68 100
04/25/24 07:00 04/25/24 08:41 04/25/24 08:41 04/25/24 07:00 04/25/24 08:41
Physical Exam
Constitutional: No Acute Distress and Comfortable
Skin: Rash (Decreased erythema bilateral groin, breast folds, posterior left knee)
Objective Data
Lab Data
Estimated Creat Clear > 125 ml/min 04/24/24 05:17
Total Bilirubin 0.4 mg/dl (0.2-1.3) 04/24/24 05:17
AST 15 U/L (14-36) 04/24/24 05:17
ALT 14 U/L (0-35) 04/24/24 05:17
Alkaline Phosphatase 89 U/L (38-126) 04/24/24 05:17
Most recent labs reviewed.
Micro Results:
04/24/24 02:13 MRSA Screen - Final
Nose No Methicillin Resistant Staphylococcus aureus isolated.
Care Review
Plan reviewed with: Nurse
[2024-04-25 13:34] VITALS: BMI 68.4
[2024-04-25 14:58] LABS: Hematocrit 33.3 % (37.0-47.0); Mean Corpuscular Hgb 23.3 pg (27.0-31.0); Mean Corpuscular Volume 77.4 fL (81.0-99.0); Mean Platelet Volume 8.7 fL (7.4-10.4); Platelet Count 320 10^3/uL (130-400); Red Cell Dist. Width 17.5 % (11.5-14.5); White Blood Cell Count 7.5 10^3/uL (4.8-10.8)
[2024-04-25 15:06] VITALS: BP 122/91
[2024-04-25 15:16] LABS: Blood Urea Nitrogen 14 mg/dl (7-17); Calcium 9.1 mg/dl (8.4-10.2); Carbon Dioxide 20 mmol/L (22-30); Chloride 107 mmol/L (98-107); Estimated Creatinine Clearance > 125 ml/min; Glucose 98 mg/dl (70-99); Magnesium 2.1 mg/dl (1.6-2.3); Phosphorus 4.8 mg/dl (2.5-4.5); Sodium 139 mmol/L (135-145); eGFR > 60.00
[2024-04-25] MEDS: ULTRAM 25 MG PO (15:59)
[2024-04-25] MEDS: ADVAIR HFA 230/21 MCG INHALER INH (20:57)
[2024-04-25] MEDS: NEURONTIN 400 MG PO (21:00)
[2024-04-25] MEDS: TYLENOL 650 MG PO (21:01)
[2024-04-25] MEDS: CLOZARIL 25 MG PO (21:02)
[2024-04-25] MEDS: NEURONTIN 100 MG PO (21:04)
[2024-04-25] MEDS: ROCEPHIN 1000 MG IV (21:05)
[2024-04-25] MEDS: STERILE WATER FOR INJECTION 10 ML IV (21:05)
[2024-04-25] MEDS: CLOZARIL 100 MG PO (21:09)
[2024-04-25 22:45] VITALS: BP 118/65
[2024-04-25] MEDS: TYLENOL PO (23:57)
[2024-04-26] MEDS: TORADOL 15 MG IV (00:24)
[2024-04-26 05:02] LABS: Hematocrit 32.9 % (37.0-47.0); Mean Corp Hgb Conc. 30.4 g/dL (33.0-37.0); Mean Corpuscular Hgb 22.8 pg (27.0-31.0); Mean Corpuscular Volume 74.9 fL (81.0-99.0); Mean Platelet Volume 9.1 fL (7.4-10.4); Platelet Count 345 10^3/uL (130-400); Red Blood Cell Count 4.39 10^6/uL (4.20-5.40); Red Cell Dist. Width 17.5 % (11.5-14.5); White Blood Cell Count 6.8 10^3/uL (4.8-10.8)
[2024-04-26] MEDS: SYNTHROID 175 MCG PO (05:11)
[2024-04-26] MEDS: TYLENOL 650 MG PO ×5 (05:11→21:07)
[2024-04-26 05:23] LABS: Blood Urea Nitrogen 14 mg/dl (7-17); Calcium 9.2 mg/dl (8.4-10.2); Carbon Dioxide 20 mmol/L (22-30); Chloride 108 mmol/L (98-107); Estimated Creatinine Clearance > 125 ml/min; Glucose 84 mg/dl (70-99); Magnesium 2.2 mg/dl (1.6-2.3); Phosphorus 4.4 mg/dl (2.5-4.5); Potassium 4.4 mmol/L (3.5-5.1); Sodium 142 mmol/L (135-145); eGFR > 60.00
[2024-04-26 07:10] VITALS: BP 119/69
[2024-04-26] MEDS: ADVAIR HFA 230/21 MCG INHALER 2 PUFF INH (08:27)
[2024-04-26] MEDS: FLEXERIL 5 MG PO ×3 (08:35→21:07)
[2024-04-26] MEDS: HEPARIN 5000 UNITS SC ×2 (08:35→15:09)
[2024-04-26] MEDS: PEPCID 20 MG PO ×2 (08:36→21:10)
[2024-04-26] MEDS: DUPHALAC/CHRONULAC 20 GRAMS PO (08:36)
[2024-04-26] MEDS: PROTONIX 40 MG PO (08:36)
[2024-04-26] MEDS: MIRALAX 17 GRAMS PO ×2 (08:36→21:06)
[2024-04-26] MEDS: PROZAC 40 MG PO (08:36)
[2024-04-26] MEDS: DIFLUCAN 200 MG PO (08:36)
[2024-04-26] MEDS: SENOKOT-S 2 TABLET PO ×3 (08:36→21:09)
[2024-04-26] MEDS: KCL 20 MEQ PO (08:36)
[2024-04-26] MEDS: THERAGRAN 1 TABLET PO (08:36)
[2024-04-26] MEDS: FEOSOL 325 MG PO (08:37)
[2024-04-26] MEDS: COLACE 100 MG PO ×3 (08:37→21:07)
[2024-04-26] MEDS: ALDACTONE 25 MG PO (08:37)
[2024-04-26] MEDS: ZYRTEC 10 MG PO (08:37)
[2024-04-26] MEDS: SUBUTEX 8 MG SL (08:37)
[2024-04-26] MEDS: REVIA 50 MG PO ×2 (08:37→21:09)
[2024-04-26] MEDS: DIAMOX SR SEQUELS 500 MG PO ×3 (08:37→21:10)
[2024-04-26] MEDS: OSCAL CAL 500 500 MG PO (08:37)
[2024-04-26] MEDS: LASIX 20 MG PO (08:37)
[2024-04-26] MEDS: ANTIFUNGAL CLEAR 1 APPLIC TOPICAL (08:38)
[2024-04-26] MEDS: DESITIN MAXIMUM STRENGTH PASTE 1 APPLIC TOPICAL (08:39)
[2024-04-26] MEDS: ZINC OXIDE OINTMENT 1 APPLIC TOPICAL ×2 (08:39→15:11)
--- NOTE | 2024-04-26 09:11 | W.PN.HOSP.TC ---
Today's Communication/Plan
-
Continue fluconazole. Discharge planning in progress.
Assessment / Plan
Assessment / Plan
Physical Exam
General: No acute distress appears comfortable at this time Morbidly Obese
HEENT: NormoCephalic, Moist mucous membranes and Atraumatic
Respiratory: Clear
Cardiac: S1/S2 and Regular Rhythm; No Murmur or Rub
GI: Soft, Non Tender, Non Distended and Normal Bowel Sounds; No Organomegaly
Musculoskeletal: No Clubbing, No Cyanosis and No Edema
Skin: erythema pannus, under breasts, behind posterior knees, bilateral lower extremity erythema and swelling and tenderness
Neuro: Awake Alert Conversant Coherent
A/P:
Recurrent intertriginous candidiasis:
Oral fluconazole for 2 weeks per ID recommendation
Topical treatment as well
Stop broad-spectrum antibiotics/ceftriaxone since it can worsen fungal infection and no clear-cut indication (?uti/?cellulitis-->no evidence for such)
Medically clear for discharge
technical operations manager for discharge disposition
History of PTSD SAD BPAD increased impulsivity and multiple admissions for swallowing foreign objects:
Psychiatry on board and recommended continue one-to-one throughout admission
Continue rest of psychiatry medications per psychiatry
Chronic urinary retention:
Chronic Blum-order placed today on 04/26
Full code
DVT prophylaxis�heparin
Anticipated Discharge: Today
Subjective/Interval History
-
Date of Service: April 26, 2024
Patient denies any abdominal pain nausea or vomiting. Afebrile. She wants to go back to her facility.
Objective Data
-
Labs:
Laboratory Results
04/26/24
04:17
WBC 6.8
Hgb 10.0 L
Hct 32.9 L
Plt Count 345
Sodium 142
Potassium 4.4
Chloride 108 H
Carbon Dioxide 20 L
BUN 14
Creatinine 1.0
Glucose 84
Calcium 9.2
Vital Signs:
Vital Signs
Temp Pulse Resp BP Pulse Ox
97.9 F 92 16 119/69 100
04/26/24 07:10 04/26/24 08:30 04/26/24 08:30 04/26/24 07:10 04/26/24 08:30
I&O
04/25/24 04/26/24 04/27/24
06:59 06:59 06:59
Intake Total 3120 / 3120 1920 / 1920
Output Total 2950 / 2950 2150 / 2150
Balance 170 / 170 -230 / -230
--- NOTE | 2024-04-26 10:02 | WOUNDNOTE ---
R POSTERIOR UPPER THIGH
--- NOTE | 2024-04-26 10:03 | WOUNDNOTE ---
R MEDIAL POSTERIOR THIGH
--- NOTE | 2024-04-26 10:04 | WOUNDNOTE ---
MID GROIN SKIN FOLD
--- NOTE | 2024-04-26 10:06 | WOUNDNOTE ---
L BREAST SKIN FOLD
--- NOTE | 2024-04-26 10:06 | WOUNDNOTE ---
R BREAST SKIN FOLD
--- NOTE | 2024-04-26 10:07 | WOUNDNOTE ---
WON RN note: Patient admitted with severe intertrigo. Patient resides at [facility].
See H&P for complete history.
PMH: Asthma, HTN, bipolar, morbid obesity, major depression, PTSD, yeast rash in skin folds.
Wound Location and type/assessment: Patient with frequent admissions for same fungal rash in skin folds and new PI on posterior R thigh. Mid groin skin fold with partial thickness opening and few slit openings under both breasts, scant drainage. L
posterior knee skin folds with same yeasty appearing redness, MASD. PCT Ian assisted with holding up Panus for assessment. R upper posterior and medial thigh ulcers, pink mixed with yellow slough. Patient has chronic Blum and thinks may have
occurred from tubing pressing into thigh. Suspect stage 3 PI vs device related PI. 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 Does not have a cushion for chair at OR. Discussed weight loss
management, patient is on a GLP-1 RA drug. Patient states she is aware that fungal rash and wound issues directly related to obesity. Patient states she doesn't feel like medicine is doing anything. Despite being on diabetic/weight loss drug, she
continues to order from [employer] delivered to . Suspect patient orders allot of her meals from [employer].
Appetite: On regular diet. Recommend stonework tracer.
Pressure redistribution devices in place: Sitting in bariatric recliner chair. Gave patient bariatric air chair cushion. Can take upon discharge. Accumax bed, turns self and ambulates on own. Able to stand from recliner chair on own.
Plan: Cleansed all skin folds, patted dry. Applied piece of alginate to mid groin skin fold. Miconazole cream discontinued, ordered fungal powder and applied to all skin folds, tucked folded pillow cases in abdominal folds and non woven gauze in
breast folds and L knee skin fold. Spoke to Dr. Cantu regarding the above, agrees difficult situation as patient has recurrent admissions for same fungal rash. Will confirm orders with hospitalist and discussed with LAKESHIA INIGUEZ. Care plan to be updated
and will follow as needed.
--- NOTE | 2024-04-26 11:58 | W.PN.ID1 ---
Date of Service
Date of Service: April 26, 2024
Today's Communication
- Continue fluconazole 200mg po qd (d3) x 2 weeks. QTc 462,
- Continue current wound care as per Wound RN recommendations.
- ID will sign off.
Assessment / Plan
# Recurrent intertriginous candidiasis - improving
# Class III obesity BMI 68
- recently completed 4 weeks of fluconazole 200mg qd.
- Continue fluconazole 200mg po qd (d3) x 2 weeks. QTc 462,
- Continue current wound care as per Wound RN recommendations.
- ID will sign off.
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
Asthma/COPD
DM
HTN
TBI
Seizure
hypothyroidism
neurogenic bladder, chronic cervantes
Class III obesity BMI 68
Suicide attempts
Bipolar disorder
PTSD
chronic pain
PE
Lymphedema
Additional Past Surgical History:
section 2009
Chief Complaint
-: Other (Yeast rash)
Subjective / Review of Systems
No new issues.
Vital Signs / Physical Exam
Vital Signs
Vital Signs
Temp Pulse Resp BP Pulse Ox
97.9 F 92 16 119/69 100
04/26/24 07:10 04/26/24 08:30 04/26/24 08:30 04/26/24 07:10 04/26/24 08:30
Physical Exam
Constitutional: No Acute Distress and Comfortable
Gastrointestinal: Soft, Non Tender and Non Distended
Wound: Other (Reviewed today's wound photos. )
Objective Data
Lab Data
Lab Results
04/26/24 04:17
04/26/24 04:17
Estimated Creat Clear > 125 ml/min 04/26/24 04:17
Total Bilirubin 0.4 mg/dl (0.2-1.3) 04/24/24 05:17
AST 15 U/L (14-36) 04/24/24 05:17
ALT 14 U/L (0-35) 04/24/24 05:17
Alkaline Phosphatase 89 U/L (38-126) 04/24/24 05:17
Most recent labs reviewed.
Micro Results:
04/24/24 02:13 MRSA Screen - Final
Nose No Methicillin Resistant Staphylococcus aureus isolated.
[2024-04-26] MEDS: ProAIR HFA INHALER 2 PUFF INH (14:07)
--- NOTE | 2024-04-26 14:56 | CM ---
Addendum entered by Eliana Gonzales 04/26/24 15:21:
[facility]
Report: [phone], ask for first floor

Original Note:
CM reviewed chart, met with patient. Patient remains on 1:1. Patient denies needs to CM at this time. CM will continue to follow for all discharge planning needs.
Plan; return to [facility] when stable, please call Claudia (Internal Admission Qpasysah-[phone]) when stable for discharge.
[2024-04-26 15:22] VITALS: BP 121/72
[2024-04-26] MEDS: ADVAIR HFA 230/21 MCG INHALER INH (20:34)
[2024-04-26] MEDS: DESENEX/MITRAZOL/ZEASORB TOPICAL ×2 (21:06→21:16)
[2024-04-26] MEDS: NEURONTIN 100 MG PO (21:07)
[2024-04-26] MEDS: NEURONTIN 400 MG PO (21:07)
[2024-04-26] MEDS: CLOZARIL 100 MG PO (21:09)
[2024-04-26] MEDS: CLOZARIL 25 MG PO (21:09)
[2024-04-26] MEDS: DESITIN MAXIMUM STRENGTH PASTE TOPICAL (21:16)
[2024-04-26] MEDS: ZINC OXIDE OINTMENT TOPICAL (22:47)
[2024-04-26 23:29] VITALS: BP 120/75
[2024-04-26] MEDS: HEPARIN SC (23:32)
[2024-04-26] MEDS: TYLENOL PO (23:32)
[2024-04-27] MEDS: TORADOL IV (02:38)
[2024-04-27] MEDS: DESENEX/MITRAZOL/ZEASORB 1 APPLIC TOPICAL ×2 (02:57→07:53)
[2024-04-27] MEDS: DESITIN MAXIMUM STRENGTH PASTE 1 APPLIC TOPICAL ×2 (02:59→07:53)
[2024-04-27] MEDS: TYLENOL 650 MG PO ×4 (03:08→16:03)
[2024-04-27] MEDS: ProAIR HFA INHALER 2 PUFF INH (03:11)
[2024-04-27] MEDS: TORADOL 15 MG IV ×2 (03:31→11:45)
[2024-04-27 03:45] LABS: Hematocrit 34.2 % (37.0-47.0); Hemoglobin 10.4 g/dL (12.0-16.0); Mean Corp Hgb Conc. 30.4 g/dL (33.0-37.0); Mean Corpuscular Hgb 23.2 pg (27.0-31.0); Mean Corpuscular Volume 76.2 fL (81.0-99.0); Mean Platelet Volume 9.1 fL (7.4-10.4); Platelet Count 314 10^3/uL (130-400); Red Blood Cell Count 4.49 10^6/uL (4.20-5.40); Red Cell Dist. Width 17.7 % (11.5-14.5); White Blood Cell Count 5.7 10^3/uL (4.8-10.8)
[2024-04-27 03:57] LABS: Blood Urea Nitrogen 15 mg/dl (7-17); Calcium 8.7 mg/dl (8.4-10.2); Carbon Dioxide 21 mmol/L (22-30); Chloride 109 mmol/L (98-107); Estimated Creatinine Clearance > 125 ml/min; Glucose 90 mg/dl (70-99); Magnesium 2.1 mg/dl (1.6-2.3); Phosphorus 4.7 mg/dl (2.5-4.5); Potassium 4.3 mmol/L (3.5-5.1); Sodium 142 mmol/L (135-145); eGFR > 60.00
[2024-04-27] MEDS: SYNTHROID 175 MCG PO (06:00)
[2024-04-27 07:43] VITALS: BP 106/67
[2024-04-27] MEDS: HEPARIN SC ×2 (07:55→15:57)
[2024-04-27] MEDS: PROTONIX 40 MG PO (07:56)
[2024-04-27] MEDS: FLEXERIL 5 MG PO ×2 (07:56→16:02)
[2024-04-27] MEDS: REVIA 50 MG PO (07:56)
[2024-04-27] MEDS: ALDACTONE 25 MG PO (07:56)
[2024-04-27] MEDS: ZYRTEC 10 MG PO (07:56)
[2024-04-27] MEDS: COLACE 100 MG PO ×2 (07:57→16:02)
[2024-04-27] MEDS: OSCAL CAL 500 500 MG PO (07:57)
[2024-04-27] MEDS: LASIX 20 MG PO (07:57)
[2024-04-27] MEDS: KCL 20 MEQ PO (07:57)
[2024-04-27] MEDS: DIAMOX SR SEQUELS 500 MG PO ×2 (07:57→16:03)
[2024-04-27] MEDS: PEPCID 20 MG PO (07:57)
[2024-04-27] MEDS: SENOKOT-S 2 TABLET PO ×2 (07:57→16:03)
[2024-04-27] MEDS: DIFLUCAN 200 MG PO (07:57)
[2024-04-27] MEDS: FEOSOL 325 MG PO (07:57)
[2024-04-27] MEDS: MIRALAX 17 GRAMS PO (07:58)
[2024-04-27] MEDS: DUPHALAC/CHRONULAC 20 GRAMS PO (07:58)
[2024-04-27] MEDS: SUBUTEX 8 MG SL (07:58)
[2024-04-27] MEDS: PROZAC 40 MG PO (07:58)
[2024-04-27] MEDS: ZINC OXIDE OINTMENT TOPICAL ×2 (07:58→15:58)
[2024-04-27] MEDS: THERAGRAN 1 TABLET PO (07:58)
[2024-04-27] MEDS: ADVAIR HFA 230/21 MCG INHALER 2 PUFF INH (08:16)
--- NOTE | 2024-04-27 08:52 | W.PN.HOSP.TC ---
Addendum entered and electronically signed by Carlin Engle MD 04/28/24 08:45:
Suspected stage 3 pressure injury vs. device pressure injury on right thigh, POA
Addendum entered and electronically signed by Carlin Engle MD 04/27/24 14:04:
Suspected stage 3 pressure injury vs. device pressure injury POA
Acute kidney injury (nontraumatic).
Original Note:
Today's Communication/Plan
-
Discharge planning today.
Assessment / Plan
Assessment / Plan
Physical Exam
General: No acute distress appears comfortable at this time Morbidly Obese
HEENT: NormoCephalic, Moist mucous membranes and Atraumatic
Respiratory: Clear
Cardiac: S1/S2 and Regular Rhythm; No Murmur or Rub
GI: Soft, Non Tender, Non Distended and Normal Bowel Sounds; No Organomegaly
Musculoskeletal: No Clubbing, No Cyanosis and No Edema
Skin: erythema pannus, under breasts, behind posterior knees, bilateral lower extremity erythema and swelling and tenderness
Neuro: Awake Alert Conversant Coherent
A/P:
Recurrent intertriginous candidiasis:
Oral fluconazole for 2 weeks per ID recommendation
Topical treatment as well
Stop broad-spectrum antibiotics/ceftriaxone since it can worsen fungal infection and no clear-cut indication (?uti/?cellulitis-->no evidence for such)
Psychiatry follow-up appreciated.
Medically clear for discharge
mental health program manager for discharge disposition
History of PTSD SAD BPAD increased impulsivity and multiple admissions for swallowing foreign objects:
Psychiatry on board and recommended continue one-to-one throughout admission
Continue rest of psychiatry medications per psychiatry
Chronic urinary retention:
Chronic Blum-order placed on 04/26
Full code
DVT prophylaxis�heparin
Anticipated Discharge: Today
Subjective/Interval History
-
Date of Service: April 27, 2024
Patient seen and examined. No new complaints
Objective Data
-
Labs:
Laboratory Results
04/27/24 04/27/24
03:13 03:22
WBC 5.7
Hgb 10.4 L
Hct 34.2 L
Plt Count 314
Sodium 142
Potassium 4.3
Chloride 109 H
Carbon Dioxide 21 L
BUN 15
Creatinine 0.9
Glucose 90
Calcium 8.7
Vital Signs:
Vital Signs
Temp Pulse Resp BP Pulse Ox
97.5 F 94 16 106/67 100
04/27/24 07:43 04/27/24 08:17 04/27/24 08:17 04/27/24 07:43 04/27/24 08:17
I&O
04/26/24 04/27/24 04/28/24
06:59 06:59 06:59
Intake Total 1919 / 1919 880 / 880
Output Total 2149 / 2149 2049 / 2049
Balance -230 / -230 -1170 / -1170
--- NOTE | 2024-04-27 10:36 | W.DCSUMMARY ---
Discharge Summary
Discharge Data
Date of Admission: 04/23/24
Date of Discharge: 04/27/24
-
Pending Results: No
Hospital Course
Patient 33 years old female with extensive psychiatry history came into the hospital with recurrent intertriginous candidiasis. ID was consulted. Psychiatry was consulted as well. Patient was placed on broad-spectrum antibiotic but no reason to
continue that so that was discontinued. Patient was recommended to be restarted on oral fluconazole and to be kept on 2 weeks course for that as well as some local topical treatment. Patient did well rest of the hospital stay. She has been
afebrile and hemodynamically stable. She was kept on one-to-one per psychiatry recommendations. No other events were noticed. Patient is being discharged in relatively stable condition today.
Discharge duration: 35 minutes
Discharge Plan
-
Patient Disposition: Fdc/SNF
Discharge Diagnosis/Procedures: Recurrent intertriginous candidiasis. Morbid obesity. Bipolar disorder.
Diet: Low Cholesterol
Activity: As tolerated
Blood Work: Please PCP to order CBC, BMP within 1 week
Activity Restrictions/Additional Instructions:
Wound Care Instructions
BREAST FOLDS, GROIN, BACK OF LEFT KNEE: Cleanse all skin folds with mild soap and water, then dry thoroughly. Applied piece of alginate to mid groin skin fold. Miconazole powder to all skin folds, tucked folded pillow cases or 100% cotton t shirt
into abdominal folds and non woven gauze in breast folds and L knee skin fold.
R POSTERIOR UPPER THIGH (2 ulcers): clean with saline or soap and water, skin prep periwound, Exuderm thin(Hydrocolloid) change q 2-3 days and prn drainage. If this does not stay on, apply barrier cream bid.
Zinc oxide to perineum as ordered.
Bariatric Air chair cushion can take upon discharge.
Frequent shifts in position when sitting.
Nutrition management for weight loss and teaching.
Follow up at wound care center if R posterior thigh wounds not healing. call for an appointment.
Referrals:
Shivam Turk DO [Family Provider] - in less than 1 week
Kristin Cantu MD [Active] - in two to three weeks
Prescriptions:
New
fluconazole 200 mg Tablet
200 mg PO DAILY 11 Days Qty: 11 0RF
miconazole nitrate [Miconazorb AF] 2 % Powder
1 applic topical BID Qty: 85 0RF
Continued
levothyroxine [Synthroid] 175 mcg Tablet
175 mcg PO DAILY@06
acetaminophen [Tylenol] 325 mg Tablet
650 mg PO Q6HPRN MDD 3000 mg PRN (Reason: temp>100.4/mild pain)
polyethylene glycol 3350 [Miralax] 17 gram Powder In Packet
17 g PO BID
cetirizine [Zyrtec] 10 mg Tablet
10 mg PO DAILY
acetazolamide 500 mg Capsule, Extended Release
500 mg PO TID
therapeutic multivitamin Tablet
1 tab PO DAILY
famotidine [Pepcid] 20 mg Tablet
20 mg PO BID
magnesium hydroxide [Milk of Magnesia] 400 mg/5 mL Suspension
2,400 mg PO [id number] PRN (Reason: if no bm in 3 days)
bisacodyl [Dulcolax (bisacodyl)] 10 mg Suppository
10 mg MI DAILYPRN PRN (Reason: constipation, if mom ineffective)
ferrous sulfate 325 mg (65 mg iron) Tablet
325 mg PO DAILY
fluticasone propion-salmeterol [Advair Diskus] 500-50 mcg/dose Blister With Device
1 inh INHALATION R BID
Fleet Enema 19-7 gram/118 mL Enema
118 ml MI DAILYPRN PRN (Reason: constipation, suppository ineffect)
docusate sodium [Colace] 100 mg Capsule
100 mg PO TID
ibuprofen 600 mg Tablet
600 mg PO Q6HPRN PRN (Reason: mild pain)
atropine 1 % Drops
1 drp sublingual Q8HPRN PRN (Reason: drooling) Qty: 0
cyclobenzaprine 5 mg Tablet
5 mg PO TID
Senna Plus 8.6-50 mg Capsule
2 tab-cap PO TID
naltrexone 50 mg Tablet
50 mg PO BID
lidocaine 4 % Adhesive Patch,Medicated
1 patch TOPICAL DAILY
clozapine 25 mg Tablet
25 mg PO HS
Rx Instructions:
with 100mg = 125mg
furosemide 20 mg Tablet
20 mg PO DAILY
gabapentin 100 mg Capsule
100 mg PO HS
albuterol sulfate 90 mcg/actuation Hfa Aerosol Inhaler
2 inh INHALATION R Q6HPRN PRN (Reason: sob/wheezing)
lactulose 10 gram/15 mL Solution
30 ml PO DAILY
potassium chloride 20 mEq Tablet Extended Release
20 meq PO DAILY
Nurtec ODT 75 mg Tablet,Disintegrating
75 mg PO [id number] PRN (Reason: migraine)
nitroglycerin 0.4 mg Tablet, Sublingual
0.4 mg SUBLINGUAL [id number] PRN (Reason: chest pain)
spironolactone 25 mg Tablet
25 mg PO DAILY
fluoxetine 40 mg Capsule
40 mg PO DAILY
clozapine 100 mg Tablet
100 mg PO HS
Rx Instructions:
take with [id number]
gabapentin 400 mg Capsule
400 mg PO HS
calcium carbonate [Calcium 600] 600 mg calcium (1,500 mg) Tablet
600 mg PO DAILY
omeprazole 20 mg Capsule,Delayed Release(Dr/Ec)
20 mg PO DAILY
ceftriaxone 2 gram Recon Soln
2 g IM DAILY
Patient Comments:
04/23/24: Take for 7 days, 04/22/24-04/29/24
zinc oxide 10 % Cream
1 applic TOPICAL TID
nitrofurantoin monohyd/m-cryst [Macrobid] 100 mg Capsule
100 mg PO HS
buprenorphine-naloxone 8-2 mg Film
1 film BUCCAL DAILY
Patient Comments:
04/23/24: No stop date per MD
Discharge Orders:
Discharge Patient (As Directed); Ordered 04/27/24
Ordered By: Carlin Engle
Discharge Date and Time
Discharge Date/Time: 04/27/24 17:50
Print Language: MONTENEGRIN
--- NOTE | 2024-04-27 10:39 | PN.CDI ---
CDI
- -
CDI:
Physician Documentation Request
Admit Date: 04/23/24 15:52
Dear Doctor Engle,
Please review the following and provide your response in the progress notes.
Clinical Indicators:
Pt admitted with recurrent intertriginous candidiasis.
04/26 BELÉN RN: ' Patient with frequent admissions for same fungal rash in skin folds and new PI on posterior R thigh...Patient has chronic Blum and thinks may have occurred from tubing pressing into thigh..Suspect stage 3 PI vs device related PI.'
Physician documentation of the type and location of wounds is required for compliant documentation. Based on the above clinical findings and your assessment, please provide the following in your progress note:
Suspected stage 3 pressure injury vs. device pressure injury POA
Non-pressure wound POA
Other
Use of terms such as suspected, likely, concern for, or probable (associated with a specific diagnosis that is being evaluated, monitored, or treated as if it exists) are acceptable and can be coded in the inpatient setting, when documented at the
time of discharge.
Thank you,
Doris Holland RN, BSN
CDI Specialist
Available via [place] [employer]
Please use your independent medical judgment in providing your response.
*Source: National Pressure Ulcer Advisory Panel (NPUAP)
--- NOTE | 2024-04-27 10:53 | PN.CDI ---
CDI
- -
CDI:
Physician Documentation Request
Admit Date: 04/23/24 15:52
Dear Doctor Kadie,
Please review the following and provide your response in the progress notes.
Clinical Indicators:
Pt admitted with Recurrent intertriginous candidiasis.
Labs as noted:
Laboratory Tests
04/24/24 04/25/24 04/26/24
05:17 14:51 04:17
Creatinine 0.7 1.1 H 1.0
Clarify which of the following accurately represents the patient's renal status:
Acute kidney injury (non-traumatic) - see criteria
Insignificant abnormal lab finding
Other
Criteria for JORGE*
1 Increase in serum creatinine by > or = to 0.3 mg/dL (> or = to 26.5 micromol/L) within 48 hours, OR
2 Increase in serum creatinine to > or = to 1.5 times baseline, which is known or presumed to have occurred within 7 days, OR
3 Urine volume < 0.5 nL/kg/hour for six hours
Use of terms such as suspected, likely, concern for, or probable (associated with a specific diagnosis that is being evaluated, monitored, or treated as if it exists) are acceptable and can be coded in the inpatient setting, when documented at the
time of discharge.
Thank you,
Doris Holland RN, BSN
CDI Specialist
Available via [place] [employer]
Please use your independent medical judgment in providing your response.
*Source: Kidney Disease: Improving Global Outcomes (KDIGO) 2012
--- NOTE | 2024-04-27 11:17 | CM ---
CM reviewed chart and noted dc order
Discussion with [facility] admissions/Lolita
She is aware pt is on 1:1 for safety and suicide ideations
Admissions noted they are able to handle her MH needs and will place on 1:1 at SNF for safety
Accepted back for admission today
Bedside meeting with pt
IMM verbally reviewed- copy provided
She is hopeful for dc soon so she is able to attend bingo at SNF today
Declined offer to contact family with dc update
Transport forms on chart
Pt will require bariatric ambulance for safety/suicide precautions
Discharge Disposition- return [facility] via ambulance
Phone- [phone] Fax0
--- NOTE | 2024-04-27 12:19 | W.PN.UPDATE ---
Update Note
Progress Note Update
Pt seen, sitting up in chair, dressed in street clothes, alert, calm, cooperative, crocheting. Pt states she feels stable, hopes to be discharged today, plans to return to [facility] PHP. Pt sees WEB OPERATIONS LEAD at [facility] for prescriptions. Affect/mood
appropriate/stable.
Imp: Hx of Schizoaffective d/o, PTSD, Borderline personality d/o- appears stable to return to Outpatient/PHP program
Rec: continue current psychotropic medications; [facility] when medically stable
[2024-04-27 15:00] VITALS: BP 160/61
== END 2024-04-27 17:50 | DRG 606 ==
LOC: 4 WEST ACU 15:52
PROVIDERS: Internal Medicine; Physician Assistant; ADMITTING PHYSICIAN Hospitalist; ATTENDING PHYSICIAN Hospitalist; CONSULT PHYSICIAN Internal Medicine Infectious Disease; CONSULT PHYSICIAN Psychiatry & Neurology Psychiatry; EMERGENCY PHYSICIAN Emergency Medicine; FAMILY PHYSICIAN Internal Medicine
DX: B37.2 Candidiasis of skin and nail (principal); L89.893 Pressure ulcer of other site, stage 3; L03.115 Cellulitis of right lower limb; L03.116 Cellulitis of left lower limb; N39.0 Urinary tract infection, site not specified; Z68.44 Body mass index [BMI] 60.0-69.9, adult; N17.9 Acute kidney failure, unspecified; F25.9 Schizoaffective disorder, unspecified; E03.9 Hypothyroidism, unspecified; E11.9 Type 2 diabetes mellitus without complications; E66.01 Morbid (severe) obesity due to excess calories; F31.9 Bipolar disorder, unspecified; G40.909 Epilepsy, unspecified, not intractable, without status epilepticus; I10 Essential (primary) hypertension; J44.89 Other specified chronic obstructive pulmonary disease; E61.1 Iron deficiency; F40.240 Claustrophobia; F43.10 Post-traumatic stress disorder, unspecified; F60.3 Borderline personality disorder; G43.909 Migraine, unspecified, not intractable, without status migrainosus; G89.29 Other chronic pain; I89.0 Lymphedema, not elsewhere classified; K21.9 Gastro-esophageal reflux disease without esophagitis; K59.09 Other constipation; M54.30 Sciatica, unspecified side; N31.9 Neuromuscular dysfunction of bladder, unspecified; Z96.0 Presence of urogenital implants; Z79.51 Long term (current) use of inhaled steroids; Z79.899 Other long term (current) drug therapy; Z79.890 Hormone replacement therapy; Z86.711 Personal history of pulmonary embolism; Z87.891 Personal history of nicotine dependence; Z91.51 Personal history of suicidal behavior; Z86.61 Personal history of infections of the central nervous system; Z88.8 Allergy status to other drugs, medicaments and biological substances
CPT/HCPCS: 80048; 80053; 83735; 84100; 85025; 85027; 87070; 93005; 94640; 96374; 96375; 99284

== ENCOUNTER 2024-05-03 22:43 | Emergency (ER) | payer MEDICARE, OTHER, SELFPAY ==
[2024-05-03 22:45] VITALS: BP 131/70
--- NOTE | 2024-05-03 23:42 | ED.GENMED ---
History of Present Illness
General
Chief Complaint: Swallowing Problem
Source: patient
Exam Limitations: none
Time Seen by Provider: 05/03/24 22:50
History of Present Illness
History of Present Illness:
This is a 33 year old female that comes in with c/o foreign object ingestion. States that she swallowed a staple and piece of glass. States that this was at 10pm and she doesn't know why she did this. Denies any fever, chills, chest pain, SOB, abd
pain, nausea, vomiting, diarrhea, headache, dizziness. Patient has indwelling catheter.
Past History
Past History
ED Past Medical History: Asthma, COPD, GERD, HTN, NIDDM, Seizures, Hypothyroidism, Psychiatric (anxiety, depression, Bipolar, Claustrophobia, PTSD, Schizo, Suicidal attempt, Borderline Personality disorder, ) and Other (Meningitis, Sciatica, TBI,
PE, Chronic lymphedema, Urinary retention with chronic Catheter, UTI, Cellulitis, UTI, Cellulitis, Anemia. Foreign object ingestion)
ED Past Surgical History:
Social History
Tobacco: Former smoker
Alcohol: None
Drug: None
Personal: Other ()
Living: penitentiary ([place])
Employment: Disabled
Family History
Family History: Other (Noncontributory)
Review of Systems
Review of Systems
All Other Systems: ROS reviewed and negative except as documented in HPI and ROS
Constitutional: Reports no symptoms; Denies fever or chills
EENT: Reports no symptoms
Respiratory: Reports no symptoms; Denies cough or trouble breathing
Cardiac: Reports no symptoms; Denies chest pain
ABD/GI: Reports no symptoms; Denies abdominal pain, nausea, vomiting or diarrhea
: Reports no symptoms
Musculoskeletal: Reports no symptoms
Skin: Reports other (sacral decub, Fungal groin and lower abd rash. )
Neurological: Reports no symptoms; Denies dizzy or headache
Psychiatric: Reports no symptoms
Phy Exam
General Physical Exam
General Presentation: no apparent distress
General age: appears stated age
General Skin: warm and dry
General Habitus: obese
General Mental: alert
General Hydration: appears well hydrated
ENT Exam
ENT Exam: TM's normal, pharynx normal and neck supple
Eye Exam
Eye Exam: EOMI
Cardiovascular Exam
Cardiovascular Exam: regular rate/rhythm
Pulmonary Exam
Pulmonary Exam: lungs clear, no respiratory distress, no rales, chest non tender, no crackles, no rhonchi, no wheezing and no cough
Gastrointestinal Exam
Gastrointestinal Exam: normal bowel sounds, non tender, soft, no organomegaly, no pulsatile mass, non distended and other
Musculoskeletal Exam
Musculoskeletal Exam: full ROM and edema (Chronic lymph edema of the lower legs)
Skin Exam
Skin Exam: normal color, warm/dry, no petechia and other (Groin and lower abd fold with fungal rash, Small decub noted on the right medial posterior thigh)
Psychiatric Exam
Psychiatric Exam: normal mood/affect
Course
Orders/Labs/Results
Orders:
Orders
05/03/24 23:41
Complete Blood Count/With Diff Urgent
Comprehensive Metabolic Panel Urgent
HCG, Serum Qualitative Screen Urgent
Test Result ONCE
05/04/24 00:00
CR Abdomen - 1 View Urgent
Reason For Exam: Foreign object ingestion
CR Chest - 2 Views Urgent
Comment: Glass and staple
Reason For Exam: Foreign object ingestion
Abnormal Lab Results
05/04/24
00:13
Hgb 10.1 L g/dL
(12.0-16.0)
Hct 32.0 L %
(37.0-47.0)
MCV 74.2 L fL
(81.0-99.0)
MCH 23.4 L pg
(27.0-31.0)
MCHC 31.6 L g/dL
(33.0-37.0)
RDW 17.3 H %
(11.5-14.5)
Immature Gran % 0.6 H %
(0-0.5)
Eosinophils % 7.0 H %
(0-6)
Chloride 111 H mmol/L
(98-107)
Carbon Dioxide 16 L mmol/L
(22-30)
Glucose 101 H mg/dl
(70-99)
05/04/24 00:13
05/04/24 00:13
H/H low but consistent with prior labs Anemia. Chloride slightly elevated. Carbon dioxide low. Glucose very slightly elevated. HCG negative.
Vital Signs
Initial and Last Documented VS:
Initial Vital Signs
Temp Pulse Resp BP Pulse Ox
98.6 F 95 18 131/70 99
05/03/24 22:45 05/03/24 22:45 05/03/24 22:45 05/03/24 22:45 05/03/24 22:45
Last Documented Vital Signs
Temp Pulse Resp BP Pulse Ox
98.6 F 97 22 117/68 99
05/03/24 22:45 05/04/24 02:00 05/04/24 02:00 05/04/24 02:00 05/04/24 02:00
MDM/Problems Addressed
Differential Diagnosis Includes:
Foreign object ingestion,
MDM/Problems Addressed:
This is a 33 year old female that comes in with c/o ingesting a piece of glass and staple.
Will check lab and get X-rays.
Back into see patient. Explained that her blood work shows her anemia and her WBC are normal. There is a staple noted in the bowel. Chest x-ray is normal. Discussed with Dr. Brock. [facility].
Chronic conditions affecting care: Psychiatric illness
Acute Exacerbation and/or Progression of Chronic Illness: Psychiatric illness
*Radiology
Radiology exam reviewed: preliminary read by ED provider (Chest- Negative for foreign objects or acute disease. One view abd- Staple noted in the bowel. )
*Pulse Oximetry
Patient hypoxic: no
*EKG
Interpreted by ED Provider?: NA
Rate: EKG- N/A
*Aircraft General Repair Mechanic Interpretation
Rate: Aircraft General Repair Mechanic- N/A
*Critical Care Note
Total Time (30-74mins, 75-104mins- exclusive of procedures): Not Applicable
ED Attending Note
-
Portions of this chart may have been created with voice recognition software.� Occasional wrong word or��sound alike� substitutions may have occurred due to the inherent limitations of voice recognition software.
Discharge Plan
Departure
Patient Disposition: Senior Living/SNF
Date of Disposition: 05/04/24
Time of Disposition: 02:37
Patient with high blood pressure during this ER visit?: Yes
Condition: Good
Covid-19: Not Applicable
Discharge Problem:
foreign object ingestion
Instructions: Foreign Body, Swallowed, Adult, BLOOD PRESSURE
Prescriptions:
No Action
levothyroxine [Synthroid] 175 mcg Tablet
175 mcg PO DAILY@06
acetaminophen [Tylenol] 325 mg Tablet
650 mg PO Q6HPRN MDD 3000 mg PRN (Reason: temp>100.4/mild pain)
polyethylene glycol 3350 [Miralax] 17 gram Powder In Packet
17 g PO BID
cetirizine [Zyrtec] 10 mg Tablet
10 mg PO DAILY
acetazolamide 500 mg Capsule, Extended Release
500 mg PO TID
therapeutic multivitamin Tablet
1 tab PO DAILY
famotidine [Pepcid] 20 mg Tablet
20 mg PO BID
magnesium hydroxide [Milk of Magnesia] 400 mg/5 mL Suspension
2,400 mg PO [id number] PRN (Reason: if no bm in 3 days)
bisacodyl [Dulcolax (bisacodyl)] 10 mg Suppository
10 mg NM DAILYPRN PRN (Reason: constipation, if mom ineffective)
ferrous sulfate 325 mg (65 mg iron) Tablet
325 mg PO DAILY
fluticasone propion-salmeterol [Advair Diskus] 500-50 mcg/dose Blister With Device
1 inh INHALATION R BID
Fleet Enema 19-7 gram/118 mL Enema
118 ml NM DAILYPRN PRN (Reason: constipation, suppository ineffect)
docusate sodium [Colace] 100 mg Capsule
100 mg PO TID
ibuprofen 600 mg Tablet
600 mg PO Q6HPRN PRN (Reason: mild pain)
atropine 1 % Drops
1 drp sublingual Q8HPRN PRN (Reason: drooling) Qty: 0
cyclobenzaprine 5 mg Tablet
5 mg PO TID
Senna Plus 8.6-50 mg Capsule
2 tab-cap PO TID
naltrexone 50 mg Tablet
50 mg PO BID
lidocaine 4 % Adhesive Patch,Medicated
1 patch TOPICAL DAILY
clozapine 25 mg Tablet
25 mg PO HS
Rx Instructions:
with 100mg = 125mg
furosemide 20 mg Tablet
20 mg PO DAILY
gabapentin 100 mg Capsule
100 mg PO HS
albuterol sulfate 90 mcg/actuation Hfa Aerosol Inhaler
2 inh INHALATION R Q6HPRN PRN (Reason: sob/wheezing)
lactulose 10 gram/15 mL Solution
30 ml PO DAILY
potassium chloride 20 mEq Tablet Extended Release
20 meq PO DAILY
Nurtec ODT 75 mg Tablet,Disintegrating
75 mg PO [id number] PRN (Reason: migraine)
nitroglycerin 0.4 mg Tablet, Sublingual
0.4 mg SUBLINGUAL [id number] PRN (Reason: chest pain)
spironolactone 25 mg Tablet
25 mg PO DAILY
fluoxetine 40 mg Capsule
40 mg PO DAILY
clozapine 100 mg Tablet
100 mg PO HS
Rx Instructions:
take with [id number]
gabapentin 400 mg Capsule
400 mg PO HS
calcium carbonate [Calcium 600] 600 mg calcium (1,500 mg) Tablet
600 mg PO DAILY
omeprazole 20 mg Capsule,Delayed Release(Dr/Ec)
20 mg PO DAILY
ceftriaxone 2 gram Recon Soln
2 g IM DAILY
Patient Comments:
04/23/24: Take for 7 days, 04/22/24-04/29/24
zinc oxide 10 % Cream
1 applic TOPICAL TID
nitrofurantoin monohyd/m-cryst [Macrobid] 100 mg Capsule
100 mg PO HS
buprenorphine-naloxone 8-2 mg Film
1 film BUCCAL DAILY
Patient Comments:
04/23/24: No stop date per MD
fluconazole 200 mg Tablet
200 mg PO DAILY 11 Days Qty: 11 0RF
miconazole nitrate [Miconazorb AF] 2 % Powder
1 applic topical BID Qty: 85 0RF
Referrals:
Shivam Turk, [Family Provider] - Call in 1-3 days for appt
Activity Restrictions/Additional Instructions:
As discussed, your blood work shows that you are anemic. Your X-ray shows that there is a staple that has passed out of the stomach into the bowel. This will continue to pass through. Please follow up with the family doctor. IF YOU HAVE INCREASED
ABDOMINAL PAIN OR YOU HAVE ANY OTHER CONCERNS PLEASE RETURN TO THE EMERGENCY ROOM.
Interventions
Interventions:
*Risk Screen - Suicide Last Done: 05/03/24 22:45
*General Assessment Last Done: 05/03/24 22:45
*Neglect/Abuse Screening Last Done: 05/03/24 22:45
ED-EENT Assessment Last Done: 05/04/24 00:37
VX-Dimdem-Zjvwflemxe Assessment Last Done: 05/04/24 00:37
ED- Pulmonary Assessment Last Done: 05/04/24 00:37
ED- Neurological Assessment Last Done: 05/04/24 00:37
Discharge Date and Time
Print Language: VIETNAMESE
[2024-05-04 00:36] LABS: HCG, Serum Qualitative Screen Negative
[2024-05-04 00:39] LABS: ALT (SGPT) 21 U/L (0-35); AST (SGOT) 24 U/L (14-36); Albumin 3.7 g/dl (3.5-5.0); Alkaline Phosphatase 93 U/L (38-126); Blood Urea Nitrogen 12 mg/dl (7-17); Calcium 8.6 mg/dl (8.4-10.2); Carbon Dioxide 16 mmol/L (22-30); Chloride 111 mmol/L (98-107); Glucose 101 mg/dl (70-99); Potassium 4.5 mmol/L (3.5-5.1); Sodium 141 mmol/L (135-145); Total Bilirubin 0.5 mg/dl (0.2-1.3); Total Protein 6.7 g/dl (6.3-8.2); eGFR > 60.00
[2024-05-04 00:49] LABS: % Basophils 0.9 % (0-2); % Immature Granulocytes 0.6 % (0-0.5); % Lymphocytes 25.5 % (20.5-51.1); % Monocytes 7.1 % (1.7-9.3); % Neutrophils 58.9 % (42.2-75.2); Absolute Basophils 0.1 10^3/uL (0-0.2); Absolute Eosinophils 0.5 10^3/uL (0-0.7); Absolute Lymphocytes 1.7 10^3/uL (1.2-3.4); Absolute Monocytes 0.5 10^3/uL (0.1-0.6); Absolute Neutrophils 3.9 10^3/uL (1.4-6.5); Hemoglobin 10.1 g/dL (12.0-16.0); Mean Corp Hgb Conc. 31.6 g/dL (33.0-37.0); Mean Corpuscular Hgb 23.4 pg (27.0-31.0); Mean Corpuscular Volume 74.2 fL (81.0-99.0); Nucleated Red Blood Cells % 0 %; Red Blood Cell Count 4.31 10^6/uL (4.20-5.40); Red Cell Dist. Width 17.3 % (11.5-14.5); White Blood Cell Count 6.6 10^3/uL (4.8-10.8)
[2024-05-04 00:57] LABS: Mean Platelet Volume 9.9 fL (7.4-10.4); Platelet Count 300 10^3/uL (130-400)
[2024-05-04 02:00] VITALS: BP 117/68
[2024-05-04 07:40] VITALS: BP 136/81
--- NOTE | 2024-05-04 07:43 | EDRN ---
the pt was received from previous overnight associate RN, the pt is resting in stretcher in the lowest position, side rails up x2, HOB slightly elevated, no s/s of distress, the pt was agreeable to allowing this RN to obtain vital signs and VS WNL, the pt
offers no complaints at this time, awaiting for transport, no c/o abdominal pain, no c/o N/V, assessment charted in work list, will continue to monitor the pt closely
--- NOTE | 2024-05-04 08:42 | EDRN ---
this RN called Zoila Alanis to give verbal report to the receiving nurse at [phone] and there was no answer, this RN will attempt to call for verbal report at a later time, will continue to monitor the pt closely
--- NOTE | 2024-05-04 09:10 | EDRN ---
the pt stated to this RN that she wanted her cervantes bag emptied and that she wanted to get dressed, this RN emptied the pts cervantes and the pt was able to get dressed independently with no issues, the pt asked for water and an ER lunch box, this RN
provided the pt with water and an ER lunch box, no s/s of distress, the pt offers no complaints at this time, awaiting transport for the pt, will continue to monitor the pt closely
== END 2024-05-04 11:25 ==
LOC: EMR 22:43
PROVIDERS: Clinical Nurse Specialist Family Health; EMERGENCY PHYSICIAN Emergency Medicine; FAMILY PHYSICIAN Internal Medicine
DX: T18.9XXA Foreign body of alimentary tract, part unspecified, initial encounter (principal); W44.C0XA Glass unspecified, entering into or through a natural orifice, initial encounter; W44.D9XA Other magnetic metal objects entering into or through a natural orifice, initial encounter; Z87.891 Personal history of nicotine dependence; I10 Essential (primary) hypertension
CPT/HCPCS: 99284; 71046; 74018; 80053; 84703; 85025

== ENCOUNTER 2024-05-06 02:32 | Observation (INO) | payer MEDICARE, OTHER, SELFPAY ==
[2024-05-05] VITALS (7 sets, daily range): BP systolic 106–133; BP diastolic 63–77; BMI 69.4
--- NOTE | 2024-05-05 21:41 | ED.GENMED ---
History of Present Illness
General
Chief Complaint: Abdominal Pain
Source: patient
Exam Limitations: none
Time Seen by Provider: 05/05/24 21:32
Nursing documentation reviewed up to this point in time: agreed with
History of Present Illness
History of Present Illness:
33-year-old female presents emergency room due to swallowing glass and staple. She had some abdominal pain and rectal bleeding. Staple was seen on x-ray yesterday after review.
Past History
Past History
ED Past Medical History: Asthma, COPD, GERD, HTN, NIDDM, Seizures, Hypothyroidism, Psychiatric (anxiety, depression, Bipolar, Claustrophobia, PTSD, Schizo, Suicidal attempt, Borderline Personality disorder, ) and Other (Meningitis, Sciatica, TBI,
PE, Chronic lymphedema, Urinary retention with chronic Catheter, UTI, Cellulitis, UTI, Cellulitis, Anemia. Foreign object ingestion)
ED Past Surgical History:
Social History
Tobacco: Former smoker
Alcohol: None
Drug: None
Personal: Other ()
Living: fpc ([place])
Employment: Disabled
Family History
Family History: Other (Noncontributory)
Review of Systems
Review of Systems
Allergies reviewed?: Yes
All Other Systems: Not applicable
Constitutional: Reports no symptoms
EENT: Reports no symptoms
Respiratory: Reports no symptoms
Cardiac: Reports no symptoms
ABD/GI: Reports abdominal pain and bloody stools
: Reports no symptoms
Musculoskeletal: Reports no symptoms
Skin: Reports no symptoms
Neurological: Reports no symptoms
Endocrine: Reports no symptoms
Hematologic/Lymphatic: Reports no symptoms
Psychiatric: Reports no symptoms
Phy Exam
Physical Exam
Physical Exam:
Physical Exam
General: no apparent distress, not acutely ill
Neck: supple. no meningeal signs. normal posterior pharynx
Heart: s1/s2 regular rate and rhythm, no murmur. equal radial
pulses.
HEENT: Pupils equal round reactive to light, EOMI
Lungs: no acute respiratory distress. clear bilaterally
Abdomen: normal bowel sounds. not tender. no CVAT
Neuro: alert and oriented. no focal neurological deficits
Skin: no rash
Psychiatric: well kept. interactive and cooperative
Extremities: no edema. no calf tenderness. negative homans. good distal pulses
Course
Orders/Labs/Results
Orders:
Orders
05/05/24 20:44
Crisis Consult Urgent
Reason for Consult: SI
05/05/24 21:39
Obstruct Series W/PA Chest [CR Obstruct Series W/pa Chest] Urgent
Comment:
Reason For Exam: swallowed glass, staple, blood in stool loss of
05/05/24 23:14
Type+Screen Urgent
IV Insert/Care/Rem.- Treatment PRN
Complete Blood Count/With Diff Urgent
05/05/24 23:15
Comprehensive Metabolic Panel Urgent
05/06/24 00:54
ABO2 Urgent
BBK Wristband Number:
Associate notified that ABO2 has been ordered: [id number]
Date: 05/06/24
Time: 00:43
Senior Communications Specialist ID: [id number]
Abnormal Lab Results
05/06/24
00:32
RBC 4.19 L 10^6/uL
(4.20-5.40)
Hgb 9.5 L g/dL
(12.0-16.0)
Hct 31.2 L %
(37.0-47.0)
MCV 74.5 L fL
(81.0-99.0)
MCH 22.7 L pg
(27.0-31.0)
MCHC 30.4 L g/dL
(33.0-37.0)
RDW 17.3 H %
(11.5-14.5)
Abs Immat Gran (auto) 0.1 H 10^3/uL
(0-0.05)
Immature Gran % 1.3 H %
(0-0.5)
Chloride 111 H mmol/L
(98-107)
Carbon Dioxide 19 L mmol/L
(22-30)
Glucose 102 H mg/dl
(70-99)
Total Protein 6.0 L g/dl
(6.3-8.2)
Albumin 3.3 L g/dl
(3.5-5.0)
05/06/24 00:32
05/06/24 00:32
Vital Signs
Initial and Last Documented VS:
Initial Vital Signs
Temp Pulse Resp BP Pulse Ox
98.1 F 89 18 114/76 97
05/05/24 20:17 05/05/24 20:17 05/05/24 20:17 05/05/24 20:17 05/05/24 20:17
Last Documented Vital Signs
Temp Pulse Resp BP Pulse Ox
98.1 F 84 20 118/73 94
05/05/24 20:17 05/06/24 00:05 05/06/24 00:05 05/06/24 00:05 05/06/24 00:05
MDM/Problems Addressed
Differential Diagnosis Includes:
Bowel perforation, foreign body ingestion
MDM/Problems Addressed:
33-year-old female with glass and staple ingestion, rectal bleeding. Discussed with gastroenterology, recommends admission.
Chronic conditions affecting care: Neurological disorder (Seizures)
Acute Exacerbation and/or Progression of Chronic Illness: Psychiatric illness (Conversion disorder)
*Critical Care Note
Total Time (30-74mins, 75-104mins- exclusive of procedures): Not Applicable
Patient Management
Social determinants of health affecting care: Living situation
Discussion with other providers: Hospitalist and Fitness Management Director (Gastroenterology)
Escalation/DeEscalation of care consider admission/obs:
Admission indicated
ED Attending Note
-
Portions of this chart may have been created with voice recognition software.� Occasional wrong word or��sound alike� substitutions may have occurred due to the inherent limitations of voice recognition software.
Discharge Plan
Departure
Patient Disposition: Admit
Date of Disposition: 05/06/24
Time of Disposition: 01:11
Admit to: Med/Surg
Presentation/result/management discussed w/ accepting MD/DO: Hospitalist
Patient with high blood pressure during this ER visit?: No
Condition: Good
Discharge Problem:
Foreign body ingestion, Gastrointestinal bleeding
Prescriptions:
No Action
levothyroxine [Synthroid] 175 mcg Tablet
175 mcg PO DAILY@06
acetaminophen [Tylenol] 325 mg Tablet
650 mg PO Q6HPRN MDD 3000 mg PRN (Reason: temp>100.4/mild pain)
polyethylene glycol 3350 [Miralax] 17 gram Powder In Packet
17 g PO BID
cetirizine [Zyrtec] 10 mg Tablet
10 mg PO DAILY
acetazolamide 500 mg Capsule, Extended Release
500 mg PO TID
therapeutic multivitamin Tablet
1 tab PO DAILY
famotidine [Pepcid] 20 mg Tablet
20 mg PO BID
magnesium hydroxide [Milk of Magnesia] 400 mg/5 mL Suspension
2,400 mg PO Q18QTBT PRN (Reason: if no bm in 3 days)
bisacodyl [Dulcolax (bisacodyl)] 10 mg Suppository
10 mg [place] DAILYPRN PRN (Reason: constipation, if mom ineffective)
ferrous sulfate 325 mg (65 mg iron) Tablet
325 mg PO DAILY
fluticasone propion-salmeterol [Advair Diskus] 500-50 mcg/dose Blister With Device
1 inh INHALATION R BID
Fleet Enema 19-7 gram/118 mL Enema
118 ml VA DAILYPRN PRN (Reason: constipation, suppository ineffect)
docusate sodium [Colace] 100 mg Capsule
100 mg PO TID
ibuprofen 600 mg Tablet
600 mg PO Q6HPRN PRN (Reason: mild pain)
atropine 1 % Drops
1 drp sublingual Q8HPRN PRN (Reason: drooling) Qty: 0
cyclobenzaprine 5 mg Tablet
5 mg PO TID
Senna Plus 8.6-50 mg Capsule
2 tab-cap PO TID
naltrexone 50 mg Tablet
50 mg PO BID
lidocaine 4 % Adhesive Patch,Medicated
1 patch TOPICAL DAILY
clozapine 25 mg Tablet
25 mg PO HS
Rx Instructions:
with 100mg = 125mg
furosemide 20 mg Tablet
20 mg PO DAILY
gabapentin 100 mg Capsule
100 mg PO HS
albuterol sulfate 90 mcg/actuation Hfa Aerosol Inhaler
2 inh INHALATION R Q6HPRN PRN (Reason: sob/wheezing)
lactulose 10 gram/15 mL Solution
30 ml PO DAILY
potassium chloride 20 mEq Tablet Extended Release
20 meq PO DAILY
Nurtec ODT 75 mg Tablet,Disintegrating
75 mg PO [id number] PRN (Reason: migraine)
nitroglycerin 0.4 mg Tablet, Sublingual
0.4 mg SUBLINGUAL [id number] PRN (Reason: chest pain)
spironolactone 25 mg Tablet
25 mg PO DAILY
fluoxetine 40 mg Capsule
40 mg PO DAILY
clozapine 100 mg Tablet
100 mg PO HS
Rx Instructions:
take with [id number]
gabapentin 400 mg Capsule
400 mg PO HS
calcium carbonate [Calcium 600] 600 mg calcium (1,500 mg) Tablet
600 mg PO DAILY
omeprazole 20 mg Capsule,Delayed Release(Dr/Ec)
20 mg PO DAILY
Patient Comments:
05/05/24: to take from 03/28/24-05/09/24
zinc oxide 10 % Cream
1 applic TOPICAL TID
nitrofurantoin monohyd/m-cryst [Macrobid] 100 mg Capsule
100 mg PO HS
fluconazole 200 mg Tablet
200 mg PO DAILY 11 Days Qty: 11 0RF
Patient Comments:
05/05/24: to take 04/28/24-05/09/24
Referrals:
NONE,* [Family Provider] -
Interventions
Interventions:
*Risk Screen - Suicide Last Done: 05/05/24 20:17
*General Assessment Last Done: 05/05/24 20:17
*Neglect/Abuse Screening Last Done: 05/05/24 20:17
*ED COVID-19 Vaccine History Last Done: 05/05/24 20:35
WI-Eooybq-Mulwrveszg Assessment Last Done: 05/05/24 20:35
Discharge Date and Time
Print Language: POLISH
[2024-05-06 00:05] VITALS: BP 118/73
[2024-05-06 00:50] LABS: % Basophils 0.7 % (0-2); % Eosinophils 5.2 % (0-6); % Immature Granulocytes 1.3 % (0-0.5); % Lymphocytes 22.2 % (20.5-51.1); % Monocytes 7.1 % (1.7-9.3); % Neutrophils 63.5 % (42.2-75.2); Absolute Basophils 0.1 10^3/uL (0-0.2); Absolute Eosinophils 0.4 10^3/uL (0-0.7); Absolute Immature Granulocytes 0.1 10^3/uL (0-0.05); Absolute Lymphocytes 1.7 10^3/uL (1.2-3.4); Absolute Monocytes 0.5 10^3/uL (0.1-0.6); Absolute Neutrophils 4.8 10^3/uL (1.4-6.5); Hematocrit 31.2 % (37.0-47.0); Hemoglobin 9.5 g/dL (12.0-16.0); Mean Corp Hgb Conc. 30.4 g/dL (33.0-37.0); Mean Corpuscular Hgb 22.7 pg (27.0-31.0); Mean Corpuscular Volume 74.5 fL (81.0-99.0); Mean Platelet Volume 8.6 fL (7.4-10.4); Nucleated Red Blood Cells % 0 %; Platelet Count 345 10^3/uL (130-400); Red Blood Cell Count 4.19 10^6/uL (4.20-5.40); Red Cell Dist. Width 17.3 % (11.5-14.5); White Blood Cell Count 7.5 10^3/uL (4.8-10.8)
[2024-05-06 01:06] LABS: ALT (SGPT) 16 U/L (0-35); AST (SGOT) 14 U/L (14-36); Albumin 3.3 g/dl (3.5-5.0); Alkaline Phosphatase 84 U/L (38-126); Blood Urea Nitrogen 13 mg/dl (7-17); Calcium 8.7 mg/dl (8.4-10.2); Carbon Dioxide 19 mmol/L (22-30); Chloride 111 mmol/L (98-107); Estimated Creatinine Clearance > 125 ml/min; Glucose 102 mg/dl (70-99); Sodium 142 mmol/L (135-145); Total Bilirubin 0.3 mg/dl (0.2-1.3); eGFR > 60.00
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
[2024-05-06 02:13] VITALS: BP 122/81
[2024-05-06 02:51] VITALS: BP 104/64
--- NOTE | 2024-05-06 03:09 | PTCARENOTE ---
Pt admitted to 320 and pivoted from stretcher to bed w/ x1 assist. Pt aaox3 and VSS. MASD of groin, breasts, and abd folds noted. Pt allowed RN to look at pressure wound on R buttock, foam present. Pt's brief is dirty and pt wearing pants but
refused to completely take them off. When this RN asked if pt could remove her pants to get cleaned up, pt stated 'I am too tired, we can do it later'. This RN was unable to fully assess pt's skin or do wound care d/t refusal. 1:1 PCT in room and
call roach within reach, plan of care ongoing
[2024-05-06 03:32] VITALS: BMI 68.2
[2024-05-06 06:00] VITALS: BMI 68.2
[2024-05-06] MEDS: SYNTHROID 175 MCG PO (06:27)
[2024-05-06] MEDS: TYLENOL 650 MG PO ×2 (06:27→13:58)
[2024-05-06 07:22] LABS: Hematocrit 34.3 % (37.0-47.0); Hemoglobin 10.3 g/dL (12.0-16.0); Mean Corpuscular Hgb 22.4 pg (27.0-31.0); Mean Corpuscular Volume 74.6 fL (81.0-99.0); Mean Platelet Volume 8.7 fL (7.4-10.4); Platelet Count 368 10^3/uL (130-400); Red Cell Dist. Width 17.6 % (11.5-14.5); White Blood Cell Count 7.3 10^3/uL (4.8-10.8)
[2024-05-06 07:27] LABS: INR 1.12; PT 14.4 Sec (11.4-14.6)
[2024-05-06 07:49] VITALS: BP 100/63
[2024-05-06] MEDS: ADVAIR HFA 230/21 MCG INHALER 2 PUFF INH ×2 (07:49→19:54)
[2024-05-06 08:05] LABS: Blood Urea Nitrogen 14 mg/dl (7-17); Carbon Dioxide 16 mmol/L (22-30); Chloride 111 mmol/L (98-107); Estimated Creatinine Clearance > 125 ml/min; Glucose 105 mg/dl (70-99); Potassium 4.5 mmol/L (3.5-5.1); Sodium 141 mmol/L (135-145); eGFR > 60.00
--- NOTE | 2024-05-06 09:57 | WOUNDNOTE ---
R POSTERIOR THIGH AND MEDIAL THIGH
--- NOTE | 2024-05-06 09:59 | WOUNDNOTE ---
R ABDOMINAL SKIN FOLD
--- NOTE | 2024-05-06 09:59 | WOUNDNOTE ---
L ABDOMINAL SKIN FOLD
--- NOTE | 2024-05-06 09:59 | WOUNDNOTE ---
BREAST SKIN FOLDS
--- NOTE | 2024-05-06 10:00 | WOUNDNOTE ---
WON RN note: Patient admitted with Foreign body ingestion, GI bleed.
See H&P for complete history. Patient resides at [facility]
PMH: Asthma, HTN, bipolar, morbid obesity, major depression, PTSD, yeast rash in skin folds, PI R posterior thigh.
Wound Location and type/assessment: Patient known to service, fungal rash in skin folds improved since last seen. PI's on posterior R thigh improved since last seen, dryer and more defined, scant drainage. Sacrum is intact, patient able to stand
from recliner chair on own. Patient has chronic Blum, plan is for suprapubic catheter in the future states patient. Suspect R medial thigh PI is from catheter tubing. [facility]ariat[facility] [place] [facility]. She is able to shift
weight in chair and ambulate.
Appetite: Good, encouraged to eat protein in diet to help with wound healing. Patient states she understands.
Pressure redistribution devices in place: ip.access bed, patient confirmed she has slept in bed and able to turn onto sides without difficulty. Currently in recliner chair with legs elevated and turned toward L side. Called [facility] for another bariatric
air chair cushion. Nurse Rere who is monitoring patient made aware and asked to use on chair when arrives.
Plan: Cleansed all skin folds, patted dry, will order miconazole powder for skin folds followed by non woven gauze or ABD pads bid. Posterior thigh ulcers, applied skin prep to chong wound, piece of alginate to base of ulcers, then Exuderm thin
followed by silicone foam over larger ulcer. Pressure ulcer prevention measures reviewed with patient and nutrition for wound healing. Will confirm orders with hospitalist and discuss with RN. Care plan to be updated and will follow as needed.
Patient to go back to [facility] upon discharge.
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
[2024-05-06] MEDS: PROTONIX 40 MG PO (10:37)
[2024-05-06] MEDS: FEOSOL 325 MG PO (10:38)
[2024-05-06] MEDS: PEPCID 20 MG PO ×2 (10:38→21:22)
[2024-05-06] MEDS: SENOKOT-S 2 TABLET PO ×3 (10:38→21:25)
[2024-05-06] MEDS: FLEXERIL 5 MG PO ×3 (10:38→21:21)
[2024-05-06] MEDS: LASIX 20 MG PO (10:39)
[2024-05-06] MEDS: COLACE 100 MG PO ×3 (10:39→21:24)
[2024-05-06] MEDS: MIRALAX 17 GRAMS PO ×2 (10:40→21:23)
[2024-05-06] MEDS: REVIA 50 MG PO ×2 (10:40→21:21)
[2024-05-06] MEDS: DIAMOX SR SEQUELS 500 MG PO ×3 (10:41→21:20)
[2024-05-06] MEDS: DIFLUCAN 200 MG PO (10:41)
[2024-05-06] MEDS: ZYRTEC 10 MG PO (10:45)
[2024-05-06] MEDS: ALDACTONE 25 MG PO (10:46)
--- NOTE | 2024-05-06 11:19 | CON.GI ---
Addendum entered and electronically signed by Birdie Ann MD 05/06/24 12:06:
I saw and examined the patient.
The STAIN REMOVER's note was reviewed and I agree with the note.
Comment: This is a 33-year-old female who has a history of pica, anxiety, depression, PTSD, bipolar, suicidal attempts in the past, borderline personality and other history as below who is currently residing in [place] and was supposed to be on
one-to-one because of her prior intentional ingestion of multiple foreign body and has had multiple EGDs in the past for foreign body retrieval including sharp objects who admits to swallowing a staple and a small piece of glass or plastic that was
broken off from her phone screen or protector on Friday and on 05/04 she did present to the ER and x-ray at that time was negative for any radiopaque foreign body and gain 05/05 also negative for FB. Hemoglobin at that time was 9.5 she then presented
to the ER last night again complaining of an episode of rectal bleeding which has resolved and her hemoglobin is 10.3. She is hungry and wants to eat she does have chronic abdominal pain. She has not had any nausea or vomiting or hematemesis.
Assessment and plan accidental ingestion of multiple foreign bodies in the past and on Friday had ingested a small staple and small piece of either the plastic or glass screen protector or phone screen. Her x-ray was negative for any radiopaque
foreign body. And her hemoglobin stable although she did have an episode of rectal bleeding yesterday which could be hemorrhoidal has not had any further episodes we can advance her diet and DC and has also been seen by Dr. Mendez . When asked
why she swallows these foreign bodies intentionally she says ' I do not know '. She is currently on one-to-one.
Will s/o and will be available as needed
Original Note:
Consultation
-
Date/Time Consultation Requested: 05/05/24 2300
Date/Time Consultation Performed: 05/06/24 1120
Requesting Provider: Tra Segura MD
Performing Provider: MARTHA Sykes, birdie Ann MD
Reason for Consultation: foreign body
Medical History
Chief Complaint / HPI
Chief Complaint: s/p foreign body ingestion
History of Present Illness:
Pt is 33yo with hx Pica, COPD, GERD, NIDDM, seizures, hypothyroidism, meningitis, sciatica, anxiety, depression, bipolar disorder, claustrophobia, PTSD, schizo disorder, suicidal attempt, borderline personality TBI, PE, lymphedema, urinary
retention, UTI, cellulitis, groin rash. She has been in hospital with multiple EGD's with foreign bodies, recent admits to UTI, cervantes issues and maria r infection. She now returns with concern for abdominal pain and rectal bleeding with concern
for foreign body. Pt admits to swallowing staple and piece of glass or plastic from phone screen or protector on Friday. Abd imaging on admission unable to ID any foreign body. hbg 9.5 on admission then improved 10.3.
She currently is hungry and asking for diet. She admits to minimal abdominal pain. She denies dysphasia, GERD, vomiting, current bleeding or black stools. Hx multiple EGD with foreign body and colonoscopy last in [facility] [place] did not recall any
abnormalities.
Past Medical History
Past Medical History: Asthma, COPD, GERD, HTN, Hypothyroidism, NIDDM, Seizures, Psychiatric (anxiety, depression, bipolar disorder, claustrophobia, PTSD, schizo disorder, suicidal attempt, borderline personality ) and Other (meningitis, sciatica,
TBI, PE, lymphedema, urinary retention, UTI, cellulitis, ambulatory dysfunction. )
Past Surgical History:
Social History
Tobacco: Non-Smoker
Alcohol: None
Drug: None
Living: Correction
Employment: Disabled
Family History
Family History: Other (no family hx GI issues )
Allergies / Home Medications
Allergy/AdvReac Type Severity Reaction Status Date / Time
bee venom protein (honey bee) Allergy Anaphylaxis Verified 05/03/24 22:44
cariprazine Allergy Unknown Verified 05/03/24 22:44
loratadine [From Claritin] Allergy Unknown Verified 05/03/24 22:44
meloxicam Allergy Unknown Verified 05/03/24 22:44
nicotine Allergy Unknown Verified 05/03/24 22:44
shellfish derived Allergy Anaphylaxis Verified 05/03/24 22:44
simvastatin Allergy Unknown Verified 05/03/24 22:44
�Medication �Instructions �Recorded
acetaminophen 325 mg tablet 650 mg PO Q6HPRN PRN 12/03/23
(Tylenol) temp>100.4/mild pain
acetazolamide 500 mg 500 mg PO TID Fluid 12/03/23
capsule,extended release Retention/Swelling
atropine 1 % eye drops 1 drp sublingual Q8HPRN PRN 12/03/23
drooling ##0
bisacodyl 10 mg rectal suppository 10 mg NM DAILYPRN PRN 12/03/23
(Dulcolax (bisacodyl)) constipation, if mom ineffective
cetirizine 10 mg tablet (Zyrtec) 10 mg PO DAILY Allergies 12/03/23
cyclobenzaprine 5 mg tablet 5 mg PO TID Muscle Spasms 12/03/23
docusate sodium 100 mg capsule 100 mg PO TID Constipation 12/03/23
(Colace)
famotidine 20 mg tablet (Pepcid) 20 mg PO BID Gastrointestinal Issue 12/03/23
ferrous sulfate 325 mg (65 mg 325 mg PO DAILY Supplement 12/03/23
iron) tablet
fluticasone 500 mcg-salmeterol 50 1 inh inhalation R BID 12/03/23
mcg/dose blistr powdr for Lung/Breathing Issues
inhalation (Advair Diskus)
ibuprofen 600 mg tablet 600 mg PO Q6HPRN PRN mild pain 12/03/23
levothyroxine 175 mcg tablet 175 mcg PO DAILY@06 Thyroid 12/03/23
(Synthroid)
magnesium hydroxide 400 mg/5 mL 2,400 mg PO [id number] PRN if no bm 12/03/23
oral suspension (Milk of Magnesia) in 3 days
naltrexone 50 mg tablet 50 mg PO BID OPIOD DEPENDANCE 12/03/23
polyethylene glycol 3350 17 gram 17 g PO BID Constipation 12/03/23
oral powder packet (Miralax)
sennosides 8.6 mg-docusate sodium 2 tab-cap PO TID Constipation 12/03/23
50 mg capsule (Senna Plus)
sodium phosphates 19 gram-7 118 ml NM DAILYPRN PRN 12/03/23
gram/118 mL enema (Fleet Enema) constipation, suppository ineffect
therapeutic multivitamin 1 tab PO DAILY Supplement 12/03/23
clozapine 25 mg tablet 25 mg PO HS Mental Health/Anxiety 01/18/24
lidocaine 4 % topical patch 1 patch topical DAILY lower back 01/18/24
albuterol sulfate 90 mcg/actuation 2 inh inhalation R Q6HPRN PRN 03/09/24
aerosol inhaler sob/wheezing
furosemide 20 mg tablet 20 mg PO DAILY Fluid 03/09/24
Retention/Swelling
gabapentin 100 mg capsule 100 mg PO HS Pain 03/09/24
lactulose 10 gram/15 mL oral 30 ml PO DAILY Constipation 03/09/24
solution
potassium chloride 20 mEq 20 meq PO DAILY Electrolyte 03/09/24
tablet,extended release Repletion
rimegepant 75 mg disintegrating 75 mg PO [id number] PRN migraine 03/09/24
tablet (Nurtec ODT)
nitroglycerin 0.4 mg sublingual 0.4 mg sublingual [id number] PRN 03/15/24
tablet chest pain
spironolactone 25 mg tablet 25 mg PO DAILY Heart Failure 04/01/24
calcium carbonate (Calcium 600) 600 mg PO DAILY Supplement 04/23/24
clozapine 100 mg tablet 100 mg PO HS Mental Health/Anxiety 04/23/24
fluoxetine 40 mg capsule 40 mg PO DAILY Depression 04/23/24
gabapentin 400 mg capsule 400 mg PO HS Pain 04/23/24
nitrofurantoin 100 mg PO HS Infection 04/23/24
monohydrate/macrocrystals 100 mg
capsule (Macrobid)
omeprazole 20 mg capsule,delayed 20 mg PO DAILY Gastrointestinal 04/23/24
release Issue
zinc oxide 10 % topical cream 1 applic topical TID labia 04/23/24
majora/vulva
fluconazole 200 mg tablet 200 mg PO DAILY 11 days #11 tabs 04/26/24
Review of Systems
-
History Source: Patient
EENT: Reports No Symptoms
Respiratory: Reports No Symptoms
Cardiac: Reports No Symptoms
Abdomen/GI: Reports Abdominal Pain (minimal ) and Bloody Stools (prior to admission)
: Reports Other (chronic cervantes)
Musculoskeletal: Reports No Symptoms
Skin: Reports No Symptoms
Neurological: Reports No Symptoms
Endocrine: Reports No Symptoms
Hematologic/Lymphatic: Reports Bleeding
Vital Signs
Temp Pulse Resp BP Pulse Ox
98.4 F 87 17 100/63 97
05/06/24 07:49 05/06/24 07:49 05/06/24 07:49 05/06/24 07:49 05/06/24 07:49
Physical Exam
Exam
General: Well Developed, Well Nourished and No Apparent Distress
HEENT: Normocephalic and Anicteric
Respiratory: Clear
Cardiac: Regular Rhythm and Peripheral Edema (with minimal redness of lower extremities )
GI: Soft, Non Tender and Non Distended
Musculoskeletal: No Clubbing and No Cyanosis
Skin: Warm and Dry
Neuro: Awake, Alert and AO x 3
Psych: Calm
Results
WBC 7.3 10^3/uL (4.8-10.8) 05/06/24 07:00
Hgb 10.3 g/dL (12.0-16.0) L 05/06/24 07:00
Hct 34.3 % (37.0-47.0) L 05/06/24 07:00
MCV 74.6 fL (81.0-99.0) L 05/06/24 07:00
Plt Count 368 10^3/uL (130-400) 05/06/24 07:00
Absolute Neuts (auto) 4.8 10^3/uL (1.4-6.5) 05/06/24 00:32
PT 14.4 Sec (11.4-14.6) 05/06/24 07:00
INR 1.12 05/06/24 07:00
Sodium 141 mmol/L (135-145) 05/06/24 07:00
Potassium 4.5 mmol/L (3.5-5.1) 05/06/24 07:00
Chloride 111 mmol/L (98-107) H 05/06/24 07:00
Carbon Dioxide 16 mmol/L (22-30) L 05/06/24 07:00
BUN 14 mg/dl (7-17) 05/06/24 07:00
Creatinine 0.8 mg/dL (0.6-1.0) 05/06/24 07:00
Calcium 9.0 mg/dl (8.4-10.2) 05/06/24 07:00
Total Bilirubin 0.3 mg/dl (0.2-1.3) 05/06/24 00:32
AST 14 U/L (14-36) 05/06/24 00:32
ALT 16 U/L (0-35) 05/06/24 00:32
Alkaline Phosphatase 84 U/L (38-126) 05/06/24 00:32
Diagnostic Image Results:
05/05/24 CR Obstruct Series W/pa Chest
No radiographic findings to confirm radiopaque soft tissue foreign body within the chest and abdominal intestinal tract. Please see above comments.
Prior GI Procedures:
Prior GI Procedures:
EGD: 01/18/24- nicolasa no foreign body seen -- followed serial X ray
EGD: 02/22/24 castellanos - removal of pin
EGD:03/15/24 Mekapati - removal of sharpener
EGD: 03/24/24 [place] in esophagus, large amount of food, battery in stomach
Colonoscopy: in past in [place] did not recall any abnormal findings
Assessment / Plan
-
Pt is 33yo with hx Pica, COPD, GERD, NIDDM, seizures, hypothyroidism, meningitis, sciatica, anxiety, depression, bipolar disorder, claustrophobia, PTSD, schizo disorder, suicidal attempt, borderline personality TBI, PE, lymphedema, urinary
retention, UTI, cellulitis, groin rash. She has been in hospital with multiple EGD's with foreign bodies, recent admits to UTI, cervantes issues and maria r infection. She now returns with concern for abdominal pain and bleeding with concern for
foreign body. Pt admits to swallowing staple and piece of glass or plastic from phone screen or protector on Friday. Abd imaging on admission unable to ID any foreign body. hbg 9.5 on admission then improved 10.3.hx multiple EGD and last
colonoscopy completed in [place].
-recurrent foreign body ingestion
-rectal bleeding
-hx Pica and prior foreign body ingestions
-recent UTI/cervantes issues
-mild chronic anemia
other med problems:
-GERD
-COPD
-NIDDM
-seizures
-hypothyroidism
-anxiety, depression, bipolar disorder, claustrophobia, PTSD, schizo disorder, suicidal attempt, borderline personality TBI
-PE
-lymphedema
PLAN:
Etiology of abdominal pain and bleeding unclear -foreign body related vs other - minimal pain on exam and no further bleeding noted
increased to regular diet
abdominal imaging without unable to ID foreign body
monitor clinically for increased pain or bleeding
if tolerating diet stable from GI for discharge and return with recurrent pain or increased bleeding
s/p psych evaluation remains 1:1 with foreign body issues
-
-
Thank you for consultation and allowing me to participate in the patient's care. Please call the marketing rotation associate GI physician during the after hours with any questions or concerns.
[2024-05-06] MEDS: PROZAC 60 MG PO (11:52)
--- NOTE | 2024-05-06 13:22 | W.PN.UPDATE ---
Update Note
Progress Note Update
Seen and examined. No new complaints. No acute overnight events.
Per GI can advance diet as tolerated. No indication for EGD.
Suspect prior GI bleeding related to hemorrhoids
NAD, sitting in bedside chair, 1 to 1 x 1 dose
Scleral anicteric
Moist mucous membranes
No JVD
CTA bilateral
Normal S1-S2 no murmurs
Morbidly obese soft nontender nondistended bowel sounds active
No peripheral pitting edema
Moves extremities spontaneously
AAOx3
Ingestion of foreign body
-Intentional
-On 1-1
-Psych following
- -Medications being adjusted
-GI following
-No indication for EGD at this time
Bright red blood per rectum
-Hemoglobin stable
-Hemodynamic stable
-GI believes hemorrhoidal
Morbid obesity
-Dietary exercise lifestyle modification
-Was previously on Wegovy not covered by her insurance anymore. Will need to follow-up with PCP for the.
[2024-05-06 15:45] VITALS: BP 122/70
[2024-05-06] MEDS: CLOZARIL 100 MG PO (21:21)
[2024-05-06] MEDS: NEURONTIN 100 MG PO ×2 (21:22)
[2024-05-06] MEDS: DESENEX/MITRAZOL/ZEASORB 1 APPLIC TOPICAL (21:23)
[2024-05-06] MEDS: MACROBID 100 MG PO (21:24)
[2024-05-06] MEDS: NEURONTIN 400 MG PO (21:26)
[2024-05-06 23:23] VITALS: BP 120/72
[2024-05-07] MEDS: TYLENOL 650 MG PO (03:40)
[2024-05-07] MEDS: SYNTHROID 175 MCG PO (05:15)
[2024-05-07 07:11] VITALS: BP 134/80
[2024-05-07 07:26] VITALS: BMI 66.8
[2024-05-07] MEDS: MIRALAX 17 GRAMS PO (08:36)
[2024-05-07] MEDS: DIFLUCAN 200 MG PO (08:37)
[2024-05-07] MEDS: DIAMOX SR SEQUELS 500 MG PO ×2 (08:37→15:27)
[2024-05-07] MEDS: PROTONIX 40 MG PO (08:37)
[2024-05-07] MEDS: ALDACTONE 25 MG PO (08:38)
[2024-05-07] MEDS: LASIX 20 MG PO (08:38)
[2024-05-07] MEDS: SENOKOT-S 2 TABLET PO ×2 (08:38→15:27)
[2024-05-07] MEDS: FLEXERIL 5 MG PO ×2 (08:38→15:27)
[2024-05-07] MEDS: FEOSOL 325 MG PO (08:38)
[2024-05-07] MEDS: REVIA 50 MG PO (08:38)
[2024-05-07] MEDS: PROZAC 60 MG PO (08:39)
[2024-05-07] MEDS: COLACE 100 MG PO ×2 (08:39→15:27)
[2024-05-07] MEDS: DESENEX/MITRAZOL/ZEASORB 1 APPLIC TOPICAL (08:39)
[2024-05-07] MEDS: PEPCID 20 MG PO (08:39)
[2024-05-07] MEDS: ZYRTEC 10 MG PO (08:40)
[2024-05-07 09:53] LABS: Iron 37 ug/dl (37-170)
--- NOTE | 2024-05-07 10:10 | W.PN.HOSP.TC ---
Addendum entered and electronically signed by Get Skaggs MD 05/07/24 14:14:
chronic cervantes. [facility] wants cervantes needs reassessed by urology before they accept back
-uro consulted
Original Note:
Today's Communication/Plan
-
.
Assessment / Plan
Assessment / Plan
NAD, sitting in bedside chair, 1 to 1 x 1 dose
Scleral anicteric
Moist mucous membranes
No JVD
CTA bilateral
Normal S1-S2 no murmurs
Morbidly obese soft nontender nondistended bowel sounds active
No peripheral pitting edema
Moves extremities spontaneously
AAOx3
Ingestion of foreign body
-Intentional
-On 1-1
-Psych following
- -Medications being adjusted
-GI following
-No indication for EGD at this time
Bright red blood per rectum
No further episode
Episode was likely hemorrhoidal
Morbid obesity
-Dietary exercise lifestyle modification
-Was previously on Wegovy not covered by her insurance anymore. Will need to follow-up with PCP for the.
Awaiting to figure out disposition.
Potential DC later today
CM updated
Anticipated Discharge: Today
Subjective/Interval History
-
Date of Service: May 07, 2024
Seen and examined. In great spirits this morning. Asking to take a shower. Coloring in her coloring book. States that she feels better as well
States that she has a choice she would like to return to [facility]
Objective Data
-
Vital Signs:
Vital Signs
Temp Pulse Resp BP Pulse Ox
98.1 F 87 16 120/73 97
05/07/24 07:11 05/07/24 08:38 05/07/24 07:11 05/07/24 08:38 05/07/24 07:11
I&O
05/06/24 05/07/24 05/08/24
06:59 06:59 06:59
Intake Total 3360 / 3360
Output Total 1100 / 1100 5800 / 5800
Balance -1100 / -1100 -2440 / -2440
--- NOTE | 2024-05-07 10:55 | W.PN.UPDATE ---
Update Note
Progress Note Update
patient seen chart reviewed. sung is in reasonably good spirits. she understands that there is not really an alternative to [facility] and admits that the woman she does not like and whom she perceives as not liking her is not really a threat.
they do not see each other much. she will return to [facility] on friday. i talked to their fabrication department supervisor this am. we discussed whether to taper and dc clozaril slowly and use an antipsychotic if needed that is more weight neutral. also suggested to sung that
she should pay attention to changes ms pelaez makes and whether they are implemented at [facility]. sung did not seem to be aware of the discrepancies in what ms pelaez prescribed and what she may have been taking. would dc her on exactly the
medications we have been prescribing here. she says she will cease and desist the ingestion of foreign bodies but this is not certain. it is a longstanding issue that hospital will not change.
[2024-05-07] MEDS: ADVAIR HFA 230/21 MCG INHALER 2 PUFF INH (11:20)
[2024-05-07 12:08] LABS: TSH Reflex To Free T4 1.35 uIU/ml (0.47-4.68)
[2024-05-07 12:12] LABS: Ferritin 31.3 ng/ml (6.24-137)
--- NOTE | 2024-05-07 14:25 | CM ---
Reviewed chart, met with patient to obtain information for assessment. Patient stated that she comes from [facility]. She is dependent with her ADLs, personal care, dressing and bathing. She uses a rollator to assist with her ambulation.
Patient confirmed she is a bed hold. She wants to return to [facility].
Placed a call to [facility] and spoke with Corrine Lawrence one of patient's RN's who confirmed that she can accept patient back.
# For report [phone] ask for first floor
# For fax [phone]
Will complete medical necessity and transfer sheet [facility]
Plan: Case management will continue to follow and assist with discharge planning. Back to [facility].
[2024-05-07 14:56] VITALS: BP 142/100
--- NOTE | 2024-05-07 15:13 | W.DCSUMMARY ---
Discharge Summary
Discharge Data
Date of Admission: 05/06/24
Date of Discharge: 05/07/24
-
Pending Results: No
Hospital Course
33-year-old female with extensive psychiatric history including depression and anxiety high risk of suicide Presented for foreign body ingestion of a stable and short glass unsure if this was a screen protector or-screening glass. Concerned as
there was rectal bleeding. Evaluated by GI indication for upper endoscopy. Hemoglobin remained stable. Was evaluated by psychiatry was placed on a 1-1. Prozac dose was increased. Will need outpatient psychiatry follow-up. Will need outpatient
GI follow-up. Will need outpatient urology follow-up for chronic Blum.
Currently on fluconazole until 05/09. Was on Macrobid unsure of when this should be completed she should speak with medical provider who prescribed this medication for.
Wound Care Instructions
Dusting of miconazole powder to abdominal, breast and L posterior knee skin folds followed by non woven gauze or ABD pads bid. Can also use 100% Cotton T shirt or folded pillow case under Abdominal skin folds instead of gauze if easier.
R Posterior thigh ulcers: After cleaning, apply skin prep to chong wound, piece of alginate to base of ulcers, then Exuderm thin followed by silicone foam over larger ulcer. Change q other day and prn soilage.
Bariatric air chair cushion or Bariatric Foam-gel cushion if air cushion deflates.
Frequent shifts in position when sitting, turn onto sides when in bed.
Follow up with a washer meat, Increase protein in diet to help with wound healing.
Follow up at wound care center if wounds not healing, call for an appointment.
Discharge Plan
-
Patient Disposition: Alf/SNF
Discharge Diagnosis/Procedures: Foreign body ingestion
Diet: No restrictions and As tolerated
Activity: No restrictions and As tolerated
Driving Restrictions: No driving
Activity Restrictions/Additional Instructions:
Presented for foreign body ingestion of a stable and short glass unsure if this was a screen protector or-screening glass. Concerned as there was rectal bleeding. Evaluated by GI indication for upper endoscopy. Hemoglobin remained stable. Was
evaluated by psychiatry was placed on a 1-1. Prozac dose was increased. Will need outpatient psychiatry follow-up. Will need outpatient GI follow-up. Will need outpatient urology follow-up for chronic Blum.
Currently on fluconazole until 05/09. Was on Macrobid unsure of when this should be completed she should speak with medical provider who prescribed this medication for.
Wound Care Instructions
Dusting of miconazole powder to abdominal, breast and L posterior knee skin folds followed by non woven gauze or ABD pads bid. Can also use 100% Cotton T shirt or folded pillow case under Abdominal skin folds instead of gauze if easier.
R Posterior thigh ulcers: After cleaning, apply skin prep to chong wound, piece of alginate to base of ulcers, then Exuderm thin followed by silicone foam over larger ulcer. Change q other day and prn soilage.
Bariatric air chair cushion or Bariatric Foam-gel cushion if air cushion deflates.
Frequent shifts in position when sitting, turn onto sides when in bed.
Follow up with a washer meat, Increase protein in diet to help with wound healing.
Follow up at wound care center if wounds not healing, call for an appointment.
Referrals:
NONE,* [Family Provider] -
Prescriptions:
New
fluoxetine 20 mg Capsule
60 mg PO DAILY 30 Days Qty: 90 0RF
Continued
levothyroxine [Synthroid] 175 mcg Tablet
175 mcg PO DAILY@06
acetaminophen [Tylenol] 325 mg Tablet
650 mg PO Q6HPRN MDD 3000 mg PRN (Reason: temp>100.4/mild pain)
polyethylene glycol 3350 [Miralax] 17 gram Powder In Packet
17 g PO BID
cetirizine [Zyrtec] 10 mg Tablet
10 mg PO DAILY
acetazolamide 500 mg Capsule, Extended Release
500 mg PO TID
therapeutic multivitamin Tablet
1 tab PO DAILY
famotidine [Pepcid] 20 mg Tablet
20 mg PO BID
magnesium hydroxide [Milk of Magnesia] 400 mg/5 mL Suspension
2,400 mg PO [id number] PRN (Reason: if no bm in 3 days)
bisacodyl [Dulcolax (bisacodyl)] 10 mg Suppository
10 mg NE DAILYPRN PRN (Reason: constipation, if mom ineffective)
ferrous sulfate 325 mg (65 mg iron) Tablet
325 mg PO DAILY
fluticasone propion-salmeterol [Advair Diskus] 500-50 mcg/dose Blister With Device
1 inh INHALATION R BID
Fleet Enema 19-7 gram/118 mL Enema
118 ml NE DAILYPRN PRN (Reason: constipation, suppository ineffect)
docusate sodium [Colace] 100 mg Capsule
100 mg PO TID
ibuprofen 600 mg Tablet
600 mg PO Q6HPRN PRN (Reason: mild pain)
atropine 1 % Drops
1 drp sublingual Q8HPRN PRN (Reason: drooling) Qty: 0
cyclobenzaprine 5 mg Tablet
5 mg PO TID
Senna Plus 8.6-50 mg Capsule
2 tab-cap PO TID
naltrexone 50 mg Tablet
50 mg PO BID
lidocaine 4 % Adhesive Patch,Medicated
1 patch TOPICAL DAILY
clozapine 25 mg Tablet
25 mg PO HS
Rx Instructions:
with 100mg = 125mg
furosemide 20 mg Tablet
20 mg PO DAILY
gabapentin 100 mg Capsule
100 mg PO HS
albuterol sulfate 90 mcg/actuation Hfa Aerosol Inhaler
2 inh INHALATION R Q6HPRN PRN (Reason: sob/wheezing)
lactulose 10 gram/15 mL Solution
30 ml PO DAILY
potassium chloride 20 mEq Tablet Extended Release
20 meq PO DAILY
Nurtec ODT 75 mg Tablet,Disintegrating
75 mg PO [id number] PRN (Reason: migraine)
nitroglycerin 0.4 mg Tablet, Sublingual
0.4 mg SUBLINGUAL [id number] PRN (Reason: chest pain)
spironolactone 25 mg Tablet
25 mg PO DAILY
clozapine 100 mg Tablet
100 mg PO HS
Rx Instructions:
take with 04ol=[id number]
gabapentin 400 mg Capsule
400 mg PO HS
calcium carbonate [Calcium 600] 600 mg calcium (1,500 mg) Tablet
600 mg PO DAILY
omeprazole 20 mg Capsule,Delayed Release(Dr/Ec)
20 mg PO DAILY
Patient Comments:
05/05/24: to take from 03/28/24-05/09/24
zinc oxide 10 % Cream
1 applic TOPICAL TID
fluconazole 200 mg Tablet
200 mg PO DAILY 11 Days Qty: 11 0RF
Patient Comments:
05/05/24: to take 04/28/24-05/09/24
Discontinued
fluoxetine 40 mg Capsule
40 mg PO DAILY
nitrofurantoin monohyd/m-cryst [Macrobid] 100 mg Capsule
100 mg PO HS
Discharge Orders:
Discharge Patient (As Directed); Ordered 05/07/24
Ordered By: Get Skaggs
Discharge Date and Time
Print Language: ARMENIAN
[2024-05-07] MEDS: AFLURIA (36 mos+) 2024-2025 FORMULA 0.5 ML IM (16:22)
== END 2024-05-07 17:33 ==
LOC: 3 WEST ACU 02:32
PROVIDERS: ADMITTING PHYSICIAN Internal Medicine; ATTENDING PHYSICIAN Hospitalist; EMERGENCY PHYSICIAN Emergency Medicine; OTHER PHYSICIAN Internal Medicine Gastroenterology; OTHER PHYSICIAN Psychiatry & Neurology Psychiatry
DX: T18.8XXA Foreign body in other parts of alimentary tract, initial encounter (principal); W44.C1XA Sharp glass entering into or through a natural orifice, initial encounter; Y93.9 Activity, unspecified; Y92.129 Unspecified place in nursing home as the place of occurrence of the external cause; R10.9 Unspecified abdominal pain; F60.3 Borderline personality disorder; I10 Essential (primary) hypertension; E03.9 Hypothyroidism, unspecified; F40.240 Claustrophobia; F43.10 Post-traumatic stress disorder, unspecified; J44.89 Other specified chronic obstructive pulmonary disease; E11.9 Type 2 diabetes mellitus without complications; K21.9 Gastro-esophageal reflux disease without esophagitis; F31.9 Bipolar disorder, unspecified; R56.9 Unspecified convulsions; I89.0 Lymphedema, not elsewhere classified; R33.9 Retention of urine, unspecified; R29.818 Other symptoms and signs involving the nervous system; D50.9 Iron deficiency anemia, unspecified; R45.851 Suicidal ideations; E87.20 Acidosis, unspecified; E66.01 Morbid (severe) obesity due to excess calories; Z86.61 Personal history of infections of the central nervous system; Z87.820 Personal history of traumatic brain injury; Z79.890 Hormone replacement therapy; Z79.51 Long term (current) use of inhaled steroids; Z88.8 Allergy status to other drugs, medicaments and biological substances; Z91.030 Bee allergy status; Z91.013 Allergy to seafood; Z68.44 Body mass index [BMI] 60.0-69.9, adult; Z23 Encounter for immunization; Z87.440 Personal history of urinary (tract) infections; Z91.51 Personal history of suicidal behavior; Z87.891 Personal history of nicotine dependence; K92.1 Melena; F50.89 Other specified eating disorder
CPT/HCPCS: 74022; 80048; 80053; 82728; 83540; 84443; 85025; 85027; 85610; 86850; 86900; 86901; 90686; 94640; 99285; G0008; G0378

== ENCOUNTER 2024-05-11 21:50 | Emergency (ER) | payer MEDICARE, OTHER, SELFPAY ==
--- NOTE | 2024-05-11 21:55 | ED.GENMED ---
History of Present Illness
General
Chief Complaint: Skin Problem
Source: patient
Exam Limitations: none
Time Seen by Provider: 05/11/24 21:55
History of Present Illness
History of Present Illness:
See MDM
Past History
Past History
ED Past Medical History: Asthma, COPD, GERD, HTN, NIDDM, Seizures, Hypothyroidism, Psychiatric (anxiety, depression, Bipolar, Claustrophobia, PTSD, Schizo, Suicidal attempt, Borderline Personality disorder, ) and Other (Meningitis, Sciatica, TBI,
PE, Chronic lymphedema, Urinary retention with chronic Catheter, UTI, Cellulitis, UTI, Cellulitis, Anemia. Foreign object ingestion)
ED Past Surgical History:
Social History
Tobacco: Former smoker
Alcohol: None
Drug: None
Personal: Other ()
Living: senior living [facility])
Employment: Disabled
Family History
Family History: Other (Noncontributory)
Phy Exam
Physical Exam
Physical Exam:
See MDM
Course
Orders/Labs/Results
Orders:
Orders
05/11/24 21:58
Sulfamethox./Trimethoprim Ds [Bactrim Ds 800 mg/160 mg] 1 tablet PO NOW STA
MDM/Problems Addressed
Differential Diagnosis Includes:
HPI and MDM Narrative:
33-year-old female presenting to the emergency department with concern for a wound to her right buttock. Patient has presented to the emergency department multiple times with skin wounds. Majority of the time, it is related to her candidal
intertrigo. Today, it appears to be again related to skin on skin contact due to her body habitus. There is small ulceration to her right posterior thigh where it meets the buttock. There is mild erythema around the area. Will start Bactrim
Patient states she pulled out her Blum catheter at the nursing facility. When questioned why, patient states 'I was angry'. Prior to arrival to the emergency department, her nursing staff had requested that we do not place the Blum catheter back
in due to her manipulative behavior
Physical exam
General: Well appearing and non-toxic. Elevated BMI
HEENT: protecting airway
Neck: appears supple
CV: No evidence of cyanosis
Resp: No accessory muscle use
Abd: Non-distended
Extremities: No deformities
Neuro: alert
Psych: Normal affect
Skin: Candidiasis noted to bilateral inguinal folds. Much improved from prior evaluation. Small ulceration to right posterior thigh where it meets the buttock
Problems Addressed including Acute and Chronic Conditions affecting care:
1. Skin ulceration
Acuity: acute
Prognosis: stable
Details: Secondary to skin on skin contact due to her body habitus. Will start Bactrim
Differential Diagnosis (but not limited to): Skin ulcer, candidiasis, cellulitis
Testing considered: Blood work
Drug therapy (if applicable): OTC meds, please see d/c instruction regarding Rx drugs
Amount and/or Complexity of Data Reviewed
Clinical info obtained from: Patient
External data reviewed: N/A
Labs I independently reviewed (but not limited to): N/A
Radiology: N/A
Pulse Ox: not hypoxic
EKG independently reviewed: N/A
Piercer Operator: N/A
Critical Care: N/A
Risk of Complication:
Social Determinants of health: Good social support
Discussed with other providers: N/A
Escalation of Care includes Admit/Obs: After being observed in the Emergency Department, pt stable for discharge.
Occasional wrong word or 'sound a like' substitutions may have occurred due to the inherent limitations of voice recognition software. Read the chart carefully and recognize, using context, where substitutions have occurred.
*Critical Care Note
Total Time (30-74mins, 75-104mins- exclusive of procedures): Not Applicable
ED Attending Note
-
Portions of this chart may have been created with voice recognition software.� Occasional wrong word or��sound alike� substitutions may have occurred due to the inherent limitations of voice recognition software.
Discharge Plan
Departure
Patient Disposition: Home (Routine Discharge)
Date of Disposition: 05/11/24
Time of Disposition: 21:59
Patient with high blood pressure during this ER visit?: No
Discharge Problem:
Open wound of skin
Instructions: Wound Care (DC), Cellulitis (Skin Infection), Adult (DC)
Prescriptions:
New
sulfamethoxazole-trimethoprim [Bactrim DS] 800-160 mg tablet
1 tab PO BID 7 Days Qty: 14 0RF
No Action
levothyroxine [Synthroid] 175 mcg Tablet
175 mcg PO DAILY@06
acetaminophen [Tylenol] 325 mg Tablet
650 mg PO Q6HPRN MDD 3000 mg PRN (Reason: temp>100.4/mild pain)
polyethylene glycol 3350 [Miralax] 17 gram Powder In Packet
17 g PO BID
cetirizine [Zyrtec] 10 mg Tablet
10 mg PO DAILY
acetazolamide 500 mg Capsule, Extended Release
500 mg PO TID
therapeutic multivitamin Tablet
1 tab PO DAILY
famotidine [Pepcid] 20 mg Tablet
20 mg PO BID
magnesium hydroxide [Milk of Magnesia] 400 mg/5 mL Suspension
2,400 mg PO [id number] PRN (Reason: if no bm in 3 days)
bisacodyl [Dulcolax (bisacodyl)] 10 mg Suppository
[address] DAILYPRN PRN (Reason: constipation, if mom ineffective)
ferrous sulfate 325 mg (65 mg iron) Tablet
325 mg PO DAILY
fluticasone propion-salmeterol [Advair Diskus] 500-50 mcg/dose Blister With Device
1 inh INHALATION R BID
Fleet Enema 19-7 gram/118 mL Enema
[address] DAILYPRN PRN (Reason: constipation, suppository ineffect)
docusate sodium [Colace] 100 mg Capsule
100 mg PO TID
ibuprofen 600 mg Tablet
600 mg PO Q6HPRN PRN (Reason: mild pain)
atropine 1 % Drops
1 drp sublingual Q8HPRN PRN (Reason: drooling) Qty: 0
cyclobenzaprine 5 mg Tablet
5 mg PO TID
Senna Plus 8.6-50 mg Capsule
2 tab-cap PO TID
naltrexone 50 mg Tablet
50 mg PO BID
lidocaine 4 % Adhesive Patch,Medicated
1 patch TOPICAL DAILY
clozapine 25 mg Tablet
25 mg PO HS
Rx Instructions:
with 100mg = 125mg
furosemide 20 mg Tablet
20 mg PO DAILY
gabapentin 100 mg Capsule
100 mg PO HS
albuterol sulfate 90 mcg/actuation Hfa Aerosol Inhaler
2 inh INHALATION R Q6HPRN PRN (Reason: sob/wheezing)
lactulose 10 gram/15 mL Solution
30 ml PO DAILY
potassium chloride 20 mEq Tablet Extended Release
20 meq PO DAILY
Nurtec ODT 75 mg Tablet,Disintegrating
75 mg PO [id number] PRN (Reason: migraine)
nitroglycerin 0.4 mg Tablet, Sublingual
0.4 mg SUBLINGUAL [id number] PRN (Reason: chest pain)
spironolactone 25 mg Tablet
25 mg PO DAILY
clozapine 100 mg Tablet
100 mg PO HS
Rx Instructions:
take with [id number]
gabapentin 400 mg Capsule
400 mg PO HS
calcium carbonate [Calcium 600] 600 mg calcium (1,500 mg) Tablet
600 mg PO DAILY
omeprazole 20 mg Capsule,Delayed Release(Dr/Ec)
20 mg PO DAILY
Patient Comments:
05/05/24: to take from 03/28/24-05/09/24
zinc oxide 10 % Cream
1 applic TOPICAL TID
fluconazole 200 mg Tablet
200 mg PO DAILY 11 Days Qty: 11 0RF
Patient Comments:
05/05/24: to take 04/28/24-05/09/24
fluoxetine 20 mg Capsule
60 mg PO DAILY 30 Days Qty: 90 0RF
Activity Restrictions/Additional Instructions:
Watch for worsening signs of infection: fever over 100.5', increasing pain, red streaks around wound, swelling, or increasing drainage of pus. If any of these happen, return to ED promptly. Make sure that you take all your antibiotics as directed
and finish your prescription even if you feel better before the bottle is empty
Please return for any worsening symptoms.
You may return at any time if you have further concerns.
Please follow up with your doctor at the first available appointment, preferably this week.
Thank you for choosing [facility].
Discharge Date and Time
Print Language: LAO
[2024-05-11 21:56] VITALS: BP 126/70
[2024-05-11] MEDS: BACTRIM DS 800 MG/160 MG 1 TABLET PO (22:27)
[2024-05-12 08:25] VITALS: BP 133/74
== END 2024-05-12 08:27 | disposition home or self-care (01) ==
LOC: EMR 21:50
PROVIDERS: EMERGENCY PHYSICIAN Student in an Organized Health Care Education/Training Program; FAMILY PHYSICIAN Internal Medicine
DX: S31.809A Unspecified open wound of unspecified buttock, initial encounter (principal); X58.XXXA Exposure to other specified factors, initial encounter; J44.89 Other specified chronic obstructive pulmonary disease; K21.9 Gastro-esophageal reflux disease without esophagitis; I10 Essential (primary) hypertension; E11.9 Type 2 diabetes mellitus without complications; E03.9 Hypothyroidism, unspecified; F41.9 Anxiety disorder, unspecified; F43.10 Post-traumatic stress disorder, unspecified; F60.3 Borderline personality disorder; F40.240 Claustrophobia; Z87.440 Personal history of urinary (tract) infections; Z87.891 Personal history of nicotine dependence; Z91.51 Personal history of suicidal behavior
CPT/HCPCS: 99282

== ENCOUNTER 2024-05-31 17:21 | Inpatient (IN) | payer MEDICARE, OTHER, SELFPAY ==
[2024-05-31] VITALS (7 sets, daily range): BP systolic 113–159; BP diastolic 67–102; BMI 76.5
[2024-05-31 14:12] LABS: % Basophils 0.8 % (0-2); % Eosinophils 6.8 % (0-6); % Immature Granulocytes 0.5 % (0-0.5); % Lymphocytes 19.2 % (20.5-51.1); % Neutrophils 65.7 % (42.2-75.2); Absolute Basophils 0.1 10^3/uL (0-0.2); Absolute Eosinophils 0.4 10^3/uL (0-0.7); Absolute Lymphocytes 1.2 10^3/uL (1.2-3.4); Absolute Monocytes 0.5 10^3/uL (0.1-0.6); Absolute Neutrophils 4.3 10^3/uL (1.4-6.5); Hematocrit 36.5 % (37.0-47.0); Hemoglobin 10.6 g/dL (12.0-16.0); Mean Corpuscular Volume 75.7 fL (81.0-99.0); Mean Platelet Volume 8.4 fL (7.4-10.4); Nucleated Red Blood Cells % 0 %; Platelet Count 444 10^3/uL (130-400); Red Blood Cell Count 4.82 10^6/uL (4.20-5.40); Red Cell Dist. Width 18.1 % (11.5-14.5); White Blood Cell Count 6.5 10^3/uL (4.8-10.8)
[2024-05-31 14:36] LABS: NT-proBNP 181 pg/ml; Troponin I < 0.012 ng/ml
[2024-05-31 14:52] LABS: ALT (SGPT) 23 U/L (0-35); AST (SGOT) 22 U/L (14-36); Alkaline Phosphatase 104 U/L (38-126); Blood Urea Nitrogen 11 mg/dl (7-17); Calcium 9.2 mg/dl (8.4-10.2); Carbon Dioxide 23 mmol/L (22-30); Chloride 107 mmol/L (98-107); Glucose 110 mg/dl (70-99); Potassium 4.2 mmol/L (3.5-5.1); Sodium 143 mmol/L (135-145); Total Bilirubin 0.2 mg/dl (0.2-1.3); Total Protein 7.2 g/dl (6.3-8.2); eGFR > 60.00
--- NOTE | 2024-05-31 15:11 | ED.GENMED ---
History of Present Illness
General
Chief Complaint: Swelling
Source: patient
Exam Limitations: none
Time Seen by Provider: 05/31/24 14:08
Nursing documentation reviewed up to this point in time: agreed with
History of Present Illness
History of Present Illness:
Patient presents to ED secondary to increasing leg swelling with shortness of breath over the past 3 to 4 days. Patient also reports continual wheezing despite treatment at long-term. Denies fever or chills. Denies nausea, vomiting, or
diarrhea. Patient also reports pain from multiple superficial wounds noted over her abdomen, groin, vaginal wall, and legs. Denies chest pain. Patient has been taking Lasix daily, without improvement of symptoms.
Past History
Past History
ED Past Medical History: Asthma, COPD, GERD, HTN, NIDDM, Seizures, Hypothyroidism, Psychiatric (anxiety, depression, Bipolar, Claustrophobia, PTSD, Schizo, Suicidal attempt, Borderline Personality disorder, ) and Other (Meningitis, Sciatica, TBI,
PE, Chronic lymphedema, Urinary retention with chronic Catheter, UTI, Cellulitis, UTI, Cellulitis, Anemia. Foreign object ingestion)
ED Past Surgical History:
Social History
Tobacco: Former smoker
Alcohol: None
Drug: None
Personal: Other ()
Living: long-term ([facility])
Employment: Disabled
Family History
Family History: Other (Noncontributory)
Review of Systems
Review of Systems
Allergies reviewed?: Yes
All Other Systems: ROS reviewed and negative except as documented in HPI and ROS
Constitutional: Reports no symptoms; Denies fever or chills
EENT: Reports no symptoms
Respiratory: Reports trouble breathing
Cardiac: Reports no symptoms; Denies chest pain or palpitations
ABD/GI: Reports no symptoms; Denies vomiting or diarrhea
: Reports no symptoms
Musculoskeletal: Reports no symptoms
Skin: Reports other (open wound)
Neurological: Reports no symptoms
Phy Exam
Physical Exam
Physical Exam:
Physical Exam
General: mild distress, not acutely ill. afebrile. morbidly obese
Head: nc/at. eomi
Neck: supple. no meningeal signs.
Heart: s1/s2 regular rate and rhythm, no murmur. equal radial pulses.
Lungs: mild respiratory distress. expiratory wheezing bilaterally
Abdomen: normal bowel sounds. not tender. diffuse distention
Neuro: alert and oriented. no focal neurological deficits
Skin: superficial wound noted over the lower abdomen along abdominal wall fold.
Psychiatric: well kept. interactive and cooperative
Extremities: LE lymphedema with superficial wounds, with serosanguineous drainage. no calf tenderness.
Course
Orders/Labs/Results
Orders:
Orders
05/31/24 Breakfast
Sodium, 2 Gram
At Your Request: Full Participation
Does patient need a safe tray?: Yes
Fluid Restriction: 1440 mL/day (48 oz)
05/31/24 13:40
Electrocardiogram (*1) Urgent
Reason for Study: Shortness of Breath
05/31/24 13:41
EKG- Treatment ONCE
05/31/24 13:49
BNP [NT-proBNP] Urgent
Complete Blood Count/With Diff Urgent
Comprehensive Metabolic Panel Urgent
Troponin I Urgent
05/31/24 15:09
CR Chest Portable - 1 View Urgent
Comment:
Reason For Exam: sob
Reason Study Needs to be Portable: Patient Unstable
05/31/24 15:10
Dexamethasone Sod Phosphate [Decadron] 6 mg IV NOW STA
Furosemide [Lasix] 40 mg IV NOW STA
Ipratropium/Albuterol Sulfate [Duoneb] 3 ml INH R NOW STA
05/31/24 15:11
Ketorolac [Toradol] 15 mg IV NOW STA
05/31/24 15:12
Acetaminophen [Tylenol] 1,000 mg PO NOW STA
05/31/24 16:34
Admit/Transfer Patient As Directed
Co-Sign Provider:
Level of Care: Inpatient admission
Assign to:: Medical/Surgical
Physician / Group: Ken[place]y
Diagnosis: Lymphedema, Cellulitis
Reason for Hospitalization: IV diuretics, IV abx
Expected length of stay greater than two midnights?: Yes
ELOS- Estimated Length of Stay in days: 3
I certify the patient meets the requirements for IP care: Yes
05/31/24 16:36
PRN Pain Medication Management As Directed
May give lesser potent ordered pain med per pt: Yes
preference::
Protocol:: Medication orders for pain may be administered in a
manner that supports deferring to patient preference
when the pt is:
- Requesting an ordered lesser potent pain medication.
Least to most potent pain medications are defined
as: acetaminophen < NSAID < tramadol < opioids
(morphine, oxycodone, hydromorphone).
- Requesting a lesser dose of the same medication IF
ORDERED.
- Requesting a less intrusive route of administration
if both routes are prescribed by the provider (PO <
IV).
05/31/24 16:40
Code Status As Directed
Resuscitation Status: Full Code
05/31/24 19:36
Acetaminophen [Tylenol] 650 mg PO Q6HPRN PRN
Enoxaparin Sodium [Lovenox] 40 mg SC QPM
Ipratropium/Albuterol Sulfate [Duoneb] 3 ml INH R Q4HPRN PRN
05/31/24 19:36
Activity As Directed
Activity Level: Out of Bed- Chair
I&O [Intake/ Output] As Directed
Frequency: q12h
Vital Signs As Directed
Frequency: Per unit guidelines
Weight As Directed
Frequency: Daily
DX Deep Vein Thrombosis Video Routine
05/31/24 20:00
Budesonide [Pulmicort] 0.5 mg INH R BID
CeFAZolin 2 GRAM [Ancef] 2 grams in 10 ml IV Q8H
Ferrous Sulfate [Feosol] 325 mg PO BID
Ipratropium/Albuterol Sulfate [Duoneb] 3 ml INH R QID
05/31/24 22:00
Acetazolamide Sr [Diamox Sr Sequels] 500 mg PO TID
Clozapine [Clozaril] 100 mg PO HS
Docusate W/Senna [Senokot-S] 2 tablet PO TID
06/01/24 06:00
Levothyroxine [Synthroid] 175 mcg PO DAILY @ 0600
06/01/24 06:08
Basic Metabolic Panel IN AM
Complete Blood Count/No Diff IN AM
Magnesium IN AM
06/01/24 08:00
Buprenorphine [Subutex] 8 mg SL DAILY
Fluoxetine HCl [Prozac] 40 mg PO DAILY
Furosemide [Lasix] 40 mg IV BID AT 0800,1600
Potassium Chloride [KCl] 20 meq PO DAILY
Abnormal Lab Results
05/31/24
13:49
Hgb 10.6 L g/dL
(12.0-16.0)
Hct 36.5 L %
(37.0-47.0)
MCV 75.7 L fL
(81.0-99.0)
MCH 22.0 L pg
(27.0-31.0)
MCHC 29.0 L g/dL
(33.0-37.0)
RDW 18.1 H %
(11.5-14.5)
Plt Count 444 H 10^3/uL
(130-400)
Lymphocytes % 19.2 L %
(20.5-51.1)
Eosinophils % 6.8 H %
(0-6)
Glucose 110 H mg/dl
(70-99)
05/31/24 13:49
05/31/24 13:49
Vital Signs
Initial and Last Documented VS:
Initial Vital Signs
Temp Pulse Resp BP Pulse Ox
97.7 F 101 17 159/102 100
05/31/24 13:32 05/31/24 13:32 05/31/24 13:32 05/31/24 13:32 05/31/24 13:32
Last Documented Vital Signs
Temp Pulse Resp BP Pulse Ox
97.7 F 91 16 122/80 98
06/01/24 15:20 06/01/24 15:48 06/01/24 15:48 06/01/24 15:20 06/01/24 15:48
MDM/Problems Addressed
MDM/Problems Addressed:
Patient's presenting symptoms, likely multifactorial, including moderate fluid overload, as well as exacerbation of underlying asthma. Patient was admitted for further evaluation and treatment.
*Critical Care Note
Total Time (30-74mins, 75-104mins- exclusive of procedures): Not Applicable
ED Attending Note
-
Portions of this chart may have been created with voice recognition software.� Occasional wrong word or��sound alike� substitutions may have occurred due to the inherent limitations of voice recognition software.
Discharge Plan
Departure
Patient Disposition: Admit
Date of Disposition: 05/31/24
Time of Disposition: 16:03
Admit to: Telemetry
Presentation/result/management discussed w/ accepting MD/DO: Hospitalist
Discharge Problem:
Asthma exacerbation, Fluid overload
Interventions
Interventions:
*Risk Screen - Suicide Last Done: 05/31/24 19:47
*General Assessment Last Done: 05/31/24 13:32
*Neglect/Abuse Screening Last Done: 05/31/24 13:32
*ED COVID-19 Vaccine History Last Done: 05/31/24 19:47
*Nursing Disposition Last Done: 05/31/24 19:43
ED- Cardiac Assessment Last Done: 05/31/24 14:03
ED- Pulmonary Assessment Last Done: 05/31/24 14:03
ED-Skin Assessment Last Done: 05/31/24 14:03
Discharge Date and Time
Discharge Date/Time: 05/31/24 19:44
[2024-05-31] MEDS: LASIX 40 MG IV (15:17)
[2024-05-31] MEDS: DECADRON 6 MG IV (15:18)
[2024-05-31] MEDS: TORADOL 15 MG IV (15:18)
[2024-05-31] MEDS: DUONEB 3 ML INH ×2 (15:19→20:11)
[2024-05-31] MEDS: TYLENOL 1000 MG PO (15:19)
--- NOTE | 2024-05-31 16:56 | HPS.HSE ---
Addendum entered and electronically signed by Wagner Rivero MD 05/31/24 17:49:
I saw and examined the patient.
The TRANSIT BUS OPERATOR or PA's note was reviewed and I agree with the note.
Comment:
33F Morbidly obese HX multiple psychiatric diagnosis, opioid dependence, asthma/COPD, chronic lymphedema pw increasing b/l lower extremity edema
- progressively more swollen and notes the legs are much worse over the past few days
- mild redness of the legs, with some pustules.
- weight is up over 20kg from her prior admission earlier this month.
ASSESSMENT & PLAN
Volume Overload with Worsening Lower Extremity Lymphedema
- Weight up 20kgs compared to May 11, 2024
- Agree with IV Lasix 40mg BID
- c/w acetazolamide as prior to admission
- Is&Os and Daily Weights
- TTE
B/L Cellulitis due to infected scratched abrasions
- agree with IV Cefazolin
Psychiatric disorder with HX swallowing objects
NH Res
- 1 to 1
Chr ambulatory dysfunction
Morbid obesity
DVT Px: LMWH
Full code
IP MS
Original Note:
Family Physician
-
Family Physician: Shivam Turk, DO
Chief Complaint
-
Increasing Lower Ext Edema
History of Present Illness
Patient is a 33 y/o with extensive past medical history including multiple psychiatric diagnosis, opioid dependence, asthma/COPD, chronic lymphedema and morbid obesity who presents with increasing lower extremity edema. Patient reports her legs
have gotten progressively more swollen and notes the legs are much worse over the past few days. She reports abdomen is also very swollen. She reports mild redness of the legs, with some pustules. Review of records indicate her weight is up over
20kg from her prior admission earlier this month.
Medical History
Past Medical History
Past Medical History: Reports Other
Additional Past Medical History:
Schizoaffective Disorder / Borderline Personality Disorder
Depression / Anxiety / PTSD
Opioid Dependence
Hypertension
Asthma/COPD
Chronic Lower Extremity Lymphedema
Morbid Obesity
Seizure Disorder
Hypothyroidism
Neurogenic Bladder with Chronic Blum
GERD
Migraine Headaches
Iron Deficiency Anemia
Past Surgical History: Reports
Social History
Tobacco: Former Smoker
Alcohol: None
Drug: None
Personal: Other ()
Living: Half-Way ([facility])
Employment: Disabled
Family History
Family History: Not pertinent
Allergies / Home Medications
Allergies reflects when Allergies were last updated in [employer].
Home Medications with original date entered in [employer] by [employer]
Allergy/Medication List:
Allergies
Allergy/AdvReac Type Severity Reaction Status Date / Time
bee venom protein (honey bee) Allergy Anaphylaxis Verified 05/03/24 22:44
cariprazine Allergy Unknown Verified 05/03/24 22:44
loratadine [From Claritin] Allergy Unknown Verified 05/03/24 22:44
meloxicam Allergy Unknown Verified 05/03/24 22:44
nicotine Allergy Unknown Verified 05/03/24 22:44
shellfish derived Allergy Anaphylaxis Verified 05/03/24 22:44
simvastatin Allergy Unknown Verified 05/03/24 22:44
Home Medications
acetaminophen 325 mg tablet (Tylenol) 650 mg PO Q6HPRN PRN temp>100.4/mild pain 12/03/23
acetazolamide 500 mg capsule,extended release 500 mg PO TID Fluid Retention/Swelling 12/03/23
atropine 1 % eye drops 1 drp PO Q8HPRN PRN drooling ##0 12/03/23
ferrous sulfate 325 mg (65 mg iron) tablet 325 mg PO BID Supplement 12/03/23
fluticasone 500 mcg-salmeterol 50 mcg/dose blistr powdr for inhalation (Advair Diskus) 1 inh inhalation R BID Lung/Breathing Issues 12/03/23
levothyroxine 175 mcg tablet (Synthroid) 175 mcg PO DAILY@06 Thyroid 12/03/23
magnesium hydroxide 400 mg/5 mL oral suspension (Milk of Magnesia) 2,400 mg PO [id number] PRN if no bm in 3 days 12/03/23
sennosides 8.6 mg-docusate sodium 50 mg capsule (Senna Plus) 2 tab-cap PO TID Constipation 12/03/23
therapeutic multivitamin 1 tab PO DAILY Supplement 12/03/23
lidocaine 4 % topical patch 1 patch topical DAILY lower back 01/18/24
albuterol sulfate 90 mcg/actuation aerosol inhaler 2 inh inhalation R Q6HPRN PRN sob/wheezing 03/09/24
furosemide 20 mg tablet 20 mg PO DAILY Fluid Retention/Swelling 03/09/24
potassium chloride 20 mEq tablet,extended release 20 meq PO DAILY Electrolyte Repletion 03/09/24
rimegepant 75 mg disintegrating tablet (Nurtec ODT) 75 mg PO [id number] PRN migraine pain 03/09/24
nitroglycerin 0.4 mg sublingual tablet 0.4 mg sublingual [id number] PRN chest pain 03/15/24
clozapine 100 mg tablet 100 mg PO HS Mental Health/Anxiety 04/23/24
zinc oxide 10 % topical cream 1 applic topical TID labia majora/vulva 04/23/24
buprenorphine 8 mg-naloxone 2 mg sublingual film (Suboxone) 1 film buccal DAILY 05/31/24
fluoxetine 40 mg capsule 40 mg PO DAILY 05/31/24
hydroxyzine HCl 50 mg tablet 50 mg PO TIDPRN PRN itching 05/31/24
Review of Systems
-
A 12 point ROS was completed and negative except as noted: Yes
Constitutional: Denies Fever or Chills
Respiratory: Reports Trouble Breathing
Cardiac: Denies Chest Pain
Musculoskeletal: Reports Edema
Physical Exam
Vital Signs
Vital Signs
Temp Pulse Resp BP Pulse Ox
97.7 F 104 16 135/80 100
05/31/24 13:32 05/31/24 16:45 05/31/24 16:15 05/31/24 16:27 05/31/24 13:32
Physical Exam
General: Comfortable, Conversant and Morbidly Obese
HEENT: Anicteric and Moist mucous membranes
Respiratory: Clear and Non Labored Respirations; No Wheezes
Cardiac: S1/S2 and Regular Rhythm
GI: Soft and Other (Protuberant)
Genito-urinary: Blum
Musculoskeletal: No Clubbing, No Cyanosis, Edema, Left Lower Extremity and Edema, Right Lower Extremity
Skin: Other (Mild erythema bilateral lower extremity with evidence of scratching and noted pustules/crusting)
Neuro: Awake, Alert, Oriented and Nonfocal/grossly intact
Laboratory Results
-
05/31/24 13:49
05/31/24 13:49
Laboratory Results
Total Bilirubin 0.2 mg/dl (0.2-1.3) 05/31/24 13:49
AST 22 U/L (14-36) 05/31/24 13:49
ALT 23 U/L (0-35) 05/31/24 13:49
Alkaline Phosphatase 104 U/L (38-126) 05/31/24 13:49
Troponin I < 0.012 ng/ml 05/31/24 13:49
Data Reviewed
-
Diagnostic Radiology: Report Reviewed by me
Lab Data: Labs Reviewed by me
Old Records: Reviewed
Impression/Plan
-
Acute Volume Overload with Worsening Lower Extremity Lymphedema
-Weight up 20kgs compared to May 11, 2024
-Continue Lasix 40mg IV BID
-Continue acetazolamide as prior to admission
-Monitor Is&Os and Daily Weights
-Check Echocardiogram
Lower Extremity Cellulitis
-Continue Ancef
Asthma/COPD
-Possibly mild acute exacerbation as ED staff noted wheezing which was resolving upon my evaluation
-Continue Pulmicort and DuoNeb
-Hold on systemic steroids
Schizoaffective Disorder / Borderline Personality Disorder
Depression / Anxiety / PTSD
-Continue Clozapine, Prozac
Opioid Dependence
-Continue Suboxone as prior to admission
Hypothyroidism
-Continue levothyroxine
Iron Deficiency Anemia
-Continue iron supplement
Neurogenic Bladder with Chronic Blum
-Stable
Morbid Obesity due to Excess Calories
-Affects all aspects of care
DVT proph: Lovenox
Code Status: Full Code
[2024-05-31] MEDS: PULMICORT 0.5 MG INH (20:11)
[2024-05-31] MEDS: LOVENOX 40 MG SC (21:13)
[2024-05-31] MEDS: FEOSOL 325 MG PO (21:13)
[2024-05-31] MEDS: ANCEF 10 IV (21:13)
[2024-05-31] MEDS: SENOKOT-S 2 TABLET PO (21:25)
[2024-05-31] MEDS: CLOZARIL 100 MG PO (21:26)
[2024-05-31] MEDS: DIAMOX SR SEQUELS 500 MG PO (21:26)
[2024-06-01 03:02] VITALS: BP 132/87
[2024-06-01] MEDS: ANCEF 10 IV (04:34)
[2024-06-01] MEDS: SYNTHROID 175 MCG PO (04:34)
[2024-06-01 06:00] VITALS: BMI 76.5
[2024-06-01 07:05] LABS: Hematocrit 28.8 % (37.0-47.0); Hemoglobin 8.7 g/dL (12.0-16.0); Mean Corp Hgb Conc. 30.2 g/dL (33.0-37.0); Mean Corpuscular Hgb 22.8 pg (27.0-31.0); Mean Corpuscular Volume 75.4 fL (81.0-99.0); Platelet Count 381 10^3/uL (130-400); Red Blood Cell Count 3.82 10^6/uL (4.20-5.40); Red Cell Dist. Width 17.9 % (11.5-14.5); White Blood Cell Count 7.3 10^3/uL (4.8-10.8)
[2024-06-01 07:30] LABS: Blood Urea Nitrogen 13 mg/dl (7-17); Calcium 8.4 mg/dl (8.4-10.2); Carbon Dioxide 20 mmol/L (22-30); Chloride 109 mmol/L (98-107); Estimated Creatinine Clearance > 125 ml/min; Glucose 131 mg/dl (70-99); Magnesium 2.3 mg/dl (1.6-2.3); Potassium 4.7 mmol/L (3.5-5.1); Sodium 141 mmol/L (135-145); eGFR > 60.00
[2024-06-01] MEDS: DUONEB 3 ML INH ×5 (07:59→22:25)
[2024-06-01 08:00] VITALS: BP 113/62
[2024-06-01] MEDS: PULMICORT 0.5 MG INH ×2 (08:00→19:25)
[2024-06-01] MEDS: SUBUTEX 8 MG SL (08:11)
[2024-06-01] MEDS: TYLENOL 650 MG PO (08:11)
[2024-06-01] MEDS: PROZAC 40 MG PO (08:12)
[2024-06-01] MEDS: LASIX 40 MG IV ×2 (08:12→16:09)
[2024-06-01] MEDS: SENOKOT-S 2 TABLET PO ×3 (08:12→21:54)
[2024-06-01] MEDS: KCL 20 MEQ PO (08:12)
[2024-06-01] MEDS: DESENEX/MITRAZOL/ZEASORB 1 APPLIC TOPICAL ×2 (08:14→21:53)
[2024-06-01] MEDS: DIAMOX SR SEQUELS 500 MG PO ×3 (08:59→21:54)
[2024-06-01] MEDS: FEOSOL 325 MG PO ×2 (08:59→21:54)
--- NOTE | 2024-06-01 09:41 | CM ---
Addendum entered by April Escalante 06/01/24 15:49:
Marie is covering for Lolita at [facility]. Per Marie patient able to return even if current with 1:1 or med sitter. Call Marie [phone] with status in am. Patient able to return when needed to SNF.
Original Note:
Patient seen at bedside. Patient here from [facility] in [place] where she is LTC. Patient with consult for suicide risk, pending psych consult. CM left VM for Lolita at [facility] admissions [phone] requesting call back re prior level
of functioning. CM will continue to follow for discharge planning needs.
Plan; return to SNF
--- NOTE | 2024-06-01 09:59 | W.PN.HOSP.TC ---
Addendum entered and electronically signed by Gordon Joseph MD 06/02/24 00:32:
Attending Addendum-
I saw and evaluated the patient. I reviewed the resident�s note and agree with findings and plan as documented in the resident�s note. Sub: Feel itchy b/l LE and under breasts. 'i gained 20 pounds? Thats crazy!' Full 12 point ROS reviewed and
negative except as documented Exam: Vitals reviewed in chart GEN-NAD heart RRR lungs clear abd osft obese LE b/l lymphedema not red or warm Skin scabs lesions LE and stomach
# Volume Overload with Worsening Lower Extremity Lymphedema
- Weight up 30 lbs compared to May 11, 2024
- cont IV Lasix 40mg BID
- c/w acetazolamide as prior to admission
- Is&Os and Daily Weights
- TTE- 06/01- WNL
# B/L venous stasis derm with lymphedema
- DC ancef
- monitor
- wound care
- would benefit from LE pumps at facility
# Possible Scabies
- start permethrin cream
# Psychiatric disorder with HX swallowing objects
- no SI or HI
- psych c/s appreciated
- DC 1:1
Chr ambulatory dysfunction
Morbid obesity due to excess calorie consumption
DVT Px: LMWH
Full code
Dispo- DC back to [facility] when able
Time spent coordinating care, review of plan of care with resident, personally reviewed records in EMR, med rec, consults, notes, labs, radiology, d/w nursing � 59 mins
Original Note:
Documented by User: Lon Solomon DO, Resident 06/01/24 18:21
Today's Communication/Plan
-
Continue one-to-one
Continue antibiotics for now
Psychiatry consult
Assessment / Plan
Assessment / Plan
Plan:
33 female living in [facility] facility [facility] psychiatric disorders, opioid dependence, asthma/COPD, chronic lymphedema and morbid obesity presents for increasing lower extremity edema.
Assessment:
#Volume overload with worsening lower extremity lymphedema
Weight up 20 kg compared to May 11, 2024
Patient reports wanting to follow-up with lymphedema clinic, however she was not able to get scheduled
IV Lasix 40 Mg twice daily
Continue home acetazolamide
Daily I's and O's, daily weights
TTE planned
#Possible cellulitis
Patient has diffuse abrasions on bilateral lower extremities and abdomen, consistent with picking disorder
Patient reports to picking sometimes
Currently on IV cefazolin, day 2
Unsure if patient truly has cellulitis as skin is not hot or angry appearing, is red but likely due to lymphedema
White count within normal limits, patient has been afebrile throughout her stay
Discontinued IV antibiotics
Patient reports no pain to palpation in legs, however she reports that she cannot feel anything in her legs
#Possible scabies infection
Per wound care nurse, thinks patient may have scabies
Prescribed permethrin cream to be applied to wounds
# Fungal infection
Area in patient's skin folds are red, possibly infected with fungus
Continue miconazole topical twice daily
#Asthma
Patient reportedly short of breath on presentation to ED
Status post nebulizer treatment
Continue home asthma medications
#Psychiatric disorders
Multiple psychiatric disorders, patient reports OCD, PTSD, personality disorder, anxiety/depression
History of swallowing objects, patient reports it is a compulsion, also has a picking disorder
Very likely component of obsessive-compulsive disorder, unsure if she has been diagnosed previously
Psychiatry consulted
Patient has no current suicidal ideations, plan or intent
Psychiatry recommended discontinuation of one-to-one
#Morbid obesity
BMI 76.4
due to calorie excess
DVT prophylaxis: Low molecular weight heparin
Full code
Sodium restricted diet
Anticipated Discharge: 24 - 48 hours
Subjective/Interval History
-
Date of Service: June 01, 2024
Per nursing patient apparently made comments about wanting to hurt herself
Patient reports never making those comments, currently with one-to-one
Objective Data
-
Labs:
Laboratory Results
06/01/24
06:08
WBC 7.3
Hgb 8.7 L
Hct 28.8 L
Plt Count 381
Sodium 141
Potassium 4.7
Chloride 109 H
Carbon Dioxide 20 L
BUN 13
Creatinine 0.7
Glucose 131 H
Calcium 8.4
Vital Signs:
Vital Signs
Temp Pulse Resp BP Pulse Ox
97.7 F 98 16 113/62 99
06/01/24 08:00 06/01/24 08:05 06/01/24 08:05 06/01/24 08:00 06/01/24 08:05
I&O
05/31/24 06/01/24 06/02/24
06:59 06:59 06:59
Intake Total 180 / 180
Output Total 700 / 700
Balance -520 / -520
Review of Systems
-
History Source: Patient
Constitutional: Reports No Symptoms
Respiratory: Reports No Symptoms
Cardiac: Reports No Symptoms
Abdomen/GI: Reports No Symptoms
Skin: Reports Itching
Psych: Reports Other (Multiple psychiatric disorders)
Physical Exam
-
General: Morbidly Obese (BMI 76.4)
Respiratory: Clear to Auscultation
Cardiac: Regular Rhythm and S1/S2
GI: Soft and Nontender
Musculoskeletal: Edema, Right Lower Extrem, Edema, Left Lower Extrem and Other (Extremely tight, bilateral lower extremity lymphedema, nonpitting)
Skin: Rash and Other (Diffuse wounds on bilateral lower extremities and lower abdomen, consistent with picking. Skin is red, however is not hot or angry appearing)
Neuro: Awake, Alert, Oriented and AO x 3
Psych: Other (Flat affect)
Data Reviewed
-
Labs: Labs Reviewed by me and Discussed with Physician

Documented by User: Estiven Villagran MD, Resident 06/01/24 11:46
Assessment / Plan
Assessment / Plan
Plan:
33 female living [facility] facility [facility], opioid dependence, asthma/COPD, chronic lymphedema and morbid obesity presents for increasing lower extremity edema.
Assessment:
#Volume overload with worsening lower extremity lymphedema
Weight up 20 kg compared to May 11, 2024
Patient reports wanting to follow-up with lymphedema clinic, however she was not able to get scheduled
IV Lasix 40 Mg twice daily
Continue home acetazolamide
Daily I's and O's, daily weights
TTE planned
#Possible cellulitis
Patient has diffuse abrasions on bilateral lower extremities and abdomen, consistent with picking disorder
Patient reports to picking sometimes
Currently on IV cefazolin, day 2
Unsure if patient truly has cellulitis as skin is not hot or angry appearing, is red but likely due to lymphedema
White count within normal limits, patient has been afebrile throughout her stay
Patient reports no pain to palpation in legs, however she reports that she cannot feel anything in her legs
#Possible fungal infection
Area under patient's skin folds is red, possibly infected with fungus
Continue miconazole topical twice daily
#Asthma
Patient reportedly short of breath on presentation to ED
Status post nebulizer treatment
Continue home asthma medications
#Psychiatric disorders
Multiple psychiatric disorders, patient reports OCD, PTSD, personality disorder, anxiety/depression
History of swallowing objects, patient reports it is a compulsion, also has a picking disorder
Very likely component of obsessive-compulsive disorder, unsure if she has been diagnosed previously
Psychiatry consulted
Continue one-to-one
#Morbid obesity
BMI 76.4
due to calorie excess
DVT prophylaxis: Low molecular weight heparin
Full code
Sodium restricted diet
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
[2024-06-01 12:50] VITALS: BMI 76.5
--- NOTE | 2024-06-01 14:37 | WOUNDNOTE ---
R POSTERIOR THIGH WITH FLASH
--- NOTE | 2024-06-01 14:37 | WOUNDNOTE ---
R MEDIAL THIGH HEALED SITE
--- NOTE | 2024-06-01 14:42 | WOUNDNOTE ---
WON RN note: Patient admitted with Asthma exacerbation, fluid overload.
See H&P for complete history. Patient resides at [facility]
PMH: Asthma, HTN, bipolar, morbid obesity, major depression, PTSD, yeast rash in skin folds, PI R posterior thigh.
Wound Location and type/assessment: Patient known to service last seen 05/06/24. Same MASD/ fungal rash in skin folds, red and painful. Fungal powder already on order. PI's on posterior R thigh improved since last seen, medial thigh ulcer now
healed. Sacrum is intact, few scratch osorio on area. Scratch osorio also on abdomen and legs. Scattered pustules on legs with scabbed dry irregular lines, suspect Scabies. Patient able to stand from recliner chair on own, using bariatric air chair
cushion.
Appetite: Good, encouraged to eat protein in diet.
Pressure redistribution devices in place: Accumax bed, using recliner chair with legs elevated.
Plan: Cleansed/soaked all skin folds and legs with Vashe. Dried skin with dry towel then dusting of Miconazole powder to skin folds followed by non woven gauze. Silicone foam applied to R Posterior thigh ulcer. Pressure ulcer prevention measures
reviewed with patient and nutrition for wound healing. Confirmed local wound care orders with hospitalist. Made Dr. Joseph aware of suspected scabies and to recommend/order topical treatment if deems necessary. LAKESHIA Diaz updated and Care plan, will
follow as needed. Patient to go back to [facility] upon discharge.
[2024-06-01 15:20] VITALS: BP 122/80
[2024-06-01] MEDS: ELIMITE/ACTICIN/PERMETHRIN 5% 1 APPLIC TOPICAL (17:12)
[2024-06-01] MEDS: LOVENOX 40 MG SC (17:12)
[2024-06-01] MEDS: CLOZARIL 100 MG PO (21:54)
[2024-06-01 23:32] VITALS: BP 105/81
[2024-06-02] MEDS: SYNTHROID 175 MCG PO (05:49)
[2024-06-02 06:00] VITALS: BMI 75.8
[2024-06-02 06:25] LABS: Hematocrit 30.4 % (37.0-47.0); Hemoglobin 9.3 g/dL (12.0-16.0); Mean Corp Hgb Conc. 30.6 g/dL (33.0-37.0); Mean Corpuscular Hgb 22.8 pg (27.0-31.0); Mean Corpuscular Volume 74.5 fL (81.0-99.0); Mean Platelet Volume 9.3 fL (7.4-10.4); Platelet Count 401 10^3/uL (130-400); Red Blood Cell Count 4.08 10^6/uL (4.20-5.40); Red Cell Dist. Width 18.3 % (11.5-14.5); White Blood Cell Count 8.2 10^3/uL (4.8-10.8)
[2024-06-02 07:13] VITALS: BP 142/77
--- NOTE | 2024-06-02 07:20 | W.PN.HOSP.TC ---
Addendum entered and electronically signed by Gordon Joseph MD 06/03/24 00:44:
Attending Addendum-
I saw and evaluated the patient. I reviewed the resident�s note and agree with findings and plan as documented in the resident�s note. Sub: Feel less itchy b/l LE and under breasts. Sleeping after benedryl easily arousable. Ready to go home.Full 12
point ROS reviewed and negative except as documented Exam: Vitals reviewed in chart GEN-NAD heart RRR lungs clear abd soft obese LE b/l lymphedema not red or warm Skin scabs lesions LE and stomach
# Volume Overload with Worsening Lower Extremity Lymphedema
- Weight up 30 lbs compared to May 11, 2024
- weights much improved 227->219kgs!
- c/w acetazolamide as prior to admission
- increase lasix on dc
- Is&Os and Daily Weights
- TTE- 06/01- WNL
# B/L venous stasis derm with lymphedema
- DC ancef
- monitor
- wound care
- would benefit from LE pumps at facility
# Possible Scabies
- permethrin cream x 1
# Stage 2 right upper post thigh PI
- cont wound care on DC
- POA
# Psychiatric disorder with HX swallowing objects
- no SI or HI
- psych c/s appreciated
- DC 1:1
- wean clozpine to off on DC
Chr ambulatory dysfunction
Morbid obesity due to excess calorie consumption
DVT Px: LMWH
Full code
Dispo- DC back to [facility] today
Time spent coordinating care, DC planning, review of DC plan of care with resident, transition of care, review of records, med rec/scripts sent electronically, consults, notes, d/w consultants, nursing, and CM� 35 mins
Original Note:
Today's Communication/Plan
-
Discharged to [facility]
Assessment / Plan
Assessment / Plan
Plan:
33 female living in [facility] facility [facility], opioid dependence, asthma/COPD, chronic lymphedema and morbid obesity presents for increasing lower extremity edema.
Assessment:
#Volume overload with worsening lower extremity lymphedema
Weight up 20 kg compared to May 11, 2024
Patient reports wanting to follow-up with lymphedema clinic, however she was not able to get scheduled
IV Lasix 40 Mg twice daily
Continue home acetazolamide
Daily I's and O's, daily weights
TTE planned
# Bilateral lymphedema with venous stasis dermatitis
Patient has diffuse abrasions on bilateral lower extremities and abdomen, consistent with picking disorder
Patient reports to picking sometimes
Currently on IV cefazolin, day 2
Unsure if patient truly has cellulitis as skin is not hot or angry appearing, is red but likely due to lymphedema
White count within normal limits, patient has been afebrile throughout her stay
Discontinued IV antibiotics
Patient reports no pain to palpation in legs, however she reports that she cannot feel anything in her legs
#Possible scabies infection
Per wound care nurse, thinks patient may have scabies
Prescribed permethrin cream to be applied to wounds
As needed Benadryl for itching
# Fungal infection
Area in patient's skin folds are red, possibly infected with fungus
Continue miconazole topical twice daily
#Asthma
Patient reportedly short of breath on presentation to ED
Status post nebulizer treatment
Continue home asthma medications
#Psychiatric disorders
Multiple psychiatric disorders, patient reports OCD, PTSD, personality disorder, anxiety/depression
History of swallowing objects, patient reports it is a compulsion, also has a picking disorder
Very likely component of obsessive-compulsive disorder,
Psychiatry consulted
Patient has no current suicidal ideations, plan or intent
Psychiatry recommend discontinuation of one-to-one as patient has no current suicidal ideations, plan or intent
Patient is not suicidal or violent, Per nursing they want to keep her on one-to-one as patient is a swallowing risk for objects
Reinitiate one-to-one observation
Per psychiatry change dose of clozapine to 75 mg, will continue to taper down. Instructions translated to discharge summary
Psychiatry recommendations greatly appreciated
#Morbid obesity
BMI 76.4
due to calorie excess
#Stage II right upper thigh pressure injury
Unable determine etiology
Management per wound care
DVT prophylaxis: Low molecular weight heparin
Full code
Sodium restricted diet
Anticipated Discharge: Today
Subjective/Interval History
-
Date of Service: June 02, 2024
Patient is still on one-to-one
Objective Data
-
Labs:
Laboratory Results
06/02/24 06/02/24
05:53 07:12
WBC 8.2
Hgb 9.3 L
Hct 30.4 L
Plt Count 401 H
Sodium Cancelled Pending
Potassium Cancelled Pending
Chloride Cancelled Pending
Carbon Dioxide Cancelled Pending
BUN Cancelled Pending
Creatinine Cancelled Pending
Glucose Cancelled Pending
Calcium Cancelled Pending
Total Bilirubin Cancelled Pending
AST Cancelled Pending
ALT Cancelled Pending
Alkaline Phosphatase Cancelled Pending
Vital Signs:
Vital Signs
Temp Pulse Resp BP Pulse Ox
98.4 F 95 18 142/77 98
06/02/24 07:13 06/02/24 07:13 06/02/24 07:13 06/02/24 07:13 06/02/24 07:13
I&O
06/01/24 06/02/24 06/03/24
06:59 06:59 06:59
Intake Total 180 / 180 1200 / 1200
Output Total 700 / 700
Balance -520 / -520 1200 / 1200
Review of Systems
-
History Source: Patient
Constitutional: Reports Other (Diffuse itchiness, worse in lower extremities)
Respiratory: Reports Trouble Breathing; Denies Wheezing
Cardiac: Reports No Symptoms
Abdomen/GI: Reports Abdominal Pain
Physical Exam
-
General: Morbidly Obese
Respiratory: Clear to Auscultation
Cardiac: Regular Rhythm and S1/S2
GI: Soft, Nondistended, Normal Bowel Sounds and Tender (Patient reports diffuse tenderness)
Musculoskeletal: Edema, Right Lower Extrem and Edema, Left Lower Extrem
Skin: Warm, Dry and Other (Scabs present on bilateral lower extremities and lower abdominal pannus In distribution of area where patient can reach to scratch/pick)
Neuro: Awake, Alert, Oriented and AO x 3
Psych: Calm and Intact Judgement/Insight
Data Reviewed
-
Labs: Labs Reviewed by me and Discussed with Physician
[2024-06-02] MEDS: DUONEB 3 ML INH ×3 (07:40→15:16)
[2024-06-02] MEDS: PULMICORT 0.5 MG INH (07:40)
[2024-06-02] MEDS: SUBUTEX 8 MG SL (08:17)
[2024-06-02] MEDS: FEOSOL 325 MG PO (08:17)
[2024-06-02] MEDS: PROZAC 40 MG PO (08:18)
[2024-06-02] MEDS: DIAMOX SR SEQUELS 500 MG PO ×2 (08:18→15:17)
[2024-06-02] MEDS: SENOKOT-S 2 TABLET PO ×2 (08:18→15:17)
[2024-06-02] MEDS: DESENEX/MITRAZOL/ZEASORB 1 APPLIC TOPICAL (08:19)
[2024-06-02] MEDS: LASIX 40 MG IV ×2 (08:19→15:17)
[2024-06-02] MEDS: KCL 20 MEQ PO (08:19)
--- NOTE | 2024-06-02 08:30 | PN.CDI ---
CDI
- -
CDI:
Physician Documentation Request
Admit Date: 05/31/24 17:21
Dear Doctor,
Please review the following and provide your response in the progress notes.
Clinical Indicators:
- RN skin assessments indicate Stage 2 right upper posterior thigh pressure injury, POA
Physician documentation of the type and location of wounds is required for compliant documentation. Based on the above clinical findings and your assessment, please provide the following in your progress note:
1. Location of the ulcer/wound, including laterality.
2. Type (etiology) of ulcer/wound:
- Diabetic ulcer
- Arterial (ischemic) ulcer
- Traumatic wound
- Venous stasis ulcer
- Pressure (decubitus) ulcer
- Non-healing surgical wound
- Other
- Unable to determine
Use of terms such as suspected, likely, concern for, or probable (associated with a specific diagnosis that is being evaluated, monitored, or treated as if it exists) are acceptable and can be coded in the inpatient setting, when documented at the
time of discharge.
Thank you,
Radha Ann RN
CDI Specialist
Please use your independent medical judgment in providing your response.
*Source: National Pressure Ulcer Advisory Panel (NPUAP)
[2024-06-02 09:08] LABS: ALT (SGPT) 17 U/L (0-35); AST (SGOT) 20 U/L (14-36); Albumin 3.5 g/dl (3.5-5.0); Alkaline Phosphatase 79 U/L (38-126); Blood Urea Nitrogen 21 mg/dl (7-17); Calcium 8.5 mg/dl (8.4-10.2); Carbon Dioxide 23 mmol/L (22-30); Chloride 107 mmol/L (98-107); Estimated Creatinine Clearance > 125 ml/min; Glucose 96 mg/dl (70-99); Potassium 4.1 mmol/L (3.5-5.1); Sodium 142 mmol/L (135-145); Total Bilirubin 0.2 mg/dl (0.2-1.3); Total Protein 6.3 g/dl (6.3-8.2); eGFR > 60.00
[2024-06-02] MEDS: BENADRYL 25 MG PO (09:29)
--- NOTE | 2024-06-02 11:45 | CM ---
Reviewed the chart notes and spoke with the patient at the bedside. IMM reviewed. CM spoke with Marie Garcia at [facility]. Patient able to return when medically stable. CM continues to be available to patient/family and is
monitoring medical plan for needs at discharge.
Plan: Discharge back to [facility] when medically stable.
Call report to: [phone], 1st floor.
Fax report to: [phone]
--- NOTE | 2024-06-02 12:26 | W.PN.UPDATE ---
Update Note
Progress Note Update
patient seen chart reviewed. discussed w nursing. this patient is known to me from prior admits to and from the php at [facility]. she was admitted bc of shortness of breath and inc leg swelling. she was also noted to have a dermatitis of lower
extremities which could represent scabies. the patient has hx of self harm via ingestion of for example glass on last admit. she was audibly wheezing when i saw her which i communicated to nursing. on the last admission which was recently she and i
had discussed cutting back on clozaril a process i had begun reducing 125 mg dose to 100 mg. clozaril is a notable weight juan and patient has no hx of psychosis for which it is normally prescribed. it would not be likely to help w the ingestion
of foreign bodies and certainly has not helped. we discussed this again today and she continues to want to taper and dc clozaril. have reduced dosage to 75 mg and explained to her that to taper should cut doseage by 25 mg every two weeks or so if no
exacerbation of sx although it is not clear to me what the sx were for which it was prescribed in the first place. swallowing foreign objects could be related to schizophrenia but i have never found ms matos's presentation to seem c/w schizophrenia
will follow
--- NOTE | 2024-06-02 14:45 | W.DCSUMMARY ---
Addendum entered and electronically signed by Gordon Joseph MD 06/03/24 00:45:
Read, reviewed, and agree. See same day progress note for additional details.
Joshua Joseph MD
Original Note:
Documented by User: Lon Solomon DO, Resident 06/02/24 15:05
Discharge Summary
Discharge Data
Date of Admission: 05/31/24
Date of Discharge: 06/02/24
-
Pending Results: No
Hospital Course
Discharging Physician : Jake Solomon
Disposition : [facility]
Primary care physician : Dr. Shivam Turk
Principal Discharge diagnosis : Volume overload/lymphedema
Chronic Discharge diagnosis : Obsessive-compulsive disorder, posttraumatic stress disorder, personality disorder, anxiety/depression, asthma, fungal infection, bilateral lymphedema with venous stasis dermatitis
Hospital Course : 33 female past med history of extreme morbid obesity, multiple psychiatric disorders, opioid dependence, asthma/COPD, chronic lipedema presents with increasing bilateral lower extremity edema and shortness of breath from [facility]
where she is a long-term resident. She reports that her legs were more swollen and red over the last couple days with weight being up approximately 20 kg from prior mission earlier this month. In the emergency department she was evaluated as
having acute cellulitis and was started on IV Ancef, she received 2 days worth of IV Ancef. Patient was also started on IV diuretics, given antifungal cream and admitted for observation. When primary team took over, she was evaluated to not have a
bacterial infection, redness was likely due to the venous stasis dermatitis and IV Ancef was discontinued. Throughout her stay patient was watched on a one-to-one as she has a past medical history of swallowing objects. One-to-one was continued
throughout her stay. Wound care nurse was consulted and evaluated the patient to have scabies, patient received 1 dose of permethrin cream. Primary team evaluated that the patient likely does not have scabies and her linear track osorio are
secondary to a picking disorder and scratching. Psychiatry was consulted and they decided to decrease her dose of Clozaril from 100 to 75 mg. Conversation was had with patient to continue down titrating her dose of Clozaril 25 mg every 2 weeks if
no exacerbation of symptoms. Patient received IV diuresis for 2 days, her weight decreased approximately 8 kg. Patient was no longer feeling short of breath, lower extremity edema had marginally improved and she was deemed stable to be discharged
back to her [facility] facility [facility]. On discharge patient's home dose of Lasix was increased to 40 p.o., she was given a prescription for miconazole cream to be used in her skin folds. A new dose of Clozaril was also prescribed per
psychiatry. Patient was discharged back to [facility].
Important imaging findings :
05/31/2024 chest x-ray, impression:
No evidence of active cardiopulmonary disease.
Procedure findings :
No procedures
Discharge Plan
-
Patient Disposition: Halfway/SNF
Discharge Diagnosis/Procedures: Volume overload/lymphedema
Condition: Good
Diet: Low Fat and Low Sodium
Activity: As tolerated
Driving Restrictions: As prior to admission
Bathing Restrictions: None
Specialty Instructions: Weigh Daily- Call MD for wt gain/loss 3 lbs overnight/5 lbs in 1 week
Activity Restrictions/Additional Instructions:
Wound Care Instructions
Cleanse/soak all skin folds and legs with Vashe.(apply to pack of sterile gauze and open gauze to cover surface)
Dry skin under skin folds with towel then dust skin folds with Miconazole powder, dry non woven gauze to absorb moisture as needed.
R Posterior thigh ulcer: clean with Vashe, silicone foam change q other day and prn soilage.
offloading cushion when sitting
Follow up at wound care center call for an appointment.
Please follow-up with your primary care physician in less than 1 week of discharge for further management of your lymphedema.
Please focus on daily weights and increased diuresis
Please have her use lymphedema pumps at facility
Instructions: *PCP/Other Health Underwriter Heart Failure Instructions
Referrals:
Burke,Shivam Maikol, DO [Family Provider] - in less than 1 week
Additional Discharge Medication Instructions: please take furosemide 40 mg by mouth daily
Please use miconazole nitrate twice a day to skin folds
Please take clozapine 75 mg by mouth daily, continue to taper dose by 25 mg every 2 weeks per your conversation with psychiatry.
Prescriptions:
New
miconazole nitrate [Miconazorb AF] 2 % Powder
1 applic topical BID Qty: 85 0RF
furosemide [Lasix] 40 mg tablet
40 mg PO DAILY Qty: 30 0RF
clozapine 25 mg Tablet
75 mg PO HS Qty: 30 0RF
Continued
levothyroxine [Synthroid] 175 mcg Tablet
175 mcg PO DAILY@06
acetaminophen [Tylenol] 325 mg Tablet
650 mg PO Q6HPRN MDD 3000 mg PRN (Reason: temp>100.4/mild pain)
acetazolamide 500 mg Capsule, Extended Release
500 mg PO TID
therapeutic multivitamin Tablet
1 tab PO DAILY
magnesium hydroxide [Milk of Magnesia] 400 mg/5 mL Suspension
2,400 mg PO [id number] PRN (Reason: if no bm in 3 days)
ferrous sulfate 325 mg (65 mg iron) Tablet
325 mg PO BID
fluticasone propion-salmeterol [Advair Diskus] 500-50 mcg/dose Blister With Device
1 inh INHALATION R BID
atropine 1 % Drops
1 drp PO Q8HPRN PRN (Reason: drooling) Qty: 0
Senna Plus 8.6-50 mg Capsule
2 tab-cap PO TID
lidocaine 4 % Adhesive Patch,Medicated
1 patch TOPICAL DAILY
albuterol sulfate 90 mcg/actuation Hfa Aerosol Inhaler
2 inh INHALATION R Q6HPRN PRN (Reason: sob/wheezing)
potassium chloride 20 mEq Tablet Extended Release
20 meq PO DAILY
Nurtec ODT 75 mg Tablet,Disintegrating
75 mg PO [id number] PRN (Reason: migraine pain)
nitroglycerin 0.4 mg Tablet, Sublingual
0.4 mg SUBLINGUAL [id number] PRN (Reason: chest pain)
zinc oxide 10 % Cream
1 applic TOPICAL TID
fluoxetine 40 mg Capsule
40 mg PO DAILY
hydroxyzine HCl 50 mg Tablet
50 mg PO TIDPRN PRN (Reason: itching)
Patient Comments:
05/31/24: For 7 days, from 05/25/24-06/01/24
buprenorphine-naloxone [Suboxone] 8-2 mg Film
1 film BUCCAL DAILY
Discontinued
furosemide 20 mg Tablet
20 mg PO DAILY
clozapine 100 mg Tablet
100 mg PO HS
Discharge Orders:
Discharge Patient (As Directed); Ordered 06/02/24
Ordered By: Lon Solomon
Discharge Date and Time
Discharge Date/Time: 06/02/24 18:25
Print Language: SAMI

Documented by User: Gordon Joseph MD 06/03/24 00:39
Discharge Summary
Discharge Data
Date of Admission: 05/31/24
Date of Discharge: 06/03/24
Discharge Plan
-
Patient Disposition: Halfway/SNF
Discharge Diagnosis/Procedures: Volume overload/lymphedema
Condition: Good
Diet: Low Fat and Low Sodium
Activity: As tolerated
Driving Restrictions: As prior to admission
Bathing Restrictions: None
Specialty Instructions: Weigh Daily- Call MD for wt gain/loss 3 lbs overnight/5 lbs in 1 week
Activity Restrictions/Additional Instructions:
Wound Care Instructions
Cleanse/soak all skin folds and legs with Vashe.(apply to pack of sterile gauze and open gauze to cover surface)
Dry skin under skin folds with towel then dust skin folds with Miconazole powder, dry non woven gauze to absorb moisture as needed.
R Posterior thigh ulcer: clean with Vashe, silicone foam change q other day and prn soilage.
offloading cushion when sitting
Follow up at wound care center call for an appointment.
Please follow-up with your primary care physician in less than 1 week of discharge for further management of your lymphedema.
Please focus on daily weights and increased diuresis
Please have her use lymphedema pumps at facility
Instructions: *PCP/Other Health Underwriter Heart Failure Instructions
Referrals:
Shivam Turk, DO [Family Provider] - in less than 1 week
Additional Discharge Medication Instructions: please take furosemide 40 mg by mouth daily
Please use miconazole nitrate twice a day to skin folds
Please take clozapine 75 mg by mouth daily, continue to taper dose by 25 mg every 2 weeks per your conversation with psychiatry.
Prescriptions:
New
miconazole nitrate [Miconazorb AF] 2 % Powder
1 applic topical BID Qty: 85 0RF
furosemide [Lasix] 40 mg tablet
40 mg PO DAILY Qty: 30 0RF
clozapine 25 mg Tablet
75 mg PO HS Qty: 30 0RF
Continued
levothyroxine [Synthroid] 175 mcg Tablet
175 mcg PO DAILY@06
acetaminophen [Tylenol] 325 mg Tablet
650 mg PO Q6HPRN MDD 3000 mg PRN (Reason: temp>100.4/mild pain)
acetazolamide 500 mg Capsule, Extended Release
500 mg PO TID
therapeutic multivitamin Tablet
1 tab PO DAILY
magnesium hydroxide [Milk of Magnesia] 400 mg/5 mL Suspension
2,400 mg PO [id number] PRN (Reason: if no bm in 3 days)
ferrous sulfate 325 mg (65 mg iron) Tablet
325 mg PO BID
fluticasone propion-salmeterol [Advair Diskus] 500-50 mcg/dose Blister With Device
1 inh INHALATION R BID
atropine 1 % Drops
1 drp PO Q8HPRN PRN (Reason: drooling) Qty: 0
Senna Plus 8.6-50 mg Capsule
2 tab-cap PO TID
lidocaine 4 % Adhesive Patch,Medicated
1 patch TOPICAL DAILY
albuterol sulfate 90 mcg/actuation Hfa Aerosol Inhaler
2 inh INHALATION R Q6HPRN PRN (Reason: sob/wheezing)
potassium chloride 20 mEq Tablet Extended Release
20 meq PO DAILY
Nurtec ODT 75 mg Tablet,Disintegrating
75 mg PO [id number] PRN (Reason: migraine pain)
nitroglycerin 0.4 mg Tablet, Sublingual
0.4 mg SUBLINGUAL [id number] PRN (Reason: chest pain)
zinc oxide 10 % Cream
1 applic TOPICAL TID
fluoxetine 40 mg Capsule
40 mg PO DAILY
hydroxyzine HCl 50 mg Tablet
50 mg PO TIDPRN PRN (Reason: itching)
Patient Comments:
05/31/24: For 7 days, from 05/25/24-06/01/24
buprenorphine-naloxone [Suboxone] 8-2 mg Film
1 film BUCCAL DAILY
Discontinued
furosemide 20 mg Tablet
20 mg PO DAILY
clozapine 100 mg Tablet
100 mg PO HS
Discharge Orders:
Discharge Patient (As Directed); Ordered 06/02/24
Ordered By: Lon Solomon
Discharge Date and Time
Discharge Date/Time: 06/02/24 18:25
Print Language: SAMI
[2024-06-02 15:25] VITALS: BP 139/81
[2024-06-02 16:03] VITALS: BP 139/81
--- NOTE | 2024-06-02 16:39 | CM ---
Addendum entered by Leonila Houston 06/02/24 16:44:
TC back from [facility] from [facility], they will picker and packer patient. Unable to give specific time.
Marie from [facility] was instructed to call [phone] and ask for nurse. Nurses name provided.
RN updated.
Original Note:
TC to [facility] from [facility] re transportation for Rosa.
Per [facility] they will be able to transport her back with their van.
TC from [facility] she is looking for a macias.
She will call back with picker and packer time.
[2024-06-02] MEDS: LOVENOX SC (16:55)
== END 2024-06-02 18:25 | DRG 641 ==
LOC: 2 NORTH 17:21
PROVIDERS: Physician Assistant; Physician Assistant Medical; ADMITTING PHYSICIAN Internal Medicine; ATTENDING PHYSICIAN Family Medicine; CONSULT PHYSICIAN Psychiatry & Neurology Psychiatry; EMERGENCY PHYSICIAN Emergency Medicine; FAMILY PHYSICIAN Internal Medicine
DX: E87.70 Fluid overload, unspecified (principal); J45.901 Unspecified asthma with (acute) exacerbation; F11.20 Opioid dependence, uncomplicated; Z68.45 Body mass index [BMI] 70 or greater, adult; I89.0 Lymphedema, not elsewhere classified; E66.01 Morbid (severe) obesity due to excess calories; F25.9 Schizoaffective disorder, unspecified; F60.3 Borderline personality disorder; F32.A Depression, unspecified; F43.10 Post-traumatic stress disorder, unspecified; F41.9 Anxiety disorder, unspecified; G40.909 Epilepsy, unspecified, not intractable, without status epilepticus; E03.9 Hypothyroidism, unspecified; D50.9 Iron deficiency anemia, unspecified; I87.8 Other specified disorders of veins; B86 Scabies; L89.892 Pressure ulcer of other site, stage 2; I87.2 Venous insufficiency (chronic) (peripheral); J44.89 Other specified chronic obstructive pulmonary disease; I10 Essential (primary) hypertension; K21.9 Gastro-esophageal reflux disease without esophagitis; N31.9 Neuromuscular dysfunction of bladder, unspecified; Z87.820 Personal history of traumatic brain injury; Z87.891 Personal history of nicotine dependence; Z96.0 Presence of urogenital implants; Z79.890 Hormone replacement therapy; Z79.51 Long term (current) use of inhaled steroids; Z79.899 Other long term (current) drug therapy; Z88.8 Allergy status to other drugs, medicaments and biological substances
CPT/HCPCS: 71045; 80048; 80053; 83735; 83880; 84484; 85025; 85027; 87070; 87147; 93005; 93306; 94640; 96374; 96375; 99285; 99406; Q9950

== ENCOUNTER 2024-06-04 22:29 | Inpatient (IN) | payer MEDICARE, OTHER, SELFPAY ==
[2024-06-03] VITALS (18 sets, daily range): BP systolic 96–155; BP diastolic 58–112; PULSE 2–86; BMI 80.8
--- NOTE | 2024-06-03 06:59 | ED.GENMED ---
History of Present Illness
General
Chief Complaint: Change in Mental Status
Source: patient, records and ambulance crew
Exam Limitations: clinical condition
Time Seen by Provider: 06/03/24 06:42
Nursing documentation reviewed up to this point in time: agreed with
History of Present Illness
History of Present Illness:
33-year-old female presents emergency room due to altered mental status. She was found by EMS sitting in the shower in a chair. She walked onto the stretcher. She has intermittent periods of decreased consciousness. She is arousable. EMS noted
hypoxia.
Past History
Past History
ED Past Medical History: Asthma, COPD, GERD, HTN, NIDDM, Seizures, Hypothyroidism, Psychiatric (anxiety, depression, Bipolar, Claustrophobia, PTSD, Schizo, Suicidal attempt, Borderline Personality disorder, ) and Other (Meningitis, Sciatica, TBI,
PE, Chronic lymphedema, Urinary retention with chronic Catheter, UTI, Cellulitis, UTI, Cellulitis, Anemia. Foreign object ingestion)
ED Past Surgical History:
Social History
Tobacco: Former smoker
Alcohol: None
Drug: None
Personal: Other ()
Living: retirement ([place])
Employment: Disabled
Family History
Family History: Other (Noncontributory)
Review of Systems
Review of Systems
Allergies reviewed?: Yes
Unable to obtain full review of systems at this time due to: due to acuity
Respiratory: Reports cough and trouble breathing
Phy Exam
Physical Exam
Physical Exam:
Physical Exam
General: Chronic ill appearance
Neck: supple. no meningeal signs. normal posterior pharynx
Heart: s1/s2 regular rate and rhythm, no murmur. equal radial
pulses.
HEENT: Pupils equal round reactive to light, EOMI
Lungs: Mild respiratory distress. clear bilaterally
Abdomen: normal bowel sounds. not tender. no CVAT
Neuro: alert and oriented. no focal neurological deficits cranial nerves II through XII intact
Skin: Bilateral lower extremity vesicular tender rash
Psychiatric: cooperative, but sleepy
Extremities: no edema. no calf tenderness. negative homans. good distal pulses
Sepsis
Sepsis Screening
Sepsis Assessment: Sepsis Ruled Out
Sepsis Screen
Sepsis Screen: Sepsis Ruled Out
Date: 06/03/24
Time: 13:41
Course
Orders/Labs/Results
Orders:
Orders
06/03/24 06:51
Cardiac Monitoring- Treatment ONCE
IV Insert/Care/Rem.- Treatment PRN
06/03/24 06:55
CR Chest Portable - 1 View Urgent
Comment:
Reason For Exam: short of breath
Reason Study Needs to be Portable: Patient Unstable
06/03/24 06:56
Bipap [RESP] Urgent
Patient to use own unit?: No
Inspiratory Pressure (cm H2O): 10
Expiratory Pressure (cm H2O): 5
06/03/24 06:57
CT Head W/o Iv Contrast Urgent
Comment:
Reason For Exam: altered mental status
06/03/24 06:58
Ipratropium/Albuterol Sulfate [Duoneb] 3 ml INH R NOW STA
06/03/24 07:22
COVID-19 Antigen Urgent
Source: Nasal Swab
Influenza A+B Rapid Molecular Urgent
[place] Source: Nasal Swab
Specimen Description:
06/03/24 07:57
Complete Blood Count/With Diff Urgent
Comprehensive Metabolic Panel Urgent
Lactic Acid Q4H
Comment: CANCEL 2nd LACTIC ACID IF 1st LACTIC ACID IS LESS THAN 2
06/03/24 09:29
Dexamethasone Sod Phosphate [Decadron] 10 mg IV NOW STA
06/03/24 11:40
Straight cath- Treatment ONCE
06/03/24 11:47
Fentanyl, Urine Urgent
Urinalysis Reflex To Culture Urgent
Date Specimen was Collected: 06/03/24
Time Specimen was Collected: 11:45
Urine Drug Abuse Screen Urgent
Date Specimen was Collected: 06/03/24
Time Specimen was Collected: 11:45
Abnormal Lab Results
06/03/24 06/03/24
07:57 11:47
RBC 4.12 L 10^6/uL
(4.20-5.40)
Hgb 9.2 L g/dL
(12.0-16.0)
Hct 32.0 L %
(37.0-47.0)
MCV 77.7 L fL
(81.0-99.0)
MCH 22.3 L pg
(27.0-31.0)
MCHC 28.8 L g/dL
(33.0-37.0)
RDW 18.2 H %
(11.5-14.5)
Abs Immat Gran (auto) 0.1 H 10^3/uL
(0-0.05)
Absolute Lymphs (auto) 1.1 L 10^3/uL
(1.2-3.4)
Immature Gran % 0.9 H %
(0-0.5)
Lymphocytes % 14.0 L %
(20.5-51.1)
BUN 20 H mg/dl
(7-17)
Glucose 122 H mg/dl
(70-99)
Calcium 8.2 L mg/dl
(8.4-10.2)
AST 56 H U/L
(14-36)
Total Protein 6.2 L g/dl
(6.3-8.2)
Albumin 3.4 L g/dl
(3.5-5.0)
Ur Buprenorphine Positive H
(Negative)
Ur Tricyclics Screen Positive H
(Negative)
U Benzodiazepines Scrn Positive H
(Negative)
06/03/24 07:57
06/03/24 07:57
Vital Signs
Initial and Last Documented VS:
Initial Vital Signs
Temp Pulse Resp BP Pulse Ox
98.8 F 114 26 112/64 100
06/03/24 06:39 06/03/24 06:39 06/03/24 06:39 06/03/24 06:39 06/03/24 06:39
Last Documented Vital Signs
Temp Pulse Resp BP Pulse Ox
98.5 F 93 12 129/80 89
06/03/24 07:00 06/03/24 12:30 06/03/24 12:30 06/03/24 12:00 06/03/24 12:30
MDM/Problems Addressed
Differential Diagnosis Includes:
Pneumonia, CVA
MDM/Problems Addressed:
33-year-old female with altered mental status, asthma exacerbation. Unclear etiology.
Chronic conditions affecting care: Asthma and Psychiatric illness (conversion d/o)
Acute Exacerbation and/or Progression of Chronic Illness: Asthma and Psychiatric illness (conversion d/o)
*Radiology
Radiology exam reviewed: radiology read reviewed (CT head and chest x-ray no acute findings)
*Pulse Oximetry
Patient hypoxic: yes
*Critical Care Note
Total Time (30-74mins, 75-104mins- exclusive of procedures): 30
comment:
Critical care statement: A total of 30 minutes of critical care time was provided for this patient. This includes management of unstable vital signs, evaluation of the patient at bedside, reviewing the patient's pertinent medical records, discussion
with consultants, review of old EKGs and review of pertinent medical records. This time with separate from time utilized to perform the aforementioned documented procedures I would
Patient Management
Social determinants of health affecting care: Living situation and Substance abuse
Discussion with other providers: Hospitalist (Dr. Joseph)
Escalation/DeEscalation of care consider admission/obs:
Admit indicated
ED Attending Note
-
Portions of this chart may have been created with voice recognition software.� Occasional wrong word or��sound alike� substitutions may have occurred due to the inherent limitations of voice recognition software.
Discharge Plan
Departure
Patient Disposition: Admit
Date of Disposition: 06/03/24
Time of Disposition: 09:25
Admit to: IMU
Presentation/result/management discussed w/ accepting MD/DO: Dr. Sutherland, family medi
Patient with high blood pressure during this ER visit?: No
Condition: Fair
Discharge Problem:
Asthma exacerbation, Acute alteration in mental status, Dermatitis
Prescriptions:
No Action
levothyroxine [Synthroid] 175 mcg Tablet
175 mcg PO DAILY@06
acetaminophen [Tylenol] 325 mg Tablet
650 mg PO Q6HPRN MDD 3000 mg PRN (Reason: temp>100.4/mild pain)
acetazolamide 500 mg Capsule, Extended Release
500 mg PO TID
therapeutic multivitamin Tablet
1 tab PO DAILY
magnesium hydroxide [Milk of Magnesia] 400 mg/5 mL Suspension
2,400 mg PO [id number] PRN (Reason: if no bm in 3 days)
ferrous sulfate 325 mg (65 mg iron) Tablet
325 mg PO BID
fluticasone propion-salmeterol [Advair Diskus] 500-50 mcg/dose Blister With Device
1 inh INHALATION R BID
atropine 1 % Drops
1 drp PO Q8HPRN PRN (Reason: drooling) Qty: 0
Senna Plus 8.6-50 mg Capsule
2 tab-cap PO TID
lidocaine 4 % Adhesive Patch,Medicated
1 patch TOPICAL DAILY
albuterol sulfate 90 mcg/actuation Hfa Aerosol Inhaler
2 inh INHALATION R Q6HPRN PRN (Reason: sob/wheezing)
potassium chloride 20 mEq Tablet Extended Release
20 meq PO DAILY
Nurtec ODT 75 mg Tablet,Disintegrating
75 mg PO [id number] PRN (Reason: migraine pain)
nitroglycerin 0.4 mg Tablet, Sublingual
0.4 mg SUBLINGUAL [id number] PRN (Reason: chest pain)
zinc oxide 10 % Cream
1 applic TOPICAL TID
fluoxetine 40 mg Capsule
40 mg PO DAILY
hydroxyzine HCl 50 mg Tablet
50 mg PO TIDPRN PRN (Reason: itching)
buprenorphine-naloxone [Suboxone] 8-2 mg Film
1 film BUCCAL DAILY
furosemide [Lasix] 40 mg tablet
40 mg PO DAILY Qty: 30 0RF
bisacodyl [Dulcolax (bisacodyl)] 10 mg Suppository
10 mg LA DAILYPRN PRN (Reason: if no bm aftr mom)
Fleet Enema 19-7 gram/118 mL Enema
118 ml LA DAILYPRN PRN (Reason: if no bm aftr dulcolax)
clozapine [Clozaril] 25 mg tablet
75 mg PO HS
Referrals:
Shivam Turk, DO [Family Provider] -
Interventions
Interventions:
*Risk Screen - Suicide Last Done: 06/03/24 06:39
*General Assessment Last Done: 06/03/24 06:39
*Neglect/Abuse Screening Last Done: 06/03/24 06:39
ED- Fall Risk Assessment Last Done: 06/03/24 06:48
*ED COVID-19 Vaccine History Last Done: 06/03/24 06:39
ED- Pulmonary Assessment Last Done: 06/03/24 06:48
ED- Neurological Assessment Last Done: 06/03/24 06:48
ED- Cardiac Assessment Last Done: 06/03/24 06:48
ED Swallowing Screen Last Done: 06/03/24 07:24
Discharge Date and Time
Print Language: AMERICAN
--- NOTE | 2024-06-03 07:12 | EDRN ---
IV team currently at the pts bedside attempting to place a PIV due to ED staff not being able to obtain one, respiratory currently at the pts bedside and placed the pt on CPAP 12/5 12L Sp02 currently at 96%, ED staff called respiratory due to the
pts Sp02 being in the low 80's on nasal cannula, the pt is currently obtunded, VS WNL, NSR in the 90's, RR 16, Sp02 currently still 96%, last BP 96/58 (71), the pt is resting in stretcher in the lowest position, side rails up x2, call roach within
reach, HOB elevated, no s/s of distress, will continue to monitor the pt closely
--- NOTE | 2024-06-03 07:23 | EDRN ---
IV team currently at the pts bedside placing a midline
--- NOTE | 2024-06-03 07:42 | EDRN ---
IV team currently still at the pts bedside placing a midline
[2024-06-03 07:50] LABS: COVID-19 Antigen Negative (Negative)
--- NOTE | 2024-06-03 08:05 | EDRN ---
IV team was able to place a RUE midline, limb alert placed
[2024-06-03 08:10] LABS: % Basophils 0.5 % (0-2); % Eosinophils 3.1 % (0-6); % Immature Granulocytes 0.9 % (0-0.5); % Monocytes 7.1 % (1.7-9.3); % Neutrophils 74.4 % (42.2-75.2); Absolute Eosinophils 0.2 10^3/uL (0-0.7); Absolute Immature Granulocytes 0.1 10^3/uL (0-0.05); Absolute Lymphocytes 1.1 10^3/uL (1.2-3.4); Absolute Monocytes 0.5 10^3/uL (0.1-0.6); Absolute Neutrophils 5.7 10^3/uL (1.4-6.5); Hemoglobin 9.2 g/dL (12.0-16.0); Mean Corp Hgb Conc. 28.8 g/dL (33.0-37.0); Mean Corpuscular Hgb 22.3 pg (27.0-31.0); Mean Corpuscular Volume 77.7 fL (81.0-99.0); Mean Platelet Volume 8.7 fL (7.4-10.4); Nucleated Red Blood Cells % 0.4 %; Platelet Count 356 10^3/uL (130-400); Red Blood Cell Count 4.12 10^6/uL (4.20-5.40); Red Cell Dist. Width 18.2 % (11.5-14.5); White Blood Cell Count 7.6 10^3/uL (4.8-10.8)
[2024-06-03 08:23] LABS: Lactic Acid 0.7 mmol/L (0.7-2.0)
[2024-06-03 08:24] LABS: ALT (SGPT) 22 U/L (0-35); AST (SGOT) 56 U/L (14-36); Albumin 3.4 g/dl (3.5-5.0); Alkaline Phosphatase 77 U/L (38-126); Blood Urea Nitrogen 20 mg/dl (7-17); Calcium 8.2 mg/dl (8.4-10.2); Carbon Dioxide 30 mmol/L (22-30); Chloride 104 mmol/L (98-107); Glucose 122 mg/dl (70-99); Potassium 3.9 mmol/L (3.5-5.1); Sodium 141 mmol/L (135-145); Total Bilirubin 0.2 mg/dl (0.2-1.3); Total Protein 6.2 g/dl (6.3-8.2); eGFR > 60.00
[2024-06-03 08:46] LABS: Anisocytosis Slight; Hypochromasia Slight; Normal RBC Morphology No; Ovalocytes Slight
--- NOTE | 2024-06-03 08:49 | EDRN ---
the pt was 100% on Cpap 07/08 12%, this RN notified the provider and respiratory and the pt was titrated to 6L NC, Sp02 remains at 96-97%, no c/o SOB, the pt is lethargic but answering questions
[2024-06-03] MEDS: DECADRON 10 MG IV (10:27)
--- NOTE | 2024-06-03 10:49 | EDRN ---
the pt is resting in stretcher in the lowest position, side rails up x2, call roach within reach, HOB elevated, no s/s of distress, VS WNL, the pt is currently still on 6L NC Sp02 96%, awaiting for admission orders, will continue to monitor the pt
closely
--- NOTE | 2024-06-03 11:00 | EDRN ---
this RN noticed that the pts Sp02 on 6L NC dipped to 88% even when pt was woken up, this RN notified respiratory and the pt was placed back on Bipap 07/08 at 12%, Sp02 came up to 99%, no s/s of distress, VS WNL, will continue to monitor the pt closely
--- NOTE | 2024-06-03 11:56 | EDRN ---
per the providers orders the pt was straight cathed, urine was collected and sent, 850cc of urine was drained from bladder, provider notified, hospitalist/resident at the pts bedside to admit the pt
[2024-06-03 12:02] LABS: Urine Albumin Trace (Neg - Trace); Urine Bilirubin Negative (Negative); Urine Character Clear (Clear); Urine Color Yellow; Urine Glucose Negative (Negative); Urine Ketone Negative (Negative); Urine Leukocyte Negative (Negative); Urine Nitrite Negative (Negative); Urine Occult Blood Negative (Negative); Urine Specific Gravity 1.025 (<1.030); Urine Urobilinogen Negative (Neg - 1+)
--- NOTE | 2024-06-03 12:26 | EDRN ---
per Dr. Sutherland who is currently at the pts bedside, the pt is to be taken off of Bipap and placed on 6L NC, this RN and respiratory notified the provider that the pts was desatting and per the provider they want the pt on 6L NC, Sp02 currently 91%
on 6L NC, provider Dr. Ivey made aware of this, will continue to monitor the pt closely
[2024-06-03 12:35] LABS: Amphetamines Negative (Negative); Barbiturates Negative (Negative); Benzodiazepines Positive (Negative); Buprenorphine Positive (Negative); Cocaine Negative (Negative); Marijuana Negative (Negative); Methadone Negative (Negative); Methamphetamines Negative (Negative); Opiates Negative (Negative); Phencyclidine Negative (Negative); Tricyclic Antidepressants Positive (Negative)
[2024-06-03 13:35] LABS: Fentanyl, Urine Negative (Negative)
--- NOTE | 2024-06-03 14:17 | EDRN ---
still awaiting for the pt to be admitted, the pt is currently still on 6L NC and Sp02 is between 88% and 94%, provider notified, this RN asked the provider if this RN could place the pt back on Bipap and per the provider the pt is to be kept on 6L
NC, will continue to monitor the pt closely
--- NOTE | 2024-06-03 14:41 | EDRN ---
still waiting for the pt to be admitted, this RN notified the hospitalist who was already at the pts bedside
--- NOTE | 2024-06-03 15:18 | EDRN ---
charge nurse reached out to hospitalist again and is looking into the situation as far as admission orders, the software project manager Brenda Faustin was made aware as well
--- NOTE | 2024-06-03 15:25 | EDRN ---
the pt is sleeping in stretcher in the lowest position, side rails up x2, call roach within reach, HOB elevated, no s/s of distress, the pt is arousable to loud voice, VS WNL, the pt is currently still on RA Sp02 89-92% currently, this RN notified
the provider and per the provider the pt is to stay on 6L NC, per the provider, 'That is the pts normal saturation on RA', will continue to monitor the pt closely and await admission orders
--- NOTE | 2024-06-03 15:35 | EDRN ---
neurological checks initiated per hospitalist orders
[2024-06-03 15:50] LABS: Venous Blood Gas B.E. -1.2 mmol/L (-4 to +4); Venous Blood Gas HCO3 28.4 mmol/L (22-27); Venous Blood Gas O2 Sat % 86.3 %; Venous Blood Gas pO2 55 mmHg (30-50)
[2024-06-03 15:51] LABS: Venous Blood Gas pCO2 76 mmHg (35-48); Venous Blood Gas pH 7.18 (7.32-7.43)
--- NOTE | 2024-06-03 15:54 | EDRN ---
Dr. Ramirez was notified of the VBG results
--- NOTE | 2024-06-03 15:58 | EDRN ---
the receiving unit was called and notified that paper report was going to be tubed up, paper report was tubed up to the receiving unit
--- NOTE | 2024-06-03 16:53 | EDRN ---
hospitalist back at the pts bedside
--- NOTE | 2024-06-03 17:09 | HPS.HSE ---
Addendum entered and electronically signed by Gordon Joseph MD 06/03/24 23:29:
Attending Addendum-
I performed a history and physical exam of the patient and discussed his management with the resident. I reviewed the resident's note and agree with the documented findings and plan of care CC/HPI- send to ED [facility] for CIMS. DC'd the day prior
from for volume overload. Patient at baseline mentation on DC. was found sleeping in shower. Patient started on o2 in EMS. Given a dose of Decadron and started on Bipap due to sedation in ed. Patient sleeping on entry to room. Difficult to
arouse.Sedated. Full 12 point ROS reviewed and negative except as documented Exam- vitals reviewed in EMR GEN-snoring heart RRR lungs clear no wheeze abd obese LE b/l Lymphedema Neuro arousable by sternal rub
# Acute Hypoxemic/hypercarbic respiratory failure
- possible that patient has taken meds at [facility]
- contributing underlying TINY
- take off bipap wean to TN 02 as patient more awake
- check vbg-respiratory acidosis from sedation
- check nocturnal o2 requirement
- likely will need nocturnal o2
# CIMS
- head CT neg
- benzos pos in urine tox!
- not prescribed reviewed PDMP
- avoid sedative meds in obese patient with undiagnosed TINY
# OUD-
- on suboxone
- would start taper now to continue as OP
# Chronic Lymphedema
- daily weights
- cont lasix
- c/w acetazolamide as prior to admission
- Is&Os and Daily Weights
- TTE- 06/01- WNL
- order LE pump at facility
# B/L venous stasis derm with lymphedema
- DC ancef
- monitor
- wound care
- would benefit from LE pumps at facility
# Possible Scabies
- start permethrin cream
# Psychiatric disorder with HX swallowing objects
- no SI or HI
- wean clozaril as previous
- cont fluoxetine
- cont hydox prn
# Hypothyroidism
- cont levothyroxine
- check TSH
Chr ambulatory dysfunction
Morbid obesity due to excess calorie consumption
DVT Px: LMWH
Full code
Dispo- DC back to [facility] in am
Time spent coordinating care, review of plan of care with resident, personally reviewed previous records in EMR, med rec, labs, radiology, d/w nursing, resp therapy�- 75 mins
Original Note:
Family Physician
-
Family Physician: Shivam Turk, DO
Chief Complaint
-
Change in mental status
History of Present Illness
33-year-old female with past medical history of multiple psychiatric disorders, opioid dependence, asthma/COPD, chronic lymphedema and morbid obesity presents from [facility] for change in mental status. She was found by EMS sitting in a shower
chair, she walked onto the stretcher and she had intermittent periods of decreased consciousness. She was arousable and hypoxic per EMS. In the ED she was extremely drowsy, only arousable to painful stimuli. In the ED she was started on BiPAP.
She will be admitted for observation.
Medical History
Past Medical History
Past Medical History: Reports Asthma, COPD, GERD, HTN, Psychiatric (OCD, PTSD, borderline personality disorder, seizure disorder, hypothyroidism, neurogenic bladder, migraine headaches, MELONIE, anxiety/depression, history of swallowing objects
compulsion) and Other (Chronic lymphedema, extreme morbid obesity, opioid dependence, fungal infection)
Additional Past Medical History:
Information has been gathered from previous notes, patient was not awake to interview in ED
Past Surgical History: Reports
Social History
Unable to obtain full social history at this time due to: Other (Unable to determine as patient was not speaking to review, information is gathered from previous notes)
Tobacco: Former Smoker
Alcohol: None
Drug: None
Living: Shelter ([facility])
Employment: Disabled
Family History
Family History: Not pertinent
Allergies / Home Medications
Allergies reflects when Allergies were last updated in [employer].
Home Medications with original date entered in [employer]
Allergy/Medication List:
Allergies
Allergy/AdvReac Type Severity Reaction Status Date / Time
bee venom protein (honey bee) Allergy Anaphylaxis Verified 06/03/24 06:39
cariprazine Allergy Unknown Verified 06/03/24 06:39
loratadine [From Claritin] Allergy Unknown Verified 06/03/24 06:39
meloxicam Allergy Unknown Verified 06/03/24 06:39
nicotine Allergy Unknown Verified 06/03/24 06:39
shellfish derived Allergy Anaphylaxis Verified 06/03/24 06:39
simvastatin Allergy Unknown Verified 06/03/24 06:39
Home Medications
acetaminophen 325 mg tablet (Tylenol) 650 mg PO Q6HPRN PRN temp>100.4/mild pain 12/03/23
acetazolamide 500 mg capsule,extended release 500 mg PO TID Fluid Retention/Swelling 12/03/23
atropine 1 % eye drops 1 drp PO Q8HPRN PRN drooling ##0 12/03/23
ferrous sulfate 325 mg (65 mg iron) tablet 325 mg PO BID Supplement 12/03/23
fluticasone 500 mcg-salmeterol 50 mcg/dose blistr powdr for inhalation (Advair Diskus) 1 inh inhalation R BID Lung/Breathing Issues 12/03/23
levothyroxine 175 mcg tablet (Synthroid) 175 mcg PO DAILY@06 Thyroid 12/03/23
magnesium hydroxide 400 mg/5 mL oral suspension (Milk of Magnesia) 2,400 mg PO [id number] PRN if no bm in 3 days 12/03/23
sennosides 8.6 mg-docusate sodium 50 mg capsule (Senna Plus) 2 tab-cap PO TID Constipation 12/03/23
therapeutic multivitamin 1 tab PO DAILY Supplement 12/03/23
lidocaine 4 % topical patch 1 patch topical DAILY lower back 01/18/24
albuterol sulfate 90 mcg/actuation aerosol inhaler 2 inh inhalation R Q6HPRN PRN sob/wheezing 03/09/24
potassium chloride 20 mEq tablet,extended release 20 meq PO DAILY Electrolyte Repletion 03/09/24
rimegepant 75 mg disintegrating tablet (Nurtec ODT) 75 mg PO [id number] PRN migraine pain 03/09/24
nitroglycerin 0.4 mg sublingual tablet 0.4 mg sublingual [id number] PRN chest pain 03/15/24
zinc oxide 10 % topical cream 1 applic topical TID labia majora/vulva 04/23/24
buprenorphine 8 mg-naloxone 2 mg sublingual film (Suboxone) 1 film buccal DAILY SAMMIE 05/31/24
fluoxetine 40 mg capsule 40 mg PO DAILY Mental Health/Anxiety 05/31/24
hydroxyzine HCl 50 mg tablet 50 mg PO TIDPRN PRN itching 05/31/24
furosemide 40 mg tablet (Lasix) 40 mg PO DAILY #30 tabs 06/02/24
bisacodyl 10 mg rectal suppository (Dulcolax (bisacodyl)) 10 mg AR DAILYPRN PRN if no bm aftr mom 06/03/24
clozapine 25 mg tablet (Clozaril) 75 mg PO HS 06/03/24
sodium phosphates 19 gram-7 gram/118 mL enema (Fleet Enema) 118 ml AR DAILYPRN PRN if no bm aftr dulcolax 06/03/24
Review of Systems
-
History Source: Other (Unable to determine as patient was too drowsy to interview)
A 12 point ROS was completed and negative except as noted: No
Physical Exam
Vital Signs
Vital Signs
Temp Pulse Resp BP Pulse Ox
98.5 F 90 12 130/83 91
06/03/24 07:00 06/03/24 15:30 06/03/24 15:30 06/03/24 15:00 06/03/24 15:45
Physical Exam
General: Morbidly Obese
Respiratory: Clear
Cardiac: S1/S2 and Regular Rhythm
GI: Soft
Skin: Warm, Dry and Other (Multiple scratch/pick lesions present on bilateral lower extremities and bilateral pannus)
Neuro: No Awake, Alert, Oriented or AO x 3
Laboratory Results
-
06/03/24 07:57
06/03/24 07:57
Laboratory Results
Lactic Acid Cancelled 06/03/24 11:00
Total Bilirubin 0.2 mg/dl (0.2-1.3) 06/03/24 07:57
AST 56 U/L (14-36) H 06/03/24 07:57
ALT 22 U/L (0-35) 06/03/24 07:57
Alkaline Phosphatase 77 U/L (38-126) 06/03/24 07:57
Data Reviewed
-
CT Scan: Report Reviewed by me and Discussed with Physician
Lab Data: Labs Reviewed by me and Discussed with Physician
Impression/Plan
-
IMPRESSION:
33-year-old female past medical history of multiple psychiatric disorders, asthma/COPD presents for change in mental status to [place] emergency department. She was extremely sleepy during interview, arousable to painful stimuli.
PLAN:
#Change in mental status
Believe etiology is likely secondary to sedating medications received at [facility]
Patient was initially on arousable only to painful stimuli
Couple hours later, patient was able to woken up, was shocked to learn she was in [place] emergency department and thought she was still at [facility]
Hold anticholinergic medications
Admit for observation
#Hypercapnia
VBG checked, demonstrated respiratory acidosis without metabolic compensation
Unsure etiology, could be due to sedation and low respiratory drive
Will check nighttime pulse ox
Unable to obtain CTA or V/Q study due to patient body habitus
#Psychiatric disorders
Multiple psychiatric disorders, from previous notes OCD, PTSD, borderline personality sorter, anxiety/depression
Also history of swallowing objects
Patient started on one-to-one for swallowing history
Continue home psychiatric meds
#Fungal infection
Area and patient skin folds are red, possibly infected with fungus
Continue miconazole topical twice daily
#Chronic lymphedema
Continue home Lasix, continue home acetazolamide
Daily I's and O's, daily weights
#Asthma/COPD
Continue home asthma medications
#Morbid obesity
BMI 80
Due to calorie excess
#Stage II right upper thigh pressure injury
Unable term etiology
Management per wound care, wound care consult
#Hypothyroidism
Continue home levothyroxine
DVT prophylaxis: Lovenox 40
Diet: Cholesterol-lowering
CODE STATUS full code
--- NOTE | 2024-06-03 18:21 | TRANSFER ---
Patient admitted into room 431 from ED, ambulated from stretcher to bed with assistance. Patient drowsy, oriented to self only. Knows she is in the hospital but cannot say which one. Patient speaking in 1-2 word sentences, then drifts off to sleep.
VSS on 5L NC. Neuro checks ordered, per resident MD, they are to be completed once daily. Skin assessment complete, awaiting medications to be verified by pharmacy. Medsitter in place for safety, pt with history of pica and SI.
[2024-06-03] MEDS: LOVENOX 40 MG SC (18:31)
[2024-06-03] MEDS: PULMICORT 0.25 MG INH (20:16)
[2024-06-03] MEDS: ADVAIR HFA 230/21 MCG INHALER 2 PUFF INH (20:16)
[2024-06-03] MEDS: DIAMOX SR SEQUELS PO ×2 (21:00→21:36)
[2024-06-03] MEDS: FEOSOL PO (21:35)
[2024-06-03] MEDS: CLOZARIL PO (21:36)
[2024-06-03] MEDS: SENOKOT-S PO (21:36)
--- NOTE | 2024-06-03 22:15 | PTCARENOTE ---
Pt lethargic and is not awake enough to safely take pills. Vitals stable. MARTHA Chavez notified.
[2024-06-04] MEDS: SYNTHROID 175 MCG PO (05:24)
[2024-06-04 05:40] LABS: Hematocrit 33.2 % (37.0-47.0); Hemoglobin 9.7 g/dL (12.0-16.0); Mean Corp Hgb Conc. 29.2 g/dL (33.0-37.0); Mean Corpuscular Hgb 23.3 pg (27.0-31.0); Mean Corpuscular Volume 79.6 fL (81.0-99.0); Mean Platelet Volume 8.5 fL (7.4-10.4); Platelet Count 373 10^3/uL (130-400); Red Blood Cell Count 4.17 10^6/uL (4.20-5.40); Red Cell Dist. Width 17.4 % (11.5-14.5); White Blood Cell Count 9.2 10^3/uL (4.8-10.8)
[2024-06-04 06:00] VITALS: BMI 80.2
[2024-06-04 07:50] VITALS: BP 118/50
[2024-06-04] MEDS: ADVAIR HFA 230/21 MCG INHALER 2 PUFF INH ×2 (07:56→19:19)
[2024-06-04] MEDS: PULMICORT 0.25 MG INH ×2 (07:56→19:19)
[2024-06-04] MEDS: ELIMITE/ACTICIN/PERMETHRIN 5% 1 APPLIC TOPICAL (09:02)
[2024-06-04] MEDS: ANTIFUNGAL CLEAR 1 APPLIC TOPICAL ×2 (09:03→20:53)
[2024-06-04] MEDS: LASIX 40 MG PO (09:04)
[2024-06-04] MEDS: FEOSOL 325 MG PO ×2 (09:05→20:55)
[2024-06-04] MEDS: SUBUTEX 8 MG SL (09:06)
[2024-06-04] MEDS: PROZAC 40 MG PO (09:06)
[2024-06-04] MEDS: KCL 20 MEQ PO (09:06)
[2024-06-04] MEDS: SENOKOT-S 2 TABLET PO ×3 (09:07→21:00)
[2024-06-04] MEDS: DIAMOX SR SEQUELS 500 MG PO ×3 (09:07→21:00)
--- NOTE | 2024-06-04 09:38 | W.PN.HOSP.TC ---
Addendum entered and electronically signed by Gordon Joseph MD 06/04/24 22:34:
Attending Addendum-I saw and evaluated the patient. I reviewed the resident�s note and agree with findings and plan as documented in the resident�s note. Sub 'Im scared what's going on? i dont remember what happened. How did i get here?' Patient
feel mildly SOB but overall no specific complaints. Full 12 point ROS reviewed and negative except as documented Exam- vitals reviewed in EMR GEN-NAD heart RRR lungs clear no wheeze abd obese LE b/l Lymphedema Neuro AAO x 3
# Acute Hypoxemic/hypercarbic respiratory failure
- improved
- likely has underlying TINY
- weaned off bipap to NC
- repeat vbg-respiratory acidosis resolved
- start CPAP trial while in house
# CIMS
- resolving
- retrograde amnesia from benzos given at facility?
- head CT neg
- unable to get MRI due to size
- benzos pos in urine tox
- not prescribed reviewed PDMP
- avoid sedative meds in obese patient with undiagnosed TINY
# OUD-
- on suboxone
- would start taper now to continue as OP
# Chronic Lymphedema
- daily weights
- cont lasix
- c/w acetazolamide as prior to admission
- Is&Os and Daily Weights
- TTE- 06/01- WNL
- order LE pump at facility
# B/L venous stasis derm with lymphedema
- monitor
- wound care
- would benefit from LE pumps at facility
# Psychiatric disorder with HX swallowing objects
- no SI or HI
- wean clozaril per psych
- cont fluoxetine
- DC hydox prn
# Hypothyroidism
- cont levothyroxine
- check TSH
Chr ambulatory dysfunction
Morbid obesity due to excess calorie consumption
DVT Px: LMWH
Full code
Dispo- DC back to [facility] when able
Time spent coordinating care, review of plan of care with resident, personally reviewed previous records in EMR, med rec, labs, radiology, d/w nursing, resp therapy�- 59 mins
Original Note:
Today's Communication/Plan
-
Hold anticholinergic medications
Assessment / Plan
Assessment / Plan
IMPRESSION:
33-year-old female past medical history of multiple psychiatric disorders, asthma/COPD presents for change in mental status to [place] emergency department. She was extremely sleepy during interview, arousable to painful stimuli.
PLAN:
#Change in mental status
Unsure etiology, UDS was positive for benzodiazepines which she is not prescribed per PDMP
High CO2 on VBG, possible CO2 narcosis
On arrival initially on arousable only to painful stimuli
Couple hours later, patient was able to woken up, was shocked to learn she was in [place] emergency department and thought she was still at [facility]
This morning patient was very confused, responded to all questions and how she was doing with I do not know
Hold anticholinergic medications
# Acute hypoxemic/hypercarbic respiratory failure
VBG checked, demonstrated respiratory acidosis without metabolic compensation
Unsure etiology, could be due to sedation and low respiratory drive
Nighttime pulse ox demonstrated no desaturation events
Unable to obtain CTA or V/Q study due to patient body habitus
recheck vbg
consider BiPAP to decrease CO2
#Psychiatric disorders
Multiple psychiatric disorders, from previous notes OCD, PTSD, borderline personality sorter, anxiety/depression
Also history of swallowing objects
Patient started on one-to-one for swallowing history
Continue home psychiatric meds
#Fungal infection
Area and patient skin folds are red, possibly infected with fungus
Continue miconazole topical twice daily
#Opioid use disorder
On Suboxone
#Possible scabies
Permethrin cream one-time application
#Chronic lymphedema
Continue home Lasix, continue home acetazolamide
Daily I's and O's, daily weights
#Asthma/COPD
Continue home asthma medications
#Morbid obesity
BMI 80
Due to calorie excess
#Stage II right upper thigh pressure injury
Unable term etiology
Management per wound care, wound care consult
#Hypothyroidism
Continue home levothyroxine
DVT prophylaxis: Lovenox 40
Diet: Cholesterol-lowering
CODE STATUS full code
Anticipated Discharge: 24 - 48 hours
Subjective/Interval History
-
Date of Service: June 04, 2024
Patient still confused, altered from baseline
Objective Data
-
Labs:
Laboratory Results
06/04/24
05:26
WBC 9.2
Hgb 9.7 L
Hct 33.2 L
Plt Count 373
Vital Signs:
Vital Signs
Temp Pulse Resp BP Pulse Ox
97.8 F 91 18 118/50 97
06/04/24 07:50 06/04/24 09:04 06/04/24 07:58 06/04/24 09:04 06/04/24 07:58
I&O
06/03/24 06/04/24 06/05/24
06:59 06:59 06:59
Intake Total 480 / 480
Balance 480 / 480
Review of Systems
-
Unable to obtain full review of systems at this time due to: Other (Patient confused, responds to questions with I do not know)
Physical Exam
-
General: Morbidly Obese
Respiratory: Clear to Auscultation
Cardiac: Regular Rhythm and S1/S2
GI: Soft, Nontender and Nondistended
Skin: Warm, Dry and Other (Lesions present on bilateral lower extremities and pannus in distribution of what patient can reach)
Neuro: Awake and Sedated; Negative Alert, Oriented or AO x 3
Psych: Calm; Negative Intact Judgement/Insight
Data Reviewed
-
Labs: Labs Reviewed by me and Discussed with Physician
[2024-06-04 09:59] LABS: TSH 1.19 uIU/ml (0.47-4.68)
--- NOTE | 2024-06-04 10:44 | WOUNDNOTE ---
BELÉN RN note: Patient admitted with Asthma exacerbation, recent admission from 05/31-06/02
See H&P for complete history. Patient resides at [facility]
PMH: Asthma, HTN, bipolar, morbid obesity, major depression, PTSD, yeast rash in skin folds, PI R posterior thigh.
Wound Location and type/assessment: Patient known to service last seen 06/01/24. Same MASD/ fungal rash in skin folds, red and painful. Fungal powder already on order. PI's on posterior R thigh stable since last assessment, Sacrum is intact.
Scratch osorio also on abdomen and legs. Scattered pustules on legs with scabbed dry irregular lines, suspect Scabies. Patient treated for possible scabies this admission. Patient able to stand from recliner chair on own, using bariatric air chair
cushion.
Appetite: Good, encouraged to eat protein in diet.
Pressure redistribution devices in place: Bariatric bed, using recliner chair with legs elevated.
Plan: Local wound care per hospitalist. Pressure ulcer prevention measures reviewed with patient and nutrition for wound healing. Confirmed local wound care orders with hospitalist. RN Will updated. Will follow as needed. Patient to go back to
[facility] upon discharge, possibly today.
[2024-06-04] MEDS: DUONEB 3 ML INH ×2 (11:03→19:19)
[2024-06-04 12:35] VITALS: BP 113/64; PULSE 109; O2SAT 95
[2024-06-04 15:10] VITALS: BP 146/93
--- NOTE | 2024-06-04 16:04 | CM ---
advertising campaign manager reviewed patient's chart and patient is a readmit from [facility], patient is independent with adl's and uses a walker with ambulation, patient will need transfer arranged by [facility]'s own transport team.
Claudia Carrion [phone] recycle coordinator at [facility].
[facility]
Report [phone]
[2024-06-04] MEDS: LOVENOX 40 MG SC (16:49)
[2024-06-04 17:11] LABS: Blood Urea Nitrogen 21 mg/dl (7-17); Calcium 8.4 mg/dl (8.4-10.2); Carbon Dioxide 24 mmol/L (22-30); Chloride 106 mmol/L (98-107); Estimated Creatinine Clearance > 125 ml/min; Glucose 123 mg/dl (70-99); Sodium 142 mmol/L (135-145); eGFR > 60.00
[2024-06-04 18:58] LABS: Venous Blood Gas O2 Sat % 98.7 %; Venous Blood Gas pCO2 38 mmHg (35-48); Venous Blood Gas pH 7.46 (7.32-7.43); Venous Blood Gas pO2 249 mmHg (30-50)
[2024-06-04] MEDS: CLOZARIL 75 MG PO (20:59)
[2024-06-04 21:34] VITALS: PULSE 87
[2024-06-04 23:00] VITALS: BP 112/64
[2024-06-05] MEDS: SYNTHROID 175 MCG PO (06:05)
[2024-06-05 07:00] VITALS: BP 107/70
[2024-06-05 07:35] LABS: Hematocrit 28.6 % (37.0-47.0); Hemoglobin 8.7 g/dL (12.0-16.0); Mean Corp Hgb Conc. 30.4 g/dL (33.0-37.0); Mean Corpuscular Hgb 23.2 pg (27.0-31.0); Mean Corpuscular Volume 76.3 fL (81.0-99.0); Platelet Count 271 10^3/uL (130-400); Red Blood Cell Count 3.75 10^6/uL (4.20-5.40); Red Cell Dist. Width 17.5 % (11.5-14.5); White Blood Cell Count 5.4 10^3/uL (4.8-10.8)
[2024-06-05 07:49] LABS: Blood Urea Nitrogen 24 mg/dl (7-17); Calcium 8.6 mg/dl (8.4-10.2); Carbon Dioxide 25 mmol/L (22-30); Chloride 107 mmol/L (98-107); Estimated Creatinine Clearance > 125 ml/min; Glucose 92 mg/dl (70-99); Potassium 3.7 mmol/L (3.5-5.1); Sodium 144 mmol/L (135-145); eGFR > 60.00
[2024-06-05] MEDS: ADVAIR HFA 230/21 MCG INHALER 2 PUFF INH ×2 (08:27→19:22)
[2024-06-05] MEDS: PULMICORT 0.25 MG INH ×2 (08:28→19:22)
--- NOTE | 2024-06-05 09:23 | W.PN.HOSP.TC ---
Today's Communication/Plan
-
Consider DC back to [facility]
Assessment / Plan
Assessment / Plan
IMPRESSION:
33-year-old female past medical history of multiple psychiatric disorders, asthma/COPD presents for change in mental status to [place] emergency department. She was extremely sleepy during interview, arousable to painful stimuli.
PLAN:
#Change in mental status
#Retrograde amnesia
Unsure etiology, UDS was positive for benzodiazepines which she is not prescribed per PDMP
On arrival initially on arousable only to painful stimuli
Couple hours later, patient was able to be woken up, was shocked to learn she was in [place] emergency department and thought she was still at [facility]
This morning patient was still confused, responded to all questions and how she was doing with I do not know. She does not remember what happened to her at [facility] or her previous admission
This is different than how she was on her previous admission, she was doing schoolwork and crocheting now she states not knowing the year or where she is currently
Hold anticholinergic medications
# Acute hypoxemic/hypercarbic respiratory failure
Resolved
VBG on admission, demonstrated respiratory acidosis without metabolic compensation
Unsure etiology, could be due to sedation and low respiratory drive
Nighttime pulse ox demonstrated no desaturation events
Unable to obtain CTA or V/Q study due to patient body habitus
Recheck VBG demonstrated normal pCO2
Received CPAP overnight
#Psychiatric disorders
Multiple psychiatric disorders, from previous notes OCD, PTSD, borderline personality disorder, anxiety/depression
Also history of swallowing objects
Patient on med sitter
Continue home psychiatric meds
#Fungal infection
Area and patient skin folds are red, possibly infected with fungus
Continue miconazole topical twice daily
#Opioid use disorder
On Suboxone
#Possible scabies
Wound care nurse believes possible scabies infection
Status post permethrin cream one-time application
#Chronic lymphedema
Continue home Lasix, continue home acetazolamide
Daily I's and O's, daily weights
#Asthma/COPD
Continue home asthma medications
#Morbid obesity
BMI 80
Due to calorie excess
#Stage II right upper thigh pressure injury
Unable to determine etiology
Wound care consult
Management per wound care
#Hypothyroidism
Continue home levothyroxine
DVT prophylaxis: Lovenox 40
Diet: Cholesterol-lowering
CODE STATUS full code
Anticipated Discharge: Within 24 hours
Subjective/Interval History
-
Date of Service: June 05, 2024
Patient still unsure where she is this morning, still responding with I do not know
Does not remember what happened to her and does not remember her previous admission
Per nursing patient ripped out her midline overnight
Did well with CPAP overnight
Objective Data
-
Labs:
Laboratory Results
06/05/24
07:17
WBC 5.4
Hgb 8.7 L
Hct 28.6 L
Plt Count 271 D
Sodium 144
Potassium 3.7
Chloride 107
Carbon Dioxide 25
BUN 24 H
Creatinine 0.7
Glucose 92
Calcium 8.6
Vital Signs:
Vital Signs
Temp Pulse Resp BP Pulse Ox
97.5 F 92 18 112/64 95
06/04/24 23:00 06/05/24 08:32 06/05/24 08:32 06/04/24 23:00 06/05/24 08:32
I&O
06/04/24 06/05/24 06/06/24
06:59 06:59 05:59
Intake Total 480 / 480 720 / 720
Balance 480 / 480 720 / 720
Review of Systems
-
History Source: Patient
Constitutional: Reports No Symptoms
Respiratory: Reports No Symptoms
Cardiac: Reports No Symptoms
Skin: Reports Itching and Sores
Physical Exam
-
General: Morbidly Obese
Respiratory: Clear to Auscultation
Cardiac: Regular Rhythm and S1/S2
GI: Soft, Nontender and Nondistended
Musculoskeletal: No Edema
Skin: Warm, Dry and Lesions (Lesions present on bilateral lower extremities and pannus, and distribution of where patient can reach)
Neuro: Awake; Negative Alert, Oriented or AO x 3
Psych: Confused
Data Reviewed
-
Labs: Labs Reviewed by me and Discussed with Physician
[2024-06-05] MEDS: DIAMOX SR SEQUELS 500 MG PO ×2 (09:59→16:30)
[2024-06-05] MEDS: KCL 20 MEQ PO (09:59)
[2024-06-05] MEDS: FEOSOL 325 MG PO ×2 (10:00→21:11)
[2024-06-05] MEDS: LASIX 40 MG PO (10:00)
[2024-06-05] MEDS: ANTIFUNGAL CLEAR 1 APPLIC TOPICAL ×2 (10:01→21:30)
[2024-06-05] MEDS: SENOKOT-S 2 TABLET PO ×3 (10:03→21:10)
[2024-06-05] MEDS: PROZAC 40 MG PO (10:03)
[2024-06-05] MEDS: SUBUTEX 8 MG SL (10:04)
[2024-06-05 11:22] VITALS: BP 98/76
--- NOTE | 2024-06-05 12:04 | CM ---
Addendum entered by Татьяна Castro 06/05/24 14:13:
Patient is morbidly obese. [facility] cannot accommodate WC transport
Acute Care reported to online community manager that they will have a team available tomorrow to transport patient via Ambulance back to [facility] tomorrow afternoon between 2 and 2:30 PM
Addendum entered by Татьяна Castro 06/05/24 13:48:
Patient discussed with ED Labor Relations Manager; due to patient's chronic borderline personality disorder, Schizoaffective Disorder and Bipolar disorder, decision was made to transport back to [facility] via [facility] and not [facility].
Addendum entered by Татьяна Castro 06/05/24 13:36:
Will transport back to [facility] via [facility]
Addendum entered by Татьяна Castro 06/05/24 12:06:
[facility]
Report # [phone]

Original Note:
Plan: stable for discharge and return to [facility] facility
Referral sent via [facility]; left a VM for Claudia in Admission @ [phone]
[2024-06-05 12:12] LABS: Glucose - Point of Care 99 mg/dl (70-99)
--- NOTE | 2024-06-05 13:02 | W.DCSUMMARY ---
Documented by User: Lon Solomon DO, Resident 06/05/24 13:30
Discharge Summary
Discharge Data
Date of Admission: 06/04/24
Date of Discharge: 06/05/24
-
Pending Results: No
Hospital Course
Discharging Physician : Luis Carlos Solomon
Disposition : [facility]
Primary care physician : Dr. Shivam Turk
Principal Discharge diagnosis : Acute change in mental status
Chronic Discharge diagnosis : Retrograde amnesia, acute hypoxemic/hypercarbic respiratory failure, obsessive-compulsive disorder, posttraumatic stress disorder, borderline personality disorder, anxiety, depression, fungal infection, opioid use
disorder, possible scabies, chronic lymphedema, asthma, chronic obstructive pulmonary disorder, morbid obesity, stage II pressure injury, hypothyroidism
Hospital Course : 33-year-old female past medical severe multiple psychiatric disorders, opioid dependence, asthma/COPD, chronic lymphedema and severe morbid obesity presents from [facility] for acute change in mental status. Per EMS she was
sitting in a shower chair, she walked onto the stretcher and was having intermittent periods of decreased consciousness. On arrival to the ED she was arousable and hypoxic per EMS. In the ED she was extremely drowsy and arousable only to painful
stimuli. She was started on BiPAP in the ED and admitted for observation. Her urine drug screen was positive for benzodiazepines, she is not prescribed then per PDMP. Her acute change in mental status was never elicited, we believe it is very
likely due to intoxication from medication she received while at [facility]. On presentation to ED patient had extremely high carbon dioxide on VBG. Were unable to obtain CTA or V/Q study due to patient body habitus. Patient was initiated on CPAP
at night, nighttime pulse ox demonstrated no nighttime desaturation events. Patient's carbon dioxide returned to normal limits after CPAP. During her stay anticholinergic medications were held, all other home medications were continued. During
her stay patient became more awake and aware of where she was, however she expressed retrograde amnesia, did not remember what happened and she did not remember her recent hospital stay the day before. On day of discharge she was endorsing
retrograde amnesia, etiology was never elicited however we believe it is psychiatric in nature as from medical standpoint she is stable and all abnormalities had resolved. Patient will be discharged back to [facility] senior living facility and
will follow-up with her primary care physician in 1 week of discharge as well as pulmonology for formal sleep study and CPAP titration. We also recommend she follows up with psychiatry for management of her chronic psychiatric illnesses. Patient
will be discharged to [facility] with prescription for miconazole cream to be applied to red skin folds.
Important imaging findings :
06/03/2024 chest x-ray, impression:
Limited examination, as described. No radiographically demonstrable pneumonia. Mild generalized prominence of bronchovascular markings which may be related to technical factors. However, it would be difficult to exclude the possibility of mild
vascular congestion.
06/03/[address] without IV contrast, impression:
Limited examination, as described. Limited assessment, especially in the posterior fossa. Otherwise, the supratentorial assessment is unremarkable.
Procedure findings : No procedures
Discharge Plan
-
Patient Disposition: [facility]pc/SNF
Discharge Diagnosis/Procedures: Acute change in mental status
Condition: Good
Diet: Low Fat
Activity: As tolerated
Driving Restrictions: No driving
Bathing Restrictions: None
Activity Restrictions/Additional Instructions:
Please follow up with your primary care physician within one week of discharge
Please follow-up with psychiatry in 2 to 4 weeks of discharge
Please follow-up with pulmonology in 2 to 4 weeks for formal sleep study and consideration of CPAP
Referrals:
Facundo Cortez MD [Active] - in two to three weeks
Shivam Turk DO [Family Provider] - in less than 1 week
Libra Rainey MD [Active] - in two to four weeks
Additional Discharge Medication Instructions: please apply miconazole cream to skin folds daily
Please continue using CPAP machine at night
Prescriptions:
New
Critic-Aid Clear AF(miconazol) 2 % Ointment
1 applic topical BID Qty: 684 0RF
Continued
levothyroxine [Synthroid] 175 mcg Tablet
175 mcg PO DAILY@06
acetaminophen [Tylenol] 325 mg Tablet
650 mg PO Q6HPRN MDD 3000 mg PRN (Reason: temp>100.4/mild pain)
acetazolamide 500 mg Capsule, Extended Release
500 mg PO TID
therapeutic multivitamin Tablet
1 tab PO DAILY
magnesium hydroxide [Milk of Magnesia] 400 mg/5 mL Suspension
2,400 mg PO [id number] PRN (Reason: if no bm in 3 days)
ferrous sulfate 325 mg (65 mg iron) Tablet
325 mg PO BID
fluticasone propion-salmeterol [Advair Diskus] 500-50 mcg/dose Blister With Device
1 inh INHALATION R BID
atropine 1 % Drops
1 drp PO Q8HPRN PRN (Reason: drooling) Qty: 0
Senna Plus 8.6-50 mg Capsule
2 tab-cap PO TID
lidocaine 4 % Adhesive Patch,Medicated
1 patch TOPICAL DAILY
albuterol sulfate 90 mcg/actuation Hfa Aerosol Inhaler
2 inh INHALATION R Q6HPRN PRN (Reason: sob/wheezing)
potassium chloride 20 mEq Tablet Extended Release
20 meq PO DAILY
Nurtec ODT 75 mg Tablet,Disintegrating
75 mg PO [id number] PRN (Reason: migraine pain)
nitroglycerin 0.4 mg Tablet, Sublingual
0.4 mg SUBLINGUAL [id number] PRN (Reason: chest pain)
zinc oxide 10 % Cream
1 applic TOPICAL TID
fluoxetine 40 mg Capsule
40 mg PO DAILY
hydroxyzine HCl 50 mg Tablet
50 mg PO TIDPRN PRN (Reason: itching)
buprenorphine-naloxone [Suboxone] 8-2 mg Film
1 film BUCCAL DAILY
furosemide [Lasix] 40 mg tablet
40 mg PO DAILY Qty: 30 0RF
bisacodyl [Dulcolax (bisacodyl)] 10 mg Suppository
10 mg VA DAILYPRN PRN (Reason: if no bm aftr mom)
Fleet Enema 19-7 gram/118 mL Enema
118 ml VA DAILYPRN PRN (Reason: if no bm aftr dulcolax)
clozapine [Clozaril] 25 mg tablet
75 mg PO HS
Discharge Orders:
Discharge Patient (As Directed); Ordered 06/05/24
Ordered By: Lon Solomon
Discharge Date and Time
Print Language: TRINIDADIAN

Documented by User: Venkat Aldridge DO 06/05/24 13:32
Discharge Summary
Discharge Data
Date of Admission: 06/04/24
Date of Discharge: 06/05/24
Discharge Plan
-
Patient Disposition: [facility]/SNF
Discharge Diagnosis/Procedures: Acute change in mental status
Condition: Good
Diet: Low Fat
Activity: As tolerated
Driving Restrictions: No driving
Bathing Restrictions: None
Activity Restrictions/Additional Instructions:
Please follow up with your primary care physician within one week of discharge
Please follow-up with psychiatry in 2 to 4 weeks of discharge
Please follow-up with pulmonology in 2 to 4 weeks for formal sleep study and consideration of CPAP
Referrals:
Facundo Cortez MD [Active] - in two to three weeks
Shivam Turk DO [Family Provider] - in less than 1 week
Libra Rainey MD [Active] - in two to four weeks
Additional Discharge Medication Instructions: please apply miconazole cream to skin folds daily
Please continue using CPAP machine at night
Prescriptions:
New
Critic-Aid Clear AF(miconazol) 2 % Ointment
1 applic topical BID Qty: 684 0RF
Continued
levothyroxine [Synthroid] 175 mcg Tablet
175 mcg PO DAILY@06
acetaminophen [Tylenol] 325 mg Tablet
650 mg PO Q6HPRN MDD 3000 mg PRN (Reason: temp>100.4/mild pain)
acetazolamide 500 mg Capsule, Extended Release
500 mg PO TID
therapeutic multivitamin Tablet
1 tab PO DAILY
magnesium hydroxide [Milk of Magnesia] 400 mg/5 mL Suspension
2,400 mg PO [id number] PRN (Reason: if no bm in 3 days)
ferrous sulfate 325 mg (65 mg iron) Tablet
325 mg PO BID
fluticasone propion-salmeterol [Advair Diskus] 500-50 mcg/dose Blister With Device
1 inh INHALATION R BID
atropine 1 % Drops
1 drp PO Q8HPRN PRN (Reason: drooling) Qty: 0
Senna Plus 8.6-50 mg Capsule
2 tab-cap PO TID
lidocaine 4 % Adhesive Patch,Medicated
1 patch TOPICAL DAILY
albuterol sulfate 90 mcg/actuation Hfa Aerosol Inhaler
2 inh INHALATION R Q6HPRN PRN (Reason: sob/wheezing)
potassium chloride 20 mEq Tablet Extended Release
20 meq PO DAILY
Nurtec ODT 75 mg Tablet,Disintegrating
75 mg PO [id number] PRN (Reason: migraine pain)
nitroglycerin 0.4 mg Tablet, Sublingual
0.4 mg SUBLINGUAL [id number] PRN (Reason: chest pain)
zinc oxide 10 % Cream
1 applic TOPICAL TID
fluoxetine 40 mg Capsule
40 mg PO DAILY
hydroxyzine HCl 50 mg Tablet
50 mg PO TIDPRN PRN (Reason: itching)
buprenorphine-naloxone [Suboxone] 8-2 mg Film
1 film BUCCAL DAILY
furosemide [Lasix] 40 mg tablet
40 mg PO DAILY Qty: 30 0RF
bisacodyl [Dulcolax (bisacodyl)] 10 mg Suppository
10 mg VA DAILYPRN PRN (Reason: if no bm aftr mom)
Fleet Enema 19-7 gram/118 mL Enema
118 ml VA DAILYPRN PRN (Reason: if no bm aftr dulcolax)
clozapine [Clozaril] 25 mg tablet
75 mg PO HS
Discharge Orders:
Discharge Patient (As Directed); Ordered 06/05/24
Ordered By: Lon Solomon
Discharge Date and Time
Print Language: TRINIDADIAN
--- NOTE | 2024-06-05 13:48 | CM ---
CM was consulted to assist with transportation back to [facility]. CM reviewed medical records. [facility] is unable to transport patient. CM discussed Lyft ride back to [facility]. Patient has had multiple presentations to [facility] for
ingestion of foreign objects. Wheelchair Van is would be most appropriate for patient. This CM is familiar with this patient.
[2024-06-05 15:50] VITALS: BP 107/72
[2024-06-05] MEDS: LOVENOX 40 MG SC (16:30)
[2024-06-05] MEDS: DUONEB 3 ML INH (19:23)
[2024-06-05] MEDS: CLOZARIL 75 MG PO (21:11)
[2024-06-05] MEDS: DIAMOX SR SEQUELS PO (21:21)
[2024-06-05 23:49] VITALS: BP 123/81
[2024-06-06] MEDS: SYNTHROID 175 MCG PO (05:23)
[2024-06-06 06:00] VITALS: BMI 79.9
[2024-06-06 07:48] VITALS: BP 126/81
[2024-06-06] MEDS: ADVAIR HFA 230/21 MCG INHALER 2 PUFF INH (08:12)
[2024-06-06] MEDS: PULMICORT 0.25 MG INH (08:12)
[2024-06-06] MEDS: ANTIFUNGAL CLEAR 1 APPLIC TOPICAL (09:10)
[2024-06-06] MEDS: SENOKOT-S 2 TABLET PO (09:11)
[2024-06-06] MEDS: SUBUTEX 8 MG SL (09:11)
[2024-06-06] MEDS: DIAMOX SR SEQUELS 500 MG PO (09:11)
[2024-06-06] MEDS: FEOSOL 325 MG PO (09:11)
[2024-06-06] MEDS: LASIX 40 MG PO (09:11)
[2024-06-06] MEDS: PROZAC 40 MG PO (09:11)
[2024-06-06] MEDS: KCL 20 MEQ PO (09:12)
--- NOTE | 2024-06-06 09:39 | W.PN.HOSP.TC ---
Today's Communication/Plan
-
Discharged to [facility]
Assessment / Plan
Assessment / Plan
IMPRESSION:
33-year-old female past medical history of multiple psychiatric disorders, asthma/COPD presents for change in mental status to [facility] emergency department. She was extremely sleepy during interview, arousable to painful stimuli.
PLAN:
#Change in mental status
#Retrograde amnesia
Unsure etiology, UDS was positive for benzodiazepines which she is not prescribed per PDMP
On arrival initially on arousable only to painful stimuli
Couple hours later, patient was able to be woken up, was shocked to learn she was in [facility] emergency department and thought she was still at [facility]
Patient still endorsing retrograde amnesia about her previous admission and events that transpired while at [facility], endorses not even remembering yesterday
Unsure etiology, likely psychiatric in nature as she is stable from a medical standpoint
Patient endorses wanting to return to [facility]
Ambulance for transport to [facility] planned in the afternoon
Hold anticholinergic medications
# Acute hypoxemic/hypercarbic respiratory failure
Resolved
VBG on admission, demonstrated respiratory acidosis without metabolic compensation
Unsure etiology, could be due to sedation and low respiratory drive
Nighttime pulse ox demonstrated no desaturation events
Unable to obtain CTA or V/Q study due to patient body habitus
Recheck VBG demonstrated normal pCO2
Received CPAP overnight, does not use at her facility
Patient reports using CPAP and having been diagnosed with TINY previously, will have her follow-up with pulmonology outpatient for formal sleep study and CPAP initiation
#Psychiatric disorders
Multiple psychiatric disorders, from previous notes OCD, PTSD, borderline personality disorder, anxiety/depression
Also history of swallowing objects
Patient on med sitter
Continue home psychiatric meds
#Fungal infection
Area and patient skin folds are red, possibly infected with fungus
Continue miconazole topical twice daily
#Opioid use disorder
On Suboxone
#Possible scabies
Wound care nurse believes possible scabies infection
Status post permethrin cream one-time application
#Chronic lymphedema
Continue home Lasix, continue home acetazolamide
Daily I's and O's, daily weights
#Asthma/COPD
Continue home asthma medications
#Morbid obesity
BMI 80
Due to calorie excess
#Stage II right upper thigh pressure injury
Unable to determine etiology
Wound care consult
Management per wound care
#Hypothyroidism
Continue home levothyroxine
DVT prophylaxis: Lovenox 40
Diet: Cholesterol-lowering
CODE STATUS full code
Anticipated Discharge: Today
Subjective/Interval History
-
Date of Service: June 06, 2024
Unable to draw BMP today, per nursing
Objective Data
-
Labs:
Laboratory Results
06/06/24
06:00
Sodium Pending
Potassium Pending
Chloride Pending
Carbon Dioxide Pending
BUN Pending
Creatinine Pending
Glucose Pending
Calcium Pending
Vital Signs:
Vital Signs
Temp Pulse Resp BP Pulse Ox
98.3 F 92 16 126/81 95
06/06/24 07:48 06/06/24 08:15 06/06/24 08:15 06/06/24 07:48 06/06/24 08:15
I&O
06/05/24 06/06/24 06/07/24
07:59 06:59 06:59
Intake Total
Balance
Review of Systems
-
History Source: Patient
Constitutional: Reports No Symptoms
Respiratory: Reports No Symptoms
Cardiac: Reports No Symptoms
Abdomen/GI: Reports No Symptoms
Skin: Reports Itching and Sores
Physical Exam
-
General: Morbidly Obese
Respiratory: Clear to Auscultation
Cardiac: Regular Rhythm and S1/S2
GI: Soft, Nontender and Nondistended
Musculoskeletal: No Edema
Skin: Warm, Dry and Lesions
Neuro: Awake
Psych: Calm
--- NOTE | 2024-06-06 11:10 | CM ---
Addendum entered by Татьяна Castro 06/06/24 11:11:
[facility]
Report # [phone]

Original Note:
Ambulance excelsior picker confirmed for 1500 today
[facility]
[2024-06-06 14:36] VITALS: BP 144/86
== END 2024-06-06 16:00 | DRG 947 ==
LOC: 4 WEST ACU 22:29
PROVIDERS: Student in an Organized Health Care Education/Training Program; ADMITTING PHYSICIAN Family Medicine; ATTENDING PHYSICIAN Internal Medicine; EMERGENCY PHYSICIAN Emergency Medicine; FAMILY PHYSICIAN Internal Medicine
PROC: 5A09357 Assistance with Respiratory Ventilation, Less than 24 Consecutive Hours, Continuous Positive Airway Pressure (ICD-10-PCS; 2024-06-03)
DX: R41.82 Altered mental status, unspecified (principal); J96.01 Acute respiratory failure with hypoxia; J96.02 Acute respiratory failure with hypercapnia; Z68.45 Body mass index [BMI] 70 or greater, adult; F11.20 Opioid dependence, uncomplicated; E87.29 Other acidosis; T50.915A Adverse effect of multiple unspecified drugs, medicaments and biological substances, initial encounter; R41.2 Retrograde amnesia; G47.33 Obstructive sleep apnea (adult) (pediatric); G43.909 Migraine, unspecified, not intractable, without status migrainosus; I10 Essential (primary) hypertension; I87.8 Other specified disorders of veins; I89.0 Lymphedema, not elsewhere classified; J44.89 Other specified chronic obstructive pulmonary disease; K21.9 Gastro-esophageal reflux disease without esophagitis; L89.892 Pressure ulcer of other site, stage 2; E66.01 Morbid (severe) obesity due to excess calories; E11.9 Type 2 diabetes mellitus without complications; D64.9 Anemia, unspecified; E03.9 Hypothyroidism, unspecified; B86 Scabies; F42.9 Obsessive-compulsive disorder, unspecified; F43.10 Post-traumatic stress disorder, unspecified; F60.3 Borderline personality disorder; G40.909 Epilepsy, unspecified, not intractable, without status epilepticus; N31.9 Neuromuscular dysfunction of bladder, unspecified; F32.A Depression, unspecified; F40.240 Claustrophobia; Y92.129 Unspecified place in nursing home as the place of occurrence of the external cause; Z87.891 Personal history of nicotine dependence; Z79.890 Hormone replacement therapy; Z88.8 Allergy status to other drugs, medicaments and biological substances; Z79.899 Other long term (current) drug therapy; Z79.51 Long term (current) use of inhaled steroids; Z11.52 Encounter for screening for COVID-19
CPT/HCPCS: 51701; 70450; 71045; 80048; 80053; 80306; 80307; 81003; 82805; 82962; 83605; 84443; 85025; 85027; 87502; 87811; 94640; 94660; 94762; 96374; 97162; 97166; 99291